=== PATIENT | female | born 1965 | race Caucasian/White ===

== ENCOUNTER → 2017-10-22 09:36 | Outpatient (CLI) | payer BC, SELFPAY ==
--- NOTE | 2017-10-22 09:40 | MM_ITS ---
MM Dig screening mamm BI w/CAD CAD Screening COMPARISON: Digital mammograms with CAD 10/18/2016 and 09/19/2015 INDICATION: There is a history of breast cancer in the patient maternal aunt and paternal aunt. TECHNIQUE: Standard CC and MLO images were obtained. R2 CAD reviewed. FINDINGS: The breasts are composed primarily of fat with minimal scattered fiber glandular densities throughout. There is no suspicious lesion and no suspicious microcalcifications. IMPRESSION: Fatty type breast parenchyma no suspicious lesion seen BI-RADS Category: 2 Benign Finding(s) RECOMMENDED FOLLOW-UP: 1YR - 1 YEAR FOLLOW-UP (A letter has been sent to the patient regarding results of the study.)
== END ==
PROVIDERS: Family Provider Nurse Practitioner Family; PCP Internal Medicine Adolescent Medicine; Visit Provider Nurse Practitioner Obstetrics & Gynecology
DX: Z12.31 Encounter for screening mammogram for malignant neoplasm of breast (principal)
CPT/HCPCS: 77067

== ENCOUNTER → 2018-10-13 09:34 | Outpatient (CLI) | payer BC, SELFPAY ==
--- NOTE | 2018-10-13 09:38 | MM_ITS ---
MM Dig screening mamm BI w/CAD CAD Screening COMPARISON: Digital mammograms with CAD 10/22/2017 and 10/18/2016 INDICATION: There is a history of breast cancer patient maternal aunt and paternal aunt TECHNIQUE: Standard CC and MLO images were obtained. R2 CAD reviewed. FINDINGS: The breasts are composed primarily of fat with minimal scattered fibro glandular densities in each breast. There is no suspicious lesion in either breast and no suspicious microcalcifications. There is a mole marker right breast. There is a stable tiny benign-appearing nodular density axillary tail left breast. IMPRESSION: Fibrofatty parenchyma no suspicious lesion seen BI-RADS Category: 2 Benign Finding(s) RECOMMENDED FOLLOW-UP: 1YR - 1 YEAR FOLLOW-UP (A letter has been sent to the patient regarding results of the study.)
== END ==
PROVIDERS: PCP Internal Medicine Adolescent Medicine; Visit Provider Nurse Practitioner Obstetrics & Gynecology
DX: Z12.31 Encounter for screening mammogram for malignant neoplasm of breast (principal)
CPT/HCPCS: 77067

== ENCOUNTER → 2018-10-15 08:05 | Outpatient (CLI) | payer BC, SELFPAY ==
[2018-10-15 14:02] LABS: Albumin Level 3.7 gm/dL (3.4-5.0); Aspartate Amino Transferase 15 U/L (15-37); Blood Urea Nitrogen 13 mg/dL (7-18); Calcium 9.1 mg/dL (8.5-10.1); Glucose 117 mg/dL (74-106)
[2018-10-15 14:13] LABS: Basophils % 0.6 % (0.1-2.0); Eosinophils # 0.3 K/mm3 (0.0-0.4); Eosinophils % 4.3 % (0.1-12.0); Hemoglobin 12.2 g/dL (12.2-16.2); Lymphocytes # 1.7 K/mm3 (0.7-4.5); Lymphocytes % 24.3 % (10-50); Mean Corpuscular HGB Conc 32.1 g/dL (31.8-35.4); Mean Corpuscular Hemoglobin 26.6 pg (27.0-31.2); Mean Corpuscular Volume 82.8 fl (81-99); Mean Platelet Volume 8.4 fl (7.4-10.4); Monocytes # 0.3 K/mm3 (0.1-1.0); Monocytes % 4.2 % (1.7-9.3); Neutrophils # 4.6 K/mm3 (1.8-7.8); Neutrophils % 66.5 % (37.0-80.0); Platelet Count 253 K/mm3 (142-424); Red Blood Count 4.59 M/mm3 (4.20-5.40); Red Cell Distribution Width 12.7 % (11.5-17.5); White Blood Count 6.9 K/mm3 (4.8-10.8)
[2018-10-15 14:31] LABS: Alanine Aminotransferase 34 U/L (12-78); Albumin/Globulin Ratio 1.4 (1.1-1.8); Alkaline Phosphatase 93 U/L (46-116); Anion Gap 18.2 mEq/L (5-15); Bilirubin,Total 0.4 mg/dL (0.2-1.0); Carbon Dioxide 23 mmol/L (21.0-32.0); Chloride 108 mmol/L (98-107); Chol/HDL Ratio 3.4 (1-3.5); Cholesterol 159 mg/dL (140-200); Creatinine,Serum 0.71 mg/dL (0.55-1.02); Estimated Glomerular Filt Rate 86 ml/min (>60); GFR (African American) 104 ML/MIN (>60); Globulin 2.6 gm/dl (1.3-3.2); HDL Cholesterol 47 mg/dL (29-89); LDL Cholesterol 99 mg/dL (0-130); Potassium 4.2 mmoL/L (3.5-5.1); Sodium 145 mmol/L (136-145); Total Protein,Serum 6.3 gm/dL (6.4-8.2); Triglycerides 66 mg/dL (30-200); VLDL Cholesterol 13 mg/dL (0-40)
== END ==
PROVIDERS: PCP Internal Medicine Adolescent Medicine; Visit Provider Nurse Practitioner Obstetrics & Gynecology
DX: Z01.419 Encounter for gynecological examination (general) (routine) without abnormal findings (principal)
CPT/HCPCS: 36415; 80053; 80061; 85025

== ENCOUNTER → 2019-08-03 14:10 | Outpatient (CLI) | payer BC, SELFPAY ==
--- NOTE | 2019-08-03 | XR_ITS ---
PROCEDURE: XR CHEST 2V CLINICAL HISTORY: PRE-OP. Previous smoker COMPARISON: [facility] ARTERIAL/[id number] from 11/30/2015 FINDINGS: The cardiomediastinal silhouette and pulmonary vascularity are within normal limits. The lungs are clear without infiltrates, suspicious nodules, or pleural effusions. Calcified granuloma is noted in the anterior clear space. No acute bony anomalies. IMPRESSION: No acute findings. Dictated by: Cal Sage MD 08/03/2019 17:37 Electronically signed by Cal Sage MD in [place] 08/03/2019 17:37
== END ==
PROVIDERS: PCP Internal Medicine Adolescent Medicine; Visit Provider Internal Medicine Adolescent Medicine
DX: Z01.818 Encounter for other preprocedural examination (principal)
CPT/HCPCS: 71046

== ENCOUNTER 2019-10-21 10:00 | Outpatient (RCR) | payer BC, SELFPAY | END 2019-11-18 10:58 | disposition home or self-care (01) | LOC: PT.CARL 10:00 | PROVIDERS: Visit Provider Orthopaedic Surgery | DX: M25.551 Pain in right hip (principal); Z96.641 Presence of right artificial hip joint | CPT/HCPCS: 97110; 97140; 97163 ==

== ENCOUNTER → 2019-11-02 13:19 | Outpatient (CLI) | payer BC, SELFPAY ==
--- NOTE | 2019-11-02 13:19 | MM_ITS ---
PROCEDURE: MM DIG SCREENING MAMM BI W/CAD DIGITAL BREAST TOMOSYNTHESIS INCLUDED Patient Age:54Y CLINICAL INDICATION: Routine screening xm-year-old no hormones but no new complaints. Family history: Maternal and paternal aunts with breast cancer COMPARISON: [facility] DIG MAMM-SCREEN LUCY from 09/14/2014 [facility] DIG MAMM-SCREEN LUCY from 09/19/2015 [facility] DIG MAMM-SCREEN LUCY W/CAD from 10/18/2016 [facility] MM Dig screening mamm BI w/CAD from 10/22/2017 DIG MAMM-SCREEN LUCY from 10/13/2018 TECHNIQUE: Standard CC and MLO images were obtained. R2 CAD reviewed. Bilateral digital breast tomosynthesis included. FINDINGS: Minimal residual fibroglandular minutes with relatively low-density breast. Moderate generalized fatty replacement or the no dominant mass or suspicious calcifications in either breast. No architectural distortion. Right breast no new areas of concern Small focal density central breast on CC view has been present since study and dissipates on other views/and tomosynthesis Left breast: No areas of concern but Bilateral follow-up 1 year. 1 year recommended. IMPRESSION: Stable bilateral mammogram. Follow-up stable bilateral mammogram BI-RAD Category: 1 Negative FOLLOW-UP: (A letter has been sent to the patient regarding results of the study.) Dictated by: Nickolas De León MD 11/02/2019 15:00 Electronically signed by Nickolas De León MD in [place] 11/02/2019 15:00
== END ==
PROVIDERS: PCP Internal Medicine Adolescent Medicine; Visit Provider Nurse Practitioner Obstetrics & Gynecology
DX: Z12.31 Encounter for screening mammogram for malignant neoplasm of breast (principal)
CPT/HCPCS: 77063; 77067

== ENCOUNTER → 2020-08-10 06:24 | Outpatient (CLI) | payer BC, SELFPAY ==
[2020-08-10 14:38] LABS: Alanine Aminotransferase 27 U/L (12-78); Albumin Level 4.1 g/dl (3.5-5.0); Albumin/Globulin Ratio 1.9 (1.1-1.8); Alkaline Phosphatase 89 U/L (38-126); Anion Gap 10.3 mEq/L (5-15); Aspartate Amino Transferase 22 U/L (14-36); Bilirubin,Total 0.5 mg/dl (0.2-1.3); Blood Urea Nitrogen 13 mg/dl (7-17); Calcium 9.3 mg/dl (8.4-10.2); Carbon Dioxide 26 mmol/L (22.0-30.0); Chloride 108 mmol/L (98-107); Chol/HDL Ratio 3.8 (1-3.5); Cholesterol 165 mg/dl (140-200); Estimated Glomerular Filt Rate 87 ml/min (>60); GFR (African American) 105 ML/MIN (>60); Globulin 2.2 g/dL (1.3-3.2); Glucose 138 mg/dl (74-100); HDL Cholesterol 43 mg/dl (40-60); Potassium 4.3 mmoL/L (3.5-5.1); Sodium 140 mmol/L (136-145); Total Protein,Serum 6.3 g/dl (6.3-8.2); Triglycerides 91 mg/dl (30-150); VLDL Cholesterol 18 mg/dL (0-40)
[2020-08-10 14:43] LABS: Basophils # 0.1 K/mm3 (0-0.2); Basophils % 0.7 % (0.1-2.0); Eosinophils # 0.3 K/mm3 (0.0-0.4); Eosinophils % 3.6 % (0.1-12.0); Hematocrit 38.8 % (37.0-47.0); Hemoglobin 12.6 g/dL (12.2-16.2); Lymphocytes # 1.8 K/mm3 (0.7-4.5); Mean Corpuscular HGB Conc 32.6 g/dL (31.8-35.4); Mean Corpuscular Hemoglobin 27.2 pg (27.0-31.2); Mean Corpuscular Volume 83.6 fl (81-99); Mean Platelet Volume 8.9 fl (7.4-10.4); Monocytes # 0.4 K/mm3 (0.1-1.0); Monocytes % 3.9 % (1.7-9.3); Neutrophils # 6.5 K/mm3 (1.8-7.8); Neutrophils % 71.9 % (37.0-80.0); Platelet Count 284 K/mm3 (142-424); Red Blood Count 4.64 M/mm3 (4.20-5.40); Red Cell Distribution Width 13.7 % (11.5-17.5)
[2020-08-10 14:49] LABS: Direct LDL Cholesterol 99.54 mg/dL (100-129)
[2020-08-10 14:56] LABS: 25-OH Vitamin D, Total 32.6 ng/mL (30-100)
[2020-08-10 15:09] LABS: Thyroid Stimulating Hormone 2.85 uIU/mL (0.465-4.68)
[2020-08-10 15:28] LABS: Vitamin B12 494 pg/mL (239-931)
== END ==
PROVIDERS: Visit Provider Nurse Practitioner Family
DX: R53.83 Other fatigue (principal); E66.9 Obesity, unspecified; Z68.38 Body mass index [BMI] 38.0-38.9, adult
CPT/HCPCS: 36415; 80053; 80061; 82306; 82607; 84443; 85025

== ENCOUNTER → 2020-10-11 07:42 | Outpatient (CLI) | payer BC, SELFPAY ==
--- NOTE | 2020-10-11 07:43 | MM_ITS ---
PROCEDURE: MM DIG SCREENING MAMM BI W/CAD Digital Breast Tomosynthesis Included CLINICAL INDICATION: screening xmg COMPARISON: MG [facility] MM Dig screening mamm BI w/CAD from 10/22/2017 MG DIG MAMM-SCREEN LUCY from 10/13/2018 MG MM DIG SCREENING MAMM BI W/CAD from 11/02/2019 TECHNIQUE: Standard CC and MLO images and 3D Tomosynthesis was obtained. R2 CAD reviewed. FINDINGS: Fatty replaced fibroglandular tissue. No malignant appearing mass or malignant-appearing microcalcification. No skin thickening or architectural distortion. IMPRESSION: BI-RAD Category: 1 Negative FOLLOW-UP: 1 YR 1 Year Follow-up (A letter has been sent to the patient regarding results of the study.) Dictated by: Cal Sage MD 10/11/2020 08:44 Cal Sage MD in [place] 10/11/2020 08:44
== END ==
PROVIDERS: PCP Internal Medicine Adolescent Medicine; Visit Provider Nurse Practitioner Obstetrics & Gynecology
DX: Z12.31 Encounter for screening mammogram for malignant neoplasm of breast (principal)
CPT/HCPCS: 77063; 77067

== ENCOUNTER → 2021-10-19 09:58 | Outpatient (CLI) | payer BC, SELFPAY ==
--- NOTE | 2021-10-19 09:58 | MM_ITS ---
PROCEDURE INFORMATION: Exam: MG Bilateral Screening 3D Mammography Exam date and time: 10/19/2021 9:55 AM Age: 56 years old Clinical indication: Screening examination TECHNIQUE: Imaging protocol: Bilateral Screening tomosynthesis and 2D mammography including computer-aided detection (CAD) when performed. COMPARISON: 1. MG MM DIG SCREENING MAMM BI W/CAD 10/11/2020 8:00 AM 2. MG MM DIG SCREENING MAMM BI W/CAD 11/02/2019 1:21 PM FINDINGS: MAMMOGRAPHY: Breast composition: The breasts are almost entirely fatty. Mass: None. Architectural distortion: None. Calcifications: No suspicious calcifications. Asymmetric density: None. Skin thickening: None. Axillary adenopathy: None. IMPRESSION: No mammographic evidence of malignancy. Annual screening is recommended unless otherwise clinically indicated. ASSESSMENT: BI-RADS Category 1: Negative
== END ==
PROVIDERS: PCP Internal Medicine Adolescent Medicine; Visit Provider Nurse Practitioner Obstetrics & Gynecology
DX: Z12.31 Encounter for screening mammogram for malignant neoplasm of breast (principal)
CPT/HCPCS: 77063; 77067

== ENCOUNTER → 2021-12-19 07:12 | Outpatient (CLI) | payer BC, SELFPAY ==
[2021-12-19 16:21] LABS: Basophils # 0.1 K/mm3 (0-0.2); Basophils % 0.8 % (0.1-2.0); Eosinophils # 0.4 K/mm3 (0.0-0.4); Eosinophils % 4.5 % (0.1-12.0); Hematocrit 37.7 % (37.0-47.0); Hemoglobin 11.8 g/dL (12.2-16.2); Lymphocytes # 1.5 K/mm3 (0.7-4.5); Mean Corpuscular HGB Conc 31.4 g/dL (31.8-35.4); Mean Corpuscular Hemoglobin 25.8 pg (27.0-31.2); Mean Corpuscular Volume 82.3 fl (81-99); Mean Platelet Volume 9.3 fl (7.4-10.4); Monocytes # 0.4 K/mm3 (0.1-1.0); Monocytes % 4.7 % (1.7-9.3); Neutrophils # 5.7 K/mm3 (1.8-7.8); Platelet Count 357 K/mm3 (142-424); Red Blood Count 4.58 M/mm3 (4.20-5.40); Red Cell Distribution Width 15.6 % (11.5-17.5)
[2021-12-19 16:34] LABS: Chloride 103 mmol/L (98-107)
[2021-12-19 16:35] LABS: Potassium 4.4 mmoL/L (3.5-5.1); Sodium 140 mmol/L (136-145)
[2021-12-19 16:37] LABS: Alanine Aminotransferase 22 U/L (12-78); Alkaline Phosphatase 133 U/L (38-126); Aspartate Amino Transferase 23 U/L (14-36); Blood Urea Nitrogen 8 mg/dl (7-17); Estimated Glomerular Filt Rate 86 ml/min (>60); GFR (African American) 104 ML/MIN (>60)
[2021-12-19 16:38] LABS: Albumin Level 3.8 g/dl (3.5-5.0); Albumin/Globulin Ratio 1.5 (1.1-1.8); Anion Gap 15.4 mEq/L (5-15); Calcium 8.9 mg/dl (8.4-10.2); Carbon Dioxide 26 mmol/L (22.0-30.0); Chol/HDL Ratio 3.9 (1-3.5); Cholesterol 151 mg/dl (140-200); Globulin 2.5 g/dL (1.3-3.2); Glucose 187 mg/dl (74-100); HDL Cholesterol 39 mg/dl (40-60); Total Protein,Serum 6.3 g/dl (6.3-8.2); Triglycerides 96 mg/dl (30-150); VLDL Cholesterol 19 mg/dL (0-40)
[2021-12-19 16:49] LABS: Bilirubin,Total < 0.1 mg/dl (0.2-1.3); Direct LDL Cholesterol 91.48 mg/dL (100-129)
== END ==
PROVIDERS: PCP Internal Medicine Adolescent Medicine; Visit Provider Nurse Practitioner Obstetrics & Gynecology
DX: Z01.419 Encounter for gynecological examination (general) (routine) without abnormal findings (principal)
CPT/HCPCS: 36415; 80053; 80061; 85025

== ENCOUNTER → 2021-12-21 15:44 | Outpatient (CLI) | payer BC, SELFPAY ==
[2021-12-21 16:49] LABS: Hemoglobin A1C 6.5 % (4.0-6.0)
== END ==
PROVIDERS: PCP Internal Medicine Adolescent Medicine; Visit Provider Obstetrics & Gynecology
DX: R73.09 Other abnormal glucose (principal)
CPT/HCPCS: 36415; 83036

== ENCOUNTER → 2022-10-22 10:56 | Outpatient (CLI) | payer BC, SELFPAY ==
--- NOTE | 2022-10-22 10:58 | MM_ITS ---
PROCEDURE INFORMATION: Exam: MG Bilateral Screening 3D Mammography Exam date and time: 10/22/2022 10:50 AM Age: 57 years old Clinical indication: Screening examination TECHNIQUE: Imaging protocol: Bilateral Screening tomosynthesis and 2D mammography including computer-aided detection (CAD) when performed. COMPARISON: 1. MG MM DIG SCREENING MAMM BI W/CAD 10/19/2021 9:55 AM 2. MG MM DIG SCREENING MAMM BI W/CAD 10/11/2020 8:00 AM FINDINGS: MAMMOGRAPHY: Breast composition: The breasts are almost entirely fatty. Mass: None. Architectural distortion: None. Calcifications: No suspicious calcifications. Asymmetric density: None. Skin thickening: None. Axillary adenopathy: None. IMPRESSION: No mammographic evidence of malignancy. Annual screening is recommended unless otherwise clinically indicated. ASSESSMENT: BI-RADS Category 1: Negative
== END ==
PROVIDERS: PCP Internal Medicine Adolescent Medicine; Visit Provider Nurse Practitioner Obstetrics & Gynecology
DX: Z12.31 Encounter for screening mammogram for malignant neoplasm of breast (principal)
CPT/HCPCS: 77063; 77067

== ENCOUNTER 2022-12-03 16:29 | Emergency (ER) | payer BC, SELFPAY ==
--- NOTE | 2022-12-03 17:01 | EXP.UTC ---
Discharge Plan Disposition Patient Disposition: Home, Self-Care Condition: Good Prescriptions Prescriptions: New ciprofloxacin HCl [Cipro] 500 mg tablet 500 mg PO BID 5 Days Qty: 10 0RF No Action omeprazole 40 mg capsule,delayed release(DR/EC) 40 mg PO Ozempic 0.25 mg or 0.5 mg (2 mg/3 mL) pen injector 0.5 mg SQ WEEKLY Referrals Follow up/Referrals: Jared Coronel MD [Primary Care Provider] - See instructions Activity Restrictions/Add. Instructions Additional Instructions/Restrictions: Drink plenty of fluids. Take tylenol or ibuprofen for pain or fever. Take the medications as directed. Follow up with your regular doctor. GO TO THE ER FOR ANY WORSENING SYMPTOMS We will culture the urine. That will tell what bacteria is causing your infection and which antibiotics will treat it best. Sometimes the first antibiotic we prescribe turns out to not work against different bacteria. So, make sure you follow up within 3 days if you are not getting better. Clinical Impressions Clinical Impression: UTI (urinary tract infection), Low back pain Stand Alone Forms Stand Alone Forms: Work/School Release Instructions Patient Instructions: Low Back Pain, Urine Culture, DI for Low Back Pain, DI for Urinary Tract Infection (UTI) Discharge ED Provider: Bronson Josehp [facility] General Stated complaint: back pain Time Seen by Provider: 12/03/22 17:01 History of Present Illness Provider Complaint: She states that for the past 2 days she has had low back pain, dysuria, and urinary frequency. Related Data Home Medications Medication Instructions Recorded Confirmed omeprazole 40 mg capsule,delayed 40 mg PO 10/19/21 10/22/22 release semaglutide 0.25 mg or 0.5 mg (2 0.5 mg SQ WEEKLY 10/22/22 10/22/22 mg/3 mL) subcutaneous pen injector (Ozempic) Previous Rx's Medication Instructions Recorded ciprofloxacin HCl 500 mg tablet 500 mg PO BID 5 days #10 tabs 12/03/22 (Cipro) Allergies Allergy/AdvReac Type Severity Reaction Status Date / Time Sulfa (Sulfonamide Allergy Intermediate SWELLING, Verified 12/03/22 17:09 Antibiotics) SHORT OF BREATH [facility] Disclaimer: The information contained in this section may have been updated after the patient was seen, as this information can be updated by other users. Medical History (Updated 12/03/22 @ 17:32 by Bronson Joseph APRN) Diabetes mellitus GERD (gastroesophageal reflux disease) Surgical History (Updated 10/22/22 @ 10:09 by FARHANA Loving) History of total hip replacement Family History Family/Other Cancer Breast-aunts Other Diabetes Social History Smoking Status: Former smoker alcohol intake: never substance use type: denies use current occupational status: employed Travel in the last 8 weeks: None caffeine: No ROS Obtained: Yes All systems reviewed & no additional complaints except as documented Constitutional Constitutional: Reports system reviewed and no additional complaints, except as documented, Denies chills and Denies fever(s) Eyes Eyes: Denies eye discharge ENT Ears, Nose, Mouth, and Throat: Denies dysphagia, Denies sore throat and Denies throat swelling Cardiovascular Cardiovascular: Denies chest pain and Denies dyspnea Respiratory Respiratory: Denies chest congestion, Denies cough and Denies dyspnea Gastrointestinal Gastrointestingal: Denies abdominal pain, constipation, diarrhea, dysphagia, nausea or vomiting Genitourinary Female Genitourinary: Reports as per HPI, Reports dysuria, Reports urinary frequency, Denies urinary incontinence, Reports urinary hesitancy and Reports urinary urgency Musculoskeletal Musculoskeletal: Denies arthralgias and Reports back pain Integumentary/Breasts Skin/Breast: Denies rash Neurologic Neurologic: Denies paresthesias
[2022-12-03 17:10] VITALS: BP 137/76; PULSE 84; RESP 16; TEMP 36.7; O2SAT 98; BMI 34.4
[2022-12-03 17:46] VITALS: BP 134/76; PULSE 84; RESP 16; TEMP 36.7
== END 2022-12-03 17:48 | disposition home or self-care (01) ==
PROVIDERS: Emergency Provider Nurse Practitioner Family; PCP Internal Medicine Adolescent Medicine
DX: N39.0 Urinary tract infection, site not specified (principal); M54.59 Other low back pain; E11.9 Type 2 diabetes mellitus without complications; K21.9 Gastro-esophageal reflux disease without esophagitis; Z79.85 Long-term (current) use of injectable non-insulin antidiabetic drugs; Z87.891 Personal history of nicotine dependence
CPT/HCPCS: 96372; 99204; 99212; G0463

== ENCOUNTER 2023-02-04 09:30 | Emergency (ER) | payer BC, SELFPAY ==
--- NOTE | 2023-02-04 09:34 | CT_ITS ---
FINAL REPORT TECHNIQUE: Thin section axial images were obtained through the neck and head after contrast administration per CT angiogram protocol. Multiplanar reconstruction images were obtained from the axial data. Exam was performed using dose reduction technique. CLINICAL HISTORY: L weakness/paraesthesia. stroke protocol COMPARISON: None FINDINGS: CTA NECK: Aortic arch: There is a normal three-vessel configuration to the aortic arch. There is no significant stenosis of the great vessels at their origins. Right carotid artery: The right common carotid artery is patent without stenosis. The cervical portions of the right internal carotid artery are patent without stenosis. Left carotid artery: The left common carotid artery is patent without stenosis. The cervical portions of the left internal carotid artery are patent without stenosis. Vertebral arteries: The vertebral arteries are patent without stenosis. Other soft tissues: No acute findings. CTA HEAD: The intracerebral portions of the carotid arteries are patent. The anterior and middle cerebral arteries are patent. The basilar artery is patent. The left vertebral artery is dominant. The posterior cerebral arteries arise from the basilar artery. [place] is intact. There is no significant stenosis, aneurysm, or AVM. Again seen is a right parietal mass. IMPRESSION: No carotid stenosis. Patent intracerebral vasculature without significant stenosis or occlusion. Right parietal intracranial mass. Reviewed, Interpreted and Dictated by Chikis Melendez MD Transcribed by Mini Renae Authenticated and [facility]
--- NOTE | 2023-02-04 09:34 | CT_ITS ---
FINAL REPORT TECHNIQUE: Thin section axial images were obtained from skull base to vertex without contrast. Coronal reconstruction images were obtained from the axial data. Exam was performed using dose reduction technique. CLINICAL HISTORY: L weakness, Stroke protocol COMPARISON: None FINDINGS: There is a hyperdense mass measuring 2 cm in the right parietal lobe. There is surrounding hypodensity most consistent with cerebral edema. No evidence of midline shift. However, there is mild mass effect upon the right lateral ventricle. No other intracranial abnormality. The posterior fossa is without acute abnormality. The basilar cisterns are preserved. The soft tissues are without acute abnormality. No acute osseous abnormality is identified. IMPRESSION: Hyperdense right parietal mass with surrounding cerebral edema. Favor hypoplastic. Hemorrhagic lesion not excluded. Reviewed, Interpreted and Dictated by Chikis Melendez MD Transcribed by Mini Renae Authenticated and [facility]
--- NOTE | 2023-02-04 09:34 | CT_ITS ---
FINAL REPORT CLINICAL HISTORY: L weakness/paraesthesia COMPARISON: None FINDINGS: Please see full report with CTA head/brain earlier same day IMPRESSION: No carotid stenosis. Reviewed, Interpreted and Dictated by Chikis Melendez MD Transcribed by Mini Renae Authenticated and [facility]
--- NOTE | 2023-02-04 09:35 | ECG_ITS ---
APPROVED REPORT Exam: Resting ECG HR:77 bpm ECG Measurements Heart Rate 77 AXES IL 155 P 59 QRSd 85 QRS 55 QT 365 T 63 QTc 397 Conclusion SINUS RHYTHM WITH SINUS ARRHYTHMIA LOW QRS VOLTAGE IN PRECORDIAL LEADS [QRS DEFLECTION < 1.0 mV IN CHEST LEADS] BORDERLINE ECG UNCONFIRMED REPORT Electronically signed by : Jared Coronel MD 02/04/2023 17:48:40
--- NOTE | 2023-02-04 09:36 | XR_ITS ---
FINAL REPORT TECHNIQUE: Single view chest CLINICAL HISTORY: sob COMPARISON: 08/03/2019 FINDINGS: A single view of the chest was obtained. The heart and mediastinum are within normal limits. The lungs are clear. There is no pneumothorax. Osseous structures are unremarkable. IMPRESSION: No acute cardiopulmonary process. Reviewed, Interpreted and Dictated by Chikis Melendez MD Transcribed by Maryan Foster Authenticated and [facility]
--- NOTE | 2023-02-04 09:36 | HMH.EDGENADL ---
Discharge Plan Disposition Patient Disposition: Xfer Short-Term Hosp Chief Complaint: Weakness Prescriptions Prescriptions: No Action omeprazole 40 mg capsule,delayed release(DR/EC) 40 mg PO Ozempic 0.25 mg or 0.5 mg (2 mg/3 mL) pen injector 0.5 mg SQ WEEKLY ciprofloxacin HCl [Cipro] 500 mg tablet 500 mg PO BID 5 Days Qty: 10 0RF Clinical Impressions Clinical Impression: Intracranial mass Stand Alone Forms Stand Alone Forms: Transfer Record - ED Discharge ED Provider: Shaun Troncoso General Adult HPI General Chief complaint: Weakness Stated complaint: weakness Time Seen by Provider: 02/04/23 09:30 History of Present Illness HPI narrative: Patient is a 57-year-old female with no past medical history who presents emergency department for evaluation of weakness. History is obtained by patient at bedside. Patient awoke on Saturday morning with left-sided weakness. Since then she states she has been veering towards the left and has had paresthesias of her hands and feet. This was preceded by upper respiratory symptoms and cough. No other acute complaints at this time. Patient is not on blood thinners. No trauma. Related Data Home Medications Medication Instructions Recorded Confirmed omeprazole 40 mg capsule,delayed 40 mg PO 10/19/21 10/22/22 release semaglutide 0.25 mg or 0.5 mg (2 0.5 mg SQ WEEKLY 10/22/22 10/22/22 mg/3 mL) subcutaneous pen injector (Ozempic) Previous Rx's Medication Instructions Recorded ciprofloxacin HCl 500 mg tablet 500 mg PO BID 5 days #10 tabs 12/03/22 (Cipro) Allergies Allergy/AdvReac Type Severity Reaction Status Date / Time Sulfa (Sulfonamide Allergy Intermediate SWELLING, Verified 12/03/22 17:09 Antibiotics) SHORT OF BREATH [facility] Disclaimer: The information contained in this section may have been updated after the patient was seen, as this information can be updated by other users. Medical History (Updated 02/04/23 @ 11:16 by Shaun Trocnoso MD) Diabetes mellitus GERD (gastroesophageal reflux disease) Surgical History (Updated 10/22/22 @ 10:09 by FARHANA Loving) History of total hip replacement Family History Family/Other Cancer Breast-aunts Other Diabetes Social History Smoking Status: Never smoker alcohol intake: never substance use type: denies use current occupational status: employed Travel in the last 8 weeks: None caffeine: No ROS Obtained: Yes Systems reviewed as appropriate & no additional complaints except as documented Physical Exam General General appearance: alert and in no apparent distress Head Head exam: atraumatic and normocephalic Eye Eye exam: Present PERRL and EOMI ENT ENT exam: Present normal oropharynx, mucous membranes moist and TM's normal bilaterally Neck Neck exam: Present normal inspection Chest Chest inspection: Present normal inspection and symmetric chest wall rise Respiratory Respiratory exam: Present normal lung sounds bilaterally; Absent respiratory distress Cardiovascular Cardiovascular exam: Present regular rate and normal rhythm Abdominal Exam Abdominal exam: Present soft; Absent tenderness Extremities Exam Extremities exam: Present normal inspection Neurological Exam Neurological exam: Present alert, CN II-XII intact and motor sensory deficit (Decreased sensation left arm and leg. 5 out of 5 strength bilateral upper and lower extremities) Psychiatric Psychiatric exam: Present normal affect Skin Skin exam: Present warm and dry Medical Decision Making Christiano Inquiry Pt receiving controlled substance: No Vital Signs: 02/04/23 09:59 Temperature 97.9 F Temperature Source Oral Pulse Rate [Left Radial] 87 Respiratory Rate 20 Blood Pressure [Right Arm] 143/84 H Blood Pressure Mean [Right Arm] 103 02 Sat by Puls
[2023-02-04 09:46] LABS: Basophils # 0.1 K/mm3 (0-0.2); Basophils % 0.6 % (0.1-2.0); Eosinophils # 0.2 K/mm3 (0.0-0.4); Eosinophils % 1.9 % (0.1-12.0); Hematocrit 38.1 % (37.0-47.0); Hemoglobin 13.3 g/dL (12.2-16.2); Lymphocytes # 1.8 K/mm3 (0.7-4.5); Lymphocytes % 17.9 % (10-50); Mean Corpuscular HGB Conc 34.9 g/dL (31.8-35.4); Mean Corpuscular Hemoglobin 26.5 pg (27.0-31.2); Mean Corpuscular Volume 75.9 fl (81-99); Mean Platelet Volume 8.2 fl (7.4-10.4); Monocytes # 0.4 K/mm3 (0.1-1.0); Monocytes % 4.3 % (1.7-9.3); Neutrophils # 7.5 K/mm3 (1.8-7.8); Neutrophils % 75.3 % (37.0-80.0); Platelet Count 301 K/mm3 (142-424); Red Blood Count 5.02 M/mm3 (4.20-5.40); Red Cell Distribution Width 14.7 % (11.5-17.5)
[2023-02-04 09:58] LABS: Activated Partial Thrombo Time 27.9 seconds (22.8-30.6); INR 0.99 (0.9-1.1); Prothrombin Time 10.7 seconds (10.1-12.5)
[2023-02-04 09:59] VITALS: BP 143/84; PULSE 87; RESP 20; TEMP 36.6; O2SAT 97; BMI 32.9
[2023-02-04 10:05] LABS: Alanine Aminotransferase 16 U/L (12-78); Albumin Level 4.4 g/dl (3.5-5.0); Albumin/Globulin Ratio 1.4 (1.1-1.8); Alkaline Phosphatase 106 U/L (38-126); Anion Gap 12.9 mEq/L (5-15); Aspartate Amino Transferase 19 U/L (14-36); Bilirubin,Total 0.5 mg/dl (0.2-1.3); Blood Urea Nitrogen 12 mg/dl (7-17); Calcium 10.1 mg/dl (8.4-10.2); Carbon Dioxide 28 mmol/L (22.0-30.0); Chloride 104 mmol/L (98-107); Chol/HDL Ratio 3.8 (1-3.5); Cholesterol 174 mg/dl (140-200); Estimated Glomerular Filt Rate 74 ml/min (>60); GFR (African American) 89 ML/MIN (>60); Globulin 3.2 g/dL (1.3-3.2); Glucose 104 mg/dl (74-100); HDL Cholesterol 46 mg/dl (40-60); Potassium 3.9 mmoL/L (3.5-5.1); Sodium 141 mmol/L (136-145); Total Protein,Serum 7.6 g/dl (6.3-8.2); Triglycerides 68 mg/dl (30-150); VLDL Cholesterol 14 mg/dL (0-40)
[2023-02-04 10:16] LABS: Direct LDL Cholesterol 97.05 mg/dL (100-129)
--- NOTE | 2023-02-04 10:29 | PC.NURSE ---
RADIOLOGY NOTIFIED OF CT SCAN, VERBAL MD ORDER TO COMPLETE WITHOUT LAB RESULTS
--- NOTE | 2023-02-04 10:30 | PC.NURSE ---
notified CT staff wanted him present in scan. At this time [facility] is contacted and [facility] called for weather
--- NOTE | 2023-02-04 10:45 | HMH.ITSTN ---
I called and had Dr Troncoso come and look at CT head without images due to concerns of possible abnormal finding, I wanted a verbal before proceeding with iv contrast. Dr. Troncoso gave me verbal to continue with iv contrast.
--- NOTE | 2023-02-04 10:45 | PC.NURSE ---
[facility] NOTIFIED AT THIS TIME FOR TRANSFER [place] [facility]
--- NOTE | 2023-02-04 10:49 | PC.NURSE ---
called for stroke team, Dr Troncoso speaking with Dr Holland
--- NOTE | 2023-02-04 10:51 | PC.NURSE ---
DR MAHARAJ SPEAKING WITH DR OLIVERA
--- NOTE | 2023-02-04 10:52 | PC.NURSE ---
[facility] called for transport
--- NOTE | 2023-02-04 11:07 | PC.NURSE ---
awaiting to hear what team is accepting pt at [facility]
--- NOTE | 2023-02-04 11:11 | PC.NURSE ---
dr champagne speaking with [facility]
--- NOTE | 2023-02-04 11:24 | PC.NURSE ---
[facility] here for transport to [facility]
[2023-02-04 11:27] VITALS: BP 153/79; PULSE 93; RESP 20; TEMP 36.7; O2SAT 100
== END 2023-02-04 11:30 | disposition short-term general hospital (02) ==
PROVIDERS: Emergency Provider Emergency Medicine; PCP Internal Medicine Adolescent Medicine
DX: R90.0 Intracranial space-occupying lesion found on diagnostic imaging of central nervous system (principal); R20.2 Paresthesia of skin; M62.81 Muscle weakness (generalized); I49.9 Cardiac arrhythmia, unspecified; E11.9 Type 2 diabetes mellitus without complications; K21.9 Gastro-esophageal reflux disease without esophagitis; Z79.85 Long-term (current) use of injectable non-insulin antidiabetic drugs
CPT/HCPCS: 70450; 70496; 70498; 71045; 80053; 80061; 85025; 85610; 85730; 93005; 99291; Q9967

== ENCOUNTER 2024-01-08 13:00 | Outpatient (RCR) | payer BC, SELFPAY | END 2024-01-21 17:00 | disposition home or self-care (01) | LOC: PT 13:00 | PROVIDERS: Visit Provider Orthopaedic Surgery | DX: C79.51 Secondary malignant neoplasm of bone (principal); C64.9 Malignant neoplasm of unspecified kidney, except renal pelvis | CPT/HCPCS: 97110; 97163; 97164; 97530 ==

== ENCOUNTER 2024-03-04 11:00 | Outpatient (RCR) | payer BC, SELFPAY | END 2024-03-04 23:59 | disposition home or self-care (01) | LOC: PT 11:00 | PROVIDERS: Visit Provider Nurse Practitioner Family | DX: M23.204 Derangement of unspecified medial meniscus due to old tear or injury, left knee (principal) | CPT/HCPCS: 97110; 97112; 97163; 97164; 97530 ==

== ENCOUNTER 2024-08-10 11:52 | Outpatient (CLI) | payer BC, SELFPAY ==
--- NOTE | 2024-08-10 11:58 | XR_ITS ---
FINAL REPORT CLINICAL HISTORY: soa COMPARISON: 08/03/2019 FINDINGS: CHEST 2 VIEWS PA AND LATERAL The heart is normal in size. The mediastinum is unremarkable. There is a new large right pleural effusion. The left lung is clear. There is no pneumothorax. IMPRESSION: Large right pleural effusion. Reviewed, Interpreted and Dictated by Santiago Morales MD Transcribed by Ana Topete Authenticated and [facility]
== END 2024-08-10 23:59 | disposition home or self-care (01) ==
LOC: RAD 11:53
PROVIDERS: PCP Internal Medicine Adolescent Medicine; Visit Provider Physician Assistant
DX: J90 Pleural effusion, not elsewhere classified (principal)
CPT/HCPCS: 71046

== ENCOUNTER 2024-10-13 14:10 | Emergency (ER) | payer BC, SELFPAY ==
--- OUTSIDE RECORDS SUMMARY | 2024-08-19 10:00 | XMS_ITS | Encounter Summary ---
Author Organization Healthcare Address [address] [place] [address] Care Team Providers Care Securities Consultant Name Role Phone Jared Coronel MD Primary Care Provider [phone] Joseph Odonnell MD Unavailable [phone] Carrol Armenta MD Unavailable Sky Moreau MD Unavailable [phone] Lauren Paiz MORTGAGE CONSULTANT Unavailable [phone] Reason for Referral * Consultation (Routine) - Authorized Specialty Diagnoses / Procedures Referred By Tammy little Referred To Contact Medical Oncology Diagnoses Renal cell carcinoma, unspecified laterality Carrol Armenta MD [address] [address] Phone: tel: fax: Referral ID Status Reason Start Date Expiration Date Visits Requested Visits Authorized [id number] Authorized Specialty Services Required 08/19/2024 02/18/2026 1 1 Scheduling Instructions [place] Referral- 2nd opinion * Imaging (Routine) - Closed Specialty Diagnoses / Procedures Referred By Tammy little Referred To Contact Radiology Diagnoses Renal cell carcinoma, unspecified laterality Procedures CT Abdomen Pelvis w IV Contrast Carrol Armenta MD [address] [facility] [address] [place] [address] Phone: tel: fax: Referral ID Status Reason Start Date Expiration Date Visits Re quested Visits Authorized [id number] Closed 08/19/2024 02/18/2026 1 1 * Imaging (Routine) - Closed Specialty Diagnoses / Procedures Referred By Contac t Referred To Contact Radiology Diagnoses Renal cell carcinoma, unspecified laterality Procedures CT Chest w IV Contrast Carrol Armenta MD [address] [address] Phone: tel: fax: Referral ID Status Reason Start Date Expiration Date Visits Re quested Visits Authorized [id number] Closed 08/19/2024 02/18/2026 1 1 * Imaging (Routine) - Closed Specialty Diagnoses / Procedures Referred By Contac t Referred To Contact Radiology Diagnoses Renal cell carcinoma, unspecified laterality Procedures MR Head w and wo IV Contrast Carrol Armenta MD [address] [address] Phone: tel: fax: Referral ID Status Reason Start Date Expiration Date Visits Re quested Visits Authorized [id number] Closed 08/19/2024 02/18/2026 1 1 Reason for Visit * Reason Comments Follow-up Kidney Cancer Encounter Details Date Type Department Care Team (Late st Contact Info) Description 08/19/2024 10:00 AM EDT Office Visit [facility] Multidisciplinary Oncology [facility] [address] [place] [address] Carrol Armenta MD [address] [address] Renal cell carcinoma, unspecified laterality (Primary Dx) Social History Tobacco Use Types Packs/Day Years Used Date Smoking Tobacco: Former Cigarettes 1 35 0 04/01/1979 - 2014 Passive Smoke Exposure: Never Smokeless Tobacco: Never Alcohol Use Standard Drinks/Week Comments Never 0 (1 standard drink = 0.6 oz pur e alcohol) Humiliation, Afraid, Rape, and Kick questionnair e Answer Date Recorded Within the last year, have y ou been afraid of your partner or ex-partner? No 11/22/2023 Within the last year, have y ou been humiliated or emotionally abused in other ways by your partner or ex-partner? No Within the last year, have y ou been kicked, hit, slapped, or otherwise physically hurt by your partner or ex-partner? No 11/22/2023 Within the last year, have y ou been raped or forced to have any kind of sexual activity by your partner or ex-partner? No 11/22/2023 PHQ-2 Answer Date Recorded Patient Health Questionnaire-2 Score 0 08/19/2024 Hunger Vital Sign Answer Date Recorded Within the past 12 months, y ou worried that your food would run out before you got the money to buy more. Never true 11/22/19 24 Within the past 12 months, t he food you bought just didn't last and you didn't have money to get more. Never true 11/22/2023 PRAPARE - Transportation Answer Date Re corded In the past 12 months, has l ack of transportation kept you from medical appointments or from getting medications? No 10/31 In the past 12 months, has l ack of transportation kept you from meetings, work, or from getting things needed for daily living? No 11/22/2023 Housing Stability Vital Sign Answer Emil e Recorded In the last 12 months, was t here a time when you were not able to pay the mortgage or rent on time? No 11/22/2023 In the last 12 months, how many places have you lived? 1 11/22/2023 In the last 12 months, was t here a time when you did not have a steady place to sleep or slept in a assisted (including now)? No 11/22/2023 CAGE ASSESSMENT Answer Date Recorded Cage unable to access Not on file 11/21/2023 Cage max number of drinks Not on file 2023 Cage Beverages a week Not on file 11/21/2023 Have you ever felt you should CUT down on your d rinking? 0 11/21/2023 Have you been ANNOYED by people criticizing your drinking? 0 11/21/2023 Have you felt GUILTY about your drinking? 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 0 11/21/2023 CAGE Questionnaire Score 0 024 Utilities Answer Date Recorded In the past 12 months has th e electric, gas, oil, or water company threatened to shut off services in your home? No 11/22/2023 PHQ-2A Answer Date Recorded Depression Risk 0 01/20/2024 Comments No Sex and Gender Information Value Date Recorded Sex Assigned at Female 02/06/2023 2:02 PM EST Legal Sex Female 8:17 PM EDT Gender Identity Female 02/06/2023 2:02 PM EST Sexual Orientation Straight 11/21/2023 5: 34 PM EDT Travel History Travel Start Travel End [place] 09/20/2024 09/25/2024 documented as of this encounter Last Filed Vital Signs Vital Sign Reading Time Taken Comments Blood Pressure 135/74 08/19/2024 9:56 AM EDT Pulse 106 08/19/2024 9:56 AM EDT Temperature 36.5 C (97.7 F) 08/19/2024 9:56 AM EDT Respiratory Rate 16 08/19/2024 9:56 AM EDT Oxygen Saturation 95% 08/19/2024 9:56 AM EDT Inhaled Oxygen Concentration - - Weight 76.3 kg (168 lb 3.4 oz) 08/19/2024 9:56 A M EDT Height 161 cm (5' 3.4 ) 08/19/2024 9:56 AM EDT Body Mass Index 29.42 08/19/2024 9:56 AM EDT documented in this encounter Functional Status * Over the past 2 weeks, how often have you been bothered by any of the following problems? Question Answer Date of Assessment Author Little interest or pleasure in doing things Not at all 08/19/2024 9:57 AM EDNathalie Eli Feeling down, depressed, or hopeless Not at all 08/19/2024 9:57 AM Nathalie Bazan Patient Health Questionnaire -2 Score 0 08/19/2024 9:57 AM Nathalie Bazan * Question Answer Date of Assessment Author Thoughts that you would be b barry off or hurting yourself in some way Not at all 08/19/2024 9:57 AM Nathalie Bazan documented as of this encounter Miscellaneous Notes * Progress Notes - Carrol Armenta MD - 08/19/2024 10:00 AM EDT Medical Oncology Clinic Note Patient Name: Jo Ann Winston Date of : 1965 59 y.o. Referring Physician:No referring provider defined for this encounter. Encounter Date: 08/19/2024 Interval History: The patient presents today for follow up to discuss her recent scans and cytopath. She said she feels better after thoracentesis in ER. Otherwise, she does not have any acute changes in her symptoms except gradually worsening of SOB. She would like to continue with dex for her energy and appetite. Oncology History: Oncology History Overview Note -presented to the [facility] on 02/04/2023 with left leg paresthesias and mild groin pain. She also experienced imbalance, causing her to fall into things on the left side. -MRI brain on 02/05 revealed Right corticospinal tract has immediate proximity along the enhancing lesion situated in the deep white matter of the frontoparietal junction along its anterior tumor margin. CT chest/abd/pelvis showed an indeterminate 4 mm right upper lobe nodule and left renal mass 3.3x 4.3 is most concerning for malignancy. An indeterminate 2.3 cm soft tissue density in the region of the right adrenal gland representing an adrenal nodule versus an adjacent lymph node. -02/06/2023 >> underwent Right-sided parietal needle biopsy of intracranial supratentorial mass - Path showed metastatic carcinoma morphologically and immunohistochemically consistent with renal cell carcinoma with clear cell features. - repeat MRI brain 02/06 after surgery revealed Subtotal resection of the enhancing lesion in the deep white matter of the right parietal lobe. Re- demonstration of enhancing lesion in the left parietal lobe and equivocal punctate enhancement in the left occipital lobe. -She was started on dexamethasone taper to 2mg BID and 2 weeks of prophylaxis keppra. - initiated first-line therapy with nivolumab and ipilimumab from 03/08/2023 to 05/10/2023. Renal cell carcinoma 03/01/2023 Initial Diagnosis Renal cell carcinoma (CMS/HCC) 03/08/2023 - 05/10/2023 Chemotherapy nivolumab (Opdivo) 240 mg in sodium chloride 0.9 % 100 mL chemo IVPB, 3 mg/kg = 240 mg, Intravenous, Once, 4 of 4 cycles Administration: 240 mg (03/08/2023), 240 mg (03/29/2023), 240 mg (04/19/2023), 240 mg (05/10/2023) ipilimumab (Yervoy) 80 mg in sodium chloride 0.9 % 50 mL chemo IVPB, 1 mg/kg = 80 mg, Intravenous, Once, 4 of 4 cycles Administration: 80 mg (03/08/2023), 80 mg (03/29/2023), 80 mg (04/19/2023), 80 mg (05/10/2023) 06/12/2023 - 06/12/2023 Chemotherapy nivolumab (Opdivo) 480 mg in sodium chloride 0.9 % 100 mL chemo IVPB, 480 mg, Intravenous, Once, 0 of 24 cycles Renal cell carcinoma of left kidney 06/13/2023 Initial Diagnosis Renal cell carcinoma of left kidney (CMS/HCC) 06/13/2023 - 11/29/2023 Radiation Therapy The patient saw Sky Moreau MD for radiation treatment. This is the current list of radiation treatment: 3D ACCT EXEC: Right Bone of pelvis (Resolved) Treatment Period Energy Fraction Dose Fractions Total Dose Course C1 07/02/2023-07/09/2023 (days elapsed: 7) Plans Planned A1A2 ABD 07/02/2023-07/09/2023 400 cGy 2,000 cGy B3B4 PELVIS 07/02/2023-07/09/2023 400 cGy 2,000 cGy Reference Points Delivered Abdomen 07/02/2023-07/09/2023 -- -- 2,000 cGy Pelvis 07/02/2023-07/09/2023 -- -- 2,000 cGy 07/16/2023 - 11/29/2023 Radiation Therapy The patient saw Sky Moreau MD for radiation treatment. This is the current list of radiation treatment: 3D ACCT EXEC: Not Applicable Thoracic spine, Left Rib (Resolved) Treatment Period Energy Fraction Dose Fractions Total Dose Course C2 07/15/2023-07/22/2023 (days elapsed: 7) Plans Planned C5C6 RIB 07/15/2023-07/22/2023 400 cGy 5 / 5 2,000 cGy Reference Points Delivered Rib 07/15/2023-07/22/2023 -- -- 2,000 cGy Metastatic renal cell carcinoma to bone 11/21/2023 Initial Diagnosis Metastatic renal cell carcinoma to bone (CMS/HCC) 01/23/2024 Cancer Staged Staging form: Kidney, AJCC 8th Edition, Clinical stage from 01/23/2024: Stage IV (rcT1b, cNX, pM1) - Signed by Sky Moreau MD on 01/23/2024 Renal cell carcinoma, unspecified laterality 01/10/2024 Initial Diagnosis Renal cell carcinoma, unspecified laterality (CMS/HCC) 01/10/2024 - 05/16/2024 Radiation Therapy The patient saw Sky Moreau MD for radiation treatment. This is the current list of radiation treatment: 3D ACCT EXEC: Left Leg (Resolved) Treatment Period Fraction Dose Fractions Total Dose Course C3 01/20/2024-01/24/2024 (days elapsed: 4) Plans Planned Lt femur [id number] 01/20/2024-01/24/2024 500 cGy 5 / 5 2,500 cGy Reference Points Delivered Lt Femur 01/20/2024-01/24/2024 -- -- 2,500 cGy Course Unused 01/27/2024-01/27/2024 (days elapsed: 0) Plans Planned Left femurDNU 01/27/2024-01/27/2024 400 cGy 0 / 5 2,000 cGy Reference Points Delivered Lt Femur 01/27/2024-01/27/2024 -- -- 0 cGy Past Medical, Surgical, Family and Social History: Reviewed, and unchanged from most recent clinic visit or updated as indicated. Allergies and Adverse Drug Reactions: Sulfa drugs, Vancomycin, and Nivolumab Medications: Reviewed Review of Systems: 14 pt review of systems performed and negative except as noted in HPI. Physical Exam: limited by tele visit Vital signs: BP -103/73, RR 16, Sats 96%, HR- 98. Weight Temp: [36.5 ??C (97.7 ??F)] 36.5 ??C (97.7 ??F) Heart Rate: [106] 106 Resp: [16] 16 BP: (135)/(74) 135/74 SpO2: [95 %] 95 %155lbs, 70.7kg ECO General: -Sitting/resting comfortably in wheelchair, NAD HEENT: NCAT, PERRLA/EOMI, anicteric; no oral lesions Neck: Supple, no lymphadenopathy or JVD Heart: RRR, no MGR Lungs: CTAB; no rales, rhonchi or wheezes Abdomen: Soft, NTND, + BS, having gas pains in clinic- left lower quadrant Extremities: left leg more swollen than right, pitting edema up to knee, distal pulses intact Musculoskeletal: tenderness on left lower extremity, no deformity, family has to hold arm to help her to bathroom Skin: No visible rashes or lesions Neuro: Grossly nonfocal; no localizing deficits of strength, sensation, or mentation Psychiatric: Normal mood and thought content LABS: No visits with results within 3 Day(s) from this visit. Latest known visit with results is: Admission on 08/12/2024, Discharged on 08/12/2024 Component Date Value EKG DIAGNOSIS CLASS 08/12/2024 Abnormal Ventricular Rate 08/12/2024 89 Atrial Rate 08/12/2024 89 MT Interval 08/12/2024 116 QRSD Interval 08/12/2024 76 QT Interval 08/12/2024 382 QTC Interval 08/12/2024 464 P Badger 08/12/2024 21 R Badger 08/12/2024 40 T Wave Badger 08/12/2024 73 Diagnosis 08/12/2024 Normal sinus rhythm Diagnosis 08/12/[address] and T wave abnormality Diagnosis 08/12/2024 Abnormal ECG Diagnosis 08/12/2024 Confirmed by Sincere Rico ([id number]) on 08/12/2024 10:56:44 AM Glucose, Plasma 08/12/2024 94 BUN, Plasma 08/12/2024 8 Creatinine, Plasma 08/12/2024 0.58 (L) BUN/Creatinine Ratio 08/12/2024 14 Sodium, Plasma 08/12/2024 137 Potassium, Plasma 08/12/2024 3.6 Chloride, Plasma 08/12/2024 103 CO2, Plasma 08/12/2024 23 Anion Gap 08/12/2024 11 Total Calcium, Plasma 08/12/2024 8.7 (L) eGFRcr 08/12/2024 103.7 WBC Count 08/12/2024 8.69 RBC Count 08/12/2024 4.13 HGB 08/12/2024 11.8 HCT 08/12/2024 36.5 Platelet Count 08/12/2024 256 MCV 08/12/2024 88 MCH 08/12/2024 28.6 MCHC 08/12/2024 32.3 RDW 08/12/2024 17.9 (H) MPV 08/12/2024 9.5 nRBC 08/12/2024 0.0 Differential Type 08/12/2024 Automated Neutrophils % 08/12/2024 75 Lymphocytes % 08/12/2024 18 Monocytes % 08/12/2024 5 Eosinophils % 08/12/2024 1 Basophils % 08/12/2024 0 Immature Granulocytes % 08/12/2024 1 Neutrophils Absolute 08/12/2024 6.56 (H) Lymphocytes Absolute 08/12/2024 1.55 Monocytes Absolute 08/12/2024 0.42 Eosinophils Absolute 08/12/2024 0.08 Basophils Absolute 08/12/2024 0.03 Immature Granulocytes Ab* 08/12/2024 0.05 Prothrombin Time 08/12/2024 17.2 (H) INR 08/12/2024 1.4 (H) Conjugated Bilirubin, Pl* 08/12/2024 <0.2 Alkaline Phosphatase, Pl* 08/12/2024 83 Total Bilirubin, Plasma 08/12/2024 0.5 Albumin, Plasma 08/12/2024 3.3 (L) Total Protein 08/12/2024 5.8 (L) ALT, Plasma 08/12/2024 24 AST, Plasma 08/12/2024 22 Anti Xa Level Unfraction* 08/12/2024 >1.10 (HH) Color, Body fluid 08/12/2024 Yellow Appearance, Body fluid 08/12/2024 Cloudy (A) Volume, Body fluid 08/12/2024 60.0 Fluid Container 08/12/2024 Specimen received in miscellaneous container Red Blood Cell Count, Art* 08/12/2024 56 Total Nucleated Cell Cou* 08/12/2024 240 Neutrophils %, Body fluid 08/12/2024 13 Lymphocytes %, Body fluid 08/12/2024 38 Monocytes/Macrophages %,* 08/12/2024 41 Eosinophils %, Body fluid 08/12/2024 0 Lining/Mesothelial Cells* 08/12/2024 7 Neutrophils Absolute (PM* 08/12/2024 31 Lymphocytes Absolute, Art* 08/12/2024 91 Monocytes/Macrophages Ab* 08/12/2024 98 Eosinophils Absolute, Art* 08/12/2024 0 Basophils Absolute, Body* 08/12/2024 2 Lining/Mesothelial Cells* 08/12/2024 17 Basophils %, Body fluid 08/12/2024 1 Culture 08/12/2024 No growth at day 4 Gram Stain Result 08/12/2024 Few Polymorphonuclear leukocytes Gram Stain Result 08/12/2024 No organisms seen Total Protein, Fluid 08/12/2024 4 LDH, Fluid 08/12/2024 152 Albumin, Pleural Fluid 08/12/2024 2.7 Case Report 08/12/2024 Value:Cytology Case: [id number] Authorizing Provider: Harlan Vu MD Collected: 08/12/2024 1528 Ordering Location: [facility] Emergency Department Received: 08/13/2024 0847 Pathologist: Laurita Jenkins MD Specimen: Pleural Fluid, Right, RIGHT PLEURAL FLUID Final Diagnosis 08/12/2024 Value:A. RIGHT PLEURAL FLUID - NO EVIDENCE OF MALIGNANCY Clinical History 08/12/2024 Value:Pleural effusion Previous Cancer Primary * 08/12/2024 Renal Carcinoma Gross Description 08/12/2024 Value:A. RIGHT PLEURAL FLUID 100 ml's tinted fluid processed as thin prep and cell block Cold Time: 18h 31m CHOLESTEROL, FLUID 08/12/2024 95 CHOLESTEROL FLUID SOURCE 08/12/2024 Pleural fluid Specimen Type 08/12/2024 Body Fluid Specimen Source, Body Fl* 08/12/2024 Pleural, Right Clinical Diagnosis, Body* 08/12/2024 Concern for malignant effusion. Clear cell renal cell carcinoma. Interpretation, Body Flu* 08/12/2024 Value:Predominantly chronic inflammatory cells with reactive mesothelial cells and very rare atypical cells. Correlate with pending cytology. A resident was involved in the service. I attest I examined the relevant preparations for the specimens and confirmed the diagnosis or interpretation. Pathologist Signature, B* 08/12/2024 LAB CP ASR DISCLAIMER 08/12/2024 Yes RADIOLOGY: COMPARISON: Chest CT with contrast on June 26, 2024 FINDINGS: Pulmonary Arteries/Vessels: No filling defect. Right Heart Strain: Absent. Mediastinum and Pleura: Interval increase in size of a large right-sided pleural effusion. No pericardial effusion. No enlarged mediastinal or hilar lymph nodes. Trace left-sided pleural effusion. Lungs: Interval complete compressed atelectasis of the right lower lobe. Interval near complete atelectasis of the right middle lobe. Partial residual atelectasis of the right upper lobe. Linear atelectasis in the inferior lingula. Multiple pulmonary nodules in the left lower lobe are noted (series8, image 105, 90, and 82). New nodules in the left upper lobe also noted (series 8, image 33 and 41). Increase in size of nodule in the inferior lingula (series 8, image 87). Upper Abdomen: Interval increase in size of left adrenal gland nodule measuring 20 mm, previously 17 mm (series 7, image 139. Partially imaged left renal lesion is noted measuring up to at least 25 mm (series 7, image 159. There is increase in size of a retrocaval lymph node measuring 17 mm, previously 15 mm (series 7, image 149). Musculoskeletal: Stable appearance of a lytic metastasis in the left scapula and lower thoracic spine. No axillary adenopathy. IMPRESSION: No pulmonary embolism. Interval increase in size of a now large right pleural effusion, possibly metastatic. Associated complete atelectasis of the right lower and middle lobes with partial atelectasis, worse compared to prior New trace left pleural effusion. Evidence of disease progression with interval increase in size and number of pulmonary nodules as well as increase in size of a left adrenal gland nodule and retrocaval lymph node. Partially imaged heterogeneous left renal mass. Grossly unchanged lytic lesions of the left scapula and lower thoracic spine. ASSESSMENT AND PLAN: Mrs. Winston is a 58 y.o. female who initially presented with left leg paraesthesias and imbalance. She was found to have brain mass and left renal mass s/p intracranial supratentorial resection on 02/06/23. 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 An indeterminate 2.3 cm soft tissue density in the region of the right adrenal gland representing an adrenal nodule versus an adjacent lymph node. - Discussed that this is incurable disease but is treatable. - Discussed IO+IO vs. IO + TKIs and also discussed the overall pros and cons and side effects with each option. - Pharmacist also did the counseling - Given her tumor burden is low, I would in favor of IO+IO over IO+ TKIs - She would like to proceed with what is presented to her - underwent gamma knife on 03/08/23 to a right temporoparietal metastatic deposit -on Keppra for seizure prevention - initiated first-line therapy with Nivo/Ipi from 03/08/23 to 05/10/23 -06/07/2023 - Unfortunately, her CT scan shows disease progression with new lytic bone lesion at L1 and right pubic symphysis. Right adrenal gland has increased in size as well. She is asymptomatic anddoes not have any bone pain. - underwent SBRT to right adrenal gland T11 through L1, right iliac bone from 07/02/23-07/09/23 and left 12th rib from 07/15/23-07/22/23 -started on cabozantinib 40 mg daily as a second-line agent on 07/22/23 - 07/29/23: Bone scan showed multiple sites of metastatic osseous lesion in axial and proximal appendicular skeleton. For example bones, right occipital and left parietal bones, left scapula, right anterior 5th rib, right lateral 11th rib, left posterior 12th rib, T11, L1, right ischium and left lesser trochanter - She was supposed to take Cabo during radiation, however she had side effects so she stopped cabozantinib. - Restarted back on Cabo after her radiation was done - She reported side effects from cabozantinib such as fatigue, nausea, vomiting, loss of appetite, loss of taste, not be able to eat or drink a right-sided abdominal pain on 08/06 visit - Noticed to have ALT 294, AST 149 and total bilirubin 1.2 and potassium 3.3 on 08/06 most likely related to Cabo - advised her to stop taking cabozantinib for 1 week - Then gave her Medrol pack for right side abdominal pain - LFTs improved on 08/14/2023 so Cabo 20 mg daily was restarted on 08/14/2023 - LFTs on 10/15/23 slightly elevated but not significantly; continue Cabo 20 mg daily - She stopped Ozempic on 08/22/2023 - Will get 1 liter NS on 10/15/23 in infusion - she will want 1 liter NS every other week - Xgeva given 09/09/2023 - CT scans on 11/11/23 showing No evidence of disease progression. Unchanged left upper lobe pulmonary nodule and osseous metastatic lesions on chest, Interval decrease in size of left renal mass and right adrenal gland nodule in the abd/pelvis, and redemonstration of osseous metastatic lesions. Left proximal left femur lesion with loss of anterior cortex and posterior cortical thinning concerning for impending fracture. Will refer to ortho-onc for impending fracture - NM Bone scan 11/11/23 showing multiple bone metastases. Improving, less metabolically-active bonemetastases. -underwent radical intralesional resection left proximal femur renal cell metastasis and Prophylactic stabilization left hip with cemented plate on 11/21/23. PLAN for 08/21/2024: - reviewed her recent scans with her and unfortunately, she has worsening of her right pleural effusion, new and worsening of her pul nodules. Enlargement of left adrenal and retrocaval node - pleural fluid cytology was negative. However, given progression in her lung and most likely her effusion is malignant - advised her to stop taking cabo - will switch her to Tivo and she would like to start at the lower dose - discussed the prognosis with her. Also refer her to other cancer center to look for clinical trial - will obtain MRI brain and CT abdomen and pelvis and bone scan given progression on CT PE - RTC in one month # Left side weakness -? 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 Odonnell #Epigastric discomfort- improving -continue with Pepcid 20 mg daily - doing better #Left proximal left femur lesion with loss of anterior cortex and posterior cortical thinning concerning for impending fracture. - Underwent radical intralesional resection left proximal femur renal cell metastasis and Prophylactic stabilization left hip with cemented plate on 11/21/23. - Palliative radiation on left femur per Dr. Rey -->>completed 01/24/2024 - Xgeva is switched to monthly given fracture & given today - She has f/u with Dr. Plaza and femur xrays #Left hand and leg numbness - Left hand/palm and lateral left foot numbness, she was seen by Dr. 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 Specifically the diagnosis, the natural history of the disease, therapeutic options with an associated care plan, interpretation of recent laboratory and radiology tests were also reviewed and questions answered to their satisfaction. * Progress Notes - Reginaldo Nur, PharmD - 08/19/2024 10:00 AM EDT Pharmacy Hematology/Oncology Treatment Note Jo Ann Winston is a 59 y.o. female with mccRCC. Cancer Staging Metastatic renal cell carcinoma to bone Staging form: Kidney, AJCC 8th Edition - Clinical stage from 01/23/2024: Stage IV (rcT1b, rcNX, rpM1) - Signed by Sky Moreau MD on 01/23/2024 Study Patient: No Treatment Plan reviewed for Tivozanib. [x] Follow-Up Clinical Review for Continuous Oral Therapy Patient History: 07/19/23: Mrs. Winston was found to have new metastatic lytic lesions and worsening [employer] metastasis so switched to cabozantinib; she is also undergoing GKRT to [employer] disease. Will start at a reduced dose and increase if tolerated. 08/07/23: Mrs. Winston was hypotensive and nauseous in clinic today. LFTs are elevated today, with ALT >5x ULN. She received 2L of fluids and will hold treatment for one week. Will recheck labs next week and resume cabozantinib at reduced dose of 20 mg next week if transaminitis improves to grade1 or less. 08/14/23: LFTs are normalized so will restart cabo at 20 mg. 12/04/23: Given recent impending pathologic fracture of left femur, Xgeva frequency was increased to 120mg subcutaneous every 28 days, starting this visit. 01/01/24: Patient resumed cabozantinib 20 mg daily on 12/23/23 after clearance from ortho. Was also counseled today on trying a daily calcium + vitamin D3 gummy supplement while receiving denosumab. 01/31/24: Patient has done well with palliative RT for her femur. CT scans on 01/30/24 demonstrated stable disease. She continues cabozantinib 20 mg daily. She will proceed to infusion today for her planned IV fluids and Xgeva. 03/06/24: Continues to tolerate treatment well. Patient reports mild epigastric pain, initiated famotidine. Will continue to follow. Patient otherwise ok to continue with treatment today, and will proceed to receive planned Xgeva. 04/03/24: Ms. Winston presents today and reports significant diarrhea, nausea, pain and swelling of her leg, and fatigue. She was sent for venous duplex today, which shows evidence of DVT and occlusions. She was started on apixaban starter pack today and was referred to vascular surgery to assess for need for additional management. She was also sent imodium and encouraged to schedule the medication; she was encouraged to contact clinic if diarrhea is not controlled and Lomotil is needed. Ondansetron and dexamethasone were prescribed, as well, for nausea. We will decrease cabozantinib to 20 mg PO every other day. Will continue to follow for vascular surgery assessment to ensure cabozantinib is held 2 weeks prior to any procedure. 1/24/25: Ms. Winston reports that her swelling has improved since starting apixaban. 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 Today, we are increasing back to Cabo 20 mg daily, and patient will repeat imaging prior to next visit. 06/12/24: Ms. Winston is tolerating therapy well. She had scans on 04/29 that showed potential progression of pulmonary nodules and adrenal metastasis. Per Dr. Garciaint will repeat scans KARMA and continue on cabo at this time, if progression of these nodules is noted will consider belzutifan. 08/19/24: Unfortunately Ms. Winston has disease progression so will start tivozanib and refer to [place]. Dosing Wt: 82.1 kg Dosing Ht: 157.5 cm DosingBSA: 1.9 m2 Recent Labs: Lab Results Component Value Date WBC 8.69 08/12/2024 NEUTROABS 6.56 (H) 08/12/2024 HGB 11.8 08/12/2024 PLT 256 08/12/2024 Lab Results Component Value Date GLUCOSE 94 08/12/2024 NA 137 08/12/2024 CL 103 08/12/2024 K 3.6 08/12/2024 MG 1.8 (L) 04/03/2024 BUN 8 08/12/2024 CREATININE 0.58 (L) 08/12/2024 Lab Results Component Value Date AST 22 08/12/2024 ALT 24 08/12/2024 ALKPHOS 83 08/12/2024 BILITOT 0.5 08/12/2024 Visit Vitals BP 135/74 Pulse 106 Temp 36.5 ??C (97.7 ??F) Resp 16 Other Relevant Monitoring: Treatment/Therapy Plan: Tivozanib 0.89 mg PO D1-21 Every 28 days [x] Dose reduced 1 dose level for predicted tolerability BMA: Denosumab 120 mg subcutaneous every 28 days (next due 06/26/24) Current Treatment Plan History: Tivozanib Cycle 1: TBD Prior Treatment History: Ipi/Nivo Cycle 1: 03/08/23 Cycle 2: 03/29/23 Cycle 3: 04/19/23 Cycle 4: 05/10/23 Cabozantinib - Initiated at 40 mg daily in May 2023 - Reduced to 20 mg daily in July 2023 due to general intolerability/transaminitis - Reduced to 20 mg every other day in April 2024 for diarrhea, fatigue, nausea - Increased back to 20 mg daily 04/24/24 Plan: Rx prescribed to: [facility] Refills will be due: October 2024 Patient will return to clinic in 4-5 weeks. Will follow-up at that time. Pharmacist Attestation: Gene Nur, PharmD, [facility] Clinical Oncology Pharmacist documented in this encounter Plan of Treatment Upcoming Encounters Date Type Department Care Team (Late st Contact Info) Description 10/14/2024 11:30 AM EDT Appointment [facility] [address] [place] [address] 10/14/2024 12:40 PM EDT Appointment [facility] [address] [place] [address] 10/14/2024 1:45 PM EDT Appointment [facility] [address] [place] [address] 10/16/2024 1:30 PM EDT Clinical Support [facility] [address] [place] [address] 10/16/2024 2:00 PM EDT Office Visit [facility] [address] [place] [address] Carrol Armenta MD [address] [facility] [address] [place] [address] 11/13/2024 1:00 PM EDT Office Visit [facility] [address] [facility] [place] [address] Aurora Hubbard, ERIC [address] [place] [id number] 11/26/2024 9:15 AM EDT Appointment [facility] [address] [place] [address] 11/26/2024 10:45 AM EDT Office Visit [place] [facility] [address] [place] [address] Joseph Odonnell MD [address] [place] [address] Scheduled Orders Name Type Priority Associated Diagnoses Orde r Schedule CBC and Differential Lab Routine Renal cell carcinoma, unspecified laterality Expected: 08/19/2024, Expires: 02/18/2026 Comprehensive Metabolic Panel, Plasma Lab Routine Renal cell carcinoma, unspecified laterality Expected: 08/19/2024, Expires: 02/18/2026 Scheduled Referrals Name Type Priority Associated Diagnoses Orde r Schedule Ambulatory referral to Hematology Oncology/Medical Oncology Outpatient Referral Routine Renal cell carcinoma, unspecified laterality Expected: 08/26/2024, Expires: 02/19/2026 documented as of this encounter Results * CT Abdomen Pelvis w IV Contrast (09/15/2024 12:09 PM EDT) Anatomical Region Laterality Modality Abdomen, Pelvis Computed Tomogra phy Impressions 09/15/2024 12:43 PM EDT Chest: Evidence of disease progression with enlarging and more numerous nodules. Increased sclerosis of nodules within T8 and T9. Abdomen/Pelvis: Enlarging adrenal nodules and increased nodular enhancement of the cystic mass in the left kidney CRITICAL RESULT: No. COMMUNICATION: Per this written report. Drafted by Jorden Hamilton MD on 09/15/2024 12:34 PM Final report signed by Jorden aHmilton MD on 09/15/2024 12:43 PM Narrative 09/15/2024 12:43 PM EDT CLINICAL INDICATION: Kidney cancer, active surveillance TECHNIQUE: Multiple axial CT images were obtained from thoracic inlet through pubic symphysis following administration of IV contrast, Omnipaque 300, 100 mL. Reformatted images in the coronal and sagittal planes were generated from the axial data set to facilitate diagnostic accuracy. Total DLP (Dose-Length Product): 1087.15 mGy.cm (accession [id number]), 1087.15 mGy.cm (accession [id number]) Please note: The reported value represents the total of one or more individual components during the CT acquisition on this date and at this time, and as such, the same value may appear in more than one CT report depending on the interpreting/reporting physicians. COMPARISON: CT June 26 FINDINGS: Chest: Lymph Nodes and Mediastinum: No lymphadenopathy by CT size criteria. No mediastinal mass lesions. No suspicious thyroid findings. Cardiovascular: The heart is normal in caliber. Thoracic great vessels are patent. Lungs and Pleura: There are numerous bilateral pulmonary nodules. Left lower lobe pulmonary nodule measures 7 mm. A lingular nodule or cluster of nodules measures up to 16 mm in conglomerate, previously 8 mm. There is an increase in the size in the number of the pulmonary nodules. The right pleural effusion is moderate in size and not substantially changed. The left pleural effusion has resolved. Musculoskeletal and Body Wall: There are lytic and sclerotic osseous lesions. Sclerotic nodules within T8 and T9 are more prominent than on the prior examination. The lytic nodules are unchanged in T10 and T12. Abdomen/Pelvis: Solid Abdominal Organs: No focal liver lesion. Stones or sludge in the gallbladder. No bile duct dilation. The pancreas and spleen are normal. There is a left adrenal nodule measuring 2.1 cm. There is a right adrenal nodule measuring 19 mm. There is a part cystic mass in the right kidney with solid enhancing nodular components. It measures up to 3 cm. There is a more heterogeneous ill-defined area of hypoenhancement in the left renal cortex measuring 3 cm. There is a unchanged exophytic nodule off the lower pole the left kidney measuring 13 mm. GI Tract/Mesentery/Peritoneum: Stomach and duodenum are normal. No bowel obstruction. Normal appendix. No peritoneal nodularity. No free air Pelvic Viscera: The bladder uterus and ovaries are within normal limits Lymph Nodes/Vasculature: No adenopathy is evident. No large vessel occlusion. Free Fluid: No free fluid Musculoskeletal and Body Wall: Right hip arthroplasty, left proximal femoral fixation. Procedure Note Jorden Hamilton MD - 09/15/2024 CLINICAL INDICATION: Kidney cancer, active surveillance TECHNIQUE: Multiple axial CT images were obtained from thoracic inlet through pubicsymphysis following administration of IV contrast, Omnipaque 300, 100 mL.Reformatted images in the coronal and sagittal planes were generated fromthe axial data set to facilitate diagnostic accuracy. Total DLP (Dose-Length Product): 1087.15 mGy.cm (accession [id number]),1087.15 mGy.cm (accession [id number]) Please note: The reported valuerepresents the total of one or more individual components during the CTacquisition on this date and at this time, and as such, the same value mayappear in more than one CT report depending on the interpreting/reportingphysicians. COMPARISON: CT June 26 FINDINGS: Chest: Lymph Nodes and Mediastinum: No lymphadenopathy by CT size criteria. Nomediastinal mass lesions. No suspicious thyroid findings. Cardiovascular: The heart is normal in caliber. Thoracic great vessels arepatent. Lungs and Pleura: There are numerous bilateral pulmonary nodules. Leftlower lobe pulmonary nodule measures 7 mm. A lingular nodule or cluster ofnodules measures up to 16 mm in conglomerate, previously 8 mm. There is anincrease in the size in the number of the pulmonary nodules. The right pleural effusion is moderate in size and not substantiallychanged. The left pleural effusion has resolved. Musculoskeletal and Body Wall: There are lytic and sclerotic osseouslesions. Sclerotic nodules within T8 and T9 are more prominent than on theprior examination. The lytic nodules are unchanged in T10 and T12. Abdomen/Pelvis: Solid Abdominal Organs: No focal liver lesion. Stones or sludge in thegallbladder. No bile duct dilation. The pancreas and spleen are normal.There is a left adrenal nodule measuring 2.1 cm. There is a right adrenalnodule measuring 19 mm. There is a part cystic mass in the right kidney with solid enhancingnodular components. It measures up to 3 cm. There is a more heterogeneousill-defined area of hypoenhancement in the left renal cortex measuring 3cm. There is a unchanged exophytic nodule off the lower pole the leftkidney measuring 13 mm. GI Tract/Mesentery/Peritoneum: Stomach and duodenum are normal. No bowelobstruction. Normal appendix. No peritoneal nodularity. No free air Pelvic Viscera: The bladder uterus and ovaries are within normal limits Lymph Nodes/Vasculature: No adenopathy is evident. No large vesselocclusion. Free Fluid: No free fluid Musculoskeletal and Body Wall: Right hip arthroplasty, left proximalfemoral fixation. IMPRESSION: Chest: Evidence of disease progression with enlarging and more numerousnodules. Increased sclerosis of nodules within T8 and T9. Abdomen/Pelvis: Enlarging adrenal nodules and increased nodularenhancement of the cystic mass in the left kidney CRITICAL RESULT: No. COMMUNICATION: Per this written report. Drafted by Jorden Hamilton MD on 09/15/2024 12:34 PM Final report signed by Jorden Hamilton MD on 09/15/2024 12:43 PM Carrol Armenta MD IMG CT PROCEDURES Final Result * CT Chest w IV Contrast (09/15/2024 12:09 PM EDT) Anatomical Region Laterality Modality Chest Computed Tomogra phy Impressions 09/15/2024 12:43 PM EDT Chest: Evidence of disease progression with enlarging and more numerous nodules. Increased sclerosis of nodules within T8 and T9. Abdomen/Pelvis: Enlarging adrenal nodules and increased nodular enhancement of the cystic mass in the left kidney CRITICAL RESULT: No. COMMUNICATION: Per this written report. Drafted by Jorden Hamilton MD on 09/15/2024 12:34 PM Final report signed by Jorden Hamilton MD on 09/15/2024 12:43 PM Narrative 09/15/2024 12:43 PM EDT CLINICAL INDICATION: Kidney cancer, active surveillance TECHNIQUE: Multiple axial CT images were obtained from thoracic inlet through pubic symphysis following administration of IV contrast, Omnipaque 300, 100 mL. Reformatted images in the coronal and sagittal planes were generated from the axial data set to facilitate diagnostic accuracy. Total DLP (Dose-Length Product): 1087.15 mGy.cm (accession [id number]), 1087.15 mGy.cm (accession [id number]) Please note: The reported value represents the total of one or more individual components during the CT acquisition on this date and at this time, and as such, the same value may appear in more than one CT report depending on the interpreting/reporting physicians. COMPARISON: CT June 26 FINDINGS: Chest: Lymph Nodes and Mediastinum: No lymphadenopathy by CT size criteria. No mediastinal mass lesions. No suspicious thyroid findings. Cardiovascular: The heart is normal in caliber. Thoracic great vessels are patent. Lungs and Pleura: There are numerous bilateral pulmonary nodules. Left lower lobe pulmonary nodule measures 7 mm. A lingular nodule or cluster of nodules measures up to 16 mm in conglomerate, previously 8 mm. There is an increase in the size in the number of the pulmonary nodules. The right pleural effusion is moderate in size and not substantially changed. The left pleural effusion has resolved. Musculoskeletal and Body Wall: There are lytic and sclerotic osseous lesions. Sclerotic nodules within T8 and T9 are more prominent than on the prior examination. The lytic nodules are unchanged in T10 and T12. Abdomen/Pelvis: Solid Abdominal Organs: No focal liver lesion. Stones or sludge in the gallbladder. No bile duct dilation. The pancreas and spleen are normal. There is a left adrenal nodule measuring 2.1 cm. There is a right adrenal nodule measuring 19 mm. There is a part cystic mass in the right kidney with solid enhancing nodular components. It measures up to 3 cm. There is a more heterogeneous ill-defined area of hypoenhancement in the left renal cortex measuring 3 cm. There is a unchanged exophytic nodule off the lower pole the left kidney measuring 13 mm. GI Tract/Mesentery/Peritoneum: Stomach and duodenum are normal. No bowel obstruction. Normal appendix. No peritoneal nodularity. No free air Pelvic Viscera: The bladder uterus and ovaries are within normal limits Lymph Nodes/Vasculature: No adenopathy is evident. No large vessel occlusion. Free Fluid: No free fluid Musculoskeletal and Body Wall: Right hip arthroplasty, left proximal femoral fixation. Procedure Note Jorden Hamilton MD - 09/15/2024 CLINICAL INDICATION: Kidney cancer, active surveillance TECHNIQUE: Multiple axial CT images were obtained from thoracic inlet through pubicsymphysis following administration of IV contrast, Omnipaque 300, 100 mL.Reformatted images in the coronal and sagittal planes were generated fromthe axial data set to facilitate diagnostic accuracy. Total DLP (Dose-Length Product): 1087.15 mGy.cm (accession [id number]),1087.15 mGy.cm (accession [id number]) Please note: The reported valuerepresents the total of one or more individual components during the CTacquisition on this date and at this time, and as such, the same value mayappear in more than one CT report depending on the interpreting/reportingphysicians. COMPARISON: CT June 26 FINDINGS: Chest: Lymph Nodes and Mediastinum: No lymphadenopathy by CT size criteria. Nomediastinal mass lesions. No suspicious thyroid findings. Cardiovascular: The heart is normal in caliber. Thoracic great vessels arepatent. Lungs and Pleura: There are numerous bilateral pulmonary nodules. Leftlower lobe pulmonary nodule measures 7 mm. A lingular nodule or cluster ofnodules measures up to 16 mm in conglomerate, previously 8 mm. There is anincrease in the size in the number of the pulmonary nodules. The right pleural effusion is moderate in size and not substantiallychanged. The left pleural effusion has resolved. Musculoskeletal and Body Wall: There are lytic and sclerotic osseouslesions. Sclerotic nodules within T8 and T9 are more prominent than on theprior examination. The lytic nodules are unchanged in T10 and T12. Abdomen/Pelvis: Solid Abdominal Organs: No focal liver lesion. Stones or sludge in thegallbladder. No bile duct dilation. The pancreas and spleen are normal.There is a left adrenal nodule measuring 2.1 cm. There is a right adrenalnodule measuring 19 mm. There is a part cystic mass in the right kidney with solid enhancingnodular components. It measures up to 3 cm. There is a more heterogeneousill-defined area of hypoenhancement in the left renal cortex measuring 3cm. There is a unchanged exophytic nodule off the lower pole the leftkidney measuring 13 mm. GI Tract/Mesentery/Peritoneum: Stomach and duodenum are normal. No bowelobstruction. Normal appendix. No peritoneal nodularity. No free air Pelvic Viscera: The bladder uterus and ovaries are within normal limits Lymph Nodes/Vasculature: No adenopathy is evident. No large vesselocclusion. Free Fluid: No free fluid Musculoskeletal and Body Wall: Right hip arthroplasty, left proximalfemoral fixation. IMPRESSION: Chest: Evidence of disease progression with enlarging and more numerousnodules. Increased sclerosis of nodules within T8 and T9. Abdomen/Pelvis: Enlarging adrenal nodules and increased nodularenhancement of the cystic mass in the left kidney CRITICAL RESULT: No. COMMUNICATION: Per this written report. Drafted by Jorden Hamilton MD on 09/15/2024 12:34 PM Final report signed by Jorden Hamilton MD on 09/15/2024 12:43 PM Carrol Armenta MD IMG CT PROCEDURES Final Result * MR Head w and wo IV Contrast (09/15/2024 10:56 AM EDT) Anatomical Region Laterality Modality Head Magnetic Resonan ce Impressions 09/16/2024 4:49 PM EDT Stable appearances involving the 2 enhancing right parietal metastatic lesions and surrounding FLAIR signal abnormality compared to the study 07/16/2024. No new lesions identified. The results were faxed/finalized only (4:48 PM ET). If you would like to discuss this case directly please call to review. Harmony Blackwood M.D. This report has been electronically signed and verified by the Radiologist whose name is printed above. This report contains privileged and confidential information and is intended solely for the use of the individual or entity to which it is addressed. If you are not the intended recipient of this report, you are hereby notified that any copying, distribution, dissemination or action taken in relation to the contents of this report is strictly prohibited and may be unlawful. If you have received this report in error, please notify the sender immediately at [phone] and permanently delete the original report and destroy any copies or printouts. Narrative 09/16/2024 4:49 PM EDT [facility] - Phone Outpatient NAME: Abby Winston DATE OF EXAM: 09/15/2024 Patient No: [id number] Physician: Kathi^Carrol^Garrett Date of : 1965 Past Medical/Surgical History (entered by technologist): Symptoms/Reason For Exam (entered by technologist): Kidney cancer, active surveillance Tech Notes (entered by technologist): 7.8 mL Intravenous gadobutrol (Gadavist) injection Dx: Renal cell carcinoma, unspecified laterality 08/19 Initially presented with left leg paraesthesias and imbalance. She was found to have brain mass and left renal mass s/p intracranial supratentorial resection on 02/06/23. 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 S/p right posterior periventricle resection of mass. Post-op MRI brain showed residual tumor .. O Additional History (per [facility]): Contrast Agent and Dose: 7.8 mL Gadavist IV Comparison: MRI brain 07/16/2024 Technique: Multiplanar, Multisequence MRI through the brain was performed without and with intravenous contrast. MRI BRAIN WITHOUT AND WITH GADOLINIUM FINDINGS: Diagnostic quality: Adequate Patient is s/p right parietal rai hole craniotomy. There is a peripherally enhancing lesion within the right parietal white matter stable to prior measuring 2.7 x 2.3 cm (series 17 image 60). Surrounding FLAIR signal abnormality unchanged in volume to prior. Susceptibility artifacts involving the central portion of the lesion and periphery of the lesion also unchanged. Persistent diffusion restriction involving the lesion unchanged. Punctate focus of enhancement involving the more caudal right parietal lobe is stable to prior (series 17 image 83). Minimal FLAIR signal abnormality in this location stable. No new masslike or enhancing lesions appreciated. Scattered FLAIR signal abnormalities within the periventricular white matter are stable to prior suggesting background mild chronic microangiopathic ischemic changes. No acute intracranial hemorrhage or collection. Sinuses: Fluid levels appreciated within the maxillary and sphenoid sinuses. Diffuse hyperenhancement of the para sinus mucosa. Appearances suggest sinusitis. Scattered bilateral mastoid effusions. Vasculature: Major intracranial vascular flow voids preserved on T2 weighted sequences. Osseous structures and soft tissues: No focal abnormality involving the right parietal craniotomy site. Procedure Note Harmony Blackwood MD - 09/16/2024 [facility] - Phone Outpatient NAME: Abby Winston DATE OF EXAM: 09/15/2024 Patient No: [id number] Physician: Kathi^Carrol^War Date of : 1965 Past Medical/Surgical History (entered by technologist): Symptoms/Reason For Exam (entered by technologist): Kidney cancer, activesurveillance Tech Notes (entered by technologist): 7.8 mL Intravenous gadobutrol(Gadavist) injection Dx: Renal cell carcinoma, unspecified laterality 08/19 Initially presented with left leg paraesthesias and imbalance. Shewas found to have brain mass and left renal mass s/p intracranialsupratentorial resection on 02/06/23. De Avelina Metastatic Clear Cell RenalCell Carcinoma with brain met - IMDC risk intermediate (de avelina and highabsolute neutrophils count). S/p right posterior periventricle resectionof mass. Post-op MRI brain showed residual tumor .. O Additional History (per [facility] Radiologist): Contrast Agent and Dose: 7.8 mL Gadavist IV Comparison: MRI brain 07/16/2024 Technique: Multiplanar, Multisequence MRI through the brain was performedwithout and with intravenous contrast. MRI BRAIN WITHOUT AND WITH GADOLINIUM FINDINGS: Diagnostic quality: Adequate Patient is s/p right parietal rai hole craniotomy. There is aperipherally enhancing lesion within the right parietal white matterstable to prior measuring 2.7 x 2.3 cm (series 17 image 60). SurroundingFLAIR signal abnormality unchanged in volume to prior. Susceptibilityartifacts involving the central portion of the lesion and periphery of thelesion also unchanged. Persistent diffusion restriction involving thelesion unchanged. Punctate focus of enhancement involving the more caudal right parietallobe is stable to prior (series 17 image 83). Minimal FLAIR signalabnormality in this location stable. No new masslike or enhancing lesions appreciated. Scattered FLAIR signal abnormalities within the periventricular whitematter are stable to prior suggesting background mild chronicmicroangiopathic ischemic changes. No acute intracranial hemorrhage or collection. Sinuses: Fluid levels appreciated within the maxillary and sphenoidsinuses. Diffuse hyperenhancement of the para sinus mucosa. Appearancessuggest sinusitis. Scattered bilateral mastoid effusions. Vasculature: Major intracranial vascular flow voids preserved on [id number] sequences. Osseous structures and soft tissues: No focal abnormality involving theright parietal craniotomy site. IMPRESSION: Stable appearances involving the 2 enhancing right parietal metastaticlesions and surrounding FLAIR signal abnormality compared to the study07/16/2024. No new lesions identified. The results were faxed/finalized only (4:48 PM ET). If you would like todiscuss this case directly please call to review. Harmony Blackwood M.D. This report has been electronically signed and verified by the Radiologistwhose name is printed above. This report contains privileged and confidential information and isintended solely for the use of the individual or entity to which it isaddressed. If you are not the intended recipient of this report, you arehereby notified that any copying, distribution, dissemination or actiontaken in relation to the contents of this report is strictly prohibitedand may be unlawful. If you have received this report in error, pleasenotify the sender immediately at [phone] and permanently delete theoriginal report and destroy any copies or printouts. Carrol Armenta MD IMG MRI PROCEDURES Final Result documented in this encounter Visit Diagnoses Diagnosis Renal cell carcinoma, unspecified laterality- Primary Renal cell carcinoma, unspecified laterality Renal cell carcinoma, unspecified laterality documented in this encounter Additional Health Concerns Assessment Noted Time A fall risk assessment has been complete d for the patient 08/19/2024 9:57 AM EDT A Body Mass Index follow-up plan has been documented for the patient 07/16/2024 3:34 PM EDT documented as of this encounter Care Teams Securities Consultant Relationship Specialty Start Date End Date Jared Coronel MD [address] [facility] [address] [place] [address] PCP - General 08/12/20 Joseph Odonnell [facility] [address] [facility] [address] [place] [address] Surgeon Neurosurgery 02/28/23 Carrol Armenta MD [address] [facility] [address] [place] [address] Consulting Physician Medical Oncology 06/12/23 Sky Moreau MD [address] [facility] [address] [place] [address] Consulting Physician Radiation Oncology 06/12/23 Lauren Paiz APRN [address] [facility] [address] [place] [address] Nurse Practitioner Internal Medicine 07/19/23 documented as of this encounter
--- OUTSIDE RECORDS SUMMARY | 2024-08-31 10:04 | XMS_ITS | Encounter Summary ---
Author Organization Healthcare Address [address] [place] [address] Care Team Providers Care Travelers' Aid Worker Name Role Phone Jared Coronel MD Primary Care Provider [phone] Joseph Odonnell MD Unavailable [phone] Carrol Rivera MD Unavailable Sky Moreau MD Unavailable [phone] Lauren Paiz SUB MASTER Unavailable [phone] Reason for Referral * Imaging (Routine) - Closed Specialty Diagnoses / Procedures Referred By Tammy little Referred To Contact Radiology Diagnoses Shortness of breath Procedures US Guided Thoracentesis Consult to Interventional Radiology Carrol Rivera MD [address] [address] Phone: tel: fax: Referral ID Status Reason Start Date Expiration Date Visits Re quested Visits Authorized [id number] Closed 08/11/2024 02/10/2026 1 1 Reason for Visit * Imaging (Routine) - Closed Specialty Diagnoses / Procedures Referred By Tammy little Referred To Contact Radiology Diagnoses Shortness of breath Procedures US Guided Thoracentesis Consult to Interventional Radiology Carrol Rivera MD [address] [address] Phone: tel: fax: Referral ID Status Reason Start Date Expiration Date Visits Re quested Visits Authorized [id number] Closed 08/11/2024 02/10/2026 1 1 Encounter Details Date Type Department Care Team (Latest Contact Info) Description 08/31/2024 10:04 AM EDT - 08/31/2024 1:03 PM EDT Hospital Encounter [facility] Inter[facility] Radiology [address] [place] [address] Pasha Rosas Recurrent right pleural effusion (Primary Dx); Shortness of breath Discharge Disposition: Home or Self Care Social History Tobacco Use Types Packs/Day Years [...] place to sleep or slept in a residential (including now)? No 11/22/2023 CAGE ASSESSMENT Answer [...] drink first t nichole in the morning (EYE-FINANCIAL QUANTITATIVE ANALYST) to steady your nerves or to get [...] EDT Travel History Travel Start Travel End [place] 09/20/2024 09/25/2024 documented as of this encounter Last Filed Vital Signs Vital Sign Reading Time Taken Comments Blood Pressure 120/72 08/31/2024 12:15 PM EDT Pulse 95 08/31/2024 1:00 PM EDT Temperature 36.4 C (97.6 F) 08/31/2024 10:25 AM EDT Respiratory Rate 23 08/31/2024 1:00 PM EDT Oxygen Saturation 92% 08/31/2024 1:00 PM EDT Inhaled Oxygen Concentration - - Weight 80.9 kg (178 lb 5.6 oz) 08/31/2024 10:25 AM EDT Height 157.5 cm (5' 2 ) 08/31/2024 10:25 AM EDT Body Mass Index 32.62 08/31/2024 10:25 AM EDT documented in this encounter Medications at Time of Discharge acetaminophen (Tylenol) 500 MG tablet Take 1 tablet (500 mg) by mouth every 6 (six) hours. 100 tablet 11/23/2023 dexamethasone (Decadron) 1 MG tablet Take 1 tablet by mouth in the morning and 1 tablet before bedtime. 60 tablet 1 07/03/2024 famotidine (Pepcid) 20 MG tablet Take 1 tablet (20 mg) by mouth 1 (one) time each day. 30 tablet 3 03/06/2024 levothyroxine (Synthroid, Levoxyl) 100 MCG tablet Take 1 tablet (100 mcg) by mouth daily before breakfast. 30 tablet 11 06/09/2024 6 loperamide (Imodium A-D) 2 MG tablet Take 1 tablet (2 mg) by mouth 4 (four) times a day if needed for diarrhea. 30 tablet 1 04/03/2024 ondansetron ODT (Zofran-ODT) 4 MG disintegrating tablet Take 1 tablet (4 mg) by mouth every 8 (eight) hours if needed for nausea or vomiting. 20 tablet 04/03/2024 senna-docusate sodium (Senokot-S) 8.6-50 MG tablet Take 1 tablet by mouth 1 (one) time each day. 20 tablet 11/23/2023 apixaban (Eliquis) 5 MG tablet Take 1 tablet by mouth in the morning and 1 tablet before bedtime. 60 tablet 5 07/03/2024 5 Tivozanib HCl 0.89 MG capsule Take 1 capsule by mouth daily, days 1-21 every 28 days. 21 capsule 2 08/19/2024 5 documented as of this encounter Miscellaneous Notes * Pasha Rosas - 08/31/2024 1:27 PM EDT Images from the original note were not included. [id number] Discharge Instructions for Thoracentesis Thoracentesis is a procedure that removes extra fluid from the pleural space. This space is betweenthe outside surface of the lungs (pleura) and the chest wall. The extra fluid is called pleural effusion. Thoracentesis may be done to take a sample of the fluid. It can then be tested to help find the cause. Or the procedure may be done to drain the extra fluid if you are having trouble breathing. Home care ?? You may have some pain after the procedure. Your provider may prescribe pain medicine, if needed. Take these exactly as directed. ?? If you stopped taking other medicines before the procedure, ask your provider when you can startthem again. ?? Take it easy for 48 hours after the procedure. Don't do anything active until your provider saysit?s OK. ?? Don't do strenuous activities, such as lifting, until your provider says it?s OK. ?? You will have a small bandage over the puncture site. You may remove the bandage in 24 hours, orwhen your provider says it's OK. ?? Check the puncture site for the signs of infection listed below. Follow-up Make a follow-up appointment with your provider as directed. During your follow- up visit, your provider will check your healing. Be sure to let your provider know how you are feeling. When to call your healthcare provider Call your provider right away if you have any of these: ?? Fever of 100.4??F (38??C) or higher, or as directed ?? Pain that doesn't get better after taking pain medicine ?? Signs of infection at the puncture site. These include increased pain, redness, warmth, swelling, or fluid leaking that is green or yellow or smells bad. ?? Fluid draining from the puncture site ?? Bleeding from the puncture site When to call 911 Call 911 or get care at the nearest emergency department if any of these occur: ?? Chest pain that is unusual or suddenly gets worse ?? Shortness of breath ?? Coughing up blood Last Reviewed Date: 2021 00:00:00 ?? 0700-1517 [employer]. All rights reserved. This information is not intended as a substitute for professional medical care. Always follow your healthcare professional's instructions. * Post-Procedure Note - Natty Choe APRN - 08/31/2024 11:30 AM EDT Vascular and Interventional Radiology Brief Postprocedure Note Performed by: Natty Choe APRN Bridal Sales Consultant: DEEPALI Pre-operative Diagnosis: right pleural effusion Post-operative Diagnosis: same Type of Anesthesia: Local Description of Findings: right pleural effusion Technical/Surgical Procedures Used: image guided right thoracentesis Specimen Obtained: Yes, cellcount, cytology Complications: None Estimated Blood Loss: none Procedure Events Event Event Time See detailed result report with images in PACS. The patient tolerated the procedure well without incident or complication and is in stable condition. * H&P - Natty Choe APRN - 08/31/2024 11:30 AM EDT 08/31/24 Patient: Jo Ann Winston Date of : 1965/59 y.o. Chief Complaint: presents for right thoracentesis. History of Present Illness: Abby Winston is a 59 y.o. 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 Review of Systems: 14 point ROS negative except as noted in HPI The following portions of the chart were reviewed this encounter and updated as appropriate: Past Medical History Pertinent Negatives[1] Surgical History[2] Social History[3] Family History: Personally reviewed and noncontributory. Allergies[4] Current Medications[5] Objective: All laboratory, images, tracings, and vital sign data are personally reviewed unless otherwise noted. Vital Signs: BP: ()/() Arterial Line BP: ()/() There is no height or weight on file to calculate BMI. LABS (PAST 18Labs in last 18 hours) CBC WBC ?? Hb ?? Plt ?? Hct ?? INR ?? PTT ?? Anti-Xa ?? BMP Na ?? Cl ?? BUN ?? Glu ?? K ?? Co2 ?? Cr ?? Ca ?? Mg ?? Phos ?? LFT AST ?? AlkPhos ?? T Prot ?? ALK ?? Bili ?? Alb ?? D.Bili ?? HOURS) Physical Exam: GENERAL: No acute distress EYES: PERRL; anicteric sclerae HENT: Atraumatic, moist mucous membranes RESP: Airway patent, Symmetric expansion; non labored. CARD: RRR Extremities: No edema, no cyanosis or clubbing; pulses palpable +2 GI: No organomegaly or masses; abdomen is soft, nontender and nondistended SKIN: Normal temperature, turgor and texture NEURO: Awake and following commands, moves all extremities, no focal deficits Radiographics/Diagnostics: Imaging personally reviewed and reviewed with attending. === 08/12/24 === CT ANGIO PULMONARY EMBOLISM - Narrative - CLINICAL INDICATION: Shortness of breath. TECHNIQUE: Imaging of the chest was performed from thoracic inlet through upper abdomen, using spiral technique, with administration of IV contrast per the pulmonary angiogram protocol. 80 mL of Omnipaque-350 were administered intravenously. Coronal MIP images were reconstructed from this dataset. Total DLP (Dose-Length Product): 455 mGy*cm. Please note: The reported value represents the total of one or more individual components during the CT acquisition on this date and at this time, and as such, the same value may appear in more than one CT report depending on the interpreting/reporting ph ysicians. COMPARISON: Chest CT with contrast on June [...] and lower thoracic spine. No axillary adenopathy. - Impression - No pulmonary embolism. Interval increase in size [...] the left scapula and lower thoracic spine. CRITICAL RESULT: No. COMMUNICATION: These findings were discussed via secure chat with CARROL RIVERA MD on 08/12/2024 at 10:24 AM by Era Ceja MD with acknowledgment of the results and arrangements are being made for transportation to the emergency department. Drafted by Hi Ceja MD on 08/12/2024 10:01 AM Final report signed by Hi Ceja MD on 08/12/2024 10:32 AM === 08/12/24 === XR CHEST 1 VIEW - Narrative - CLINICAL INDICATION: Post thoracentesis TECHNIQUE: XR CHEST 1 VIEW COMPARISON: Same-day CTA chest at 0953 hours FINDINGS: Mediastinal and cardiac contours are normal and stable, given differences in technique. Interval decrease in right pleural effusion, now small effusion. Right lung base atelectasis. No new consolidation. No visualized pneumothorax. No acute osseous abnormality. - Impression - Significant improvement in right-sided pleural effusion with a residual small right pleural effusion. No visualized pneumothorax status post thoracentesis. CRITICAL RESULT: No. COMMUNICATION: Per this written report. Preliminary report signed by Hernesto Faith MD on 08/12/2024 4:07 PM By electronically signing this report, I, the attending physician, attest that I have personally reviewed the images/data for the above examination(s) and agree with the final edited report. Drafted by Hernesto Faith MD on 08/12/2024 4:04 PM Final report signed by aCri Wheeler MD on 08/12/2024 4:23 PM Echo, Adult Transthoracic Complete Result Date: 08/11/2024 Left Ventricle: The left ventricle is normal size. There is normal left ventricular myocardial thickness and mass. The left ventricular systolic function is normal. The LVEF as measured by biplane volume is 50%. The left ventricular filling pressure is normal. The septal motion is most consistent wi th a conduction abnormality. Pericardium: No pericardial effusion. All cardiac valves were reasonably well interrogated with 2D imaging and/or Doppler assessment and no significant valve regurgitation or stenosis is seen. Compared to the most recently available prior study, and allowing for differences in image quality and technique, there is no significant interval change noted. Echo, Adult Transthoracic Complete Result Date: 04/14/2024 The left ventricle is normal size. There is normal left ventricular myocardial thickness and mass. The left ventricular systolic function is normal. The LVEF as measured by Heart Model 3D volume is 53%. The global longitudinal strain is normal (<-18%). The diastolic function is normal. No regional wall motion abnormalities are seen. The right ventricle is normal in size. The right ventricular systolic function is normal. No pericardial effusion. All cardiac valves were reasonably well interrogated with 2D imaging and/or Doppler assessment and no significant valve regurgitation or stenosis is seen. There is no recent study available for direct cefi-su-sfuh comparison. 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 - Followed by oncology - initiated first-line therapy with Nivo/Ipi from 03/08/23 to 05/10/23 - underwent SBRT to right adrenal gland T11 through L1, right iliac bone from 07/02/23-07/09/23 and left 12th rib from 07/15/23-07/22/23 -started on cabozantinib 40 mg daily as a second-line agent on 07/22/23 -underwent radical intralesional resection left proximal femur renal cell metastasis and Prophylactic stabilization left hip with cemented plate on 11/21/23. - INR 1.4, Plt 256 - 08/12 ED performed a right thoracentesis, removing 1.8 liters - Personally reviewed CT chest 08/12 with large right pleural effusion - VSS, Afebrile PLAN: - Will perform right thoracentesis - Will consent prior to procedure - NPO, denies anticoagulation Thank you for allowing us to participate in the care of this patient. Natty Choe, ERIC Interventional Radiology [phone] [1] Past Medical History: Diagnosis Date Blood clot associated with vein wall inflammation left leg Cancer (CMS/HCC) 02-04-2023 kidney Diabetes mellitus (CMS/HCC) prediabetic per pt Disease of thyroid gland Hypothyroidism Right leg pain [2] Past Surgical History: Procedure Laterality Date JOINT REPLACEMENT Right hip [3] Social History Tobacco Use Smoking status: Former Current packs/day: 0.00 Average packs/day: 1 pack/day for 35.0 years (35.0 ttl pk-yrs) Types: Cigarettes Start date: 04/01/1979 Quit date: 2014 Years since quittin.4 Passive exposure: Never Smokeless tobacco: Never Substance Use Topics Alcohol use: Never Drug use: Not Currently [4] Allergies Allergen Reactions Sulfa Drugs Shortness of breath and Swelling Vancomycin Itching Forehead turned red. Patient not complaining of being itchy, or shortness of air. Nivolumab Other - please document in the comment field Low back pain, muscle spasms in back [5] Current Outpatient Medications: acetaminophen (Tylenol) 500 MG tablet, Take 1 tablet (500 mg) by mouth every 6 (six) hours., Disp: 100 tablet, Rfl: 0 apixaban (Eliquis) 5 MG tablet, Take 1 tablet by mouth in the morning and 1 tablet before bedtime.,Disp: 60 tablet, Rfl: 5 dexamethasone (Decadron) 1 MG tablet, Take 1 tablet by mouth in the morning and 1 tablet before bedtime. (Patient taking differently: Take 1 tablet by mouth daily.), Disp: 60 tablet, Rfl: 1 famotidine (Pepcid) 20 MG tablet, Take 1 tablet (20 mg) by mouth 1 (one) time each day. (Patient taking differently: Take 1 tablet by mouth 2 times a day.), Disp: 30 tablet, Rfl: 3 levothyroxine (Synthroid, Levoxyl) 100 MCG tablet, Take 1 tablet (100 mcg) by mouth daily before breakfast., Disp: 30 tablet, Rfl: 11 loperamide (Imodium A-D) 2 MG tablet, Take 1 tablet (2 mg) by mouth 4 (four) times a day if needed for diarrhea., Disp: 30 tablet, Rfl: 1 ondansetron ODT (Zofran-ODT) 4 MG disintegrating tablet, Take 1 tablet (4 mg) by mouth every 8 (eight) hours if needed for nausea or vomiting., Disp: 20 tablet, Rfl: 0 senna-docusate sodium (Senokot-S) 8.6-50 MG tablet, Take 1 tablet by mouth 1 (one) time each day., Disp: 20 tablet, Rfl: 0 Tivozanib HCl 0.89 MG capsule, Take 1 capsule by mouth daily, days 1-21 every 28 days., Disp: 21 capsule, Rfl: 2 documented in this encounter Plan of Treatment Upcoming Encounters Date Type Department Care Team (Late st Contact Info) Description 10/14/2024 11:30 AM EDT Appointment [facility] Nuclear Medicine [address] [place] [phone] 10/14/2024 12:40 PM EDT Appointment [facility] [address] [place] [address] 10/14/2024 1:[address] [facility] Nuclear Medicine [address] [place] [address] 10/16/2024 1:30 PM EDT Clinical Support [facility] [address] [place] [phone] 10/16/2024 2:00 PM EDT Office Visit [facility] [address] [place] [phone] Carrol Rivera MD [address] [facility] Stacy [address] [address] 11/13/2024 1:00 PM EDT Office Visit [facility] [address] [place] [phone] Aurora Hubbard, SUB MASTER [address] [place] [phone] 11/26/2024 9:15 AM EDT Appointment [facility] [address] [place] [phone] 11/26/2024 10:45 AM EDT Office Visit [place] [facility] [address] [place] [address] Joseph Odonnell MD [address] [place] [address] documented as of this encounter Procedures Procedure Name Priority Date/Time Associated Diagnosis Comments XR CHEST 1 VIEW Routine 08/31/2024 1:18 PM EDT LACTATE DEHYDROGENASE, PLASMA Routine 08/31/2024 12:16 PM EDT COMPREHENSIVE METABOLIC PANEL, PLASMA Routine 08/31/2024 12:16 PM EDT US GUIDED THORACENTESIS Routine 09/01/19 11:53 AM EDT Shortness of breath BODY FLUID CELL COUNT W/ MANUAL DIFFERENTIAL Routine 08/31/2024 11:34 AM EDT TOTAL PROTEIN, PLEURAL FLUID Routine 08/31/2024 11:34 AM EDT LACTATE DEHYDROGENASE, PLEURAL FLUID Routine 08/31/2024 11:34 AM EDT BODY FLUID, CYTOSPIN, PATHOLOGIST INTERPRETATION Routine 08/31/2024 11:34 AM EDT BODY FLUID CULTURE AND GRAM STAIN Routine 08/31/2024 11:34 AM EDT NON-GYNECOLOGIC CYTOLOGY Routine 08/31/2024 11:34 AM EDT documented in this encounter Results * XR Chest 1 View (08/31/2024 1:18 PM EDT) Anatomical Region Laterality Modality Chest Digital Radiogra phy Impressions 08/31/2024 1:23 PM EDT Slightly decreased moderate right sided pleural effusion. No pneumothorax. CRITICAL RESULT: No. COMMUNICATION: Per this written report. Drafted by Theresa Guzman MD on 08/31/2024 1:22 PM Final report signed by Theresa Guzman MD on 08/31/2024 1:23 PM Narrative 08/31/2024 1:23 PM EDT CLINICAL INDICATION: s/p thora TECHNIQUE: XR CHEST 1 VIEW COMPARISON: August 12, 2024 FINDINGS: Moderate right-sided pleural effusion with fissural extension, slightly decreased. Right infrahilar atelectasis, without change. No new lung opacities. No pneumothorax is noted. Procedure Note Theresa Guzman MD - 08/31/2024 CLINICAL INDICATION: s/p thora TECHNIQUE: XR CHEST 1 VIEW COMPARISON: August 12, 2024 FINDINGS: Moderate right-sided pleural effusion with fissural extension, slightlydecreased. Right infrahilar atelectasis, without change. No new lungopacities. No pneumothorax is noted. IMPRESSION: Slightly decreased moderate right sided pleural effusion. Nopneumothorax. CRITICAL RESULT: No. COMMUNICATION: Per this written report. Drafted by Theresa Guzman MD on 08/31/2024 1:22 PM Final report signed by Theresa Guzman MD on 08/31/2024 1:23 PM us Natty Choe SUB MASTER IMG XR PROCEDURES Final Resu lt * (ABNORMAL) Comprehensive metabolic panel (08/31/2024 12:16 PM EDT) Glucose, Plasma 79 74 - 99 mg/dL 08/31/2024 1:18 PM EDT [facility] BUN, Plasma 10 8 - 23 mg/dL 08/31/2024 1:18 PM EDT [facility] Creatinine, Plasma 0.53(L) 0.60 - 1.10 mg/dL 08/31/2024 1:18 PM EDT [facility] BUN/Creatinine Ratio 19 08/31/2024 1:18 PM EDT [facility] Sodium, Plasma 140 136 - 145 mmol/L 08/31/2024 1:18 PM EDT [facility] Potassium, Plasma 3.3(L) 3.6 - 4.9 mmol/L 08/31/2024 1:18 PM EDT [facility] Chloride, Plasma 105 97 - 107 mmol/L 08/31/2024 1:18 PM EDT [facility] CO2, Plasma 22 22 - 29 mmol/L 08/31/2024 1:18 PM EDT [facility] Anion Gap 13 6 - 16 mmol/L 08/31/2024 1:18 PM EDT [facility] Total Calcium, Plasma 8.9 8.9 - 10.2 mg/dL 08/31/2024 1:18 PM EDT [facility] Total Protein 5.7(L) 6.3 - 7.9 g/dL 08/31/2024 1:18 PM EDT [facility] Albumin, Plasma 3.1(L) 3.5 - 5.2 g/dL 08/31/2024 1:18 PM EDT [facility] AST, Plasma 23 10 - 35 U/L 08/31/2024 1:18 PM EDT [facility] ALT, Plasma 29 10 - 35 U/L 08/31/2024 1:18 PM EDT [facility] Alkaline Phosphatase, Plasma 89 46 - 142 U/L 08/31/2024 1:18 PM EDT [facility] Total Bilirubin, Plasma 0.3 0.2 - 1.1 mg/dL 08/31/2024 1:18 PM EDT [facility] eGFRcr 106.0 mL/min/1.7 3m*2 08/31/2024 1:18 PM EDT [facility] Comment:Reported eGFRcr in m L/min/1.73m2 is based the CKD-EPI 2020 equation that does not use a race coefficient. Blood Venous blood specimen / Unknown Venipuncture / Unknown 08/31/2024 12:16 PM EDT 08/31/2024 12:40 PM EDT us Natty N Chescot SUB MASTER LAB BLOOD ORDERABLES Final R esult Performing Organization Address [facility] Co de Phone Number [facility] [address] [place] [address] * (ABNORMAL) Lactate dehydrogenase (08/31/2024 12:16 PM EDT) LDH, Plasma 591(H) 116 - 250 U/L 08/31/2024 1:18 PM EDT [facility] Blood Venous blood specimen / Unknown Venipuncture / Unknown 08/31/2024 12:16 PM EDT 08/31/2024 12:40 PM EDT us Natty N Дмитрий SUB MASTER LAB BLOOD ORDERABLES Final R esult Performing Organization Address [facility] de Phone Number [facility] [address] [place] [address] * US Guided Thoracentesis (08/31/2024 11:53 AM EDT) Anatomical Region Laterality Modality Chest Ultrasound Impressions 09/01/2024 2:54 PM EDT Technically successful ultrasound guided thoracentesis. A total of 1650 ml of clear yellow fluid was removed. Stopped fluid removal due to coughing. Moderate effusion remains. Discussed with patient to consider scheduling a thoracentesis next week if remains SOB. A sample of the fluid was sent for laboratory analysis. CRITICAL RESULT: No. COMMUNICATION: Per this written report. Preliminary report signed by ANDERSON Banda on 08/31/2024 2:14 PM By electronically signing this report, I, the attending physician, attest that I was not present for the procedure(s) but agree with the final edited report. Drafted by ANDERSON Banda on 08/31/2024 2:12 PM Final report signed by Stacy Callahan MD on 09/01/2024 2:54 PM Narrative 09/01/2024 2:54 PM EDT CLINICAL INDICATION: 59 y.o. female with past medical history of De Smita Metastatic Clear Cell Renal Cell Carcinoma with brain mets who presents for right thoracentesis. TECHNIQUE: Hyperbaric Nurse: Natty Choe APRN Secondary Blunger: None. Nurse: Shaye Technologist: Akhil Kemp Dose: NA Medications: Continuous physiologic monitoring provided by a qualified healthcare professional. Administered: 1% Lidocaine SQ. Antibiotics: NA Time out: 1129 Procedure: After discussion of risks and benefits, informed written consent was obtained. Appropriate time out was done to confirm patient identity and planned procedure. The patient was placed sitting up and initial limited right chest ultrasound scan performed. Strict hand hygiene protocol was observed with the operators doing a surgical hand scrub. All personnel in the room were attired in surgical hat and mask. The operators were in surgical hat, mask, sterile gloves and gowns. The site was prepped with 2% chlorhexidine for cutaneous antisepsis, followed by sterile barrier draping. Limited chest ultrasound was performed, which showed an anechoic fluid collection in the right posterior pleural space. 1% lidocaine used for local analgesia. Under ultrasound guidance, a 6 Fr safety-centesis catheter was advanced into the pleural fluid. Ultrasound images were sent to permanent storage in PACS. A total of 1650 ml of clear yellow fluid was removed. The needle was removed and occlusive dressing applied. The patient tolerated the procedure well. The patient left the IR suite in stable condition. COMPARISON: None. FINDINGS: Large pleural effusion COMPLICATION: No. Procedure Note Stacy Callahan MD - 09/01/2024 CLINICAL INDICATION: 59 y.o. female with past medical history of [place] Metastatic Clear CellRenal Cell Carcinoma with brain mets who presents for right thoracentesis. TECHNIQUE: Hyperbaric Nurse: Natty Choe APRN Secondary Blunger: None. Nurse: Shaye Technologist: Akhil Kemp Dose: NA Medications: Continuous physiologic monitoring provided by a qualifiedhealthcare professional. Administered: 1% Lidocaine SQ. Antibiotics: NA Time out: 9 Procedure: After discussion of risks and benefits, informed written consent wasobtained. Appropriate time out was done to confirm patient identity andplanned procedure. The patient was placed sitting up and initial limitedright chest ultrasound scan performed. Strict hand hygiene protocol was observed with the operators doing asurgical hand scrub. All personnel in the room were attired in surgicalhat and mask. The operators were in surgical hat, mask, sterile glovesand gowns. The site was prepped with 2% chlorhexidine for cutaneousantisepsis, followed by sterile barrier draping. Limited chest ultrasound was performed, which showed an anechoic fluidcollection in the right posterior pleural space. 1% lidocaine used forlocal analgesia. Under ultrasound guidance, a 6 Fr safety-centesiscatheter was advanced into the pleural fluid. Ultrasound images were sentto permanent storage in PACS. A total of 1650 ml of clear yellow fluid wasremoved. The needle was removed and occlusive dressing applied. The patient tolerated the procedure well. The patient left the IR suitein stable condition. COMPARISON: None. FINDINGS: Large pleural effusion COMPLICATION: No. IMPRESSION: Technically successful ultrasound guided thoracentesis. A total of 1650 ml of clear yellow fluid was removed. Stopped fluidremoval due to coughing. Moderate effusion remains. Discussed with patientto consider scheduling a thoracentesis next week if remains SOB. A sample of the fluid was sent for laboratory analysis. CRITICAL RESULT: No. COMMUNICATION: Per this written report. Preliminary report signed by ANDERSON Banda on 08/31/2024 2:14 PM By electronically signing this report, I, the attending physician, attestthat I was not present for the procedure(s) but agree with the finaledited report. Drafted by ANDERSON Banda on 08/31/2024 2:12 PM Final report signed by Stacy Callahan MD on 09/01/2024 2:54 PM us Carrol Rivera MD [facility] US PROCEDURES Final Result * Body fluid, cytospin, pathologist interpretation (08/31/2024 11:34 AM EDT) Specimen Type Body Fluid LAB HEMATOLOGY METHOD 09/01/2024 4:22 PM EDT [facility] Specimen Source, Body Fluid Pleural, Right LAB HEMATOLOGY METHOD 09/01/2024 4:22 PM EDT [facility] Clinical Diagnosis, Body Fluid Concern for malignant effusion. Clear cell renal cell carcinoma. LAB HEMATOLOGY METHOD 09/01/2024 4:22 PM EDT [facility] Interpretation , Body Fluid No evidence of malignancy; chronic inflammatory cells. A resident was involved in the service. I attest I examined the relevant preparations for the specimens and confirmed the diagnosis or interpretation. 09/01/2024 4:22 PM EDT [facility] Pathologist Signature, Body Fluid 09/01/2024 4:22 PM EDT [facility] Comment:Reviewed by: Polly Mccrary MD LAB CP ASR DISCLAIMER Yes 09/01/2024 4:22 PM EDT [facility] Body Fluid Structure of right pleural cavity / Unknown Non-blood Collection / Unknown 08/31/2024 11:34 AM EDT 08/31/2024 12:50 PM EDT Narrative [facility] - 09/01/2024 4:22 PM EDT Correlation with concurrent cytology ([id number]) is suggested. us Natty Choe APRN LAB BODY FLUIDS AND STOOLS O RDERABLES Final Result [facility] [address] [place] [address] * Cytology - Pleural Right (08/31/2024 11:34 AM EDT) Case Report Cytology Case: [id number] Authorizing Provider: Natty Choe APRN Collected: 08/31/2024 1134 Ordering Location: [facility] Interventional Received: 08/31/2024 1452 Radiology Pathologist: Maggie Ramirez MD Specimen: Pleural Fluid, Right, RIGHT PLEURAL FLUID 09/01/2024 5:27 PM EDT [facility] Final Diagnosis A. RIGHT PLEURAL FLUID: - RARE ATYPICAL CELLS, FAVOR REACTIVE MESOTHELIAL CELLS. 09/01/2024 5:27 PM EDT [facility] at 1727 EDT Clinical History Pleural effusion 09/01/2024 5:27 PM EDT [facility] Previous Cancer Primary Site Other/Unknown Primary Site 09/01/2024 5:27 PM EDT [facility] Gross Description A. RIGHT PLEURAL FLUID 90 mls yellow fluid for cell block and thin prep processing Cold Time: 4h 55m 09/01/2024 5:27 PM EDT [facility] Fluid Structure of right pleural cavity / Unknown 08/31/2024 11:34 AM EDT 08/31/2024 2:52 PM EDT us Natty N Cheeks SUB MASTER LAB CYTOLOGY ORDERABLES Elvira l Result [facility] [address] [place] [address] * Lactate Dehydrogenase, Pleural Fluid - Right (08/31/2024 11:34 AM EDT) LDH, Fluid 124 U/L 08/31/2024 2:51 PM EDT [facility] Pleural Fluid Structure of right pleural cavity / Unknown Non-blood Collection / Unknown 08/31/2024 11:34 AM EDT 08/31/2024 12:50 PM EDT Narrative [facility] - 08/31/2024 2:51 PM EDT No established reference interval. Results should be interpreted in comparison to the concentration in blood and in conjunction with the clinical context. Pleural fluid LDH and total protein measurements are used for differentiation of exudates and transudates. Light's criteria can be used to identify most pleural exudative effusions if one or more of the following criteria are present: (1) pleural fxijb-my-mpiro protein ratio of >0.5, (2) pleural yaakh-ez-cmunz LDH ratio of >0.6, or (3) a pleural fluid LDH activity that is >2/3 the upper limit of a normal serum LDH activity. Light's criteria may misclassify ~25% of transudates as exudates in heart failure. These can be identified by calculating a gvpld-io-spfzclv albumin gradient (>1.2 g/dL) and/or a jrsnv-si-fhton protein gradient (>3.1 g/dL). us Natty N Cheeks SUB MASTER LAB BODY FLUIDS AND STOOLS O RDERABLES Final Result Performing Organization Address [facility] Co de Phone Number [facility] [address] [place] [address] * Total Protein, Pleural Fluid - Pleural Right (08/31/2024 11:34 AM EDT) Total Protein, Fluid 3.5 g/dL 08/31/2024 2:51 PM EDT [facility] Pleural Fluid Structure of right pleural cavity / Unknown Non-blood Collection / Unknown 08/31/2024 11:34 AM EDT 08/31/2024 12:50 PM EDT Narrative [facility] - 08/31/2024 2:51 PM EDT This test was developed and its performance characteristics determined by [facility]. The U.S. Food and Drug Administration has not approved or cleared this test. However, FDA clearance or approval is not currently required for clinical use. The results are not intended to be used as the sole means for clinical diagnosis or patient management decisions. us Natty N Cheeks SUB MASTER LAB BODY FLUIDS AND STOOLS O RDERABLES Final Result Performing Organization Address [facility] de Phone Number [facility] [address] [place] [address] * Body Fluid Culture and Gram Stain - Pleural Right (08/31/2024 11:34 AM EDT) Culture No growth at day 4 2024 10:01 AM EDT [facility] Gram Stain Result Few Polymorphonuclear leukocytes 09/03/2024 10:01 AM EDT [facility] Gram Stain Result No organisms seen 09/03/2024 10:01 AM EDT [facility] Pleural Fluid Specimen from pleura obtained by thoracentesis / Unknown Non-blood Collection / Unknown 08/31/2024 11:34 AM EDT 08/31/2024 12:57 PM EDT us Natty N Cheeks SUB MASTER LAB MICROBIOLOGY - GENERAL O RDERABLES Final Result Performing Organization Address [facility] Co de Phone Number [facility] [address] [place] [address] * Body Fluid Cell Count w/ Diff - Pleural Right (08/31/2024 11:34 AM EDT) Color, Body fluid Yellow LAB HEMATOLOGY METHOD 08/31/2024 4:13 PM EDT [facility] Appearance, Body fluid Clear LAB HEMATOLOGY METHOD 08/31/2024 4:13 PM EDT [facility] Volume, Body fluid 100.0 cc LAB HEMATOLOGY METHOD 08/31/2024 4:13 PM EDT [facility] Fluid Container Specimen received in miscellaneous container LAB HEMATOLOGY METHOD 08/31/2024 4:13 PM EDT [facility] Red Blood Cell Count, Body fluid 683 uL LAB HEMATOLOGY METHOD 08/31/2024 4:13 PM EDT [facility] Comment:Test performed by belinda crawley method. Total Nucleated Cell Count, Body fluid 161 uL LAB HEMATOLOGY METHOD 08/31/2024 4:13 PM EDT [facility] Neutrophils %, Body fluid 9 % LAB HEMATOLOGY METHOD 08/31/2024 4:13 PM EDT [facility] Lymphocytes %, Body fluid 22 % LAB HEMATOLOGY METHOD 08/31/2024 4:13 PM EDT [facility] Monocytes/Macr ophages %, Body fluid 65 % LAB HEMATOLOGY METHOD 08/31/2024 4:13 PM EDT [facility] Eosinophils %, Body fluid 0 % LAB HEMATOLOGY METHOD 08/31/2024 4:13 PM EDT [facility] Lining/Mesothe lial Cells %, Body fluid 4 % LAB HEMATOLOGY METHOD 08/31/2024 4:13 PM EDT [facility] Neutrophils Absolute (PMN), Body fluid 14 uL LAB HEMATOLOGY METHOD 08/31/2024 4:13 PM EDT [facility] Lymphocytes Absolute, Body fluid 35 uL LAB HEMATOLOGY METHOD 08/31/2024 4:13 PM EDT [facility] Monocytes/Macr ophages Absolute, Body fluid 105 uL LAB HEMATOLOGY METHOD 08/31/2024 4:13 PM EDT [facility] Eosinophils Absolute, Body fluid 0 uL LAB HEMATOLOGY METHOD 08/31/2024 4:13 PM EDT [facility] Basophils Absolute, Body fluid 0 uL LAB HEMATOLOGY METHOD 08/31/2024 4:13 PM EDT [facility] Lining/Mesothe lial Cells Absolute, Body fluid 6 uL LAB HEMATOLOGY METHOD 08/31/2024 4:13 PM EDT [facility] Basophils %, Body fluid 0 % LAB HEMATOLOGY METHOD 08/31/2024 4:13 PM EDT [facility] Body Fluid Structure of right pleural cavity / Unknown Non-blood Collection / Unknown 08/31/2024 11:34 AM EDT 08/31/2024 12:50 PM EDT us Natty N Cheeks SUB MASTER LAB BODY FLUIDS AND STOOLS ORDERABLES NO SPECIMEN TYPE/SOURCE Final Result [facility] [address] [place] [address] documented in this encounter Visit Diagnoses Diagnosis Recurrent right pleural effusion- Primary Shortness of breath documented in this encounter Administered Medications Inactive Administered Medications - up to 3 most recent administrations Medication Order MAR Action Action Date Dose Rate Site lidocaine 0.9% in sodium bicarbonate (buffered lidocaine) solution solution As needed, Starting on 08/31/24 at 1131, Until Sat08/31/24 at 1131, Routine, Intraprocedure Given 08/31/2024 11:31 AM EDT 10 mL documented in this encounter Additional Health Concerns Assessment Noted Time A fall risk assessment has been complete d for the patient 08/19/2024 9:57 AM EDT A Body Mass Index follow-up plan has been documented for the patient 08/31/2024 1:28 PM EDT documented as of this encounter Care Teams Travelers' Aid Worker Relationship Specialty Start Date End Date Jared Coronel MD [address] [place] [address] PCP - General 08/12/20 Joseph Odonnell MD [address] [place] [address] Surgeon Neurosurgery 02/28/23 Carrol Rivera MD [address] [facility] [address] [place] [address] Consulting Physician Medical Oncology 06/12/23 Sky Moreau MD [address] [facility] [address] [place] [phone] Consulting Physician Radiation Oncology 06/12/23 Lauren Paiz APRN [address] [facility] [address] [place] [address] Nurse Practitioner Internal Medicine 07/19/23 documented as of this encounter
--- OUTSIDE RECORDS SUMMARY | 2024-08-31 13:04 | XMS_ITS | Encounter Summary ---
Author Organization Healthcare Address [address] [place] [address] Care Team Providers Care Sales Development Specialist Name Role Phone Jared Coronel MD Primary Care Provider [phone] Joseph Odonnell MD Unavailable [phone] Carrol Armenta MD Unavailable Sky Moreau MD Unavailable [phone] Lauren Paiz CHIROPRACTOR ASSISTANT Unavailable [phone] Encounter Details Date Type Department Care Team (Latest Contact Info) Description 08/31/2024 1:04 PM EDT - 08/31/2024 11:59 PM EDT Hospital Encounter [facility] Radiology [address] [place] [address] Discharge Disposition: Home or Self Care Social [...] place to sleep or slept in a snf (including now)? No 11/22/2023 CAGE ASSESSMENT Answer [...] drink first t nichole in the morning (EYE-FREIGHT ELEVATOR ERECTOR) to steady your nerves or to get rid of a hangover? 0 11/21/2023 CAGE Questionnaire Score 0 024 Utilities Answer Date Recorded In the past 12 months has th e [employer], gas, oil, or water company threatened to [...] EDT Travel History Travel Start Travel End [place] 09/20/2024 09/25/2024 documented as of this encounter Medications at Time of Discharge [...] daily before breakfast. 30 tablet 11 06/09/2024 loperamide (Imodium A-D) 2 MG tablet Take [...] 08/19/2024 5 documented as of this encounter Plan of Treatment Upcoming Encounters Date Type Department Care Team (Late st Contact Info) Description 10/14/2024 11:30 AM EDT Appointment [facility] Nuclear Medicine [address] [place] [phone] 10/14/2024 12:40 PM EDT Appointment [facility]iology [address] [place] [address] 10/14/2024 1:45 PM EDT Appointment [facility] Medicine [address] [place] [phone] 10/16/2024 1:30 PM EDT Clinical Support [facility] [address] [place] [address] 10/16/2024 2:00 PM EDT Office Visit [facility] [address] [place] [phone] Carrol Armenta MD [address] [facility] [address] [place] [phone] 11/13/2024 1:00 PM EDT Office Visit [facility] [address] [facility] [place] [phone] Aurora Hubbard, CHIROPRACTOR ASSISTANT [address] [place] [address] 11/26/2024 9:15 AM EDT Appointment [facility] [address] [place] [address] 11/26/2024 10:45 AM EDT [facility] Visit [facility] [address] [place] [address] Joseph Odonnell MD [address] [facility] [address] [place] [phone] documented as of this encounter Procedures Procedure Name Priority Date/Time Associated Diagnosis Comments XR CHEST 1 VIEW Routine 08/31/2024 1:18 PM EDT documented in this encounter Results * [...] MD on 08/31/2024 1:23 PM us Natty N Cheeks CHIROPRACTOR ASSISTANT IMG XR PROCEDURES Final Resu lt documented in this encounter Visit Diagnoses Not on filedocumented in this encounter Additional Health Concerns Assessment Noted Time A fall risk assessment has been complete d for the patient 08/19/2024 9:57 AM EDT A Body Mass Index follow-up plan has been documented for the patient 08/31/2024 1:28 PM EDT documented as of this encounter Care Teams Sales Development Specialist Relationship Specialty Start Date End Date Jared Coronel MD [address] [place] [address] PCP - General 08/12/20 Joseph Odonnell MD [address] [place] [address] Surgeon Neurosurgery 02/28/23 Carrol Armenta MD [address] [facility] [address] [place] [address] Consulting Physician Medical Oncology 06/12/23 Sky Moreau MD [address] [place] [address] Consulting Physician Radiation Oncology 06/12/23 Lauren Paiz, ERIC [address] [facility] [address] [place] [address] Nurse Practitioner Internal Medicine 07/19/23 documented as of this encounter
--- OUTSIDE RECORDS SUMMARY | 2024-09-11 08:48 | XMS_ITS | Encounter Summary ---
Author Organization Healthcare Address [address] [place] [address] Care Team Providers Care Creative Designer Name Role Phone Jared Coronel MD Primary Care Provider + [phone] Joseph Odonnell MD Unavailable [phone] Carrol Rivera MD Unavailable Sky Moreau MD Unavailable [phone] Lauren Paiz COMMISSIONING SPECIALIST Unavailable [phone] Reason for Referral * Imaging (Routine) - Closed Specialty Diagnoses / Procedures Referred By Contac t Referred To Contact Radiology Diagnoses Other ascites Procedures US Guided Thoracentesis Natty Choe COMMISSIONING SPECIALIST [address] [place] [address] Phone: tel: fax: Referral ID Status Reason Start Date Expiration Date Visits Re quested Visits Authorized [id number] Closed 09/04/2024 03/06/2026 1 1 Reason for Visit * Imaging (Routine) - Closed Specialty Diagnoses / Procedures Referred By Contac t Referred To Contact Radiology Diagnoses Other ascites Procedures US Guided Thoracentesis Natty Choe APRN [address] [place] [address] Phone: tel: fax: Referral ID Status Reason Start Date Expiration Date Visits Re quested Visits Authorized [id number] Closed 09/04/2024 03/06/2026 1 1 Encounter Details Date Type Department Care Team (Late st Contact Info) Description 09/11/2024 8:48 AM EDT - 09/11/2024 10:49 AM EDT Hospital Encounter [facility] Interventional Radiology [address] [place] [address] Jorden Martell, RN INFECTION PREVENTION & CONTROL Other ascites Discharge Disposition: Home or Self Care Social [...] drink first t nichole in the morning (EYE-CARE TRANSITIONS NURSE) to steady your nerves or to get [...] Sign Reading Time Taken Comments Blood Pressure 123/76 09/11/2024 10:10 AM EDT Pulse 113 09/11/2024 10:10 AM EDT Temperature - - Respiratory Rate 32 09/11/2024 10:10 AM EDT Oxygen Saturation 90% 09/11/2024 10:10 AM EDT Inhaled Oxygen Concentration - - Weight 77.8 kg (171 lb 8.3 oz) 09/11/2024 9:00 A M EDT Height 157.5 cm (5' 2 ) 09/11/2024 9:00 AM EDT Body Mass Index 31.37 09/11/2024 9:00 AM EDT documented in this encounter Discharge Instructions * Discharge Instructions* Jorden Martell, RN - 09/11/2024 11:08 AM EDT *Interventional Radiology* (IR) Questions/Concerns & Appointments: If there are questions or concerns after discharge please call: [facility] at [phone] Saturday - Saturday 8:00 AM to 4:30 PM After hours, weekends, and holidays please call [phone] and ask for the Interventional Radiology provider/Resident on-call Intervention Radiology Appointments: If you need to reschedule a procedure, please call our Schedulers at [phone], option [phone]. If you need to schedule or reschedule a clinic appointment, please call [phone]. [facility] Vascular and Interventional Radiology Clinic [address] [place] [address] documented in this encounter Medications at Time of Discharge acetaminophen (Tylenol) 500 MG tablet Take 1 tablet (500 mg) by mouth every 6 (six) hours. 100 tablet 11/23/2023 apixaban (Eliquis) 5 MG tabletIndications:Re nal cell carcinoma, unspecified laterality Take 1 tablet by mouth 2 times a day. 60 tablet 5 09/01/2024 dexamethasone (Decadron) 1 MG tablet Take 1 [...] (one) time each day. 20 tablet 11/23/2023 Tivozanib HCl 0.89 MG capsule Take 1 capsule by mouth daily, days 1-21 every 28 days. 21 capsule 2 08/19/2024 documented as of this encounter Miscellaneous Notes * Jorden Raphael RN - 09/11/2024 11:08 AM EDT Images from the original note were not included. [id number] Discharge Instructions for Thoracentesis Thoracentesis is a [...] you are having trouble breathing. Home care ? You may have some pain after the procedure. Your doctor may prescribe pain medicine, if needed. Take these exactly as directed. ? If you stopped taking other medicines before the procedure, ask your doctor when you can start them again. ? Take it easy for 48 hours after the procedure. Don't do anything active until your doctor says it?s okay. ? Don't do strenuous activities, such as lifting, until your doctor says it?s okay. ? Don't travel in an airplane until your doctor says it's okay to do so. ? You will have a small bandage over the puncture site. You may remove the bandage in 24 hours, or when your doctor says it's okay. ? Check the puncture site for the signs of infection listed below. Follow-up Make a follow-up appointment with your doctor as directed. During your follow-up visit, your doctorwill check your healing. Be sure to let your doctor know how you are feeling. When to contact your doctor Contact your doctor right away if you have: ? A fever of 100.4??F (38??C) or higher, or as directed. ? Pain that doesn't get better after taking pain medicine. ? Signs of infection at the puncture site. These include increased pain, redness, warmth, swelling,or fluid leaking that is green or yellow or smells bad. ? Fluid draining from the puncture site. ? Bleeding from the puncture site. When to call 911 Call 911 or get care at the nearest emergency department if you have: ? Chest pain that is unusual or suddenly gets worse. ? Shortness of breath. ? Coughing up blood. Last Reviewed Date: 2024 00:00:00 ?? [id number] [employer]. All rights reserved. This information is not intended as a substitute for professional medical care. Always follow your healthcare professional's instructions. * Post-Procedure Note - Monica Smith APRN - 09/11/2024 10:00 AM EDT Vascular and Interventional Radiology Brief Postprocedure Note Performed by: Monica Smith APRN Pre-operative Diagnosis: Pleural effusion Post-operative Diagnosis: same Type of Anesthesia: Local Description of Findings: Right pleural effusion. Technical/Surgical Procedures Used: US guided thoracentesis. Specimen Obtained: No Complications: None Estimated Blood Loss: none Procedure Events Event Event Time See detailed result report with images in PACS. The patient tolerated the procedure well without incident or complication and is in stable condition. * Interval H&P Note - Monica Smith APRN - 09/11/2024 10:00 AM EDT Reviewed H/P, no significant interval change. Here for right thoracentesis. Source Note - Natty Choe Alejandra, ERIC - 08/31/2024 11:30 AM EDT 08/31/24 Patient: [...] 08/12/2024 4:04 PM Final report signed by Cari Wheeler MD on 08/12/2024 4:23 PM Echo, [...] is no recent study available for direct [id number] comparison. Assessment & Plan: Large right pleural [...] the care of this patient. Natty Choe, COMMISSIONING SPECIALIST Interventional Radiology [phone] [1] Past Medical History: Diagnosis Date Blood [...] EDT Appointment [facility] Nuclear Medicine [address] [place] [id number] 10/14/2024 12:40 PM EDT Appointment [facility] Radiology [address] [place] [address] 10/14/2024 1:45 PM EDT Appointment [facility] Nuclear Medicine [address] [place] [address] 10/16/2024 1:30 PM EDT Clinical Support [facility] Multidisciplinary Oncology Clinic [address] [place] [address] 10/16/2024 2:00 PM EDT Office Visit [facility] Multidisciplinary Oncology Clinic [address] [place] [address] Carrol Rivera MD [address] [facility] [address] [place] [address] 11/13/2024 1:00 PM EDT Office Visit [facility] Head, Neck & Respiratory [address] [facility], 2nd [place] [address] Aurora Hubbard, COMMISSIONING SPECIALIST [address] [place] [address] 11/26/2024 9:15 AM EDT Appointment [facility] Radiology [address] [place] [address] 11/26/2024 10:45 AM EDT [facility] Visit [facility] [address] [place] [address] Joseph Odonnell MD [address] [facility] [address] [place] [address] documented as of this encounter Procedures Procedure Name Priority Date/Time Associated Diagnosis Comments XR CHEST 1 VIEW STAT 09/11/2024 11:01 AM EDT US GUIDED THORACENTESIS Routine 09/11/2024 10:13 AM EDT Other ascites documented in this encounter Results * XR Chest 1 View (09/11/2024 11:01 AM EDT) Anatomical Region Laterality Modality Chest Digital Radiogra phy Impressions 09/11/2024 11:03 AM EDT No pneumothorax. CRITICAL RESULT: No. COMMUNICATION: Per this written report. Drafted by Pasha Louise MD on 09/11/2024 11:02 AM Final report signed by Pasha Louise MD on 09/11/2024 11:03 AM Narrative 09/11/2024 11:03 AM EDT CLINICAL INDICATION: s/p thora TECHNIQUE: XR CHEST 1 VIEW COMPARISON: August 31, 2024 FINDINGS: Interval decrease in the right pleural effusion, with improved aeration of the right lung base. Small left effusion is stable. No pneumothorax is identified. Procedure Note Pasha Louise MD - 09/11/2024 CLINICAL INDICATION: s/p thora TECHNIQUE: XR CHEST 1 VIEW COMPARISON: August 31, 2024 FINDINGS: Interval decrease in the right pleural effusion, with improved aeration ofthe right lung base. Small left effusion is stable. No pneumothorax isidentified. IMPRESSION: No pneumothorax. CRITICAL RESULT: No. COMMUNICATION: Per this written report. Drafted by Pasha Louise MD on 09/11/2024 11:02 AM Final report signed by Pasha Louise MD on 09/11/2024 11:03 AM us Monica Smith COMMISSIONING SPECIALIST IMG XR PROCEDURES Final Resu lt * US Guided Thoracentesis (09/11/2024 10:13 AM EDT) Anatomical Region Laterality Modality Chest Ultrasound Impressions 09/11/2024 3:20 PM EDT Technically successful ultrasound guided thoracentesis. A total of 1.6 L of clear yellow fluid was removed. A sample of the fluid was sent for laboratory analysis. CRITICAL RESULT: No. COMMUNICATION: Per this written report. Preliminary report signed by ANDERSON Hernandez on 09/11/2024 11:05 AM By electronically signing this report, I, the attending physician, attest that I was not present for the procedure(s) but agree with the final edited report. Drafted by ANDERSON Hernandez on 09/11/2024 11:04 AM Final report signed by Annette Daley MD on 09/11/2024 3:20 PM Narrative 09/11/2024 3:20 PM EDT CLINICAL INDICATION: Abby Winston is a 59 y.o. 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 TECHNIQUE: Molder Sweep: Monica Smith APRN Secondary Hogshead Stock Clerk: None. Nurse: RENARD Frias Technologist: Melanie Kemp Dose: NA Medications: Continuous physiologic monitoring provided by a qualified healthcare professional. Administered: 1% Lidocaine SQ. Antibiotics: NA Time out: 954 Procedure: After discussion of risks and benefits, [...] an anechoic fluid collection in the right pleural space. 1% lidocaine used for local analgesia. Under ultrasound guidance, a 6 Fr safety-centesis catheter was advanced into the pleural fluid. Ultrasound images were sent to permanent storage in PACS. A total of 1.6 L of clear yellow fluid was removed. The needle was removed and occlusive dressing applied. The patient tolerated the procedure well. The patient left the IR suite in stable condition. COMPARISON: None. FINDINGS: Large right pleural fluid. COMPLICATION: No. Procedure Note Annette Daley MD - 09/11/2024 CLINICAL INDICATION: Abby Winston is a 59 y.o. female with past medical history of De NovoMetastatic Clear Cell Renal Cell Carcinoma with brain met who presentsfor right thoracentesis. TECHNIQUE: Molder Sweep: Monica Smith APRN Secondary Hogshead Stock Clerk: None. Nurse: RENARD Frias Technologist: Melanie Kemp Dose: NA Medications: Continuous physiologic monitoring provided by a qualifiedhealthcare professional. Administered: 1% Lidocaine SQ. Antibiotics: NA Time out: 954 Procedure: After discussion of risks and benefits, [...] showed an anechoic fluidcollection in the right pleural space. 1% lidocaine used for localanalgesia. Under ultrasound guidance, a 6 Fr safety-centesis catheter wasadvanced into the pleural fluid. Ultrasound images were sent to permanentstorage in PACS. A total of 1.6 L of clear yellow fluid was removed. Theneedle was removed and occlusive dressing applied. The patient tolerated the procedure well. The patient left the IR suitein stable condition. COMPARISON: None. FINDINGS: Large right pleural fluid. COMPLICATION: No. IMPRESSION: Technically successful ultrasound guided thoracentesis. A total of 1.6 L of clear yellow fluid was removed. A sample of the fluid was sent for laboratory analysis. CRITICAL RESULT: No. COMMUNICATION: Per this written report. Preliminary report signed by ANDERSON Hernandez on 09/11/2024 11:05 AM By electronically signing this report, I, the attending physician, attestthat I was not present for the procedure(s) but agree with the finaledited report. Drafted by ANDERSON Hernandez on 09/11/2024 11:04 AM Final report signed by Annette Daley MD on 09/11/2024 3:20 PM Natty Roberts Elizabethscot COMMISSIONING SPECIALIST IMG US PROCEDURES Final Resu lt documented in this encounter Visit Diagnoses Diagnosis Other ascites documented in this encounter Administered Medications Inactive Administered Medications - up to 3 most recent administrations Medication Order MAR Action Action Date Dose Rate Site lidocaine 1% in sodium bicarbonate (buffered lidocaine)10 mL 10 mL, Infiltration, Once, 1 dose, On Sat09/11/24 at 0945, Routine, Holding - Preprocedure Given by Other 09/11/2024 9:56 AM EDT 10 mL Back documented in this encounter Additional Health Concerns Assessment Noted Time A fall risk assessment has been complete d for the patient 08/19/2024 9:57 AM EDT A Body Mass Index follow-up plan has been documented for the patient 09/11/2024 11:08 AM EDT documented as of this encounter Care Teams Creative Designer Relationship Specialty Start Date End Date Jared Coronel MD [address] [place] [address] PCP - General 08/12/20 Joseph Odonnell MD [address] [place] [address] Surgeon Neurosurgery 02/28/23 Carrol Rivera MD [address] [facility] [address] [place] [address] Consulting Physician Medical Oncology 06/12/23 Sky Moreau MD [address] [facility] [address] [place] [address] Consulting Physician Radiation Oncology 06/12/23 Lauren Paiz APRN [address] [facility] [address] [place] [address] Nurse Practitioner Internal Medicine 07/19/23 documented as of this encounter
--- OUTSIDE RECORDS SUMMARY | 2024-09-11 10:50 | XMS_ITS | Encounter Summary ---
Author Organization Healthcare Address [address] [place] [address] Care Team Providers Care Manager Research Development Name Role Phone Jared Coronel MD Primary Care Provider + [phone] Joseph Odonnell MD Unavailable [phone] Carrol Armenta MD Unavailable Sky Moreau MD Unavailable [phone] Lauren Paiz PHLEBOTOMIST Unavailable [phone] Encounter Details Date Type Department Care Team (Latest Contact Info) Description 09/11/2024 10:50 AM EDT - 09/11/2024 11:59 PM EDT Hospital Encounter [facility] Radiology [address] [place] [address] Discharge Disposition: Home or Self Care Social [...] place to sleep or slept in a mcc (including now)? No 11/22/2023 CAGE ASSESSMENT Answer [...] drink first t nichole in the morning (EYE-RUG RECEIVING CLERK) to steady your nerves or to get rid of a hangover? 0 11/21/2023 CAGE Questionnaire Score 0 024 Utilities Answer Date Recorded In the past 12 months has th e frooly, gas, oil, or water company threatened to [...] EDT Appointment [facility] Nuclear Medicine [address] [place] [address] 10/14/2024 12:40 PM EDT Appointment [facility] G Radiology [address] [place] [address] 10/14/2024 1:45 PM EDT Appointment [facility] Nuclear Medicine [address] [place] [address] 10/16/2024 1:30 PM EDT Clinical Support [facility] Multidisciplinary Oncology Clinic [address] [place] [address] 10/16/2024 2:00 PM EDT Office Visit [facility] Multidisciplinary Oncology Clinic [address] [place] [address] Carrol Armenta MD 800 [facility] [address] [place] [address] 11/13/2024 1:00 PM EDT Office Visit Pav [facility] Head, Neck & Respiratory [address] [facility]nd [place] [address] Aurora Hubbard, PHLEBOTOMIST [address] [place] [address] 11/26/2024 9:15 AM EDT Appointment [facility] Radiology [address] [place] [address] 11/26/2024 10:45 AM EDT Office Visit [place] [facility] [address] [place] [address] Joseph Odonnell MD [address] [facility] [address] [place] [address] documented as of this encounter Procedures Procedure Name Priority Date/Time Associated Diagnosis Comments XR CHEST 1 VIEW STAT 09/11/2024 11:01 AM EDT documented in this encounter Results [...] on 09/11/2024 11:03 AM us Monica Smith PHLEBOTOMIST IMG XR PROCEDURES Final Resu lt documented in this encounter Visit Diagnoses Not on filedocumented in this encounter Additional Health Concerns Assessment Noted Time A fall risk assessment has been complete d for the patient 08/19/2024 9:57 AM EDT A Body Mass Index follow-up plan has been documented for the patient 09/11/2024 11:08 AM EDT documented as of this encounter Care Teams Manager Research Development Relationship Specialty Start Date End Date Jared Coronel MD [address] [place], [place] [address] PCP - General 08/12/20 Joseph Odonnell MD [address] [facility] [address] [place] [address] Surgeon Neurosurgery 02/28/23 Carrol Armenta MD [address] [facility] [address] [place] [address] Consulting Physician Medical Oncology 06/12/23 Sky Moreau MD [address] [place] [address] Consulting Physician Radiation Oncology 06/12/23 Lauren Paiz APRN [address] [facility] [address] [place] [address] Nurse Practitioner Internal Medicine 07/19/23 documented as of this encounter
--- OUTSIDE RECORDS SUMMARY | 2024-09-15 10:08 | XMS_ITS | Encounter Summary ---
Author Organization Healthcare Address [address] [place] [address] Care Team Providers Care Body Service Team Member Name Role Phone Jared Coronel MD Primary Care Provider + [phone] Joseph Odonnell MD Unavailable [phone] Carrol Armenta MD Unavailable Sky Moreau MD Unavailable [phone] Lauren Paiz H[employer] Unavailable [phone] Reason for Referral * Imaging (Routine) - Closed Specialty Diagnoses / Procedures Referred By Tammy little Referred To Contact Radiology Diagnoses Renal cell carcinoma, unspecified laterality Procedures MR Head w and wo IV Contrast Carrol Armenta MD [address] [address] Phone: tel: fax: Referral ID Status Reason Start Date Expiration Date Visits Re quested Visits Authorized [id number] Closed 08/19/2024 02/18/2026 1 1 Reason for Visit * Imaging (Routine) - Closed Specialty Diagnoses / Procedures Referred By Tammy little Referred To Contact Radiology Diagnoses Renal cell carcinoma, unspecified laterality Procedures MR Head w and wo IV Contrast Carrol Armenta MD [address] [address] Phone: tel: fax: Referral ID Status Reason Start Date Expiration Date Visits Re quested Visits Authorized [id number] Closed 08/19/2024 02/18/2026 1 1 Encounter Details Date Type Department Care Team (Latest Contact Info) Description 09/15/2024 10:08 AM EDT - 09/15/2024 10:57 AM EDT Hospital Encounter [facility] [address] [place] [address] Renal cell carcinoma, unspecified laterality Discharge Disposition: Home or Self Care Social [...] Date Recorded Patient Health Questionnaire-2 Score 0 09/16/2024 Hunger Vital Sign Answer Date Recorded Within [...] place to sleep or slept in a jail (including now)? No 11/22/2023 PHQ-9 Answer Date Recorded Patient Health Questionnaire-9 Score 0 09/16/2024 CAGE ASSESSMENT Answer Date Recorded Cage unable [...] drink first t nichole in the morning (EYE-SHAMPOO PERSON) to steady your nerves or to get [...] EDT Travel History Travel Start Travel End [place] 09/20/2024 09/25/2024 documented as of this encounter Functional Status * Over the past 2 weeks, how often have you been bothered by any of the following problems? Question Answer Date of Assessment Author Little interest or pleasure in doing things Not at all 09/16/2024 9:51 AM EDT Shikha Robles A Feeling down, depressed, or hopeless Not at all 09/16/2024 9:51 AM Shikha Riggins Patient Health Questionnaire -2 Score 0 09/16/2024 9:51 AM Shikha Riggins * Question Answer Date of Assessment Author Trouble falling or staying asleep, or sleeping too much Not at all 09/16/2024 9:51 AM Shikha Chris Feeling tired or having alex le energy Not at all 09/16/2024 9:51 AM Shikha Riggins A Poor appetite or overeating Not at all 09/16/2024 9: 51 AM Shikha Riggins A Feeling bad about yourself - or that you are a failure or have let yourself or your family down Not at all 09/16/2024 9:51 AM Shikha Yin Trouble concentrating on thi ngs, such as reading the newspaper or watching television Not at all 09/16/2024 9:51 AM Shikha Riggins Moving or speaking so slowly that other people could have noticed? Or the opposite - being so fidgety or restless that you have been moving around a lot more than usual. Not at all 09/16/2024 9:51 AM Shikha Riggins Thoughts that you would be better off or hurting yourself in some way Not at all 09/16/2024 9:51 AM Shikha Riggins Patient Health Questionnaire -9 Score 0 09/16/2024 9:51 AM Shikha Riggins * Calculated C-SSRS Risk Score (Lifetime/Recent) Answer Date of Assessment Author No Risk Indicated 09/18/2024 7:20 AM Esteban Katz * If you checked off any problems on this questionnaire so far, Question Answer Date of Assessment Author How difficult have these problems made it for you to do your work, take care of things at home, or get along with other people? Not difficult at all 09/16/2024 9:51 AM Shikha Riggins * Question Answer Date of Assessment Author 1. Wish to be (Past 1 Month) No 025 7:20 AM Esteban Moore 2. Non-Specific Active Suici yemi Thoughts (Past 1 Month) No 09/18/2024 7:20 AM EDT Shaneka Daniels 6. Suicidal Behavior (Lifetime) No 5 7:20 AM EDT Esteban Daniels documented as of this encounter Medications at [...] Upcoming Encounters Date Type Department Care Team (Lucia st Contact Info) Description 10/14/2024 11:30 AM EDT Appointment [facility] Nuclear Medicine [address] [place] [address] 10/14/2024 12:40 PM EDT Appointment [facility] [address] [place] [phone] 10/14/2024 1:45 PM EDT Appointment [facility] Nuclear Medicine [address] [place] [phone] 10/16/2024 1:30 PM EDT Clinical Support [facility] [address] [place] [address] 10/16/2024 2:00 PM EDT Office Visit [facility] [address] [place] [phone] Carrol Armenta MD 800 [facility] [address] [place] [address] 11/13/2024 1:00 PM EDT Office Visit [facility] Head, Neck & Respiratory 800 [facility], [address]nd [place] [address] Aurora Hubbard, [employer]IVING [address] [place] [address] 11/26/2024 9:15 AM EDT Appointment [facility] [address] [place] [phone] 11/26/2024 10:45 AM EDT Office Visit [facility] [address] [place] [address] Joseph Odonnell MD [address] [facility] [address] [place] [address] documented as of this encounter Procedures Procedure Name Priority Date/Time Associated Diagnosis Comments MR HEAD W AND WO IV CONTRAST Routine 09/15/2024 10:56 AM EDT Renal cell carcinoma, unspecified laterality documented in this encounter Results * MR Head w and wo IV [...] error, please notify the sender immediately at [phone] and permanently delete the original report and destroy any copies or printouts. Narrative 09/16/2024 4:49 PM EDT [facility] - Phone Outpatient NAME: Abby Winston DATE OF EXAM: 09/15/2024 Patient No: [id number] Physician: Samuel^Garrett Date of : 1965 Past Medical/Surgical History [...] Winston DATE OF EXAM: 09/15/2024 Patient No: [id number] Physician: Kathi^Carrol^Garrett Date of : 1965 Past [...] Major intracranial vascular flow voids preserved on [id number] sequences. Osseous structures and soft tissues: No [...] in error, pleasenotify the sender immediately at [phone] and permanently delete theoriginal report and destroy any copies or printouts. Carrol Armenta MD IMG MRI PROCEDURES Final Result documented in this encounter Visit Diagnoses Diagnosis Renal cell carcinoma, unspecified laterality documented in this encounter Administered Medications Inactive Administered Medications - up to 3 most recent administrations Medication Order MAR Action Action Date Dose Rate Site gadobutrol (Gadavist) injection 7.8 mL 7.8 mL (rounded from 7.78 mL = 0.1 mL/kg 77.8 kg), Intravenous, Once in imaging, 1 dose, Starting on Sat09/15/24 at 1028, Until Sat09/15/24 at 1050, Routine, Imaging Protocol Orders Given 09/15/2024 10:50 AM EDT 7.8 mL documented in this encounter Additional Health Concerns Assessment Noted Time A fall risk assessment has been complete d for the patient 08/19/2024 9:57 AM EDT A Body Mass Index follow-up plan has been documented for the patient 09/11/2024 11:08 AM EDT documented as of this encounter Care Teams Body Service Team Member Relationship Specialty Start Date End Date Jared Coronel MD [address] [place] [address] PCP - General 08/12/20 Joseph Odonnell MD [address] [place] [address] Surgeon Neurosurgery 02/28/23 Carrlo Armenta MD [address] [facility] [address] [place] [address] Consulting Physician Medical Oncology 06/12/23 Sky Moreau MD [address] [facility] [address] [place] [address] Consulting Physician Radiation Oncology 06/12/23 Lauren Paiz, [employer] [address] [facility] [address] [place] [address] Nurse Practitioner Internal Medicine 07/19/23 documented as of this encounter
--- OUTSIDE RECORDS SUMMARY | 2024-09-15 10:58 | XMS_ITS | Encounter Summary ---
Author Organization Healthcare Address [address] [place] [address] Care Team Providers Care Turning Lathe Tender Name Role Phone Jared Coronel MD Primary Care Provider + [phone] Joseph Odonnell MD Unavailable [phone] Carrol Armenta MD Unavailable Sky Moreau MD Unavailable [phone] Lauren Paiz MOTOR TESTER Unavailable [phone] Reason for Referral * Imaging (Routine) - Closed Specialty Diagnoses / Procedures Referred By Tammy little Referred To Contact Radiology Diagnoses Renal cell carcinoma, unspecified laterality Procedures CT Abdomen Pelvis w IV Contrast Carrol Armenta MD [address] [address] Phone: tel: fax: Referral ID Status Reason Start Date Expiration Date Visits Re quested Visits Authorized [id number] Closed 08/19/2024 02/18/2026 1 1 * Imaging (Routine) - Closed Specialty Diagnoses / Procedures Referred By Tammy little Referred To Contact Radiology Diagnoses Renal cell carcinoma, unspecified laterality Procedures CT Chest w IV Contrast Carrol Armenta MD [address] [facility] [address] [place] [address] Phone: tel: fax: Referral ID Status Reason Start Date Expiration Date Visits Re quested Visits Authorized [id number] Closed 08/19/2024 02/18/2026 1 1 Reason for Visit * Imaging (Routine) - Closed Specialty Diagnoses / Procedures Referred By Contac t Referred To Contact Radiology Diagnoses Renal cell carcinoma, unspecified laterality Procedures CT Abdomen Pelvis w IV Contrast Carrol Armenta MD 800 [facility] [address] [place] [address] Phone: tel: fax: Referral ID Status Reason Start Date Expiration Date Visits Re quested Visits Authorized [id number] Closed 08/19/2024 02/18/2026 1 1 Encounter Details Date Type Department Care Team (Latest Contact Info) Description 09/15/2024 10:58 AM EDT - 09/15/2024 11:59 PM EDT Hospital Encounter [facility] [address] [place] [address] Renal cell carcinoma, unspecified laterality [...] place to sleep or slept in a retirement (including now)? 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-CAFETERIA SUPERVISOR) to steady your nerves or to get [...] EDT Travel History Travel Start Travel End [place] 09/20/2024 09/25/2024 documented as of this encounter Functional Status * Over the past 2 weeks, how often have you been bothered by any of the following problems? Question Answer Date of Assessment Author Little interest or pleasure in doing things Not at all 09/16/2024 9:51 AM Shikha Riggins Feeling down, depressed, or hopeless Not at all 09/16/2024 9:51 AM Shikha iRggins Patient Health Questionnaire -2 Score 0 09/16/2024 9:51 AM Shikha Riggins * Question Answer Date of Assessment Author Trouble falling or staying asleep, or sleeping too much Not at all 09/16/2024 9:51 AM Shikha Chris A Feeling tired or having alex le energy [...] Author No Risk Indicated 09/18/2024 7:20 AM EDT Esteban Rock * If you checked off any problems on this questionnaire so far, Question Answer Date of Assessment Author How difficult have these problems made it for you to do your work, take care of things at home, or get along with other people? Not difficult at all 09/16/2024 9:51 AM EDT Shikha Robles * Question Answer Date of Assessment Author 1. Wish to be (Past 1 Month) No 025 7:20 AM EDT Esteban Daniels 2. Non-Specific Active Suici yemi Thoughts (Past 1 Month) No 09/18/2024 7:20 AM EDT Shaneka Daniels 6. Suicidal Behavior (Lifetime) No 7:20 AM EDT Esteban Daniels documented as [...] as of this encounter Miscellaneous Notes * Marivel FabioZOHAIB PosadasNi ferguson Nichole - 09/15/2024 12:10 PM EDT Images from the original note were not included. 1639 Caring for Yourself after Contrast Imaging If you had ORAL contrast: ? You can go back to your normal diet and activities as tolerated. ? Drink plenty of fluids, unless told otherwise. If you had IV contrast: ? You can go back to your normal diet and activities as tolerated. ? Drink plenty of fluids, unless told otherwise. ? Leave a bandage on the site for 30 minutes (where the IV was inserted or blood was drawn). If you had Intravesical (bladder) contrast: ? Return to normal diet and activity. What you need to know about delayed reaction to IV contrast What is IV Contrast? ? Contrast is a dye that is put into your body through an IV. ? It is used for imaging scans such as CT scans and MRIs. ? The contrast makes blood vessels, organs and other parts of your body show up better on the scan. What do I need to do after IV contrast? ? Drink lots of fluids. This will help flush the contrast out of your system. ? Drink 2-3 extra glasses or bottles of water within 4 hours of your scan. What is a contrast reaction? ? A contrast reaction is a bad side effect from the contrast dye. ? It is rare but it does happen. ? They can be mild - such as sneezing, itching, or hives. ? They can be severe - such as trouble breathing, throat swelling, and irregular heart beat. When do these reactions happen? ? They often happen right after the contrast is injected. ? Some happen hours after going home. Go to the nearest Emergency Department right away if you have any of these symptoms after you leavethe clinic or hospital. ? Sneezing ? Itching in your mouth, throat, eyes, ears, or skin ? Rash or hives ? Throwing up or stomach sickness ? High heart rate or ?racing? of your heart ? Feeling dizzy or woozy ? Feeling short of breath or like you can?t take a deep breath ? Feeling very anxious for no other reason It is very important that these reactions be treated. Tell the doctor or nurse that you are having a reaction to IV contrast dye. Do not ignore any sign of a reaction! All reactions must be assessed by a doctor. Call 911 if you are alone and your reaction is more than mild sneezing or itching. If you have a mild reaction, call to speak with a Radiologist, explain that you havehad a contrast reaction, as this needs to be added to your medical record. documented in this encounter Plan of Treatment Upcoming Encounters Date Type Department Care Team (Late st Contact Info) Description 10/14/2024 11:30 AM EDT Appointment [facility] Nuclear Medicine [address] [place] [address] 10/14/2024 12:40 PM EDT Appointment [facility] [address] [place] [address] 10/14/2024 1:45 PM EDT Appointment [facility] [address] [place] [address] 10/16/2024 1:30 PM EDT Clinical Support [facility] Multidisciplinary Oncology Clinic [address] [place] [address] 10/16/2024 2:00 PM EDT Office Visit [facility] [address] [place] [address] Carrol Armenta MD 800 [facility] [address] [place] [address] 11/13/2024 1:00 PM EDT Office Visit [facility] Head, Neck & Respiratory 800 [facility], 2nd [place] [address] Aurora Hubbard, MOTOR TESTER [address] [place] [address] 11/26/2024 9:15 AM EDT Appointment [facility] [address] [place] [address] 11/26/2024 10:45 AM EDT Office Visit [place] [facility] [address] [place] [address] Joseph Odonnell MD [address] [place] [address] documented as of this encounter Procedures Procedure Name Priority Date/Time Associated Diagnosis Comments CT ABDOMEN PELVIS W IV CONTRAST Routine 09/15/2024 12:09 PM EDT Renal cell carcinoma, unspecified laterality CT CHEST W IV CONTRAST Routine 09/15/2024 12:09 PM EDT Renal cell carcinoma, unspecified laterality documented in this encounter Results * CT Abdomen Pelvis [...] COMMUNICATION: Per this written report. Drafted by oJrden Hamilton MD on 09/15/2024 12:34 PM Final [...] Total DLP (Dose-Length Product): 1087.15 mGy.cm (accession [id number]), 1087.15 mGy.cm (accession [id number]) Please note: The reported value represents the [...] Total DLP (Dose-Length Product): 1087.15 mGy.cm (accession [id number]),1087.15 mGy.cm (accession [id number]) Please note: The reported valuerepresents the total [...] Total DLP (Dose-Length Product): 1087.15 mGy.cm (accession [id number]), 1087.15 mGy.cm (accession [id number]) Please note: The reported value represents the [...] Total DLP (Dose-Length Product): 1087.15 mGy.cm (accession [id number]),1087.15 mGy.cm (accession [id number]) Please note: The reported valuerepresents the total [...] Armenta MD IMG CT PROCEDURES Final Result documented in this encounter Visit Diagnoses Diagnosis Renal cell carcinoma, unspecified laterality documented in this encounter Administered Medications Inactive Administered Medications - up to 3 most recent administrations Medication Order MAR Action Action Date Dose Rate Site iohexol (OMNIPaque) 300 MG/ML injection 100 mL 100 mL, Intravenous, Once in imaging, 1 dose, Starting on Sat09/15/24 at 1100, Until 09/15/24 at 1158, Routine, Imaging Protocol Orders Given 09/15/2024 11:58 AM EDT 100 mL iohexol (OMNIPaque) 9 MG/ML oral contrast 500 mL 500 mL, Oral, Once in imaging, 1 dose, Starting on e 09/15/24 at 1100, Until 09/15/24 at 1106, Routine, Imaging Protocol Orders Given 09/15/2024 11:06 AM EDT 500 mL documented in this encounter Additional Health Concerns Assessment Noted Time A fall risk assessment has been complete d for the patient 08/19/2024 9:57 AM EDT A Body Mass Index follow-up plan has been documented for the patient 09/11/2024 11:08 AM EDT documented as of this encounter Care Teams Turning Lathe Tender Relationship Specialty Start Date End Date Jared Coronel MD [address] [place], [place] [id number] PCP - General 08/12/20 Joseph Odonnell MD [address] [place] [address] Surgeon Neurosurgery 02/28/23 Carrol Armenta MD [address] [place] [phone] Consulting Physician Medical Oncology 06/12/23 Sky Moreau MD [address] [place] [address] Consulting Physician Radiation Oncology 06/12/23 Lauren Paiz, ERIC [address] [place] [phone] Nurse Practitioner Internal Medicine 07/19/23 documented as of this encounter
--- OUTSIDE RECORDS SUMMARY | 2024-09-16 09:30 | XMS_ITS | Encounter Summary ---
Author Organization Healthcare Address [address] [place] [address] Care Team Providers Care Water Taxi Captain Name Role Phone Jared Coronel MD Primary Care Provider [phone] Joseph Odonnell MD Unavailable [phone] Carrol Armenta MD Unavailable Sky Moreau MD Unavailable [phone] Lauren Paiz SPECIAL POLICE OFFICER Unavailable [phone] Reason for Referral * Consultation (Routine) - Authorized Specialty Diagnoses / Procedures Referred By Contac t Referred To Contact Medical Oncology Diagnoses Renal cell carcinoma, unspecified laterality Carrol Armenta MD [address] [address] Phone: tel: fax: Referral ID Status Reason Start Date Expiration Date Visits Requested Visits Authorized [id number] Authorized Specialty Services Required 09/16/2024 03/18/2026 1 1 Scheduling Instructions Renal Cell Carcinoma, Refer to Dr. Copeland at [facility] for CAR-T * Imaging (Urgent) - Closed Specialty Diagnoses / Procedures Referred By Contac t Referred To Contact Cardiology Diagnoses Renal cell carcinoma, unspecified laterality Limb swelling Procedures VAS US Venous Duplex Lower Extremity Unilateral Left Carrol Armenta MD [address] [facility] [address] [place] [address] Phone: tel: fax: Referral ID Status Reason Start Date Expiration Date V isits Requested Visits Authorized [id number] Closed Perform Procedure 09/16/2024 03/18/2026 1 1 * Imaging (Urgent) - Closed Specialty Diagnoses / Procedures Referred By Contac t Referred To Contact Cardiology Diagnoses Renal cell carcinoma, unspecified laterality Limb swelling Procedures VAS US Venous Duplex Upper Extremity Unilateral Left Carrol Armenta MD 800 [facility] [address] [place] [address] Phone: tel: fax: Referral ID Status Reason Start Date Expiration Date V isits Requested Visits Authorized [id number] Closed Perform Procedure 09/16/2024 03/18/2026 1 1 Reason for Visit * Reason Comments Follow-up Renal cell carcinoma , unspecified laterality Encounter Details Date Type Department Care Team (Late st Contact Info) Description 09/16/2024 9:30 AM EDT Office Visit [facility] Multid[facility] Oncology Clinic [address] [place] [address] Carrol Armenta MD 800 [facility] [address] [address] Renal cell carcinoma, unspecified laterality (Primary Dx); Limb swelling Social History Tobacco Use Types Packs/Day Years Used Date Smoking Tobacco: Former Cigarettes 1 35 0 04/01/1979 - 2014 Passive Smoke Exposure: Never Smokeless Tobacco: Never Tobacco Cessation:Counseling Given: Not Answered Alcohol Use Standard Drinks/Week Comments Never 0 [...] in a [facility] (including now)? 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-FITNESS SUPERVISOR) to steady your nerves or to [...] EDT Travel History Travel Start Travel End [place] 09/20/2024 09/25/2024 documented as of this encounter Last Filed Vital Signs Vital Sign Reading Time Taken Comments Blood Pressure 120/87 09/16/2024 9:40 AM EDT Pulse 110 09/16/2024 9:40 AM EDT Temperature 36.4 C (97.6 F) 09/16/2024 9:40 AM EDT Respiratory Rate - - Oxygen Saturation 98% 09/16/2024 9:40 AM EDT Inhaled Oxygen Concentration - - Weight 75.4 kg (166 lb 3.6 oz) 09/16/2024 9:40 A M EDT Height 161 cm (5' 3.4 ) 09/16/2024 9:40 AM EDT Body Mass Index 29.08 09/16/2024 9:40 AM EDT documented in this encounter Functional Status * Over the past 2 weeks, how often have you been bothered by any of the following problems? Question Answer Date of Assessment Author Little interest or pleasure in doing things Not at all 09/16/2024 9:51 AM EDT Shikha Robles Feeling down, depressed, or hopeless Not at all 09/16/2024 9:51 AM EDT Shikha Robles Patient Health Questionnaire -2 Score 0 09/16/2024 9:51 AM EDT Shikha Robles * Question Answer Date of Assessment Author Trouble falling or staying asleep, or sleeping too much Not at all 09/16/2024 9:51 AM EDT Daughert y, Shikha A Feeling tired or having alex le energy Not at all 09/16/2024 9:51 AM Shikha Riggins A Poor appetite or overeating Not at all 09/16/2024 9: 51 AM Shikha Riggins A Feeling bad about yourself - or that you are a failure or have let yourself or your family down Not at all 09/16/2024 9:51 AM Shikha Yin A Trouble concentrating on thi ngs, such as reading the newspaper or watching television Not at all 09/16/2024 9:51 AM Shikha Riggins A Moving or speaking so slowly that other people could have noticed? Or the opposite - being so fidgety or restless that you have been moving around a lot more than usual. Not at all 09/16/2024 9:51 AM Shikha Riggins Thoughts that you would be better off or hurting yourself in some way Not at all 09/16/2024 9:51 AM Shikha Riggins A Patient Health Questionnaire -9 Score 0 09/16/2024 [...] (Past 1 Month) No 09/18/2024 7:20 AM Shaneka Moore 6. Suicidal Behavior (Lifetime) No 7:20 AM Esteban Moore documented as of this encounter Miscellaneous Notes * Progress Notes - Carrol Armenta MD - 09/16/2024 9:30 AM EDT Medical Oncology Clinic Note Patient Name: Jo Ann Winston Date of : 1965 59 y.o. Referring Physician:No referring provider defined for this encounter. Encounter Date: 09/16/2024 Interval History: The patient presents today for follow up for tox check and discuss her new baseline scans. She reports that she tolerated well with tivo 0.89 mg dose without any significant side effects. She reportsof having some left side lower extremity swelling the whole leg and having some pain mainly in her left upper thigh and hip. She would like to rule out for blood clots. She has thoracentesis done every other week. Breathing is stable. Oncology History: Oncology History Overview Note -presented to the [facility] on 02/04/2023 with left leg paresthesias and [...] the current list of radiation treatment: 3D NURSE SANE: Right Bone of pelvis (Resolved) Treatment Period Energy Fraction Dose Fractions Total Dose Course C1 07/02/2023-07/09/2023 (days elapsed: 7) Plans Planned A1A2 ABD 07/02/2023-07/09/2023 400 cGy 5 / 5 2,000 cGy B3B4 PELVIS 07/02/2023-07/09/2023 400 cGy 5 / 5 2,000 cGy Reference Points Delivered Abdomen 07/02/2023-07/09/2023 -- -- 2,000 cGy Pelvis 07/02/2023-07/09/2023 -- -- 2,000 cGy 07/16/2023 - 11/29/2023 Radiation Therapy The patient saw Sky Moreau MD for radiation treatment. This is the current list of radiation treatment: 3D NURSE SANE: Not Applicable Thoracic spine, Left Rib (Resolved) [...] the current list of radiation treatment: 3D NURSE SANE: Left Leg (Resolved) Treatment Period Fraction Dose [...] 16, Sats 96%, HR- 98. Weight Temp: [36.4 ??C (97.6 ??F)] 36.4 ??C (97.6 ??F) Heart Rate: [110] 110 BP: (120)/(87) 120/87 SpO2: [98 %] 98 %155lbs, 70.7kg ECO General: -Sitting/resting comfortably in [...] visit. Latest known visit with results is: Hospital Outpatient Visit on 08/31/2024 Component Date Value Color, Body fluid 08/31/2024 Yellow Appearance, Body fluid 08/31/2024 Clear Volume, Body fluid 08/31/2024 100.0 Fluid Container 08/31/2024 Specimen received in miscellaneous container Red Blood Cell Count, Art* 08/31/2024 683 Total Nucleated Cell Cou* 08/31/2024 161 Neutrophils %, Body fluid 08/31/2024 9 Lymphocytes %, Body fluid 08/31/2024 22 Monocytes/Macrophages %,* 08/31/2024 65 Eosinophils %, Body fluid 08/31/2024 0 Lining/Mesothelial Cells* 08/31/2024 4 Neutrophils Absolute (PM* 08/31/2024 14 Lymphocytes Absolute, Art* 08/31/2024 35 Monocytes/Macrophages Ab* 08/31/2024 105 Eosinophils Absolute, Art* 08/31/2024 0 Basophils Absolute, Body* 08/31/2024 0 Lining/Mesothelial Cells* 08/31/2024 6 Basophils %, Body fluid 08/31/2024 0 Culture 08/31/2024 No growth at day 4 Gram Stain Result 08/31/2024 Few Polymorphonuclear leukocytes Gram Stain Result 08/31/2024 No organisms seen Total Protein, Fluid 08/31/2024 3.5 LDH, Fluid 08/31/2024 124 Case Report 08/31/2024 Value:Cytology Case: [id number] Authorizing Provider: Natty Choe APRN Collected: 08/31/2024 1134 Ordering Location: [facility] Interventional Received: 08/31/2024 1452 Radiology Pathologist: Maggie Ramirez MD Specimen: Pleural Fluid, Right, RIGHT PLEURAL FLUID Final Diagnosis 08/31/2024 Value:A. RIGHT PLEURAL FLUID: - RARE ATYPICAL CELLS, FAVOR REACTIVE MESOTHELIAL CELLS. Clinical History 08/31/2024 Value:Pleural effusion Previous Cancer Primary * 08/31/2024 Other/Unknown Primary Site Gross Description 08/31/2024 Value:A. RIGHT PLEURAL FLUID 90 mls yellow fluid for cell block and thin prep processing Cold Time: 4h 55m LDH, Plasma 08/31/2024 591 (H) Glucose, Plasma 08/31/2024 79 BUN, Plasma 08/31/2024 10 Creatinine, Plasma 08/31/2024 0.53 (L) BUN/Creatinine Ratio 08/31/2024 19 Sodium, Plasma 08/31/2024 140 Potassium, Plasma 08/31/2024 3.3 (L) Chloride, Plasma 08/31/2024 105 CO2, Plasma 08/31/2024 22 Anion Gap 08/31/2024 13 Total Calcium, Plasma 08/31/2024 8.9 Total Protein 08/31/2024 5.7 (L) Albumin, Plasma 08/31/2024 3.1 (L) AST, Plasma 08/31/2024 23 ALT, Plasma 08/31/2024 29 Alkaline Phosphatase, Pl* 08/31/2024 89 Total Bilirubin, Plasma 08/31/2024 0.3 eGFRcr 08/31/2024 106.0 Specimen Type 08/31/2024 Body Fluid Specimen Source, Body Fl* 08/31/2024 Pleural, Right Clinical Diagnosis, Body* 08/31/2024 Concern for malignant effusion. Clear cell renal cell carcinoma. Interpretation, Body Flu* 08/31/2024 No evidence of malignancy; chronic inflammatory cells. A resident was involved in the service. I attest I examined the relevant preparations for the specimens and confirmed the diagnosis or interpretation. Pathologist Signature, B* 08/31/2024 LAB CP ASR DISCLAIMER 08/31/2024 Yes RADIOLOGY: COMPARISON: CT June 26 FINDINGS: Chest: Lymph [...] Right hip arthroplasty, left proximal femoral fixation. IMPRESSION: Chest: Evidence of disease progression with enlarging and more numerous nodules. Increased sclerosis of nodules within T8 and T9. Abdomen/Pelvis: Enlarging adrenal nodules and increased nodular enhancement of the cystic mass in the left kidney ASSESSMENT AND PLAN: Mrs. Winston is a [...] with cemented plate on 11/21/23. PLAN for 09/16/2024: - she started taking Tivozanib one month ago and she tolerated well with 0.89 mg - discussed to increase the Tivo to 1.34 mg and she is willing to try it - reviewed her new baseline scans with her and her daughter which showed more disease in her bilateral pul nodules and adrenal nodules. - MRI head stable apperance - continue Tivo and will repeat staging scans in 2-3 months - in the mean time, will refer her to [facility] for any potential clinical trials including CAR-T cells. - she expressed understanding and expressed wishes to go to [place] for trials # Left extremity swelling - USG ruled out DVT # Left side weakness -? Unclear from previous brain met or radiation necrosis - follow with Dr. Odonnell #Epigastric discomfort- improving -continue with Pepcid 20 mg daily - doing better #Left proximal left femur lesion with loss of anterior cortex and posterior cortical thinning concerning for impending fracture in October 2023 - Underwent radical intralesional resection left proximal femur renal cell metastasis and Prophylactic stabilization left hip with cemented plate on 11/21/23. - s/p radiation completed 01/24/2024 - Xgeva is switched to monthly given fracture - She has f/u with Dr. 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 Will start at a reduced dose [...] held 2 weeks prior to any procedure. 04/24/24: Ms. Winston reports that her swelling has [...] pulmonary nodules and adrenal metastasis. Per Dr. Armenta will repeat scans KARMA and continue on cabo at this time, if progression of these nodules is noted will consider belzutifan. 08/19/24: Unfortunately Ms. Winston has disease progression so will start tivozanib and refer to [facility]. 09/16/24: Repeat imaging demonstrates continued POD and is tolerating therapy well. Will increase tivo to 1.34 mg. Dosing Wt: 82.1 kg Dosing Ht: 157.5 cm DosingBSA: 1.9 m2 Recent Labs: Lab Results Component Value Date WBC 8.24 09/16/2024 NEUTROABS 5.35 09/16/2024 HGB 13.0 09/16/2024 PLT 356 09/16/2024 Lab Results Component Value Date GLUCOSE 112 (H) 09/16/2024 NA 142 09/16/2024 CL 106 09/16/2024 K 4.9 09/16/2024 MG 1.8 (L) 04/03/2024 BUN 8 09/16/2024 CREATININE 0.69 09/16/2024 Lab Results Component Value Date AST 19 09/16/2024 ALT 21 09/16/2024 ALKPHOS 94 09/16/2024 BILITOT 0.5 09/16/2024 Visit Vitals BP 120/87 Pulse 110 Temp 36.4 ??C (97.6 ??F) (Oral) Other Relevant Monitoring: Treatment/Therapy Plan: Tivozanib 1.34 mg PO D1-21 Every 28 days [x] No dose reductions made BMA: Denosumab 120 mg subcutaneous every 28 days (next due 06/26/24) Current Treatment Plan History: Tivozanib Cycle 1: ~09/02/24 Cycle 2: TBD Prior Treatment History: Ipi/Nivo Cycle 1: [...] mg daily 04/24/24 Plan: Rx prescribed to: [facility] Refills will be due: October 2024 Patient will return to clinic in 4-5 weeks. Will follow-up at that time. Pharmacist Attestation: Gene Nur, BonitaD, OP Clinical Oncology Pharmacist documented in this encounter Plan of Treatment Upcoming Encounters Date Type Department Care Team (Late st Contact Info) Description 10/14/2024 11:30 AM EDT Appointment [facility] Nuclear Medicine [address] [place] [phone] 10/14/2024 12:40 PM EDT Appointment [facility] [address] [place] [address] 10/14/2024 1:45 PM EDT Appointment [facility] Nuclear Medicine [address] [place] [phone] 10/16/2024 1:30 PM EDT Clinical Support [facility]cology [facility] [address] [place] [address] 10/16/2024 2:00 PM EDT Office Visit [facility] [address] [place] [address] Carrol Armenta MD 800 [facility] [address] [place] [phone] 11/13/2024 1:00 PM EDT Office Visit [facility] [address] [facility]nd [place] [phone] Aurora Hubbard, SPECIAL POLICE OFFICER [address] [place] [address] 11/26/2024 9:15 AM EDT Appointment [facility] [address] [place] [address] 11/26/2024 10:45 AM EDT [facility] Visit [facility] [address] [place] [phone] Joseph Odonnell MD [address] [facility] [address] [place] [address] Scheduled Referrals Name Type Priority Associated Diagnoses Orde r Schedule Ambulatory referral to Hematology Oncology/Medical Oncology Outpatient Referral Routine Renal cell carcinoma, unspecified laterality Expected: 09/23/2024, Expires: 03/18/2026 documented as of this encounter Results * VAS US Venous Duplex Lower Extremity Unilateral Left (09/16/2024 12:05 PM EDT) Anatomical Region Laterality Modality Lower Extremities Ultrasound Impressions 09/16/2024 4:59 PM EDT Left: Normal study; no evidence of acute DVT is identified. COMMUNICATION: Per this written report. Preliminary report signed by Dariela Guadalupe RVT on 09/16/2024 12:19 PM By electronically signing this report, I, the attending physician, attest that I have personally reviewed the images/data for the above examination(s) and agree with the final edited report. Drafted by Dariela Guadalupe RVT on 09/16/2024 12:19 PM Final report signed by Eric Scott on 09/16/2024 4:59 PM Narrative 09/16/2024 4:59 PM EDT CLINICAL INDICATION: Acute limb swelling TECHNIQUE: Non-invasive, real time duplex exam of the lower extremity venous circulation with Doppler ultrasonic waveform and spectral analysis was performed. COMPARISON: None. FINDINGS: Right: Venous duplex demonstrates a compressible and augmentable common femoral vein, imaged for comparison purposes. Left: Venous duplex demonstrates compressible common femoral, femoral, popliteal, posterior tibial and peroneal veins. The venous spectral analysis demonstrates a spontaneous, phasic, augmentable and nonpulsatile flow signal. Procedure Note Eric Scott MD - 09/16/2024 CLINICAL INDICATION: Acute limb swelling TECHNIQUE: Non-invasive, real time duplex exam of the lower extremity venouscirculation with Doppler ultrasonic waveform and spectral analysis wasperformed. COMPARISON: None. FINDINGS: Right: Venous duplex demonstrates a compressible and augmentable commonfemoral vein, imaged for comparison purposes. Left: Venous duplex demonstrates compressible common femoral, femoral,popliteal, posterior tibial and peroneal veins. The venous spectralanalysis demonstrates a spontaneous, phasic, augmentable and nonpulsatileflow signal. IMPRESSION: Left: Normal study; no evidence of acute DVT is identified. COMMUNICATION: Per this written report. Preliminary report signed by Dariela Guadalupe RVT on 09/16/2024 12:19PM By electronically signing this report, I, the attending physician, attestthat I have personally reviewed the images/data for the aboveexamination(s) and agree with the final edited report. Drafted by Dariela Guadalupe RVT on 09/16/2024 12:19 PM Final report signed by Eric Scott on 09/16/2024 4:59 PM us Carrol Armenta MD CV VASCULAR PROCEDURES Final Res ult * VAS US Venous Duplex Upper Extremity Unilateral Left (09/16/2024 11:57 AM EDT) Anatomical Region Laterality Modality Upper Extremities, Vascular Left Ultr asound Impressions 09/16/2024 4:59 PM EDT Left: Normal study; no evidence of acute DVT is identified. COMMUNICATION: Per this written report. Preliminary report signed by Dariela Guadalupe RVT on 09/16/2024 12:21 PM By electronically signing this report, I, the attending physician, attest that I have personally reviewed the images/data for the above examination(s) and I agree with the final edited report. Drafted by Dariela Guadalupe RVT on 09/16/2024 12:20 PM Final report signed by Eric Scott on 09/16/2024 4:59 PM Narrative 09/16/2024 4:59 PM EDT CLINICAL INDICATION: Acute limb swelling TECHNIQUE: Non-invasive, real time duplex exam of the upper extremity venous circulation with Doppler ultrasonic waveform and spectral analysis was performed. COMPARISON: None. FINDINGS: Right: Venous duplex demonstrates a compressible and augmentable subclavian vein, imaged for comparison purposes. Left: Venous duplex demonstrates compressible IJV, subclavian, axillary, brachial, basilic and cephalic veins. The venous spectral analysis demonstrates a spontaneous, phasic and augmentable flow signal. Procedure Note Eric Scott MD - 09/16/2024 CLINICAL INDICATION: Acute limb swelling TECHNIQUE: Non-invasive, real time duplex exam of the upper extremity venouscirculation with Doppler ultrasonic waveform and spectral analysis wasperformed. COMPARISON: None. FINDINGS: Right: Venous duplex demonstrates a compressible and augmentablesubclavian vein, imaged for comparison purposes. Left: Venous duplex demonstrates compressible IJV, subclavian, axillary,brachial, basilic and cephalic veins. The venous spectral analysisdemonstrates a spontaneous, phasic and augmentable flow signal. IMPRESSION: Left: Normal study; no evidence of acute DVT is identified. COMMUNICATION: Per this written report. Preliminary report signed by Dariela Guadalupe RVT on 09/16/2024 12:21PM By electronically signing this report, I, the attending physician, attmichaelat I have personally reviewed the images/data for the aboveexamination(s) and I agree with the final edited report. Drafted by Dariela Guadalupe RVT on 09/16/2024 12:20 PM Final report signed by Eric Scott on 09/16/2024 4:59 PM Carrol Armenta MD CV VASCULAR PROCEDURES Final Res ult * (ABNORMAL) CBC and Differential (09/16/2024 9:45 AM EDT) WBC Count 8.24 3.70 - 10.30 10*3/uL LAB HEMATOLOGY METHOD 09/16/2024 10:01 AM EDT [facility] RBC Count 4.76 3.90 - 5.20 10*6/uL LAB HEMATOLOGY METHOD 09/16/2024 10:01 AM EDT [facility] HGB 13.0 11.2 - 15.7 g/dL LAB HEMATOLOGY METHOD 09/16/2024 10:01 AM EDT [facility] HCT 41.8 34.0 - 45.0 % LAB HEMATOLOGY METHOD 09/16/2024 10:01 AM EDT [facility] Platelet Count 356 155 - 369 10*3/uL LAB HEMATOLOGY METHOD 09/16/2024 10:01 AM EDT [facility] MCV 88 79 - 98 fL LAB HEMATOLOGY METHOD 09/16/2024 10:01 AM EDT [facility] MCH 27.3 26.0 - 32.0 pg LAB HEMATOLOGY METHOD 09/16/2024 10:01 AM EDT [facility] MCHC 31.1 30.7 - 35.5 g/dL LAB HEMATOLOGY METHOD 09/16/2024 10:01 AM EDT [facility] RDW 17.3(H) 11.5 - 14.5 % LAB HEMATOLOGY METHOD 09/16/2024 10:01 AM EDT [facility] MPV 10.3 8.8 - 12.5 fL LAB HEMATOLOGY METHOD 09/16/2024 10:01 AM EDT [facility] nRBC 0.0 <=0.0 per 100 WBCs LAB HEMATOLOGY METHOD 09/16/2024 10:01 AM EDT [facility] Differential Type Automated LAB HEMATOLOGY METHOD 09/16/2024 10:01 AM EDT [facility] Neutrophils % 65 % LAB HEMATOLOGY METHOD 09/16/2024 10:01 AM EDT [facility] Lymphocytes % 26 % LAB HEMATOLOGY METHOD 09/16/2024 10:01 AM EDT [facility] Monocytes % 6 % LAB HEMATOLOGY METHOD 09/16/2024 10:01 AM EDT [facility] Eosinophils % 1 % LAB HEMATOLOGY METHOD 09/16/2024 10:01 AM EDT [facility] Basophils % 1 % LAB HEMATOLOGY METHOD 09/16/2024 10:01 AM EDT [facility] Immature Granulocytes % 1 % LAB HEMATOLOGY METHOD 09/16/2024 10:01 AM EDT [facility] Neutrophils Absolute 5.35 1.60 - 6.10 10*3/uL LAB HEMATOLOGY METHOD 09/16/2024 10:01 AM EDT [facility] Lymphocytes Absolute 2.13 1.20 - 3.90 10*3/uL LAB HEMATOLOGY METHOD 09/16/2024 10:01 AM EDT [facility] Monocytes Absolute 0.52 0.30 - 0.90 10*3/uL LAB HEMATOLOGY METHOD 09/16/2024 10:01 AM EDT [facility] Eosinophils Absolute 0.08 0.00 - 0.50 10*3/uL LAB HEMATOLOGY METHOD 09/16/2024 10:01 AM EDT [facility] Basophils Absolute 0.06 0.00 - 0.10 10*3/uL LAB HEMATOLOGY METHOD 09/16/2024 10:01 AM EDT [facility] Immature Granulocytes Absolute 0.10(H) 0.00 - 0.06 10*3/uL LAB HEMATOLOGY METHOD 09/16/2024 10:01 AM EDT [facility] Blood Venous blood specimen / Unknown Venipuncture / Unknown 09/16/2024 9:45 AM EDT 09/16/2024 9:52 AM EDT [facility] - 09/16/2024 10:01 AM EDT Therapeutic decision making should be based on absolute values, rather than percentages. us Carrol Armenta MD LAB BLOOD ORDERABLES Final Resul t [facility] [address] [place] [address] * (ABNORMAL) Comprehensive Metabolic Panel, Plasma (09/16/2024 9:45 AM EDT) Glucose, Plasma 112(H) 74 - 99 mg/dL 09/16/2024 10:21 AM EDT [facility] BUN, Plasma 8 8 - 23 mg/dL 09/16/2024 10:21 AM EDT [facility] Creatinine, Plasma 0.69 0.60 - 1.10 mg/dL 09/16/2024 10:21 AM EDT [facility] BUN/Creatinine Ratio 12 09/16/2024 10:21 AM EDT [facility] Sodium, Plasma 142 136 - 145 mmol/L 09/16/2024 10:21 AM EDT [facility] Potassium, Plasma 4.9 3.6 - 4.9 mmol/L 09/16/2024 10:21 AM EDT [facility] Chloride, Plasma 106 97 - 107 mmol/L 09/16/2024 10:21 AM EDT [facility] CO2, Plasma 26 22 - 29 mmol/L 09/16/2024 10:21 AM EDT [facility] Anion Gap 10 6 - 16 mmol/L 09/16/2024 10:21 AM EDT [facility] Total Calcium, Plasma 9.4 8.9 - 10.2 mg/dL 09/16/2024 10:21 AM EDT [facility] Total Protein 6.5 6.3 - 7.9 g/dL 09/16/2024 10:21 AM EDT [facility] Albumin, Plasma 3.1(L) 3.5 - 5.2 g/dL 09/16/2024 10:21 AM EDT [facility] AST, Plasma 19 10 - 35 U/L 09/16/2024 10:21 AM EDT [facility] ALT, Plasma 21 10 - 35 U/L 09/16/2024 10:21 AM EDT [facility] Alkaline Phosphatase, Plasma 94 46 - 142 U/L 09/16/2024 10:21 AM EDT [facility] Total Bilirubin, Plasma 0.5 0.2 - 1.1 mg/dL 09/16/2024 10:21 AM EDT [facility] eGFRcr 99.5 mL/min/1.7 3m*2 09/16/2024 10:21 AM EDT [facility] Comment:Reported eGFRcr in m L/min/1.73m2 is based the CKD-EPI 2020 equation that does not use a race coefficient. Blood Venous blood specimen / Unknown Venipuncture / Unknown 09/16/2024 9:45 AM EDT 09/16/2024 9:52 AM EDT us Carrol Armenta MD LAB BLOOD ORDERABLES Final Resul t [facility] [address] [place] [address] documented in this encounter Visit Diagnoses Diagnosis Renal cell carcinoma, unspecified laterality- Primary Limb swelling Swelling of limb Renal cell carcinoma, unspecified laterality Limb swelling Swelling of limb Renal cell carcinoma, unspecified laterality Limb swelling Swelling of limb documented in this encounter Additional Health Concerns Assessment Noted Time PHQ-9 Depression Total Score: 0 09/17/19 25 9:51 AM EDT A fall risk assessment has been complete d for the patient 09/16/2024 9:51 AM EDT A Body Mass Index follow-up plan has been documented for the patient 09/11/2024 11:08 AM EDT documented as of this encounter Care Teams Water Taxi Captain Relationship Specialty Start Date End Date Jared Coronel MD [address] [place] [address] PCP - General 08/12/20 Joseph Odonnell MD [address] [place] [address] Surgeon Neurosurgery 02/28/23 Carrol Armenta MD [address] [facility] [address] [place] [address] Consulting Physician Medical Oncology 06/12/23 Sky Moreau MD [address] [facility] [address] [place] [phone] Consulting Physician Radiation Oncology 06/12/23 Laurne Paiz, ERIC [address] [facility] [address] [place] [address] Nurse Practitioner Internal Medicine 07/19/23 documented as of this encounter
--- OUTSIDE RECORDS SUMMARY | 2024-09-16 11:27 | XMS_ITS | Encounter Summary ---
Author Organization Healthcare Address [address] [place] [address] Care Team Providers Care Spray Worker Name Role Phone Jared Coronel MD Primary Care Provider + [phone] Joseph Odonnell MD Unavailable [phone] Carrol Armenta MD Unavailable Sky Moreau MD Unavailable [phone] Lauren Paiz MANAGER CONTRACTING Unavailable [phone] Reason for Referral * Imaging (Urgent) - Closed Specialty Diagnoses / Procedures Referred By Tammy little Referred To Contact Cardiology Diagnoses Renal cell carcinoma, unspecified laterality Limb swelling Procedures VAS US Venous Duplex Upper Extremity Unilateral Left Carrol Armenta MD [address] [address] Phone: tel: fax: Referral ID Status Reason Start Date Expiration Date V isits Requested Visits Authorized [id number] Closed Perform Procedure 09/16/2024 03/18/2026 1 1 Reason for Visit * Imaging (Urgent) - Closed Specialty Diagnoses / Procedures Referred By Tammy little Referred To Contact Cardiology Diagnoses Renal cell carcinoma, unspecified laterality Limb swelling Procedures VAS US Venous Duplex Upper Extremity Unilateral Left Carrol Armenta MD [address] [address] Phone: tel: fax: Referral ID Status Reason Start Date Expiration Date V isits Requested Visits Authorized [id number] Closed Perform Procedure 09/16/2024 03/18/2026 1 1 Encounter Details Date Type Department Care Team (Latest Contact Info) Description 09/16/2024 11:27 AM EDT - 09/16/2024 11:59 PM EDT Hospital Encounter [facility] [address] [address] Renal cell carcinoma, unspecified laterality; Limb swelling Discharge Disposition: Home or Self Care Social [...] place to sleep or slept in a prison (including now)? 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-ACCOUNT MANAGER B2B) to steady your nerves or to get [...] EDT Travel History Travel Start Travel End [place] 09/20/2024 09/25/2024 documented as of this encounter Functional Status * Over the past 2 weeks, how often have you been bothered by any of the following problems? Question Answer Date of Assessment Author Little interest or pleasure in doing things Not at all 09/16/2024 9:51 AM EDShikha Newell Feeling down, depressed, or hopeless Not at [...] for nausea or vomiting. 20 tablet 04/03/2024 oxyCODONE (Roxicodone) 5 MG immediate release tablet Take 1 tablet by mouth every 8 hours as needed for moderate pain. 90 tablet 09/16/2024 senna-docusate sodium (Senokot-S) 8.6-50 MG tablet Take 1 tablet by mouth 1 (one) time each day. 20 tablet 11/23/2023 Tivozanib HCl 1.34 MG capsule Take 1.34 mg by mouth daily. Take for 3 weeks on, then 1 week off. 21 capsule 2 09/16/2024 documented as of this encounter Plan of Treatment Upcoming Encounters Date Type Department Care Team (Late st Contact Info) Description 10/14/2024 11:30 AM EDT Appointment [facility] Nuclear Medicine [address] [place] [phone] 10/14/2024 12:40 PM EDT Appointment [facility] Radiology [address] [place] [address] 10/14/2024 1:45 PM EDT Appointment [facility] [address] [place] [phone] 10/16/2024 1:30 PM EDT Clinical Support [facility] [address] [place] [address] 10/16/2024 2:00 PM EDT Office Visit [facility] [address] [place] [phone] Carrol Armenta MD [address] [facility] [address] [place] [phone] 11/13/2024 1:00 PM EDT Office Visit [facility] Res[facility] [address] [facility], [address]nd [place] [phone] Aurora Hubbard, MANAGER CONTRACTING [address] [place] [phone] 11/26/2024 9:15 AM EDT Appointment [facility] [address] [place] [address] 11/26/2024 10:45 AM EDT [facility] Visit [facility] [address] [place] [phone] Joseph Odonnell MD [address] [facility] [address] [place] [phone] documented as of this encounter Procedures Procedure Name Priority Date/Time Associated Diagnosis Comments VAS US VENOUS DUPLEX UPPER EXTREMITY UNILATERAL STAT 09/16/2024 11:57 AM EDT Renal cell carcinoma, unspecified laterality Limb swelling documented in this encounter Results * VAS US Venous Duplex Upper Extremity [...] MD CV VASCULAR PROCEDURES Final Res ult documented in this encounter Visit Diagnoses Diagnosis Renal cell carcinoma, unspecified laterality Limb swelling [...] documented as of this encounter Care Teams Spray Worker Relationship Specialty Start Date End Date Jared Coronel MD [address] [place] [address] PCP - General 08/12/20 Joseph Odonnell MD [address] [place] [phone] Surgeon Neurosurgery 02/28/23 Carrol Armenta MD [address] [facility] [address] [place] [address] Consulting Physician Medical Oncology 06/12/23 Sky Moreau MD [address] [place] [address] Consulting Physician Radiation Oncology 06/12/23 Lauren Paiz APRN [address] [facility] [address] [place] [address] Nurse Practitioner Internal Medicine 07/19/23 documented as of this encounter
--- OUTSIDE RECORDS SUMMARY | 2024-09-16 11:27 | XMS_ITS | Encounter Summary ---
Author Organization Healthcare Address [address] [place] [address] Care Team Providers Care Brusher Warp Name Role Phone Jared Coronel MD Primary Care Provider + [phone] Joseph Odonnell MD Unavailable [phone] Carrol Armenta MD Unavailable Sky Moreau MD Unavailable [phone] Lauren Paiz MODEL BUILDER DISPLAY Unavailable [phone] Reason for Referral * Imaging (Urgent) - Closed Specialty Diagnoses / Procedures Referred By Tammy little Referred To Contact Cardiology Diagnoses Renal cell carcinoma, unspecified laterality Limb swelling Procedures VAS US Venous Duplex Lower Extremity Unilateral Left Carrol Armenta MD [address] [address] Phone: tel: fax: Referral ID Status Reason Start Date Expiration Date V isits Requested Visits Authorized [id number] Closed Perform Procedure 09/16/2024 03/18/2026 1 1 Reason for Visit * Imaging (Urgent) - Closed Specialty Diagnoses / Procedures Referred By Tammy little Referred To Contact Cardiology Diagnoses Renal cell carcinoma, unspecified laterality Limb swelling Procedures VAS US Venous Duplex Lower Extremity Unilateral Left Carrol Armenta MD [address] [address] Phone: tel: fax: Referral ID Status Reason Start Date Expiration Date V isits Requested Visits Authorized [id number] Closed Perform Procedure 09/16/2024 03/18/2026 1 1 Encounter Details Date Type Department Care Team (Latest Contact Info) Description 09/16/2024 11:27 AM EDT - 09/16/2024 11:59 PM EDT Hospital Encounter [facility] [address] [address] Renal cell carcinoma, unspecified laterality; Limb swelling [...] place to sleep or slept in a senior care (including now)? 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-DOLLYMAN) to steady your nerves or to get [...] EDT Travel History Travel Start Travel End [place] 09/20/2024 09/25/2024 documented as of this encounter [...] EDT Appointment [facility] Nuclear Medicine [address] [place] [phone] 10/14/2024 12:40 PM EDT Appointment [facility] Radiology [address] [place] [address] 10/14/2024 1:45 PM EDT Appointment [facility] Nuclear Medicine [address] [place] [phone] 10/16/2024 1:30 PM EDT Clinical Support [facility] [address] [place] [address] 10/16/2024 2:00 PM EDT Office Visit [facility] [address] [place] [phone] Carrol Armenta MD [address] [facility] [address] [place] [phone] 11/13/2024 1:00 PM EDT Office Visit [facility] [address] [facility], [address] [place] [phone] Aurora Hubbard, MODEL BUILDER DISPLAY [address] [place] [phone] 11/26/2024 9:15 AM EDT Appointment [facility] [address] [place] [address] 11/26/2024 10:45 AM EDT Office Visit [facility] [address] [place] [address] Joseph Odonnell MD [address] [facility] [address] [place] [phone] documented as of this encounter Procedures Procedure Name Priority Date/Time Associated Diagnosis Comments VAS US VENOUS DUPLEX LOWER EXTREMITY UNILATERAL STAT 09/16/2024 12:05 PM EDT Renal cell carcinoma, unspecified laterality Limb [...] this written report. Preliminary report signed by Dareila Guadalupe RVT on 09/16/2024 12:19PM By electronically [...] documented as of this encounter Care Teams Brusher Warp Relationship Specialty Start Date End Date Jared Coronel MD [address] [place] [address] PCP - General 08/12/20 Joseph Odonnell MD [address] [place] [address] Surgeon Neurosurgery 02/28/23 Carrol Armenta MD [address] [facility] [address] [place] [address] Consulting Physician Medical Oncology 06/12/23 Sky Moreau MD [address] [place] [address] Consulting Physician Radiation Oncology 06/12/23 Lauren Paiz APRN [address] [facility] [address] [place] [address] Nurse Practitioner Internal Medicine 07/19/23 documented as of this encounter
--- OUTSIDE RECORDS SUMMARY | 2024-09-18 07:05 | XMS_ITS | Encounter Summary ---
Author Organization Healthcare Address [address] [place] [address] Care Team Providers Care Director Retirement Name Role Phone Jared Coronel MD Primary Care Provider + [phone] Joseph Odonnell MD Unavailable [phone] Carrol Rivera MD Unavailable Sky Moreau MD Unavailable [phone] Lauren Paiz MANAGED CARE DIRECTOR Unavailable [phone] Reason for Referral * Imaging (Routine) - Closed Specialty Diagnoses / Procedures Referred By Contac t Referred To Contact Radiology Diagnoses Pleural effusion Procedures US Guided Thoracentesis Natty Choe APRN [address] [place] [address] Phone: tel: fax: Referral ID Status Reason Start Date Expiration Date Visits Re quested Visits Authorized [id number] Closed 09/11/2024 03/13/2026 1 1 Reason for Visit * Imaging (Routine) - Closed Specialty Diagnoses / Procedures Referred By Contac t Referred To Contact Radiology Diagnoses Pleural effusion Procedures US Guided Thoracentesis Natty Choe APRN [address] [place] [address] Phone: tel: fax: Referral ID Status Reason Start Date Expiration Date Visits Re quested Visits Authorized [id number] Closed 09/11/2024 03/13/2026 1 1 Encounter Details Date Type Department Care Team (Latest Contact Info) Description 09/18/2024 7:05 AM EDT - 09/18/2024 10:31 AM EDT Hospital Encounter [facility] Interventional Radiology [address] [place] [address] Esteban Daniels Pleural effusion Discharge Disposition: Home or Self Care Social [...] place to sleep or slept in a long-term (including now)? 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-SENIOR COST ESTIMATOR) to steady your nerves or to get [...] EDT Travel History Travel Start Travel End [place] 09/20/2024 09/25/2024 documented as of this encounter Last Filed Vital Signs Vital Sign Reading Time Taken Comments Blood Pressure 125/86 09/18/2024 10:30 AM EDT Pulse 81 09/18/2024 10:30 AM EDT Temperature 36.6 C (97.9 F) 09/18/2024 10:30 AM EDT Respiratory Rate 22 09/18/2024 10:3 0 AM EDT Oxygen Saturation 92% 09/18/2024 10: 30 AM EDT Inhaled Oxygen Concentration - - Weight 75.6 kg (166 lb 10.7 oz) 09/18/2024 7:20 AM EDT Height 157.5 cm (5' 2 ) 09/18/2024 7:20 AM EDT Body Mass Index 30.48 09/18/2024 7:20 AM EDT documented in this encounter Functional Status * Calculated C-SSRS Risk Score (Lifetime/Recent) Answer Date of Assessment Author No Risk Indicated 09/18/2024 7:20 AM EDT Esteban Rock * Question Answer Date of Assessment Author 1. Wish to be (Past 1 Month) No 025 7:20 AM EDT Esteban Daniels 2. Non-Specific Active Suici yemi Thoughts (Past 1 Month) No 09/18/2024 7:20 AM EDT Shaneka Daniels 6. Suicidal Behavior (Lifetime) No 7:20 AM EDT Esteban Daniels documented as of this encounter Discharge Instructions * Discharge Instructions* Esteban Daniels - 09/18/2024 9:27 AM EDT *Interventional Radiology* (IR) Questions/Concerns & Appointments: If there are questions or concerns after discharge please call: [facility] at [phone] Saturday - Saturday 8:00 AM to 4:30 PM After hours, weekends, and holidays please call [phone] and ask for the Interventional Radiology provider/Resident on-call Intervention Radiology Appointments: If you need to reschedule a procedure, please call our Schedulers at [phone], option [phone]. If you need to schedule or reschedule a clinic appointment, please call [phone]. [facility] [address] [place] [address] documented in this encounter Medications at Time [...] 2 09/16/2024 documented as of this encounter Miscellaneous Notes * Esteban Hoang - 09/18/2024 9:28 AM EDT Images from the original note were not included. [id number] Discharge Instructions for Thoracentesis Thoracentesis is a [...] blood. Last Reviewed Date: 2024 00:00:00 ?? [id number] The [employer]. All rights reserved. This information is not intended as a substitute for professional medical care. Always follow your healthcare professional's instructions. * Post-Procedure Note - Natty Choe APRN - 09/18/2024 8:45 AM EDT Vascular and Interventional Radiology Brief Postprocedure Note Performed by: Natty Choe APRN Mid Level Developer: DEEPALI Pre-operative Diagnosis: right pleural effusion Post-operative Diagnosis: same Type of Anesthesia: Local Description of Findings: right pleural effusion Technical/Surgical Procedures Used: image guided right thoracentesis Specimen Obtained: No Complications: None Estimated Blood Loss: none Procedure Events Event Event Time See detailed result report with images in PACS. The patient tolerated the procedure well without incident or complication and is in stable condition. * Interval H&P Note - Natty Choe APRN - 09/18/2024 8:45 AM EDT H&P reviewed, no new changes Source Note - Natty Choe APRN - 08/31/2024 [...] is no recent study available for direct [id number] comparison. Assessment & Plan: Large right pleural [...] the care of this patient. Natty Choe, MANAGED CARE DIRECTOR Interventional Radiology [phone] [1] Past Medical History: Diagnosis Date Blood [...] EDT Appointment [facility] Nuclear Medicine [address] [place] [address] 10/14/2024 12:40 PM EDT Appointment [facility] [address] [place] [address] 10/14/2024 1:45 PM EDT Appointment [facility] Nuclear Medicine [address] [place] [address] 10/16/2024 1:30 PM EDT Clinical Support [facility] Multidisciplinary Oncology Clinic [address] [place] [address] 10/16/2024 2:00 PM EDT Office Visit [facility] Multidisciplinary Oncology Clinic [address] [place] [address] Carrol Rivera MD [address] [facility] [address] [address] 11/13/2024 1:00 PM EDT Office Visit [facility] Res[facility] [address] [place] [address] Aurora Hubbard, MANAGED CARE DIRECTOR [address] [place] [address] 11/26/2024 9:15 AM EDT Appointment [facility] [address] [place] [address] 11/26/2024 10:45 AM EDT Office Visit [place] [facility] [address], [address] [place] [address] Joseph Odonnell MD [address] [place] [address] documented as of this encounter Procedures Procedure Name Priority Date/Time Associated Diagnosis Comments XR CHEST 1 VIEW Routine 09/18/2024 10:40 AM EDT US GUIDED THORACENTESIS Routine 09/18/2024 9:24 AM EDT Pleural effusion documented in this encounter Results * XR Chest 1 View (09/18/2024 10:40 AM EDT) Anatomical Region Laterality Modality Chest Digital Radiogra phy Impressions 09/18/2024 10:59 AM EDT No pneumothorax. CRITICAL RESULT: No. COMMUNICATION: Per this written report. Drafted by Pasha Louise MD on 09/18/2024 10:59 AM Final report signed by Pasha Louise MD on 09/18/2024 10:59 AM Narrative 09/18/2024 10:59 AM EDT CLINICAL INDICATION: s/p thora TECHNIQUE: XR CHEST 1 VIEW COMPARISON: September 11, 2024 FINDINGS: Decreased right pleural effusion. The smaller left effusion also appears slightly decreased. No pneumothorax is identified. No edema or consolidation. Procedure Note Pasha Louise MD - 09/18/2024 CLINICAL INDICATION: s/p thora TECHNIQUE: XR CHEST 1 VIEW COMPARISON: September 11, 2024 FINDINGS: Decreased right pleural effusion. The smaller left effusion also appearsslightly decreased. No pneumothorax is identified. No edema orconsolidation. IMPRESSION: No pneumothorax. CRITICAL RESULT: No. COMMUNICATION: Per this written report. Drafted by Pasha Louise MD on 09/18/2024 10:59 AM Final report signed by Pasha Louise MD on 09/18/2024 10:59 AM us Natty Choe APRN IMG XR PROCEDURES Final Resu lt * US Guided Thoracentesis (09/18/2024 9:24 AM EDT) Anatomical Region Laterality Modality Chest Ultrasound Impressions 09/18/2024 4:46 PM EDT Technically successful ultrasound guided thoracentesis. A total of 1 liter of clear yellow fluid was removed. A sample of the fluid was sent for laboratory analysis. CRITICAL RESULT: No. COMMUNICATION: Per this written report. Preliminary report signed by ANDERSON Banda on 09/18/2024 12:27 PM By electronically signing this report, I, the attending physician, attest that I was not present for the procedure(s) but agree with the final edited report. Drafted by ANDERSON Banda on 09/18/2024 12:26 PM Final report signed by Harlan Keith MD on 09/18/2024 4:46 PM Narrative 09/18/2024 4:46 PM EDT CLINICAL INDICATION: Abby Winston is a 59 y.o. 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 TECHNIQUE: Home Service Director: Natty Choe APRN Secondary Assembler Flexible Leads: None. Nurse: Tutu Technologist: Melanie Kemp Dose: NA Medications: Continuous physiologic monitoring provided by a qualified healthcare professional. Administered: 1% Lidocaine SQ. Antibiotics: NA Time out: 0907 Procedure: After discussion of risks and benefits, [...] permanent storage in PACS. A total of 1 liter of clear yellow fluid was removed. The needle was removed and occlusive dressing applied. The patient tolerated the procedure well. The patient left the IR suite in stable condition. COMPARISON: None. FINDINGS: Moderate right pleural fluid. COMPLICATION: No. Procedure Note Harlan Keith MD - 09/18/2024 CLINICAL INDICATION: Abby Winston is a 59 y.o. female with past medical history of De NovoMetastatic Clear Cell Renal Cell Carcinoma with brain met who presentsfor right thoracentesis. TECHNIQUE: Home Service Director: Natty Choe APRN Secondary Assembler Flexible Leads: None. Nurse: Tutu Technologist: Melanie Kemp Dose: NA Medications: Continuous physiologic monitoring provided by a qualifiedhealthcare professional. Administered: 1% Lidocaine SQ. Antibiotics: NA Time out: 906 Procedure: After discussion of risks and benefits, [...] permanent storage in PACS. A total of 1 liter of clear yellow fluid wasremoved. The needle was removed and occlusive dressing applied. The patient tolerated the procedure well. The patient left the IR suitein stable condition. COMPARISON: None. FINDINGS: Moderate right pleural fluid. COMPLICATION: No. IMPRESSION: Technically successful ultrasound guided thoracentesis. A total of 1 liter of clear yellow fluid was removed. A sample of the fluid was sent for laboratory analysis. CRITICAL RESULT: No. COMMUNICATION: Per this written report. Preliminary report signed by ANDERSON Banda on 09/18/2024 12:27 PM By electronically signing this report, I, the attending physician, attronthat I was not present for the procedure(s) but agree with the finaledited report. Drafted by ANDERSON Banda on 09/18/2024 12:26 PM Final report signed by Harlan Keith MD on 09/18/2024 4:46 PM us Natty Choe MANAGED CARE DIRECTOR IMG US PROCEDURES Final Resu lt documented in this encounter Visit Diagnoses Diagnosis Pleural effusion Unspecified pleural effusion documented in this encounter Administered Medications Inactive Administered Medications - up to 3 most recent administrations Medication Order MAR Action Action Date Dose Rate Site lidocaine 1% in sodium bicarbonate (buffered lidocaine)10 mL 10 mL, Infiltration, Once, 1 dose, On Sat09/18/24 at 0800, Routine, Holding - Preprocedure Given 09/18/2024 9:09 AM EDT 10 mL documented in this encounter Additional Health Concerns Assessment Noted Time PHQ-9 Depression Total Score: 0 09/17/19 9:51 AM EDT A fall risk assessment has been complete d for the patient 09/16/2024 9:51 AM EDT A Body Mass Index follow-up plan has been documented for the patient 09/18/2024 9:28 AM EDT documented as of this encounter Care Teams Director Retirement Relationship Specialty Start Date End Date Jared Coronel MD [address] [place] [address] PCP - General 08/12/20 Joseph Odonnell MD [address] [place] [address] Surgeon Neurosurgery 02/28/23 Carrol Rivera MD [address] [facility] [address] [place] [address] Consulting Physician Medical Oncology 06/12/23 Sky Moreau MD [address] [facility] [address] [place] [address] Consulting Physician Radiation Oncology 06/12/23 Lauren Paiz, ERIC [address] [address] Nurse Practitioner Internal Medicine 07/19/23 documented as of this encounter
--- OUTSIDE RECORDS SUMMARY | 2024-09-18 10:32 | XMS_ITS | Encounter Summary ---
Author Organization Healthcare Address [address] 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 0 11/21/2023 CAGE Questionnaire Score 0 024 Utilities Answer Date Recorded In the past 12 months has th e electric, gas, oil, or water [employer] threatened to shut off services in your [...] as of this encounter Functional Status * Calculated C-SSRS [...] EDT Appointment [facility] Nuclear Medicine [address] [place] [address] 10/14/2024 12:40 PM EDT Appointment [facility] Radiology [address] [place] [address] 10/14/2024 1:45 PM EDT Appointment [facility] Nuclear Medicine [address] [place] [address] 10/16/2024 1:30 PM EDT Clinical Support [facility] Multidisciplinary Oncology Clinic [address] [place] [address] 10/16/2024 2:00 PM EDT Office Visit [facility] Multidisciplinary Oncology Clinic [address] [place] [address] Carrol Armenta MD 800 [facility] Stacy Cuello [facility] [address] [place] [address] 11/13/2024 1:00 PM EDT Office Visit [facility] Head[facility] Neck [facility] Respiratory [address] [facility] [place] [address] Aurora Hubbard, ANIMAL PATHOLOGIST [address] [place] [address] 11/26/2024 9:15 AM EDT Appointment [facility] [address] [place] [address] 11/26/2024 10:45 AM EDT Office Visit [place] [facility] [address] [place] [address] Joseph Odonnell MD [address] [place] [address] documented as of this encounter Procedures Procedure Name Priority Date/Time Associated Diagnosis Comments XR CHEST 1 VIEW Routine 09/18/2024 10:40 AM EDT documented in this encounter Results [...] Pasha Louise MD on 09/18/2024 10:59 AM Natty Choe ANIMAL PATHOLOGIST IMG XR PROCEDURES Final Resu lt documented [...] documented as of this encounter Care Teams Studio Potter Relationship Specialty Start Date End Date Jared Coronel MD [address] [place] [address] PCP - General 08/12/20 Joseph Odonnell MD [address] [place] [address] Surgeon Neurosurgery 02/28/23 Carrol Armenta MD [address] [facility] [address] [place] [address] Consulting Physician Medical Oncology 06/12/23 Sky Moreau MD [address] [facility] [address] [place] [address] Consulting Physician Radiation Oncology 06/12/23 Lauren Paiz APRN [address] [facility] [address] [place] [address] Nurse Practitioner Internal Medicine 07/19/23 documented as of this encounter
--- OUTSIDE RECORDS SUMMARY | 2024-10-05 08:41 | XMS_ITS | Encounter Summary ---
Author Organization Healthcare Address [address] [place] [address] Care Team Providers Care Non Destructive Testing Engineer Name Role Phone Jared Coronel MD Primary Care Provider + [phone] Joseph Odonnell MD Unavailable [phone] Carrol Armenta MD Unavailable Sky Moreau MD Unavailable [phone] Lauren Paiz METHODS AND PROCEDURES ANALYST Unavailable [phone] Reason for Referral * Imaging (Routine) - Closed Specialty Diagnoses / Procedures Referred By Contac t Referred To Contact Radiology Diagnoses Other ascites Procedures US Guided Thoracentesis Natty Choe METHODS AND PROCEDURES ANALYST [address] [place] [address] Phone: tel: fax: Referral ID Status Reason Start Date Expiration Date Visits Re quested Visits Authorized [id number] Closed 09/04/2024 03/06/2026 1 1 Reason for Visit * Imaging (Routine) - Closed Specialty Diagnoses / Procedures Referred By Contac t Referred To Contact Radiology Diagnoses Other ascites Procedures US Guided Thoracentesis Natty Choe APRN [address] [place] [address] Phone: tel: fax: Referral ID Status Reason Start Date Expiration Date Visits Re quested Visits Authorized [id number] Closed 09/04/2024 03/06/2026 1 1 Encounter Details Date Type Department Care Team (Latest Contact Info) Description 10/05/2024 8:41 AM EDT - 10/05/2024 11:21 AM EDT Hospital Encounter [facility] Interventional Radiology [address] [place] [address] Stacy Matute, RN MICU 9-T1 AND T2 Other ascites Discharge Disposition: Home or Self [...] place to sleep or slept in a alf (including now)? 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-TRAFFIC ADMINISTRATOR) to steady your nerves or to get [...] EDT Travel History Travel Start Travel End [place] 09/20/2024 09/25/2024 documented as of this encounter Last Filed Vital Signs Vital Sign [place] Time Taken Comments Blood Pressure 135/89 10/05/2024 11:15 AM EDT Pulse 93 10/05/2024 11:15 AM EDT Temperature - - Respiratory Rate 18 10/05/2024 11:15 AM EDT Oxygen Saturation 93% 10/05/2024 11:15 AM EDT Inhaled Oxygen Concentration - - Weight 75.5 kg (166 lb 7.2 oz) 10/05/2024 9:05 A M EDT Height 157.5 cm (5' 2 ) 10/05/2024 9:05 AM EDT Body Mass Index 30.44 10/05/2024 9:05 AM EDT documented in this encounter Medications [...] as of this encounter Miscellaneous Notes * Falguni Chase RN - 10/05/2024 12:41 PM EDT Images from the original note were not included. [id number] Discharge Instructions for Thoracentesis Thoracentesis is a [...] doctor when you can start them again. ?? Take it easy for 48 hours after the procedure. Don't do anything active until your doctor says it?s okay. ?? Don't do strenuous activities, such as lifting, until your doctor says it?s okay. ?? Don't travel in an airplane until your doctor says it's okay to do so. ?? You will have a small bandage over the puncture site. You may remove the bandage in 24 hours, orwhen your doctor says it's okay. ?? Check the puncture site for the signs of infection listed below. Follow-up Make a follow-up appointment with your doctor as directed. During your follow-up visit, your doctorwill check your healing. Be sure to let your doctor know how you are feeling. When to contact your doctor Contact your doctor right away if you have: ?? A fever of 100.4??F (38??C) or higher, or as directed. ?? Pain that doesn't get better after taking pain medicine. ?? Signs of infection at the puncture site. These include increased pain, redness, warmth, swelling, or fluid leaking that is green or yellow or smells bad. ?? Fluid draining from the puncture site. ?? Bleeding from the puncture site. When to call 911 Call 911 or get care at the nearest emergency department if you have: ?? Chest pain that is unusual or suddenly gets worse. ?? Shortness of breath. ?? Coughing up blood. Last Reviewed Date: 2024 00:00:00 ?? [id number] [employer]. All rights reserved. This information is not intended as a substitute for professional medical care. Always follow your healthcare professional's instructions. * Post-Procedure Note - Anaya Nagel APRN, DNP - 10/05/2024 10:00 AM EDT Vascular and Interventional Radiology Brief Postprocedure Note Provider: Anaya Nagel APRN Pre-operative Diagnosis: Right pleural effusion Post-operative Diagnosis: Same Type of Anesthesia: Local Description of Findings: See PACS Technical/Surgical Procedures Used: US guided right thoracentesis Specimen Obtained: Yes, right pleural fluid Complications: None Estimated Blood Loss: none Procedure Events Event Event Time See detailed result report with images in PACS. The patient tolerated the procedure well without incident or complication and is in stable condition. * H&P - Anaya Nagel APRN, DNP - 10/05/2024 10:00 AM EDT 10/05/24 Patient: Jo Ann Winston Date of : 1965/59 y.o. Chief Complaint: Presents for right thoracentesis History of Present Illness: Abby Winston is a 59 y.o. 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 History and admission information obtained from chart review of primary and consulting teams notation, as well as speaking directly to consulting team. The following portions of the chart were reviewed this encounter and updated as appropriate: Review of Systems: 14 point ROS negative except for above. Past Medical History Pertinent Negatives[1] Surgical History[2] Social History[3] Family History: Personally reviewed and noncontributory. Allergies[4] Objective: All laboratory, images, tracings, and vital sign data are personally reviewed unless otherwise noted. VITALS: Heart Rate: [88] 88 Resp: [12] 12 BP: (141)/(94) 141/94 There is no height or weight on file to calculate BMI. I & O SUMMARY No intake/output data recorded. No intake/output data recorded. MEDICATIONS: Current Medications[5] LABS (PAST 18Labs in last 18 hours) CBC WBC ?? Hb ?? Plt ?? Hct ?? INR ?? PTT ?? Anti-Xa ?? BMP Na ?? Cl ?? BUN ?? Glu ?? K ?? Co2 ?? Cr ?? Ca ?? Mg ?? Phos ?? Lactate ?? LFT AST ?? AlkPhos ?? T Prot ?? ALK ?? Bili ?? Alb ?? D.Bili ?? HOURS) EXAM: GENERAL: No acute distress EYES: No scleral icterus or conjunctivitis HENT: Atraumatic, normocephalic NECK: Supple RESP/CHEST: Symmetric expansion, non labored CARD: Regular rate and rhythm Extremities: No edema, cyanosis or clubbing; pedal pulses palpable +2 GI: No organomegaly or masses; soft, non-tender, non-distended SKIN: No rash, sores, lesions or subcutaneous nodules NEURO: Alert Radiographics/Diagnostics: Imaging personally reviewed and reviewed with attending. === 09/15/24 === CT ABDOMEN PELVIS W IV CONTRAST - Narrative - CLINICAL INDICATION: Kidney cancer, active surveillance TECHNIQUE: Multiple axial CT images were obtained from thoracic inlet through pubic symphysis following administration of IV contrast, Omnipaque 300, 100 mL. Reformatted images in the coronal and sagittal planes were generated from the axial data set to facilitate diagnostic accuracy. Total DLP (Dose-Length Product): 1087.15 mGy.cm (accession [id number]), 1087.15 mGy.cm (accession [id number]) Please note: The reported value represents the total of one or more individual components during the CT acquisition on this date and at this time, and as such, the same value may appear in morethan one CT report depending on the interpreting/reporting [...] Right hip arthroplasty, left proximal femoral fixation. - Impression - Chest: Evidence of disease progression with enlarging and more numerous nodules. Increased sclerosis of nodules within T8 and T9. Abdomen/Pelvis: Enlarging adrenal nodules and increased nodular enhancement of the cystic mass in the left kidney CRITICAL RESULT: No. COMMUNICATION: Per this written report. Drafted by Jorden Hamilton MD on 09/15/2024 12:34 PM Final report signed by Jorden Hamilton MD on 09/15/2024 12:43 PM === 09/18/24 === XR CHEST 1 VIEW - Narrative - CLINICAL INDICATION: s/p thora TECHNIQUE: XR CHEST 1 VIEW COMPARISON: September 11, 2024 FINDINGS: Decreased right pleural effusion. The smaller left effusion also appears slightly decreased. No pneumothorax is identified. No edema or consolidation. - Impression - No pneumothorax. CRITICAL RESULT: No. COMMUNICATION: Per this written report. Drafted by Pasha Louise MD on 09/18/2024 10:59 AM Final report signed by Pasha Louise MD on 09/18/2024 10:59 AM Echo, Adult Transthoracic Complete Result Date: 08/11/2024 [...] is no recent study available for direct [id number] comparison. 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 - VSS, Afebrile PLAN: - Will perform US guided right thoracentesis today Thank you for allowing us to participate in the care of this patient. Anaya Nagel, METHODS AND PROCEDURES ANALYST, DNP Interventional Radiology [phone] [1] Past Medical History: Diagnosis Date Blood clot associated with vein wall inflammation left leg Cancer (CMS/HCC) 02-04-2023 kidney Diabetes mellitus (CMS/HCC) prediabetic per pt Disease of thyroid gland GERD (gastroesophageal reflux disease) Hypothyroidism Neuromuscular disorder (CMS/HCC) Right leg pain [2] Past Surgical History: Procedure Laterality Date JOINT REPLACEMENT Right hip OTHER SURGICAL HISTORY Left Removed tumor left femur [3] Social History Tobacco Use Smoking status: Former Current packs/day: 0.00 Average packs/day: 1 pack/day for 35.0 years (35.0 ttl pk-yrs) Types: Cigarettes Start date: 04/01/1979 Quit date: 2014 Years since quittin.5 Passive exposure: Never Smokeless tobacco: Never Substance Use Topics Alcohol use: Never Drug use: Not Currently [4] Allergies Allergen Reactions Sulfa Drugs Shortness of breath and Swelling Vancomycin Itching Forehead turned red. Patient not complaining of being itchy, or shortness of air. Nivolumab Other - please document in the comment field Low back pain, muscle spasms in back [5] Current Outpatient Medications: apixaban (Eliquis) 5 MG tablet, Take 1 tablet by mouth 2 times a day., Disp: 60 tablet, Rfl: 5 dexamethasone (Decadron) 1 MG tablet, Take 1 tablet by mouth in the morning and 1 tablet before bedtime., Disp: 60 tablet, Rfl: 1 levothyroxine (Synthroid, Levoxyl) 100 MCG tablet, Take 1 tablet (100 mcg) by mouth daily before breakfast., Disp: 30 tablet, Rfl: 11 Tivozanib HCl 1.34 MG capsule, Take 1.34 mg by mouth daily. Take for 3 weeks on, then 1 week off., Disp: 21 capsule, Rfl: 2 acetaminophen (Tylenol) 500 MG tablet, Take 1 tablet (500 mg) by mouth every 6 (six) hours., Disp: 100 tablet, Rfl: 0 famotidine (Pepcid) 20 MG tablet, Take 1 tablet (20 mg) by mouth 1 (one) time each day., Disp: 30 tablet, Rfl: 3 loperamide (Imodium A-D) 2 MG tablet, Take 1 tablet (2 mg) by mouth 4 (four) times a day if needed for diarrhea., Disp: 30 tablet, Rfl: 1 ondansetron ODT (Zofran-ODT) 4 MG disintegrating tablet, Take 1 tablet (4 mg) by mouth every 8 (eight) hours if needed for nausea or vomiting., Disp: 20 tablet, Rfl: 0 oxyCODONE (Roxicodone) 5 MG immediate release tablet, Take 1 tablet by mouth every 8 hours as needed for moderate pain., Disp: 90 tablet, Rfl: 0 senna-docusate sodium (Senokot-S) 8.6-50 MG tablet, Take 1 tablet by mouth 1 (one) time each day., Disp: 20 tablet, Rfl: 0 Current Facility-Administered Medications: lidocaine 1% in sodium bicarbonate (buffered lidocaine)10 mL, 10 mL, Infiltration, Once, Anaya Nagel APRN, DNP Insert peripheral IV, , , Once AND Saline lock IV, , , Once AND sodium chloride 0.9 % flush10 mL, 10 mL, Intravenous, q12h AND sodium chloride 0.9 % flush 10 mL, 10 mL, Intravenous, PRN,Anaya Nagel APRN, DNP documented in this encounter Plan of Treatment Upcoming Encounters Date Type Department Care Team (Late st Contact Info) Description 10/14/2024 11:30 AM EDT Appointment [facility] Nuclear Medicine [address] [place] [address] 10/14/2024 12:40 PM EDT Appointment [facility] Radiology [address] [place] [address] 10/14/2024 1:45 PM EDT Appointment [facility] Nuclear Medicine [address] [place] [address] 10/16/2024 1:30 PM EDT Clinical Support [facility] Multidisciplinary Oncology Clinic [address] [place] [address] 10/16/2024 2:00 PM EDT Office Visit [facility] Multidisciplinary Oncology Clinic [address] [place] [address] Carrol Armenta MD [address] [facility] Stacy Cuello [facility] [address] [place] [address] 11/13/2024 1:00 PM EDT Office Visit [facility] Head[facility] Neck & Respiratory [address] [facility] [place] [address] Aurora Hubbard, METHODS AND PROCEDURES ANALYST [address] [place] [address] 11/26/2024 9:15 AM EDT Appointment [facility] Radiology [address] [place] [address] 11/26/2024 10:45 AM EDT Office Visit [place] [facility] [address] [place] [address] Joseph Odonnell MD [address] [place] [address] documented as of this encounter Procedures Procedure Name Priority Date/Time Associated Diagnosis Comments XR CHEST 1 VIEW STAT 10/05/2024 11:38 AM EDT US GUIDED THORACENTESIS Routine 10/06/19 10:00 AM EDT Other ascites TOTAL PROTEIN, PLEURAL FLUID Routine 10/05/2024 9:50 AM EDT BODY FLUID CELL COUNT W/ MANUAL DIFFERENTIAL Routine 10/05/2024 9:49 AM EDT BODY FLUID, CYTOSPIN, PATHOLOGIST INTERPRETATION Routine 10/05/2024 9:49 AM EDT documented in this encounter Results * XR Chest 1 View (10/05/2024 11:38 AM EDT) Anatomical Region Laterality Modality Chest Digital Radiogra phy Impressions 10/05/2024 11:53 AM EDT No discrete pneumothorax. CRITICAL RESULT: No. COMMUNICATION: Per this written report Drafted by Jared Amezcua MD on 10/05/2024 11:52 AM Final report signed by Jared Amezcua MD on 10/05/2024 11:53 AM Narrative 10/05/2024 11:53 AM EDT CLINICAL INDICATION: Right thoracentesis TECHNIQUE: XR CHEST 1 VIEW COMPARISON: September 18, 2024 FINDINGS: Small right pleural effusion. No pneumothorax. A subtle opacities are likely atelectasis. Procedure Note Jared Amezcua MD - 10/05/2024 CLINICAL INDICATION: Right thoracentesis TECHNIQUE: XR CHEST 1 VIEW COMPARISON: September 18, 2024 FINDINGS: Small right pleural effusion. No pneumothorax. A subtle opacities arelikely atelectasis. IMPRESSION: No discrete pneumothorax. CRITICAL RESULT: No. COMMUNICATION: Per this written report Drafted by Jared Amezcua MD on 10/05/2024 11:52 AM Final report signed by Jared Amezcua MD on 10/05/2024 11:53 AM us Anaya Nagel APRN, DNP IMG XR PROCEDURES Final Result * US Guided Thoracentesis (10/05/2024 10:00 AM EDT) Anatomical Region Laterality Modality Chest Ultrasound Impressions 10/05/2024 6:56 PM EDT Technically successful ultrasound guided thoracentesis. A total of 1.350 liters of clear dark yellow fluid was removed. A sample of the fluid was sent for laboratory analysis. CRITICAL RESULT: No. COMMUNICATION: Per this written report. Preliminary report signed by Anaya Nagel APRN on 10/05/2024 11:28 AM By electronically signing this report, I, the attending physician, attest that I was not present for the procedure(s) but agree with the final edited report. Drafted by Anaya Nagel APRN on 10/05/2024 11:27 AM Final report signed by Harlan Keith MD on 10/05/2024 6:56 PM Narrative 10/05/2024 6:56 PM EDT CLINICAL INDICATION: Abby Winston is a 59 y.o. 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 TECHNIQUE: Manager Radio: Anaya Nagel APRN Secondary Firepot Operator And Tender: None. Nurse: Tutu Technologist: Akhil Kemp Dose: NA Medications: Continuous physiologic monitoring provided by a qualified healthcare professional. Administered: 1% Lidocaine with sodium bicarbonate SQ. Antibiotics: NA Time out: 0946 Procedure: After discussion of risks and benefits, [...] collection in the right pleural space. 1% buffered lidocaine used for local analgesia. Under real-time ultrasound guidance, a 6 Fr safety-centesis catheter was advanced into the pleural fluid. Ultrasound images were sent to permanent storage in PACS. A total of 1.350 liters of clear dark yellow fluid was removed. The needle was removed and occlusive dressing applied. The patient tolerated the procedure well. The patient left the IR suite in stable condition. COMPARISON: None. FINDINGS: Moderate right pleural fluid. COMPLICATION: No. Procedure Note Harlan Keith MD - 10/05/2024 CLINICAL INDICATION: Abby Winston is a 59 y.o. female with a past medical history of withpast medical history of De Smita Metastatic Clear Cell Renal Cell Carcinomawith brain mets and right pleural effusion who presents for rightthoracentesis. TECHNIQUE: Manager Radio: Anaya Nagel APRN Secondary Firepot Operator And Tender: None. Nurse: Tutu Technologist: Akhil Kemp Dose: NA Medications: Continuous physiologic monitoring provided by a qualifiedhealthcare professional. Administered: 1% Lidocaine with sodiumbicarbonate SQ. Antibiotics: NA Time out: 945 Procedure: After discussion of risks and benefits, [...] fluidcollection in the right pleural space. 1% buffered lidocaine used forlocal analgesia. Under real-time ultrasound guidance, a 6 Frsafety-centesis catheter was advanced into the pleural fluid. Ultrasoundimages were sent to permanent storage in PACS. A total of 1.350 liters ofclear dark yellow fluid was removed. The needle was removed and occlusivedressing applied. The patient tolerated the procedure well. The patient left the IR suitein stable condition. COMPARISON: None. FINDINGS: Moderate right pleural fluid. COMPLICATION: No. IMPRESSION: Technically successful ultrasound guided thoracentesis. A total of 1.350 liters of clear dark yellow fluid was removed. A sample of the fluid was sent for laboratory analysis. CRITICAL RESULT: No. COMMUNICATION: Per this written report. Preliminary report signed by Anaya Nagel APRN on 10/05/2024 11:28 AM By electronically signing this report, I, the attending physician, attestthat I was not present for the procedure(s) but agree with the finaledited report. Drafted by Anaya Nagel APRN on 10/05/2024 11:27 AM Final report signed by Harlan Keith MD on 10/05/2024 6:56 PM us Natty Choe APRN IMG US PROCEDURES Final Resu lt * Total Protein, Pleural Fluid - Pleural Right (10/05/2024 9:50 AM EDT) Total Protein, Fluid 4.4 g/dL 10/05/2024 11:[address] [facility] Pleural Fluid Structure of right pleural cavity / Unknown Non-blood Collection / Unknown 10/05/2024 9:50 AM EDT 10/05/2024 11:[address] [facility] - 10/05/2024 11:32 AM EDT This test was developed and its performance characteristics determined by [facility]. The U.S. Food and Drug Administration has not approved or cleared this test. However, FDA clearance or approval is not currently required for clinical use. The results are not intended to be used as the sole means for clinical diagnosis or patient management decisions. us Anaya Nagel APRN, DNP LAB BODY FLUIDS AND STOO LS ORDERABLES Final Result [facility] [address] [place] [address] * Body fluid, cytospin, pathologist interpretation (10/05/2024 9:49 AM EDT) Specimen Type Body Fluid LAB HEMATOLOGY METHOD 10/06/2024 1:[address] [facility] Specimen Source, Body Fluid Pleural, Right LAB HEMATOLOGY METHOD 10/06/2024 1:[address] [facility] Clinical Diagnosis, Body Fluid Pleural effusion; history of clear cell renal cell carcinoma LAB HEMATOLOGY METHOD 10/06/2024 1:[address] [facility] Interpretation , Body Fluid Light blood with predominantly chronic inflammation and rare atypical cells. See comment. A resident was involved in the service. I attest I examined the relevant preparations for the specimens and confirmed the diagnosis or interpretation. 10/06/2024 1:[address] [facility] Pathologist Signature, Body Fluid 10/06/2024 1:[address] [facility] Comment:Reviewed by: Cruzito Ray MD LAB CP ASR DISCLAIMER Yes 10/06/2024 1:[address] [facility] Body Fluid Structure of right pleural cavity / Unknown Non-blood Collection / Unknown 10/05/2024 9:49 AM EDT 10/05/2024 11:[address] [facility] - 10/06/2024 1:27 PM EDT Whether these atypical cells represent reactive mesothelial cells or rare tumor cells cannot be discerned from this preparation. Anaya Nagel APRN, SONNY LAB BODY FLUIDS AND STOO LS ORDERABLES Final Result [facility] [address] [place] [address] * Body Fluid Cell Count w/ Diff - Pleural Right (10/05/2024 9:49 AM EDT) Color, Body fluid Yellow LAB HEMATOLOGY METHOD 10/05/2024 2:[address] [facility] Appearance, Body fluid Clear LAB HEMATOLOGY METHOD 10/05/2024 2:[address] [facility] Volume, Body fluid 9.0 cc LAB HEMATOLOGY METHOD 10/05/2024 2:[address] [facility] Fluid Container Tube 2 LAB HEMATOLOGY METHOD 10/05/2024 2:[address] [facility] Red Blood Cell Count, Body fluid 3,000 uL LAB HEMATOLOGY METHOD 10/05/2024 2:[address] [facility] Total Nucleated Cell Count, Body fluid 124 uL LAB HEMATOLOGY METHOD 10/05/2024 2:[address] [facility] Neutrophils %, Body fluid 16 % LAB HEMATOLOGY METHOD 10/05/2024 2:[address] [facility] Lymphocytes %, Body fluid 42 % LAB HEMATOLOGY METHOD 10/05/2024 2:[address] [facility] Monocytes/Macro phages %, Body fluid 42 % LAB HEMATOLOGY METHOD 10/05/2024 2:[address] [facility] Eosinophils %, Body fluid 0 % LAB HEMATOLOGY METHOD 10/05/2024 2:[address] [facility] Lining/Mesothel ial Cells %, Body fluid 0 % LAB HEMATOLOGY METHOD 10/05/2024 2:[address] [facility] Neutrophils Absolute (PMN), Body fluid 20 uL LAB HEMATOLOGY METHOD 10/05/2024 2:[address] [facility] Lymphocytes Absolute, Body fluid 52 uL LAB HEMATOLOGY METHOD 10/05/2024 2:[address] [facility] Monocytes/Macro phages Absolute, Body fluid 52 uL LAB HEMATOLOGY METHOD 10/05/2024 2:[address] [facility] Eosinophils Absolute, Body fluid 0 uL LAB HEMATOLOGY METHOD 10/05/2024 2:01 PM EDT [facility] Basophils Absolute, Body fluid 0 uL LAB HEMATOLOGY METHOD 10/05/2024 2:[address] [facility] Lining/Mesothel ial Cells Absolute, Body fluid 0 uL LAB HEMATOLOGY METHOD 10/05/2024 2:[address] [facility] Comment, Body fluid None LAB HEMATOLOGY METHOD 10/05/2024 2:[address] [facility] Basophils %, Body fluid 0 % LAB HEMATOLOGY METHOD 10/05/2024 2:[address] [facility] Body Fluid Structure of right pleural cavity / Unknown Non-blood Collection / Unknown 10/05/2024 9:49 AM EDT 10/05/2024 11:02 AM EDT Anaya Nagel APRN, DNP LAB BODY FLUIDS AND STOOLS ORDERABLES NO SPECIMEN TYPE/SOURCE Final Result [facility] [address] [place] [address] documented in this encounter Visit Diagnoses Diagnosis Other ascites documented in this encounter Administered Medications Inactive Administered Medications - up to 3 most recent administrations Medication Order MAR Action Action Date Dose Rate Site lidocaine 1% in sodium bicarbonate (buffered lidocaine)10 mL 10 mL, Infiltration, Once, 1 dose, On Sat10/05/24 at 0945, Routine, Holding - Preprocedure Given 10/05/2024 9:48 AM EDT 10 mL documented in this encounter Additional Health Concerns Assessment Noted Time PHQ-9 Depression Total Score: 0 09/17/19 9:51 AM EDT A fall risk assessment has been complete d for the patient 09/16/2024 9:51 AM EDT A Body Mass Index follow-up plan has been documented for the patient 10/05/2024 12:41 PM EDT documented as of this encounter Care Teams Non Destructive Testing Engineer Relationship Specialty Start Date End Date Jared Coronel MD [address] [place] [address] PCP - General 08/12/20 Joseph Odonnell MD [address] [place] [address] Surgeon Neurosurgery 02/28/23 Carrol Armenta MD [address] [place] [address] Consulting Physician Medical Oncology 06/12/23 Sky Moreau MD [address] [facility] [address] [place] [address] Consulting Physician Radiation Oncology 06/12/23 Lauren Paiz APRN 800 [facility] St[address] Cu[address] [address] Nurse Practitioner Internal Medicine 07/19/23 documented as of this encounter
--- OUTSIDE RECORDS SUMMARY | 2024-10-05 11:22 | XMS_ITS | Encounter Summary ---
Author Organization Healthcare Address [address] [place] [address] Care Team Providers Care Clinical Rehabilitation Liaison Name Role Phone Jared Coronel MD Primary Care Provider + [phone] Joseph Odonnell MD Unavailable [phone] Carrol Armenta MD Unavailable Sky Moreau MD Unavailable [phone] Lauren Paiz SPONGE DIVER Unavailable [phone] Encounter Details Date Type Department Care Team (Latest Contact Info) Description 10/05/2024 11:22 AM EDT - 10/05/2024 11:59 PM EDT Hospital Encounter [facility] H Radiology [address] [place] [address] Discharge Disposition: Home or Self Care Social [...] place to sleep or slept in a chcf (including now)? 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-TRANSFER CLERK) to steady your nerves or to get rid of a hangover? 0 11/21/2023 CAGE Questionnaire Score 0 024 Utilities Answer Date Recorded In the past 12 months has th e electric, gas, Hy[employer], or water [employer] threatened to shut off services in your home? No 11/22/2023 PHQ-2A Answer Date Recorded Depression Risk 0 01/20/2024 Comments No Sex and Gender Information Value Date Recorded Sex Assigned at Female 02/06/2023 2:02 PM EST Legal Sex Female 8:17 PM EDT Gender Identity Female 02/06/2023 2:02 PM EST Sexual Orientation Straight 11/21/2023 5: 34 PM EDT Travel History Travel Start Travel End [place] 09/20/2024 09/25/2024 documented as of this encounter [...] EDT Appointment [facility] Nuclear Medicine [address] [place] [address] 10/14/2024 12:40 PM EDT Appointment [facility] G Radiology [address] [place] [address] 10/14/2024 1:45 PM EDT Appointment [facility] Nuclear Medicine [address] [place] [address] 10/16/2024 1:30 PM EDT Clinical Support [facility] [address] [place] [address] 10/16/2024 2:00 PM EDT Office Visit [facility] [address] [place] [address] Carrol Armenta MD 800 [facility] [address] [place] [address] 11/13/2024 1:00 PM EDT Office Visit [facility] Head, Neck & Respiratory 800 [facility], 2nd [place] [address] Aurora Hubbard, SPONGE DIVER [address] [place] [address] 11/26/2024 9:15 AM EDT Appointment [facility] Radiology [address] [place] [address] 11/26/2024 10:45 AM EDT Office Visit [facility] [address], [address]st [place] [address] Joseph Odonnell MD [address] [facility] [address] [place] [address] documented as of this encounter Procedures Procedure Name Priority Date/Time Associated Diagnosis Comments XR CHEST 1 VIEW STAT 10/05/2024 11:38 AM EDT documented in this encounter Results [...] Jared Amezcua MD on 10/05/2024 11:53 AM Anaya Nagel APRN, DNP IMG XR PROCEDURES Final Result documented in this encounter Visit Diagnoses Not [...] documented as of this encounter Care Teams Clinical Rehabilitation Liaison Relationship Specialty Start Date End Date Jared Coronel MD [address] [place] [address] PCP - General 08/12/20 Joseph Odonnell MD [address] [facility] [address] [place] [address] Surgeon Neurosurgery 02/28/23 Carrol Armenta MD [address] [facility] [address] [place] [address] Consulting Physician Medical Oncology 06/12/23 Sky Moreau MD [address] [place] [address] Consulting Physician Radiation Oncology 06/12/23 Lauren Paiz APRN [address] [facility] [address] [place] [address] Nurse Practitioner Internal Medicine 07/19/23 documented as of this encounter
[2024-10-13] VITALS (8 sets, daily range): BP systolic 103–135; BP diastolic 63–94; PULSE 107–118; RESP 17–18; TEMP 36.6–36.7; O2SAT 92–97; BMI 30.5
--- OUTSIDE RECORDS SUMMARY | 2024-10-13 14:25 | XMS_ITS | Encounter Summary ---
Author Organization Healthcare Address [address] [place] [address] Care Team Providers Care Bead Preparer Name Role Phone Jared Coronel MD Primary Care Provider + [phone] Joseph Odonnell MD Unavailable [phone] Carrol Armenta MD Unavailable Sky Moreau MD Unavailable [phone] Lauren Paiz POTATO SORTER Unavailable [phone] Encounter Details Date Type Department Care Team (Latest Contact Info) Description 01/10/2024 Orders Only [facility] [address] [place] [address] Sky Moreau MD 800 [facility] [address] [place] [address] Renal cell carcinoma, unspecified laterality (CMS/HCC) (Primary Dx) Social History Tobacco Use Types Packs/Day Years Used Date Smoking Tobacco: Former Cigarettes 1 35 1 980 - 2014 Smokeless Tobacco: Never Alcohol Use Standard Drinks/Week [...] Date Recorded Patient Health Questionnaire-2 Score 0 11/13/2023 Hunger Vital Sign Answer Date Recorded Within [...] place to sleep or slept in a group home (including now)? No 11/22/2023 CAGE ASSESSMENT Answer [...] drink first t nichole in the morning (EYE-PROCESS SUPERVISOR) to steady your nerves or to get rid of a hangover? 0 11/21/2023 CAGE Questionnaire Score 0 08/22/2 024 Utilities Answer Date Recorded In the past 12 months has e electric, gas, oil, or water company threatened to shut off services in your home? No 11/22/2023 Comments No Sex and Gender Information Value Date Recorded Sex Assigned at Female 02/06/2023 2:02 PM EST Legal Sex Female 8:17 PM EDT Gender Identity Female 02/06/2023 2:02 PM EST Sexual Orientation Straight 11/21/2023 5: 34 PM EDT Travel History Travel Start Travel End [place] 09/20/2024 09/25/2024 documented as of this encounter Plan of Treatment Upcoming Encounters Date Type Department Care Team (Late st Contact Info) Description 10/14/2024 11:30 AM EDT Appointment [facility] H Nuclear Medicine [address] [place] [address] 10/14/2024 12:40 PM EDT Appointment [facility] G Radiology [address] [place] [address] 10/14/2024 1:45 PM EDT Appointment [facility] Nuclear Medicine [address] [place] [address] 10/16/2024 1:30 PM EDT Clinical Support [facility] [address] [place] [address] 10/16/2024 2:00 PM EDT Office Visit [facility] [address] [place] [address] Carrol Armenta MD 800 [facility] [address] [facility] [address] [place] [address] 11/13/2024 1:00 PM EDT Office Visit Pav [facility] Head, Neck & Respiratory 800 [facility], 2nd [place] [address] Aurora Hubbard, ERIC [address] [place] [address] 11/26/2024 9:15 AM EDT Appointment [facility] Radiology [address] [place] [address] 11/26/2024 10:45 AM EDT Office Visit [place] [facility] [address], [address] [place] [address] Joseph Odonnell MD [address] [place] [address] documented as of this encounter Visit Diagnoses Diagnosis Renal cell carcinoma, unspecified laterality- Primary documented in this encounter Additional Health Concerns Assessment Noted Time A fall risk assessment has been complete d for the patient 01/07/2024 2:46 PM EDT A Body Mass Index follow-up plan has been documented for the patient 12/09/2023 12:57 PM EDT documented as of this encounter Care Teams Bead Preparer Relationship Specialty Start Date End Date Jared Coronel MD [address] [place], [place] [phone] PCP - General 08/12/20 Joseph Odonnell MD [address] [place] [address] Surgeon Neurosurgery 02/28/23 Carrol Armenta MD [address] [facility] [address] [place] [address] Consulting Physician Medical Oncology 06/12/23 Sky Moreau MD [address] [place] [address] Consulting Physician Radiation Oncology 06/12/23 Lauren Paiz APRN [address] [place] [address] Nurse Practitioner Internal Medicine 07/19/23 documented as of this encounter
--- OUTSIDE RECORDS SUMMARY | 2024-10-13 14:25 | XMS_ITS | Encounter Summary ---
Author Organization Healthcare Address [address] [place] [address] Care Team Providers Care Ammonia Box Tender Name Role Phone Jared Coronel MD Primary Care Provider + [phone] Joseph Odonnell MD Unavailable [phone] Carrol Armenta MD Unavailable Sky Moreau MD Unavailable [phone] Lauren Paiz WELDING TEACHER Unavailable [phone] Reason for Referral * Consultation (Routine) - Authorized Specialty Diagnoses / Procedures Referred By Tammy little Referred To Contact Cardiology Diagnoses Shortness of breath Harmony Thomas PA [address] [place] [address] Phone: tel: fax: Winston Horton MD [address] [place] [address] Phone: tel: fax: Referral ID Status Reason Start Date Expiration Date Visits Requested Visits Authorized [id number] Authorized Specialty Services Required 08/10/2024 02/09/2026 1 1 * Imaging (Routine) - Closed Specialty Diagnoses / Procedures Referred By Contchristel t Referred To Contact Cardiology Diagnoses Shortness of breath Procedures Echo, Adult Transthoracic Complete Harmony Thomas PA [address] [place] [address] Phone: tel: fax: Referral ID Status Reason Start Date Expiration Date V isits Requested Visits Authorized [id number] Closed Perform Procedure 08/10/2024 02/09/2026 1 1 Encounter Details Date Type Department Care Team (Late st Contact Info) Description 08/10/2024 Community Orders Community Practice [address] [place] [address] Harmony Thomas PA [address] [place] [address] Shortness of breath (Primary Dx) Social History Tobacco Use Types [...] Date Recorded Patient Health Questionnaire-2 Score 0 08/11/2024 Hunger Vital Sign Answer Date Recorded Within [...] drink first t nichole in the morning (EYE-BOILERMAKING SUPERVISOR) to steady your nerves or to [...] EDT Travel History Travel Start Travel End [place] 09/20/2024 09/25/2024 documented as of this encounter Functional Status * Over the past 2 weeks, how often have you been bothered by any of the following problems? Question Answer Date of Assessment Author Little interest or pleasure in doing things Not at all 08/11/2024 9:23 AM EDT Sheree Geiger Feeling down, depressed, or hopeless Not at all 08/11/2024 9:23 AM EDT Sheree Geiger Patient Health Questionnaire -2 Score 0 08/11/2024 9:23 AM EDT Sheree Geiger * Calculated C-SSRS Risk Score (Lifetime/Recent) Answer Date of Assessment Author No Risk Indicated 08/12/2024 11:26 AM EDT Mirella Laurent RN * Question Answer Date of Assessment Author 1. Wish to be (Past 1 Month) No 025 11:26 AM EDT Mirella Laurent, RENARD 2. Non-Specific Active Suici yemi Thoughts (Past 1 Month) No 08/12/2024 11:26 AM EDT Vesna Laurent, RENARD 6. Suicidal Behavior (Lifetime) No 11:26 AM EDT Mirella Laurent RN documented as of this encounter Plan of Treatment Upcoming Encounters Date Type Department Care Team (Late st Contact Info) Description 10/14/2024 11:30 AM EDT Appointment [facility] Nuclear Medicine [address] [place] [address] 10/14/2024 12:40 PM EDT Appointment [facility] G Radiology [address] [place] [address] 10/14/2024 1:45 PM EDT Appointment [facility] H Nuclear Medicine [address] [place] [address] 10/16/2024 1:30 PM EDT Clinical Support [facility] [address] [place] [address] 10/16/2024 2:00 PM EDT Office Visit [facility] [address] [place] [address] Carrol Armenta MD 800 [facility] [address] [address] 11/13/2024 1:00 PM EDT Office Visit Pav CC Head, Neck & Respiratory 800 [facility], 2nd [place] [address] Aurora Hubbard B, WELDING TEACHER [address] [place] [address] 11/26/2024 9:15 AM EDT Appointment [facility] G Radiology [address] [place] [address] 11/26/2024 10:45 AM EDT Office Visit [place] [facility] [address], [address] [place] [address] Joseph Odonnell MD [address] [place] [address] Scheduled Referrals Name Type Priority Associated Diagnoses Order Schedule Ambulatory referral to Cardiology Outpatient Referral Routine Shortness of breath Ordered: 08/10/2024 documented as of this encounter Results * ECHO, ADULT TRANSTHORACIC COMPLETE W/ STRAIN (08/11/2024 2:20 PM EDT) BSA 1.80 m2 LUIS E ISCV Height 157.5 LUIS E ISCV Weight 78.9 LUIS E ISCV MV E Vmax 56.1 cm/s LUIS E ISCV MV A Vmax 72.8 cm/s LUIS E ISCV MV E/A 0.8 cm/s LUIS E ISCV TR Vmax 221.0 cm/s LUIS E ISCV RV s' Sohan 11.2 cm/s LUIS E ISCV TAPSE 18 mm LUIS E ISCV TR Max PG 20 mmHG LUIS E ISCV PA acc time 90 msec LUIS E ISCV mean PAP 39 mmHg LUIS E ISCV PA DC(ACCEL) 40.8 mmHg LUIS E ISCV Ao Root Diam 29 mm LUIS E ISCV LV Lat e' Velocity 10.0 cm/s LUIS E ISCV LV Sept e' Sohan 5.9 cm/s LUIS E ISCV Lat E/e' 5.6 LUIS E ISCV Sep E/e' 9.5 LUIS E ISCV Avg E/e' 7.6 LUIS E ISCV RVSP 23 mmHg LUIS E ISCV RAP systole 3 mmHg LUIS E ISCV LV EDV(MOD-4ch) 54 mL LUIS E ISCV LV ESV(MOD4ch) 26 mL LUIS E ISCV EF(MOD-sp4) 52 % LUIS E ISCV LV EDV(MOD-2ch) 48 mL LUIS E ISCV EDV(MOD-bp) 51 mL LUIS E ISCV LV ESV(MOD2ch) 25 mL LUIS E ISCV EF(MOD-sp2) 48 % LUIS E ISCV ESV(MOD-bp) 26 mL LUIS E ISCV EF(MOD-bp) 50 % LUIS E ISCV LVLs ap2 6.3 mm LUIS E ISCV LVIDd 34 mm LUIS E ISCV IVSd 9 mm LUIS E ISCV LVPWd 10 mm LUIS E ISCV LV MASS(C)D 91 g LUIS E ISCV [facility] CV ECHO LV MASS INDEX 51 g/m2 LUIS E ISCV LV RWT 0.56 mm LUIS E ISCV LVIDs 22 mm LUIS E ISCV LA dimension 20 mm LUIS E ISCV PA acc slope 830.0 cm/s2 LUIS E ISCV LAV(MOD-4ch) 11 mL LUIS E ISCV RA MOD 4Ch 9 mL LUIS E ISCV MIN 5 mL/m2 LUIS E ISCV RV base 27 mm LUIS E ISCV RV Length 58 mm LUIS E ISCV Ao V2 VTI 18.5 cm LUISE ISCV Ao mean PG 3 mmHg LUIS E ISCV Ao V2 Vmax 121.0 cm/s LUIS E ISCV Ao max PG 6 mmHg LUIS E ISCV Ao V2 mean 86.3 cm/s LUIS E ISCV LV V1 VTI 12.8 cm LUIS E ISCV LV V1 Vmax 95.4 cm/s LUIS E ISCV AV VTI Index 0.69 LUIS E ISCV LV mean PG 1.6 mmHG LUIS E ISCV LV V1 mean 57.9 cm/sec LUIS E ISCV LV max PG 3.6 mmHg LUIS E ISCV LVOT diam 18 mm LUIS E ISCV LVOT AREA 2.5 cm2 LUIS E ISCV SV(LVOT) 33 mL LUIS E ISCV CHERRIE(I,D) 1.8 cm2 LUIS E ISCV CHERRIE(VTI)/BSA_ph l 1.0 cm2/m2 LUIS E ISCV IVC Max Size 12 mm LUIS E ISCV Anatomical Region Laterality Modality Echocardiography Narrative 08/11/2024 2:53 PM EDT Left Ventricle: The left ventricle is normal size. There is normal left ventricular myocardial thickness and mass. The left ventricular systolic function is normal. The LVEF as measured by biplane volume is 50%. The left ventricular filling pressure is normal. The septal motion is most consistent with a conduction abnormality. Pericardium: No pericardial effusion. All cardiac valves were reasonably well interrogated with 2D imaging and/or Doppler assessment and no significant valve regurgitation or stenosis is seen. Compared to the most recently available prior study, and allowing for differences in image quality and technique, there is no significant interval change noted. Left Ventricle The left ventricle is normal size. There is normal left ventricular myocardial thickness and mass. The left ventricular systolic function is normal. The LVEF as measured by biplane volume is 50%. The left ventricular filling pressure is normal. The septal motion is most consistent with a conduction abnormality. Right Ventricle The right ventricle is normal in size. The right ventricular systolic function is normal. Right ventricular systolic pressure is normal (<35mmHg). Left Atrium The left atrial size is normal. The interatrial septum is intact with no evidence for an atrial septal defect. Right Atrium The right atrial volume index is small (<18mL/m2). IVC/SVC Based on the IVC size and respiratory variation, the estimated right atrial pressure is 3mmHg. Mitral Valve The mitral valve leaflets are normal in appearance with no evidence of mitral valve prolapse. There is trace mitral regurgitation. There is no mitral stenosis. Tricuspid Valve The tricuspid valve is normal in appearance. There is mild tricuspid regurgitation. There is no tricuspid stenosis. Aortic Valve The aortic valve appears to be trileaflet. There is mild aortic valve regurgitation. There is no hemodynamically significant valvular aortic stenosis. Pulmonic Valve The pulmonic valve is normal in appearance. There is trace pulmonic regurgitation. There is no pulmonic stenosis. Pericardium Evidence of epicardial fat. No pericardial effusion. Great Vessels The aortic root is normal in size. The sinus of Valsalva (aortic root) diameter is 29 mm by leading edge to leading edge method. The main pulmonary artery is normal in size. Study Details A complete transthoracic echocardiogram using two-dimensional (2D), m-mode, color and spectral flow Doppler and strain imaging was performed. During the study the apical, parasternal, subcostal and suprasternal view was captured. Overall the study quality was good. Heart rate was normal. Height: 157.5 cm. Weight: 78.9 kg. BSA: 1.80 m2. The heart rhythm during this exam was most suggestive of a sinus rhythm. Heart Rate Range: 90-100 Study Recommendation All cardiac valves were reasonably well interrogated with 2D imaging and/or Doppler assessment and no significant valve regurgitation or stenosis is seen. Compared to the most recently available prior study, and allowing for differences in image quality and technique, there is no significant interval change noted. us Harmony CHAU CV ECHO PROCEDURES Final Resul t documented in this encounter Visit Diagnoses Diagnosis Shortness of breath- Primary Shortness of breath documented in this encounter Additional Health Concerns Assessment Noted Time A fall risk assessment has been complete d for the patient 07/16/2024 11:06 AM EDT A Body Mass Index follow-up plan has been documented for the patient 07/16/2024 3:34 PM EDT documented as of this encounter Care Teams Ammonia Box Tender Relationship Specialty Start Date End Date Jared Coronel MD [address] [place] [address] PCP - General 08/12/20 Joseph Odonnell MD [address] [place] [address] Surgeon Neurosurgery 02/28/23 Carrol Armenta MD [address] [facility] [address] [place] [address] Consulting Physician Medical Oncology 06/12/23 Sky Moreau MD [address] [facility] [address] [place] [address] Consulting Physician Radiation Oncology 06/12/23 Lauren Paiz APRN [address] [facility] [address] [place] [address] Nurse Practitioner Internal Medicine 07/19/23 documented as of this encounter
--- OUTSIDE RECORDS SUMMARY | 2024-10-13 14:26 | XMS_ITS | Encounter Summary ---
Author Organization Healthcare Address [address] [place] [address] Care Team Providers Care Support Staff Name Role Phone Jared Coronel MD Primary Care Provider + [phone] Joseph Odonnell MD Unavailable [phone] Carrol Armenta MD Unavailable Sky Moreau MD Unavailable [phone] Lauren Paiz APRN Unavailable [phone] Encounter Details Date Type Department Care Team (Late st Contact Info) Description 09/16/2024 Telephone [facility] [address] [place] [address] Ani Wells, PharmD [facility] [place], [place] [id number] Social History Tobacco Use Types Packs/Day Years [...] drink first t nichole in the morning (EYE-OUTREACH CLINICIAN) to steady your nerves or to get rid of a hangover? 0 11/21/2023 CAGE Questionnaire Score 0 024 Utilities Answer Date Recorded In the past 12 months has e electric, gas, oil, or water [employer] threatened to shut off services in your home? No 11/22/2023 PHQ-2A Answer Date Recorded Depression Risk 0 01/20/2024 Comments No Sex and Gender Information Value Date Recorded Sex Assigned at Female 02/06/2023 2:02 PM EST Legal Sex Female 8:17 PM EDT Gender Identity Female 02/06/2023 2:02 PM EST Sexual Orientation Straight 11/21/2023 5: 34 PM EDT Travel History Travel Start Travel End [place] 09/20/2024 09/25/2024 documented as of this encounter Functional Status * Over the past 2 weeks, how often have you been bothered by any of the following problems? Question Answer Date of Assessment Author Little interest or pleasure in doing things Not at all 09/16/2024 9:51 AM Shikha Riggins A Feeling down, depressed, or hopeless Not at all 09/16/2024 9:51 AM Shikha Riggins Patient Health Questionnaire -2 Score 0 09/16/2024 9:51 AM Shikha Riggins A * Question Answer Date of Assessment Author [...] way Not at all 09/16/2024 9:51 AM CHEKOT Shikha Robles Patient Health Questionnaire -9 Score 0 09/16/2024 9:51 AM CHEKOT Shikha Robles * If you checked off any problems on this questionnaire so far, Question Answer Date of Assessment Author How difficult have these problems made it for you to do your work, take care of things at home, or get along with other people? Not difficult at all 09/16/2024 9:51 AM EDT Shikha Robles documented as of this encounter Miscellaneous Notes * Telephone Encounter - Ani Wells, PharmD - 09/16/2024 12:06 PM EDT Specialty Medication First Follow-Up: The patient was contacted approximately 1 month after initiation of therapy. Patient initiated the following medication/strength (Fotivda 0.89mg daily x 3 weeks, then off 1 week) on the following date (08/29/24). Are there any identified problems with medication administration or dosing? No The patient is adherent to therapy. Patient reports any side effects? Yes mild fatigue New Labs since initiation? Yes Therapy is appropriate for continuation. This assessment was based on communication with patient. The patient's medication list has been reviewed with the patient, is accurate and is reflected in the patient's chart. Summary: Jo Ann started C1 Fotivda 0.89mg on 08/29/24. She is almost finished with the 3rd week of doses, then will be off 1 week. Will start back on 09/26/24 with higher strength 0.13mg daily. Patientaware. Reports mild fatigue at this time [facility] Plan of Care - [facility] Review Reviewed patient's current medication list for drug interaction with specialty medication: No interaction identified Adherence Summary: No issues identified Adverse events/side effect summary: Experienced adverse events/side effects, Clinical Intervention Not Needed - Adverse event description: mild fatigue Storage, disposal, and administration summary: No issues identified Condition Summary: Stable Plan of care goal: Improving or maintaining quality of life, Slow or prevent progression of disease, and Minimize/manage side effects or toxicities Therapeutic Goal Summary: Patient is achieving progress toward goal Patients therapy is appropriate to: Continue Did the patient have any additional questions or needs to be coordinated with additional members ofthe care team (Physical therapy, Social Work, etc)? no Summary: Pharmacist reviewed the plan of care in regards to specialty medication Fotivda for diagnosis renalcancer. Assessment: Jo Ann is finishing C1 Fotivda 0.89mg daily dose. After 1 week off, she will start back 09/26 with next step strength of 1.34mg daily Plan/Patient specific needs: NA Patient/caregiver participated in the development and expressed understanding of the plan of care. Patient/caregiver had no additional questions or concerns for the care team. Patient/caregiver voiced understanding of the goals with the regimen and agreed to attend follow up appointments to assess progress toward their goal. The plan of care will be reviewed at least annually, or more often if there is a need. Ani Wells, PharmD documented in this encounter Plan of Treatment Upcoming Encounters Date Type Department Care Team (Late st Contact Info) Description 10/14/2024 11:30 AM EDT Appointment [facility] Nuclear Medicine [address] [place] [address] 10/14/2024 12:40 PM EDT Appointment [facility] Radiology [address] [place] [address] 10/14/2024 1:45 PM EDT Appointment [facility] Nuclear Medicine [address] [place] [address] 10/16/2024 1:30 PM EDT Clinical Support [facility] [address] [place] [address] 10/16/2024 2:00 PM EDT Office Visit [facility] [address] [place] [address] Carrol Armenta MD 800 [facility] [address] [place] [address] 11/13/2024 1:00 PM EDT Office Visit [facility] Head, Neck & Respiratory 800 [facility], 2nd [place] [address] Aurora Hubbard, ART COORDINATOR [address] [place] [address] 11/26/2024 9:15 AM EDT Appointment [facility] Radiology [address] [place] [address] 11/26/2024 10:45 AM EDT Office Visit [place] [facility] [address], [address] [place] [address] Joseph Odonnell MD [address] [place] [address] documented as of this encounter Visit Diagnoses Not on filedocumented [...] documented as of this encounter Care Teams Support Staff Relationship Specialty Start Date End Date Jared Coronel MD [address] [place] [address] PCP - General 08/12/20 Joseph Odonnell MD [address] [place] [address] Surgeon Neurosurgery 02/28/23 Carrol Armenta MD [address] [place] [address] Consulting Physician Medical Oncology 06/12/23 Sky Moreau MD [address] [facility] [address] [place] [address] Consulting Physician Radiation Oncology 06/12/23 Lauren Paiz APRN 800 [facility] [address] [address] Nurse Practitioner Internal Medicine 07/19/23 documented as of this encounter
--- OUTSIDE RECORDS SUMMARY | 2024-10-13 14:26 | XMS_ITS | Encounter Summary ---
Author Organization Healthcare Address [address] [place] [address] Care Team Providers Care Dermatology Teacher Name Role Phone Jared Coronel MD Primary Care Provider + [phone] Joseph Odonnell MD Unavailable [phone] Carrol Armenta MD Unavailable Sky Moreau MD Unavailable [phone] Lauren Paiz APRN Unavailable [phone] Encounter Details Date Type Department Care Team (Latest Contact Info) Description 08/19/2024 Travel Social History Tobacco Use Types Packs/Day Years [...] in a retirement (including now)? No 11/22/2023 CAGE ASSESSMENT Answer [...] drink first t nichole in the morning (EYE-VEGETABLE TESTER) to steady your nerves or to get [...] things Not at all 08/19/2024 9:57 AM EDT Nathalie Keenan Feeling down, depressed, or hopeless Not at all 08/19/2024 9:57 AM EDT Nathalie Keenan Patient Health Questionnaire -2 Score 0 08/19/2024 9:57 AM EDT Nathalie Keenan * Question Answer Date of Assessment Author Thoughts that you would be b barry off or hurting yourself in some way Not at all 08/19/2024 9:57 AM EDT Nathalie Keenan documented as of this encounter Plan of Treatment Upcoming Encounters Date Type Department Care Team (Late st Contact Info) Description 10/14/2024 11:30 AM EDT Appointment [facility] Nuclear Medicine [address] [place] [address] 10/14/2024 12:40 PM EDT Appointment [facility] Radiology [address] [place] [address] 10/14/2024 1:45 PM EDT Appointment [facility] Nuclear Medicine [address] [place] [address] 10/16/2024 1:30 PM EDT Clinical Support [facility] [address] [place] [address] 10/16/2024 2:00 PM EDT Office Visit [facility] [address] [place] [address] Carrol Armenta MD [address] [facility] [address] [address] 11/13/2024 1:00 PM EDT Office Visit [facility] Head[facility] Neck [facility] Respiratory [address] [facility], 2nd [place] [address] Aurora Hubbard, METAL HANGING SUPERVISOR [address] [place] [address] 11/26/2024 9:15 AM EDT Appointment [facility] [address] [place] [address] 11/26/2024 10:45 AM EDT Office Visit [place] [facility] [address], [address] [place] [address] Joseph Odonnell MD [address] [facility] [address] [place] [address] documented as of this encounter Visit Diagnoses Not on filedocumented in this encounter Additional Health Concerns Assessment Noted Time A fall risk assessment has been complete d for the patient 08/19/2024 9:57 AM EDT A Body Mass Index follow-up plan has been documented for the patient 07/16/2024 3:34 PM EDT documented as of this encounter Care Teams Dermatology Teacher Relationship Specialty Start Date End Date Jared Coronel MD [address] [place] [address] PCP - General 08/12/20 Joseph Odonnell MD [address] [place] [address] Surgeon Neurosurgery 02/28/23 Carrol Armenta MD [address] [facility] [address] [place] [address] Consulting Physician Medical Oncology 06/12/23 Sky Moreau MD [address] [facility] [address] [place] [address] Consulting Physician Radiation Oncology 06/12/23 Lauren Paiz, ERIC [address] [facility] [address] [address] Nurse Practitioner Internal Medicine 07/19/23 documented as of this encounter
--- OUTSIDE RECORDS SUMMARY | 2024-10-13 14:26 | XMS_ITS | Encounter Summary ---
Author Organization Healthcare Address [address] [place] [address] Care Team Providers Care Mortgage Clerk Name Role Phone Jared Coronel MD Primary Care Provider + [phone] Joseph Odonnell MD Unavailable [phone] Carrol Armenta MD Unavailable Sky Moreau MD Unavailable [phone] Lauren Paiz OUTSIDE SALES CONSULTANT Unavailable [phone] Encounter Details Date Type Department Care Team (Late st Contact Info) Description 02/05/2023 Lab Requisition [facility] Lab [address] [place] [address] Ronaldo Chance MD [address] [facility] [address] [place] [address] Encounter for general adult medical examination without abnormal findings Social History Tobacco Use Types Packs/Day Years Used Date Smoking Tobacco: Never Assessed Comments No Sex and Gender Information Value Date Recorded Sex Assigned at Female 02/06/2023 2:02 PM EST Legal Sex Female 8:17 PM EDT Gender Identity Female 02/06/2023 2:02 PM EST Sexual Orientation Straight 11/21/2023 5: 34 PM EDT Travel History Travel Start Travel End [place] 09/20/2024 09/25/2024 documented as of this encounter Functional Status * Calculated C-SSRS Risk Score (Lifetime/Recent) Answer Date of Assessment Author No Risk Indicated 02/05/2023 8:00 AM Onelia Cueva, RENARD * Question Answer Date of Assessment Author 1. Wish to be (Past 1 Month) No 023 8:00 AM Onelia Cueva, RENARD 2. Non-Specific Active Suici yemi Thoughts (Past 1 Month) No 02/05/2023 8:00 AM Rubi Cueva RN 6. Suicidal Behavior (Lifetime) No 8:00 AM Onelia Cueva, RN documented as of this encounter Plan of Treatment Upcoming Encounters Date Type Department Care Team (Late st Contact Info) Description 10/14/2024 11:30 AM EDT Appointment [facility] Nuclear Medicine [address] [place] [address] 10/14/2024 12:40 PM EDT Appointment [facility] Radiology [address] [place] [address] 10/14/2024 1:45 PM EDT Appointment [facility] Nuclear Medicine [address] [place] [address] 10/16/2024 1:30 PM EDT Clinical Support [facility] [address] [place] [address] 10/16/2024 2:00 PM EDT Office Visit [facility] [address] [place] [address] Carrol Armenta MD 800 [facility] [address] [facility] [address] [place] [address] 11/13/2024 1:00 PM EDT Office Visit Pav [facility] Head, Neck & Respiratory 800 [facility], 2nd [place] [address] Aurora Hubbard, ERIC [address] [place] [address] 11/26/2024 9:15 AM EDT Appointment [facility] Radiology [address] [place] [address] 11/26/2024 10:45 AM EDT Office Visit [place] [facility] [address] [place] [address] Joseph Odonnell MD [address] [place] [address] documented as of this encounter Procedures Procedure Name Priority Date/Time Associated Diagnosis Comments SUSIE AURIS SURVEILLANCE BY PCR Routine 02/05/2023 9:45 PM EST Encounter for general adult medical examination without abnormal findings documented in this encounter Results * Susie auris Surveillance by PCR (02/05/2023 9:45 PM EST) Susie auris PCR Result Not Detected Not Detected 02/06/2023 8:47 AM EST [facility] Swab (Axilla and Groin) 02/05/2023 9:45 PM EST 02/05/2023 10:05 PM EST Narrative [facility] - 02/06/2023 8:47 AM EST This PCR assay was developed and its performance characteristics determined by [facility] as appropriate for clinical purposes. This assay has not been cleared or approved by the FDA, but is performed in a CLIA regulated laboratory that is qualified to perform high-complexity testing. Ronaldo Chance MD LAB MICROBIOLOGY - GEN ERAL ORDERABLES Final Result Performing Organization Address City/State/[facility] Co de Phone Number [facility] [address] [place] [address] documented in this encounter Visit Diagnoses Diagnosis Encounter for general adult medical examination without abnormal findings documented in this encounter Additional Health Concerns Assessment Noted Time A Body Mass Index follow-up plan has been documented for the patient 02/07/2023 10:11 AM EST documented as of this encounter Care Teams Mortgage Clerk Relationship Specialty Start Date End Date Jared Coronel MD [address] [place] [address] PCP - General 08/12/20 Joseph Odonnell MD [address] [facility] [address] [place] [address] Surgeon Neurosurgery 02/28/23 Carrol Armenta MD [address] [facility] [address] [place] [address] Consulting Physician Medical Oncology 06/12/23 Sky Moreau MD [address] [place] [address] Consulting Physician Radiation Oncology 06/12/23 Lauren Paiz, ERIC [address] [facility] [address] [place] [address] Nurse Practitioner Internal Medicine 07/19/23 documented as of this encounter
--- OUTSIDE RECORDS SUMMARY | 2024-10-13 14:26 | XMS_ITS | Encounter Summary ---
Author Organization Healthcare Address [address] [place] [address] Care Team Providers Care Law Firm Administrator Name Role Phone Jared Coronel MD Primary Care Provider + [phone] Joseph Odonnell MD Unavailable [phone] Carrol Armenta MD Unavailable Sky Moreau MD Unavailable [phone] Lauren Paiz WEDGER [employer] GL[employer]ER Unavailable [phone] Encounter Details Date Type Department Care Team (Late st Contact Info) Description 09/01/2024 Refill [facility] [address] [place] [address] Carrol Armenta MD [address] [address] Renal cell carcinoma, unspecified laterality [...] place to sleep or slept in a fpc (including now)? No 11/22/2023 CAGE ASSESSMENT Answer [...] drink first t nichole in the morning (EYE-ARCHITECTURAL PROJECT MANAGER) to steady your nerves or to get [...] EDT Travel History Travel Start Travel End [place] 09/20/2024 09/25/2024 documented as of this encounter Miscellaneous Notes * Telephone Encounter - Caterina Villatoro - 09/01/2024 1:28 PM EDT Patient Phone Message Reason for Call: Patient needs to know if she should still be taking Eliquis? Best contact number and optimal time of day to reach caller: [phone] Note: Please do not reply to this message. Follow-up communication and further actions as a result of this message need to be communicated with the patient directly, if the patient is not active onMyChart. If the patient is active on MyChart, they will receive notification of the communication/outcome via [employer]. documented in this encounter Plan of Treatment Upcoming Encounters Date Type Department Care Team (Late st Contact Info) Description 10/14/2024 11:30 AM EDT Appointment [facility] Nuclear Medicine [address] [place] [address] 10/14/2024 12:40 PM EDT Appointment [facility] Rad[facility] [address] [place] [address] 10/14/2024 1:45 PM EDT Appointment [facility] [address] [place] [address] 10/16/2024 1:30 PM EDT Clinical Support [facility] [address] [place] [address] 10/16/2024 2:00 PM EDT Office Visit [facility] [address] [place] [address] Carrol Armenta MD 800 [facility] [address] [place] [address] 11/13/2024 1:00 PM EDT Office Visit Pav CC Head, Neck & Respiratory 800 [facility], [address]nd [place] [address] Aurora Hubbard, WEDGER AND GLUER [address] [place] [address] 11/26/2024 9:15 AM EDT Appointment [facility] Radiology [address] [place] [address] 11/26/2024 10:45 AM EDT Office Visit [place] [facility] [address], [address] [place] [address] Joseph Odonnell MD [address] [facility] [address] [place] [address] documented as of this encounter [...] documented as of this encounter Care Teams Law Firm Administrator Relationship Specialty Start Date End Date Jared Coronel MD [address] [place] [address] PCP - General 08/12/20 Joseph Odonnell MD [address] [facility] [address] [place] [address] Surgeon Neurosurgery 02/28/23 Carrol Armenta MD [address] [facility] [address] [place] [address] Consulting Physician Medical Oncology 06/12/23 Sky Moreau MD [address] [facility] [address] [place] [address] Consulting Physician Radiation Oncology 06/12/23 Lauren Paiz APRN [address] [facility] [address] [place] [address] Nurse Practitioner Internal Medicine 07/19/23 documented as of this encounter
--- OUTSIDE RECORDS SUMMARY | 2024-10-13 14:26 | XMS_ITS | Encounter Summary ---
Author Organization Healthcare Address [address] [place] [address] Care Team Providers Care Dealer Sales Rep Name Role Phone Jared Coronel MD Primary Care Provider + [phone] Joseph Odonnell MD Unavailable [phone] Carrol Armenta MD Unavailable Sky Moreau MD Unavailable [phone] Lauren Paiz SALES ROUTE DRIVER Unavailable [phone] Encounter Details Date Type Department Care Team (Late st Contact Info) Description 08/27/2024 Telephone [facility] [address] [place] [address] Carrol Armenta MD [address] [address] Social History Tobacco Use Types Packs/Day Years [...] place to sleep or slept in a [place] [facility] [place] (including now)? No 11/22/2023 CAGE ASSESSMENT Answer [...] drink first t nichole in the morning (EYE-CUSTOMER SECURITY CLERK) to steady your nerves or to [...] EDT Travel History Travel Start Travel End [place] 09/20/2024 09/25/2024 documented as of this encounter Plan of Treatment Upcoming Encounters Date Type Department Care Team ([facility] Contact Info) Description 10/14/2024 11:30 AM EDT Appointment [facility] Nuclear Medicine [address] [place] [address] 10/14/2024 12:40 PM EDT Appointment [facility] Radiology [address] [place] [address] 10/14/2024 1:45 PM EDT Appointment [facility] Nuclear Medicine [address] [place] [address] 10/16/2024 1:30 PM EDT Clinical Support [facility] [address] [place] [address] 10/16/2024 2:00 PM EDT Office Visit [facility] [address] [place] [address] Carrol Armenta MD 800 [facility] [address] [address] 11/13/2024 1:00 PM EDT Office Visit Pav [facility] Head, Neck & Respiratory 800 [facility], [address]nd [place] [address] Aurora Hubbard, SALES ROUTE DRIVER [address] [place] [address] 11/26/2024 9:15 AM EDT Appointment [facility] Radiology [address] [place] [address] 11/26/2024 10:45 AM EDT Office Visit [place] [facility] [address] [place] [address] Joseph Odonnell MD [address] [place] [address] documented as of this encounter Visit Diagnoses Not on filedocumented in this encounter Additional Health Concerns Assessment Noted Time A fall risk assessment has been complete d for the patient 08/19/2024 9:57 AM EDT A Body Mass Index follow-up plan has been documented for the patient 07/16/2024 3:34 PM EDT documented as of this encounter Care Teams Dealer Sales Rep Relationship Specialty Start Date End Date Jared Coronel MD [address] [place] [address] PCP - General 08/12/20 Joseph Odonnell MD [address] [place] [address] Surgeon Neurosurgery 02/28/23 Carrol Armenta MD [address] [facility] [address] [place] [address] Consulting Physician Medical Oncology 06/12/23 Sky Moreau MD [address] [place] [address] Consulting Physician Radiation Oncology 06/12/23 Lauren Paiz APRN [address] [facility] [address] [place] [address] Nurse Practitioner Internal Medicine 07/19/23 documented as of this encounter
--- OUTSIDE RECORDS SUMMARY | 2024-10-13 14:26 | XMS_ITS | Encounter Summary ---
Author Organization Healthcare Address [address] [place] [address] Care Team Providers Care Tinsmith Helper Name Role Phone Jared Coronel MD Primary Care Provider + [phone] Joseph Odonnell MD Unavailable [phone] Carrol Armenta MD Unavailable Sky Moreau MD Unavailable [phone] Lauren Paiz APRN Unavailable [phone] Encounter Details Date Type Department Care Team (Latest Contact Info) Description 08/27/2024 Travel Social History Tobacco Use Types Packs/Day [...] drink first t nichole in the morning (EYE-DUPLEX TRIMMER) to steady your nerves or to get [...] EDT Travel History Travel Start Travel End [place] 09/20/2024 09/25/2024 documented as of this encounter Plan of Treatment Upcoming Encounters Date Type Department Care Team (Late st Contact Info) Description 10/14/2024 11:30 AM EDT Appointment [facility] Nuclear Medicine [address] [place] [address] 10/14/2024 12:40 PM EDT Appointment [facility] G Radiology [address] [place] [address] 10/14/2024 1:45 PM EDT Appointment [facility] Nuclear Medicine [address] [place] [address] 10/16/2024 1:30 PM EDT Clinical Support [facility] [address] [place] [address] 10/16/2024 2:00 PM EDT Office Visit [facility] [address] [place] [address] Carrol Armenta MD 800 [facility] Stacy Josephrickson [facility] [address] [place] [phone] 11/13/2024 1:00 PM EDT Office Visit [facility] Head, Neck & Respiratory 800 [facility], 2nd [place] [address] Aurora Hubbard, COPPER TAPPER [address] [place] [address] 11/26/2024 9:15 AM EDT Appointment [facility] Radiology [address] [place] [address] 11/26/2024 10:45 AM EDT Office Visit [place] [facility] [address], [address] [place] [phone] Joseph Odonnell MD [address] [facility] [address] [place] [address] documented as of this encounter Visit Diagnoses Not on filedocumented in this encounter Additional Health Concerns Assessment Noted Time A fall risk assessment has been complete d for the patient 08/19/2024 9:57 AM EDT A Body Mass Index follow-up plan has been documented for the patient 07/16/2024 3:34 PM EDT documented as of this encounter Care Teams Tinsmith Helper Relationship Specialty Start Date End Date Jared Coronel MD [address] [place], [place] [address] PCP - General 08/12/20 Joseph Odonnell MD [address] [place] [address] Surgeon Neurosurgery 02/28/23 Carrol Armenta MD [address] [facility] [address] [place] [address] Consulting Physician Medical Oncology 06/12/23 Sky Moreau MD [address] [facility] [address] [place] [address] Consulting Physician Radiation Oncology 06/12/23 Lauren Paiz APRN [address] [place] [address] Nurse Practitioner Internal Medicine 07/19/23 documented as of this encounter
--- OUTSIDE RECORDS SUMMARY | 2024-10-13 14:26 | XMS_ITS | Encounter Summary ---
Author Organization Healthcare Address [address] [place] [address] Care Team Providers Care Dimension Mill Worker Name Role Phone Jared Coronel MD Primary Care Provider + [phone] Joseph Odonnell MD Unavailable [phone] Carrol Armenta MD Unavailable Sky Moreau MD Unavailable [phone] Lauren Paiz SKIMMER REVERBERATORY Unavailable [phone] Encounter Details Date Type Department Care Team (Late st Contact Info) Description 08/27/2024 Telephone [facility] [address] [place] [address] Carrol Armenta MD [address] [address] Social History Tobacco Use Types [...] place to sleep or slept in a fci (including now)? 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-LINING MECHANIC) to steady your nerves or to get [...] EDT Travel History Travel Start Travel End [place] 09/20/2024 09/25/2024 documented as of this encounter [...] usual. Not at all 09/16/2024 9:51 AM EDT Shikha Robles Thoughts that you would be better off or hurting yourself in some way Not at all 09/16/2024 9:51 AM EDT Shikha Robles Patient Health Questionnaire -9 Score 0 09/16/2024 9:51 AM EDT Shikha Robles * Calculated C-SSRS Risk Score (Lifetime/Recent) Answer [...] 6. Suicidal Behavior (Lifetime) No 7:20 AM CHEKOT Esteban Daniels documented as of this encounter Miscellaneous Notes * Telephone Encounter - Lauren Reynoso - 08/27/2024 8:27 AM EDT Patient Phone Message Reason for Call: Patient calling to see if she can get her scans currently scheduled on Saturday moved to tomorrow. Best contact number and optimal time of day to reach caller: [phone] Note: Please do not reply to this message. Follow-up communication and further actions as a result of this message need to be communicated with the patient directly, if the patient is not active on MyChart. If the patient is active on MyChart, they will receive notification of the communication/outcome via Poxelhart. documented in this encounter Plan of Treatment Upcoming Encounters Date Type Department Care Team (Late st Contact Info) Description 10/14/2024 11:30 AM EDT Appointment [facility] Nuclear Medicine [address] [place] [address] 10/14/2024 12:40 PM EDT Appointment [facility] G Radiology [address] [place] [address] 10/14/2024 1:45 PM EDT Appointment [facility] Nuclear Medicine [address] [place] [address] 10/16/2024 1:30 PM EDT Clinical Support [facility] [address] [place] [address] 10/16/2024 2:00 PM EDT Office Visit [facility] [address] [place] [address] Carrol Armenta MD 800 [facility] [address] [place] [address] 11/13/2024 1:00 PM EDT Office Visit [facility] Head, Neck & Respiratory 800 [facility] [place] [facility], 2nd [place] [address] Aurora Hubbard, SKIMMER REVERBERATORY [address] [place] [address] 11/26/2024 9:15 AM EDT Appointment [facility] Radiology [address] [place] [address] 11/26/2024 10:45 AM EDT Office Visit [place] [facility] [address], 1st [place] [address] Joseph Odonnell MD [address] [facility] [address] [place] [address] documented as of this encounter Visit Diagnoses Not on filedocumented in this encounter Additional Health Concerns Assessment Noted Time A fall risk assessment has been complete d for the patient 08/19/2024 9:57 AM EDT A Body Mass Index follow-up plan has been documented for the patient 07/16/2024 3:34 PM EDT documented as of this encounter Care Teams Dimension Mill Worker Relationship Specialty Start Date End Date Jared Coronel MD [address] [place] [address] PCP - General 08/12/20 Joseph Odonnell MD [address] [facility] [address] [place] [address] Surgeon Neurosurgery 02/28/23 Carrol Armenta MD [address] [facility] [address] [place] [address] Consulting Physician Medical Oncology 06/12/23 Sky Moreau MD [address] [facility] [address] [place] [address] Consulting Physician Radiation Oncology 06/12/23 Lauren Paiz, SKIMMER REVERBERATORY [address] [facility] [address] [place] [address] Nurse Practitioner Internal Medicine 07/19/23 documented as of this encounter
--- OUTSIDE RECORDS SUMMARY | 2024-10-13 14:26 | XMS_ITS | Encounter Summary ---
Author Organization Healthcare Address [address] [place] [address] Care Team Providers Care Supply Coordinator Name Role Phone Jared Coronel MD Primary Care Provider + [phone] Joseph Odonnell MD Unavailable [phone] Carrol Armenta MD Unavailable Sky Moreau MD Unavailable [phone] Lauren Paiz COMMODITY MERCHANT Unavailable [phone] Reason for Visit * Reason Onset Date Comments New Start 08/19/2024 Encounter Details Date Type Department Care Team (Late st Contact Info) Description 08/19/2024 Telephone [facility] [address] [place] [address] Rob Wilkins, [facility] [address] [place] [address] New Start Social History Tobacco Use Types Packs/Day Years [...] in a jail (including now)? No 11/22/2023 CAGE ASSESSMENT Answer [...] drink first t nichole in the morning (EYE-MEDICAL APPLIANCE MAKER) to steady your nerves or to get [...] Nathalie Keenan documented as of this encounter Miscellaneous Notes * Telephone Encounter - Juan J Rae, [facility] - 08/27/2024 10:45 AM EDT [facility] Specialty Medication Initial Care Plan Jo Ann Winston is a 59 y.o. female assessed via phone for initiation of drug therapy Tivozanib 0.89mg once daily for diagnosis [facility]. Stage IV (rcT1b, rcNX, rpM1). Plan for administration of therapy in patient's home Therapeutic Category: Oncology Chart Review Allergies: Sulfa drugs, Vancomycin, and Nivolumab Current Outpatient Medications Medication Instructions acetaminophen (TYLENOL) 500 mg, Oral, Every 6 hours scheduled apixaban (ELIQUIS) 5 mg, Oral, 2 times daily dexamethasone (DECADRON) 1 mg, Oral, 2 times daily famotidine (PEPCID) 20 mg, Oral, Daily levothyroxine (SYNTHROID, LEVOXYL) 100 mcg, Oral, Daily before breakfast loperamide (IMODIUM A-D) 2 mg, Oral, 4 times daily PRN ondansetron ODT (ZOFRAN-ODT) 4 mg, Oral, Every 8 hours PRN senna-docusate sodium (Senokot-S) 8.6-50 MG tablet 1 tablet, Oral, Daily Tivozanib HCl 0.89 MG capsule Take 1 capsule by mouth daily, days 1-21 every 28 days. Problem List[1] Immunization History Administered Date(s) Administered Tdap 05/31/2020 Selected lab results: Lab Results Component Value Date WBC 8.69 08/12/2024 HGB 11.8 08/12/2024 HCT 36.5 08/12/2024 PLT 256 08/12/2024 , Lab Results Component Value Date NA 137 08/12/2024 K 3.6 08/12/2024 CL 103 08/12/2024 CREATININE 0.58 (L) 08/12/2024 BUN 8 08/12/2024 GLUCOSE 94 08/12/2024 CALCIUM 8.7 (L) 08/12/2024 CO2 23 08/12/2024 , Lab Results Component Value Date ALBUMIN 3.3 (L) 08/12/2024 ALKPHOS 83 08/12/2024 ALT 24 08/12/2024 AST 22 08/12/2024 BILITOT 0.5 08/12/2024 , No results found for: QUANTIFERON , Lab Results Component Value Date INR 1.4 (H) 08/12/2024 , and Lab Results Component Value Date CHOL 160 08/11/2024 HDL 51 08/11/2024 TRIG 87 08/11/2024 CRATIO 3 08/11/2024 LDLCALC 93 08/11/2024 WSNK32MG Unknown 08/11/2024 Patient profile review for changes in Medications, Allergies, Conditions, Vaccinations? Reviewed - no changes Medication reconciliation - review all current medications including prescriptions, PTC, herbals, and supplements with the patient? Incomplete - deferred Is this an infusion therapy? No Patient is treatment: Experienced: Previous therapies include Cabometyx Reasons for previous treatment failure progression Is patient of child bearing potential? No Disease specific labs or assessments: Other 08/12/24 WBC 8.69, PLT 256, ANC 6.56(H), Cr 0.58(L), ALT/AST/bili /0.5 Does patient have an active infection? None Drug Review Patient drug therapy to be initiated: Tivozanib Planned date of initiation: 08/28/24 Is the patient taking concomitant therapy for this disease? Yes: zofran loperamide, dexamethasone Drug assessment: Is this the appropriate drug/dose/route/frequency/duration? Yes Drug utilization review Drug-disease precautions: No clinically significant issues identified Drug-drug interactions: No clinically significant issues identified Drug-patient precautions: No clinically significant issues identified Adherence summary: What percent of doses did the patient miss in the past 4 weeks? Unable to assess Therapeutic benefit summary: Unable to assess Patient's therapy is appropriate to: Initiate Education and Counseling Patient educated & counseled on disease education including an overview of the condition, its progression and potential complications, associated comorbidities, prevention strategies, goals of therapy, and treatment and therapy management. Patient educated & counseled on medication(s) including REMS/Black box warnings, proper use, timely administration or intake, missed dose instructions, potential side effects, contraindications, safety and handling precautions, storage and disposal guidelines, and general warnings and precautions. Patient educated & counseled on adherence including the importance of adherence and adherence management strategies. Medication specific education provided: Discussion with patient included (but was not limited to): dosage, administration, duration, frequency, potential side effects, contraindications, safety and handling precautions, adherence and missed dose management, drug/drug interactions (if applicable) and storage & disposal. The patient has communicated understanding and had no further questions. Monitoring Questions Patient reported outcomes: Do you feel comfortable administering your medication and following the treatment plan as prescribed? Yes If therapy is injectable, does patient require further injection training? N/A How would you rate your pain on average? (0 = no pain, 10 = worst pain imaginable) 3 On a scale from 1 to 10, with 10 being very well and 1 being very poor, how are you feeling overall? 5 How satisfied are you with the ongoing education and counseling you receive regarding your health condition, on a scale of 1 to 5, with 5 being completely satisfied and 1 being dissatisfied? Patient management score: 5-Completely Satisfied Patient Management Assessment scores must be reviewed by a clinician with each Care Plan. Scores of2 or lower must be documented in a Clinical Intervention Care Plan. Disease symptoms assessment Has the patient been seen for planned or unplanned healthcare visit in the last 4 weeks? Planned provider visit: [facility] Has the patient missed any days from work, school, or planned activities in the past 4 weeks due totheir disease? No Care Plan Questions Goal(s) of therapy: Improving or maintaining quality of life, Control signs and symptoms of disease, Slow or prevent progression of disease, Reduce disability and/or long-term complications, Achieve snf survival of patient, and Minimize/manage side effects or toxicities Strategies to achieve goal(s) of therapy: Adhere to plan of care (drug therapy), Comply to lab tests/imaging, Comply to follow up appointments, and Share concerns about drug therapy or side effects with care team Identified barrier(s) to care/intervention problem type: No problems identified (No barriers to care or risks associated with medication storage and handling identified) Mitigation strategy for identified barriers: N/A Outcome of Clinical Intervention: Intervention not needed Current adverse events/side effects patient is experiencing: Unable to assess Counseled patient on selected side effects: Patient verbalized understanding Summary/Plan Prior authorization for Tivozanib has been approved and education provided. The Initial Shipment has been set up and anticipated therapy start date is: 08/28/24 from [facility]. Please see pharmacy encounter note for details. Pharmacist reviewed the plan of care in regards to specialty medication tivozanib for diagnosis stge IV [facility]. Assessment: QOL is 5. Discussion with patient included (but was not limited to): dosage, administration, duration, frequency, potential side effects, contraindications, safety and handling precautions, adherence and missed dose management, drug/drug interactions (if applicable) and storage & disposal. The patient has communicated understanding and had no further questions. Plan/Patient specific needs: Pharmacist will follow up when first refill is due to assess for side effects and adherence. Patient/caregiver participated in the development and expressed [...] more often if there is a need. The patient agrees with all elements of the care plan: Yes Juan J Rae RPh 08/27/2024 10:47 AM [1] Patient Active Problem List Diagnosis Brain mass Diabetes mellitus (CMS/HCC) Renal cell carcinoma Renal cell carcinoma of left kidney Right leg pain Cancer (CMS/HCC) Metastatic renal cell carcinoma to bone Disease of thyroid gland Hypothyroidism Renal cell carcinoma, unspecified laterality Shortness of breath Encounter for monitoring cardiotoxic drug therapy Hyperlipidemia documented in this encounter Plan of Treatment Upcoming Encounters Date Type Department Care Team (Late st Contact Info) Description 10/14/2024 11:30 AM EDT Appointment [facility] H Nuclear Medicine [address] [place] [address] 10/14/2024 12:40 PM EDT Appointment [facility] G Radiology [address] [place] [address] 10/14/2024 1:45 PM EDT Appointment [facility] H Nuclear Medicine [address] [place] [address] 10/16/2024 1:30 PM EDT Clinical Support [facility] Multidisciplinary Oncology Clinic [address] [place] [address] 10/16/2024 2:00 PM EDT Office Visit [facility] [address] [place] [address] Carrol Armenta MD 800 [facility] Stacy Cuello [facility] [address] [place] [address] 11/13/2024 1:00 PM EDT Office Visit Pav CC Head, Neck & Respiratory 800 [facility], [address]nd [place] [address] Aurora Hubbard, ERIC [address] [place] [address] 11/26/2024 9:15 AM EDT Appointment [facility] Radiology [address] [place] [address] 11/26/2024 10:45 AM EDT [facility] [address], [address] [place] [address] Joseph Odonnell MD [address] [place] [address] documented as of this encounter Visit Diagnoses Not on filedocumented in this encounter Additional Health Concerns Assessment Noted Time A fall risk assessment has been complete d for the patient 08/19/2024 9:57 AM EDT A Body Mass Index follow-up plan has been documented for the patient 07/16/2024 3:34 PM EDT documented as of this encounter Care Teams Supply Coordinator Relationship Specialty Start Date End Date Jared Coronel MD [address] [facility] [address] [place], [place] [id number] PCP - General 08/12/20 Joseph Odonnell MD [address] [facility] [address] [place] [address] Surgeon Neurosurgery 02/28/23 Carrol Armenta MD [address] [facility] [address] [place] [address] Consulting Physician Medical Oncology 06/12/23 Sky Moreau MD [address] [facility] [address] [place] [address] Consulting Physician Radiation Oncology 06/12/23 Lauren Paiz APRN [address] [facility] [address] [place] [address] Nurse Practitioner Internal Medicine 07/19/23 documented as of this encounter
--- OUTSIDE RECORDS SUMMARY | 2024-10-13 14:26 | XMS_ITS | Encounter Summary ---
Author Organization Healthcare Address [address] [place] [address] Care Team Providers Care Can Top Setter Name Role Phone Jared Coronel MD Primary Care Provider + [phone] Joseph Odonnell MD Unavailable [phone] Carrol Armenta MD Unavailable Sky Moreau MD Unavailable [phone] Lauren Paiz CONTACT CENTER MANAGER Unavailable [phone] Encounter Details Date Type Department Care Team (Late st Contact Info) Description 08/11/2024 Results Follow-Up [facility] Head, Neck & Respiratory [address] [facility], 2nd [place] [address] Aurora Hubbard, CONTACT CENTER MANAGER [address] [place] [address] Social History Tobacco Use Types Packs/Day Years [...] a group home (including now)? 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-PLANT PATHOLOGIST) to steady your nerves or to get [...] Esteban Daniels documented as of this encounter Plan of Treatment Upcoming Encounters Date Type Department Care Team (Late st Contact Info) Description 10/14/2024 11:30 AM EDT Appointment [facility] Nuclear Medicine [address] [place] [address] 10/14/2024 12:40 PM EDT Appointment [facility] G Radiology [address] [place] [address] 10/14/2024 1:45 PM EDT Appointment [facility] Nuclear Medicine [address] [place] [address] 10/16/2024 1:30 PM EDT Clinical Support [facility] Multidisciplinary Oncology Clinic [address] [place] [address] 10/16/2024 2:00 PM EDT Office Visit [facility] Multidisciplinary Oncology Clinic [address] [place] [address] Carrol Armenta MD [address] Cuello [address] [place] [address] 11/13/2024 1:00 PM EDT Office Visit [facility] CC Head, Neck & Respiratory [address]nd [place] [address] Aurora Hubbard, CONTACT CENTER MANAGER [address] [place] [address] 11/26/2024 9:15 AM EDT Appointment [facility] G Radiology [address] [place] [address] 11/26/2024 10:45 AM EDT Office Visit [place] [facility] [address], [address] [place] [address] Joseph Odonnell MD [address] [facility] [address] [place] [address] documented as of this encounter Visit Diagnoses Not on filedocumented in this encounter Additional Health Concerns Assessment Noted Time A fall risk assessment has been complete d for the patient 08/11/2024 9:23 AM EDT A Body Mass Index follow-up plan has been documented for the patient 07/16/2024 3:34 PM EDT documented as of this encounter Care Teams Can Top Setter Relationship Specialty Start Date End Date Jared Coronel MD [address] [facility] [address] [place] [address] PCP - General 08/12/20 Joseph Odonnell MD [address] [facility] [address] [place] [address] Surgeon Neurosurgery 02/28/23 Carrol Armenta MD [address] [place] [address] Consulting Physician Medical Oncology 06/12/23 Sky Moreau MD 800 [facility] [address] [place] [address] Consulting Physician Radiation Oncology 06/12/23 Lauren Paiz APRN [address] [facility] [address] [place] [address] Nurse Practitioner Internal Medicine 07/19/23 documented as of this encounter
--- OUTSIDE RECORDS SUMMARY | 2024-10-13 14:26 | XMS_ITS | Encounter Summary ---
Author Organization Healthcare Address [address] [place] [address] Care Team Providers Care Mix House Operator Name Role Phone Jared Coronel MD Primary Care Provider + [phone] Joseph Odonnell MD Unavailable [phone] Carrol Armenta MD Unavailable Sky Moreau MD Unavailable [phone] Lauren Paiz APRN Unavailable [phone] Encounter Details Date Type Department Care Team (Latest Contact Info) Description 08/31/2024 Travel Social History Tobacco Use Types Packs/Day [...] place to sleep or slept in a correction (including now)? No 11/22/2023 CAGE ASSESSMENT Answer [...] drink first t nichole in the morning (EYE-SHEET METAL WORKER SUPERVISOR) to steady your nerves or to [...] Travel History Travel Start Travel End [place] 09/20/2024 09/25/2024 documented as of this encounter Plan of Treatment Upcoming Encounters Date Type Department Care Team (Late st Contact Info) Description 10/14/2024 11:30 AM EDT Appointment [facility] Nuclear Medicine [address] [place] [address] 10/14/2024 12:40 PM EDT Appointment [facility] G Radiology [address] [place] [address] 10/14/2024 1:45 PM EDT Appointment [facility] Nuclear Medicine [address] [place] [address] 10/16/2024 1:30 PM EDT Clinical Support [facility] Multid[facility] Oncology [facility] [address] [place] [address] 10/16/2024 2:00 PM EDT Office Visit [facility] [address] [place] [address] Carrol Armenta MD 800 [facility] [address] [facility] [address] [place] [address] 11/13/2024 1:00 PM EDT Office Visit Pav CC Head, Neck & Respiratory 800 [facility], 2nd [place] [address] Aurora Hubbard, CUSTOMER MANAGER [address] [place] [address] 11/26/2024 9:15 AM EDT Appointment [facility] G Radiology [address] [place] [address] 11/26/2024 10:45 AM EDT Office Visit [place] [facility] [address], [address] [place] [address] Joseph Odonnell MD [address] [facility] [address] [place] [address] documented as of this encounter Visit Diagnoses Not on filedocumented in this encounter Additional Health Concerns Assessment Noted Time A fall risk assessment has been complete d for the patient 08/19/2024 9:57 AM EDT A Body Mass Index follow-up plan has been documented for the patient 08/31/2024 1:28 PM EDT documented as of this encounter Care Teams Mix House Operator Relationship Specialty Start Date End Date Jared Coronel MD [address] [place], [place] [address] PCP - General 08/12/20 Joseph Odonnell MD [address] [place] [address] Surgeon Neurosurgery 02/28/23 Carrol Armenta MD [address] [facility] [address] [place] [address] Consulting Physician Medical Oncology 06/12/23 Sky Moreau MD [address] [facility] [address] [place] [address] Consulting Physician Radiation Oncology 06/12/23 Lauren Paiz APRN [address] [place] [address] Nurse Practitioner Internal Medicine 07/19/23 documented as of this encounter
--- OUTSIDE RECORDS SUMMARY | 2024-10-13 14:26 | XMS_ITS | Encounter Summary ---
Author Organization Healthcare Address [address] [place] [address] Care Team Providers Care Cloth Folder Machine Name Role Phone Jared Coronel MD Primary Care Provider + [phone] Joseph Odonnell MD Unavailable [phone] Carrol Armenta MD Unavailable Sky Moreau MD Unavailable [phone] Lauren Paiz STUDENT WORKER Unavailable [phone] Reason for Visit * Reason Onset Date Comments HCN - Patient Message 07/13/2024 Re : appt 07/16 Encounter Details Date Type Department Care Team (Late st Contact Info) Description 07/13/2024 Telephone [facility] [address], [address] [place] [address] Joseph Odonnell MD [address] [place] [address] HCN - Patient Message (Re : appt 07/16) Social History Tobacco Use Types Packs/Day Years Used Date Smoking Tobacco: Former Cigarettes 1 35 1 - 2014 Passive Smoke Exposure: Never Smokeless [...] place to sleep or slept in a usp (including now)? No 11/22/2023 CAGE ASSESSMENT Answer [...] drink first t nichole in the morning (EYE-SYNTHETIC PLASTERER) to steady your nerves or to get [...] EDT Travel History Travel Start Travel End [place] 09/20/2024 09/25/2024 documented as of this encounter Functional Status * Over the past 2 weeks, how often have you been bothered by any of the following problems? Question Answer Date of Assessment Author Little interest or pleasure in doing things Not at all 08/11/2024 9:23 AM Sheree Sepulveda Feeling down, depressed, or hopeless Not at all 08/11/2024 9:23 AM CHEKOT Sheree eGiger Patient Health Questionnaire -2 Score 0 08/11/2024 9:23 AM CHEKOT Sheree Geiger * Calculated C-SSRS Risk Score (Lifetime/Recent) Answer Date of Assessment Author No Risk Indicated 08/12/2024 11:26 AM CHEKOT Mirella Laurent RN * Question Answer Date of Assessment Author 1. Wish to be (Past 1 Month) No 025 11:26 AM Mirella Ramirez RN 2. Non-Specific Active Suici yemi Thoughts (Past 1 Month) No 08/12/2024 11:26 AM Vesna Ramirez RN 6. Suicidal Behavior (Lifetime) No 11:26 AM Mirella Ramirez RN documented as of this encounter Miscellaneous Notes * Telephone Encounter - Dinora Doan - 07/13/2024 11:23 AM EDT Patient Phone Message Reason for Call: Would like to know if appts can be earlier in the day on 07/16 if possible Pt would like follow up closer to MRI time if possible Her transportation would like to go back to work that day If not, please do not change Does not want another date Best contact number and optimal time of day to reach caller: Pt / [phone] Note: Please do not reply to this message. Follow-up communication and further actions as a result of this message need to be communicated with the patient directly, if the patient is not active onMyChart. If the patient is active on MyChart, they will receive notification of the communication/outcome via [employer]. documented in this encounter Plan of Treatment Upcoming Encounters Date Type Department Care Team ([facility] st Contact Info) Description 10/14/2024 11:30 AM EDT Appointment [facility] H Nuclear Medicine [address] [place] [address] 10/14/2024 12:40 PM EDT Appointment [facility] G Radiology [address] [place] [address] 10/14/2024 1:45 PM EDT Appointment [facility] H Nuclear Medicine [address] [place] [address] 10/16/2024 1:30 PM EDT Clinical Support [facility] Multidisciplinary Oncology Clinic [address] [place] [address] 10/16/2024 2:00 PM EDT Office Visit [facility] [address] [place] [address] Carrol Armenta MD 800 [facility] [address] [place] [address] 11/13/2024 1:00 PM EDT Office Visit Pav CC Head, Neck & Respiratory 800 [facility], 2nd [place] [address] Aurora Hubbard, ERIC [address] [place] [address] 11/26/2024 9:15 AM EDT Appointment [facility] G Radiology [address] [place] [address] 11/26/2024 10:45 AM EDT Office Visit [place] [facility] [address], [address] [place] [address] Joseph Odonnell MD [address] [facility] [address] [place] [address] documented as of this encounter Visit Diagnoses Not on filedocumented in this encounter Additional Health Concerns Assessment Noted Time A fall risk assessment has been complete d for the patient 06/12/2024 8:36 AM EDT A Body Mass Index follow-up plan has been documented for the patient 04/30/2024 2:01 PM EST documented as of this encounter Care Teams Cloth Folder Machine Relationship Specialty Start Date End Date Jared Coronel MD [address] [facility] [address] [place] [address] PCP - General 08/12/20 Joseph Odonnell MD [address] [facility] [place] [address] Surgeon Neurosurgery 02/28/23 Carrol Armenta MD [address] [facility] [address] [place] [address] Consulting Physician Medical Oncology 06/12/23 Sky Moreau MD [address] [facility] [address] [place] [address] Consulting Physician Radiation Oncology 06/12/23 Lauren Paiz APRN [address] [facility] [address] [place] [address] Nurse Practitioner Internal Medicine 07/19/23 documented as of this encounter
--- OUTSIDE RECORDS SUMMARY | 2024-10-13 14:26 | XMS_ITS | Encounter Summary ---
Author Organization Healthcare Address [address] [place] [address] Care Team Providers Care Etched Circuit Processor Name Role Phone Jared Coronel MD Primary Care Provider + [phone] Joseph Odonnell MD Unavailable [phone] Carrol Armenta MD Unavailable Sky Moreau MD Unavailable [phone] Lauren Paiz APRN Unavailable [phone] Encounter Details Date Type Department Care Team (Latest Contact Info) Description 09/11/2024 Travel Social History Tobacco Use Types Packs/Day [...] place to sleep or slept in a longterm (including now)? No 11/22/2023 CAGE ASSESSMENT Answer [...] drink first t nichole in the morning (EYE-PICKLING DRUM OPERATOR) to steady your nerves or to get [...] Travel History Travel Start Travel End [place] 09/20/2024 09/25/2024 documented as of this encounter Plan of Treatment Upcoming Encounters Date Type Department Care Team (Late st Contact Info) Description 10/14/2024 11:30 AM EDT Appointment [facility] Nuclear Medicine [address] [place] [address] 10/14/2024 12:40 PM EDT Appointment [facility] G Radiology [address] [place] [address] 10/14/2024 1:45 PM EDT Appointment [facility] H Nuclear Medicine [address] [place] [address] 10/16/2024 1:30 PM EDT Clinical Support [facility] Oncology [facility] [address] [place] [address] 10/16/2024 2:00 PM EDT Office Visit [facility] [address] [place] [address] Carrol Armenta MD 800 [facility] [address] [facility] [facility] [address] [place] [address] 11/13/2024 1:00 PM EDT Office Visit Pav CC Head, Neck & Respiratory 800 [facility], 2nd [place] [address] Aurora Hubbard, TOLL GATE KEEPER [address] [place] [address] 11/26/2024 9:15 AM EDT Appointment [facility] G Radiology [address] [place] [address] 11/26/2024 10:45 AM EDT Office Visit [place] [facility] [address], [address] [place] [address] Joseph Odonnell MD [address] [facility] [address] [place] [address] documented as of this encounter Visit Diagnoses Not on filedocumented in this encounter Additional Health Concerns Assessment Noted Time A fall risk assessment has been complete d for the patient 08/19/2024 9:57 AM EDT A Body Mass Index follow-up plan has been documented for the patient 09/11/2024 11:08 AM EDT documented as of this encounter Care Teams Etched Circuit Processor Relationship Specialty Start Date End Date Jared Coronel MD [address] [place], [place] [address] PCP - General 08/12/20 Joseph Odonnell MD [address] [place] [address] Surgeon Neurosurgery 02/28/23 Carrol Armenta MD [address] [facility] [address] [place] [address] Consulting Physician Medical Oncology 06/12/23 Sky Moreau MD [address] [facility] [address] [place] [address] Consulting Physician Radiation Oncology 06/12/23 Lauren Paiz APRN [address] [place] [address] Nurse Practitioner Internal Medicine 07/19/23 documented as of this encounter
--- OUTSIDE RECORDS SUMMARY | 2024-10-13 14:26 | XMS_ITS | Encounter Summary ---
Author Organization Healthcare Address [address] [place] [address] Care Team Providers Care Metal Buildings Assembler Name Role Phone Jared Coronel MD Primary Care Provider + [phone] Joseph Odonnell MD Unavailable [phone] Carrol Armenta MD Unavailable Sky Moreau MD Unavailable [phone] Lauren Paiz APRN Unavailable [phone] Encounter Details Date Type Department Care Team (Latest Contact Info) Description 09/15/2024 Travel Social History Tobacco Use Types Packs/Day [...] drink first t nichole in the morning (EYE-SILK OPENER) to steady your nerves or to get [...] EDT Travel History Travel Start Travel End [place] 09/20/2024 09/25/2024 documented as of this encounter Plan of Treatment Upcoming Encounters Date Type Department Care Team (Late st Contact Info) Description 10/14/2024 11:30 AM EDT Appointment [facility] H Nuclear Medicine [address] [place] [address] 10/14/2024 12:40 PM EDT Appointment [facility] G Radiology [address] [place] [address] 10/14/2024 1:45 PM EDT Appointment [facility] Nuclear Medicine [address] [place] [address] 10/16/2024 1:30 PM EDT Clinical Support [facility] [address] [place] [address] 10/16/2024 2:00 PM EDT Office Visit [facility] [address] [place] [address] Carrol Armenta MD [address] [address] 11/13/2024 1:00 PM EDT Office Visit Pav CC Head, Neck & Respiratory 800 [facility], 2nd [place] [address] Aurora Hubbard, PHOTOGRAMMETRIC ENGINEER [address] [place] [address] 11/26/2024 9:15 AM EDT Appointment [facility] Radiology [address] [place] [address] 11/26/2024 10:45 AM EDT Office Visit [place] [facility] [address], 1st [place] [address] Joseph Odonnell MD [address] [place] [address] documented as of this encounter Visit Diagnoses Not on filedocumented in this encounter Additional Health Concerns Assessment Noted Time A fall risk assessment has been complete d for the patient 08/19/2024 9:57 AM EDT A Body Mass Index follow-up plan has been documented for the patient 09/11/2024 11:08 AM EDT documented as of this encounter Care Teams Metal Buildings Assembler Relationship Specialty Start Date End Date Jared Coronel MD [address] [place] [address] PCP - General 08/12/20 Joseph Odonnell MD [address] [place] [address] Surgeon Neurosurgery 02/28/23 Carrol Armenta MD [address] [facility] [address] [place] [address] Consulting Physician Medical Oncology 06/12/23 Sky Moreau MD [address] [facility] [facility] [address] [place] [address] Consulting Physician Radiation Oncology 06/12/23 Lauren Paiz APRN [address] [facility] [address] [place] [address] Nurse Practitioner Internal Medicine 07/19/23 documented as of this encounter
--- OUTSIDE RECORDS SUMMARY | 2024-10-13 14:27 | XMS_ITS | Encounter Summary ---
Author Organization Healthcare Address [address] [place] [address] Care Team Providers Care Slackline Operator Name Role Phone Jared Coronel MD Primary Care Provider + [phone] Joseph Odonnell MD Unavailable [phone] Carrol Armenta MD Unavailable Sky Moreau MD Unavailable [phone] Lauren Paiz APRN Unavailable [phone] Encounter Details Date Type Department Care Team (Latest Contact Info) Description 09/17/2024 Travel Social History Tobacco Use Types Packs/Day [...] place to sleep or slept in a penitentiary (including now)? 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-LIVE OUT NANNY) to steady your nerves or to get [...] EDT Appointment [facility] H Nuclear Medicine [address] [place] [address] 10/14/2024 12:40 PM EDT Appointment [facility] G Radiology [address] [place] [address] 10/14/2024 1:45 PM EDT Appointment [facility] H Nuclear Medicine [address] [place] [address] 10/16/2024 1:30 PM EDT Clinical Support [facility]cology [facility] [address] [place] [address] 10/16/2024 2:00 PM EDT Office Visit [facility]cology [facility] [address] [place] [address] Carrol Armenta MD [address] [address] 11/13/2024 1:00 PM EDT Office Visit Pav CC Head, Neck & Respiratory 800 [facility], 2nd [place] [address] Aurora Hubbard, FINANCIAL ADVISER [address] [place] [address] 11/26/2024 9:15 AM EDT Appointment [facility] Radiology [address] [place] [address] 11/26/2024 10:45 AM EDT Office Visit [place] [facility] [address], 1st [place] [address] Joseph Odonnell MD [address] [place] [address] documented as of this encounter [...] documented as of this encounter Care Teams Slackline Operator Relationship Specialty Start Date End Date Jared Coronel MD [address] [place] [address] PCP - General 08/12/20 Joseph Odonnell MD [address] [place] [address] Surgeon Neurosurgery 02/28/23 Carrol Armenta MD [address] [facility] [address] [place] [address] Consulting Physician Medical Oncology 06/12/23 Sky Moreau MD [address] [facility] [address] [place] [address] Consulting Physician Radiation Oncology 06/12/23 Lauren Paiz APRN [address] [facility] [address] [place] [address] Nurse Practitioner Internal Medicine 07/19/23 documented as of this encounter
--- OUTSIDE RECORDS SUMMARY | 2024-10-13 14:27 | XMS_ITS ---
Author Organization [facility] Address [address] [place] [address] Care Team Providers Care Turn Operator Name Role Phone Jared Coronel MD Primary Care Provider + [phone] Joseph Odonnell MD Unavailable [phone] Carrol Armenta MD Unavailable Sky Moreau MD Unavailable [phone] Lauren Paiz SPECTROGRAPH OPERATOR Unavailable [phone] Active Problems Problem Noted Date Diagnosed Date Shortness of breath 08/11/2024 Encounter for monitoring cardiotoxic drug therap y 08/11/2024 Hyperlipidemia 08/11/2024 Renal cell carcinoma, unspecified laterality 01/2024 Disease of thyroid gland 01/01/2024 Hypothyroidism 01/01/2024 Metastatic renal cell carcinoma to bone 11/21/19 Cancer Staging:Clinical stage from 01/23/2024:Stage IV(rcT1b, rcNX, rpM1) - Signed by Sky Moreau MD on 01/23/2024 Right leg pain 11/18/2023 Cancer 11/18/2023 Renal cell carcinoma of left kidney 06/13/2023 Renal cell carcinoma 03/01/2023 Diabetes mellitus 02/06/2023 Brain mass 02/04/2023 Current Treatment and Therapy Plans (Hem/Onc) Denosumab (Xgeva) for Prevention of Skeletal-related Events* Plan Start Date:09/09/2023 Plan Provider:Carrol Armenta MD Linked Problems Renal cell carcinoma of left kidney Treatment Medications No medications scheduled. IV Fluid NO Electrolytes* Plan Start Date:12/04/2023 Plan Provider:Carrol Armenta MD Linked Problems Renal cell carcinoma, unspec ified laterality Treatment Medications No medications scheduled. Past Treatment and Therapy Plans Infusion Treatment 1 Plan Name Start Date Discontinue Date Treatment Medications Discontinue Reason Plan Provider IV Fluid NO Electrolytes 07/16/2023 12/04/2023 No medications scheduled. Therapy Complete Ward Tate MD Infusion Treatment 3 Plan Name Start Date Discontinue Date Treatment Medications Discontinue Reason Plan Provider IV Fluid NO Electrolytes 09/20/2023 12/04/2023 No medications scheduled. Therapy Complete Lauren Paiz APRN Infusion Treatment 4 Plan Name Start Date Discontinue Date Treatment Medications Discontinue Reason Plan Provider (ONC) Med Onc Outpatient Electrolyte Replacement Protocol 10/15/2023 12/04/2023 No medications scheduled. Therapy Complete Carrol Armenta MD Oncology Treatment Plan Name Start Date Discontinue Date Treatment Medications Discontinue Reason Plan Provider Cycles Nivolumab Every 28 Days 4 06/17/2023 No medications scheduled. Progression Carrol Armenta MD Treatment not started Nivolumab / Ipilimumab Every 21 Days 3 06/11/2023 ipilimumab (Yervoy) 50 mL IVPBnivolumab (Opdivo) IVPB Therapy Complete Carrol Armenta MD 4 of 4 cycles started Past Radiation Episodes * 3D HELICOPTER REPAIRER: Left LegOverview* First Treatment Date Last Treatment Date Treatment Site Technique Goal Episode Provider 01/20/2024 01/27/2024 Left Leg 3D HELICOPTER REPAIRER Control * Linked Problems Kidney cancer Treatment Courses* Course Unused 01/27/2024 - 01/27/2024 Treatment Period Fraction Dose Fractions Total Dose Plans Planned Left femurDNU 01/27/2024 - 01/27/2024 400 cGy 0 / 5 2,000 cGy Reference Points Delivered Lt Femur 01/27/2024 - 01/27/2024 0 cGy * Course C3 01/20/2024 - 01/24/2024 Treatment Period Fraction Dose Fractions Total Dose Plans Planned Lt femur [id number] 01/20/2024 - 01/24/2024 500 cGy 5 / 2,500 cGy Reference Points Delivered Lt Femur 01/20/2024 - 01/24/2024 2,500 cGy * 3D HELICOPTER REPAIRER: Not Applicable Thoracic spine, Left RibOverview* First Treatment Date Last Treatment Date Treatment Site Technique Goal Episode Provider 07/15/2023 07/22/2023 Thoracic spineLeft Rib 3D HELICOPTER REPAIRER Palliative * Linked Problems Renal cell carcinoma of left kidney Treatment Courses* Course C2 07/15/2023 - 07/22/2023 Treatment Period Fraction Dose Fractions Total Dose Plans Planned C5C6 RIB 07/15/2023 - 07/22/2023 400 cGy 5 / 5 2 ,000 cGy Reference Points Delivered Rib 07/15/2023 - 07/22/2023 2,000 cGy * 3D HELICOPTER REPAIRER: Right Bone of pelvisOverview* First Treatment Date Last Treatment Date Treatment Site Technique Goal Episode Provider 07/02/2023 07/09/2023 Right Bone of pelvis 3D HELICOPTER REPAIRER Palliative * Linked Problems Renal cell carcinoma of left kidney Treatment Courses* Course C1 07/02/2023 - 07/09/2023 Treatment Period Fraction Dose Fractions Total Dose Plans Planned A1A2 ABD 07/02/2023 - 07/09/2023 400 cGy 5 / 5 2 ,000 cGy B3B4 PELVIS 07/02/2023 - 07/09/2023 400 cGy 5 / 5 2,000 cGy Reference Points Delivered Abdomen 07/02/2023 - 07/09/2023 2,000 cGy Pelvis 07/02/2023 - 07/09/2023 2,000 cGy Lifetime Dose Tracking * Chemical Lifetime Dose Automatic Entry Manual Entr y Fluoro Time 0.008 minutes 0.008 minutes 0 minutes Air Kerma 11.6 mGy 11.6 mGy 0 mGy
--- OUTSIDE RECORDS SUMMARY | 2024-10-13 14:27 | XMS_ITS | Encounter Summary ---
Author Organization Healthcare Address [address] [place] [address] Care Team Providers Care Roofer Assistant Name Role Phone Jared Coronel MD Primary Care Provider + [phone] Joseph Odonnell MD Unavailable [phone] Carrol Armenta MD Unavailable Sky Moreau MD Unavailable [phone] Lauren Paiz PROFESSOR OF PSYCHIATRY Unavailable [phone] Reason for Visit * Reason Comments Med Refill Encounter Details Date Type Department Care Team (Late st Contact Info) Description 11/12/2023 Refill [facility] [address] [place] [address] Carrol Armenta MD [address] [address] Social History Tobacco Use Types Packs/Day Years Used Date Smoking Tobacco: Former Cigarettes 1 35 1 - 2014 Smokeless Tobacco: Never Alcohol Use Standard Drinks/Week Comments Never 0 (1 standard drink = 0.6 oz pur e alcohol) PHQ-2 Answer Date Recorded Patient Health Questionnaire-2 Score 0 11/13/2023 Comments No Sex and Gender Information Value [...] pleasure in doing things Not at all 11/13/2023 10:13 AM EDT Chey Webb RN Feeling down, depressed, or hopeless Not at all 11/13/2023 10:13 AM EDT Chey Webb, RN Patient Health Questionnaire-2 Score 0 11/13/2023 10:13 AM EDT Leela Webb RN documented as of this encounter Plan of Treatment Upcoming Encounters Date Type Department Care Team (Late st Contact Info) Description 10/14/2024 11:30 AM EDT Appointment [facility] Nuclear Medicine [address] [place] [address] 10/14/2024 12:40 PM EDT Appointment [facility] G Radiology [address] [place] [address] 10/14/2024 1:45 PM EDT Appointment [facility] Nuclear Medicine [address] [place] [address] 10/16/2024 1:30 PM EDT Clinical Support [facility] [address] [place] [address] 10/16/2024 2:00 PM EDT Office Visit [facility] [address] [place] [address] Carrol Armenta MD 800 [facility] Stacy Cuello [address] [address] 11/13/2024 1:00 PM EDT Office Visit [facility] Head[facility] Neck & Respiratory 800 [facility], 2nd [place] [address] Aurora Hubbard, PROFESSOR OF PSYCHIATRY [address] [place] [address] 11/26/2024 9:15 AM EDT Appointment [facility] Radiology [address] [place] [address] 11/26/2024 10:45 AM EDT Office Visit [facility] [address], [address] [place] [address] Joseph Odonnell MD [address] [place] [address] documented as of this encounter Visit Diagnoses Not on filedocumented in this encounter Additional Health Concerns Assessment Noted Time A fall risk assessment has been complete d for the patient 10/15/2023 11:47 AM EDT A Body Mass Index follow-up plan has been documented for the patient 10/10/2023 3:05 PM EDT documented as of this encounter Care Teams Roofer Assistant Relationship Specialty Start Date End Date Jared Coronel MD 1210 [facility] [address] [place] [address] PCP - General 08/12/20 Joseph Odonnell MD [address] [facility] [address] [place] [address] Surgeon Neurosurgery 02/28/23 Carrol Armenta MD [address] [facility] [address] [place] [address] Consulting Physician Medical Oncology 06/12/23 Sky Moreau MD [address] [facility] [address] [place] [address] Consulting Physician Radiation Oncology 06/12/23 Lauren Paiz APRN [address] [facility] [address] [place] [address] Nurse Practitioner Internal Medicine 07/19/23 documented as of this encounter
--- OUTSIDE RECORDS SUMMARY | 2024-10-13 14:27 | XMS_ITS | Encounter Summary ---
Author Organization Healthcare Address [address] [place] [address] Care Team Providers Care Learning Disabled Teacher Name Role Phone Jared Coronel MD Primary Care Provider + [phone] Joseph Odonnell MD Unavailable [phone] Carrol Armenta MD Unavailable Sky Moreau MD Unavailable [phone] Lauren Paiz APRN Unavailable [phone] Encounter Details Date Type Department Care Team (Latest Contact Info) Description 09/18/2024 Travel Social History Tobacco Use Types Packs/Day [...] in a correction (including now)? 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-RAW HIDE TRIMMER) to steady your nerves or to [...] EDT Travel History Travel Start Travel End [place] 09/20/2024 09/25/2024 documented as of this encounter [...] EDT Appointment [facility] Nuclear Medicine [address] [place] [address] 10/14/2024 12:40 PM EDT Appointment [facility] Radiology [address] [place] [address] 10/14/2024 1:45 PM EDT Appointment [facility] Nuclear Medicine [address] [place] [address] 10/16/2024 1:30 PM EDT Clinical Support [facility] [address] [place] [address] 10/16/2024 2:00 PM EDT Office Visit [facility] [address] [place] [address] Carrol Armenta MD 800 [facility] [address] [place] [address] 11/13/2024 1:00 PM EDT Office Visit [facility] Head[facility] Neck & Respiratory 800 [facility], 2nd [place] [address] Aurora Hubbard, CHAIN MAKER HAND [address] [place] [address] 11/26/2024 9:15 AM EDT Appointment [facility] G Radiology [address] [place] [address] 11/26/2024 10:45 AM EDT Office Visit [place] [facility] [address] [place] [address] Joseph Odonnell MD [address] [facility] [address] [place] [address] documented as of this encounter [...] documented as of this encounter Care Teams Learning Disabled Teacher Relationship Specialty Start Date End Date Jared Coronel MD 1210 [facility] [address] [place] [address] PCP - General 08/12/20 Joseph Odonnell MD [address] [place] [address] Surgeon Neurosurgery 02/28/23 Carrol Armenta MD [address] [place] [address] Consulting Physician Medical Oncology 06/12/23 Sky Moreau MD 800 [facility] [address] [place] [address] Consulting Physician Radiation Oncology 06/12/23 Lauren Paiz APRN [address] [facility] [address] [place] [address] Nurse Practitioner Internal Medicine 07/19/23 documented as of this encounter
--- OUTSIDE RECORDS SUMMARY | 2024-10-13 14:27 | XMS_ITS | Encounter Summary ---
Author Organization Healthcare Address [address] [place] [address] Care Team Providers Care Peanut Cleaner Name Role Phone Jared Coronel MD Primary Care Provider + [phone] Joseph Odonnell MD Unavailable [phone] Carrol Armenta MD Unavailable Sky Moreau MD Unavailable [phone] Lauren Paiz APRN Unavailable [phone] Encounter Details Date Type Department Care Team (Latest Contact Info) Description 09/16/2024 Travel Social History Tobacco Use Types Packs/Day [...] health care facility (including now)? 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-MAIL DELIVERY SUPERVISOR) to steady your nerves or to [...] 0 09/16/2024 9:51 AM Shikha Riggins * If you checked off any problems on this questionnaire so far, Question Answer Date of Assessment Author How difficult have these problems made it for you to do your work, take care of things at home, or get along with other people? Not difficult at all 09/16/2024 9:51 AM EDT Shikha Robles documented as of this encounter Plan of Treatment Upcoming Encounters Date Type Department Care Team (Late st Contact Info) Description 10/14/2024 11:30 AM EDT Appointment [facility] Nuclear Medicine [address] [place] [address] 10/14/2024 12:40 PM EDT Appointment [facility] G Radiology [address] [place] [address] 10/14/2024 1:45 PM EDT Appointment [facility] Nuclear Medicine [address] [place] [address] 10/16/2024 1:30 PM EDT Clinical Support [facility] [address] [place] [address] 10/16/2024 2:00 PM EDT Office Visit [facility] [address] [place] [address] Carrol Armenta MD [address] [address] 11/13/2024 1:00 PM EDT Office Visit [facility] Head[facility] Neck & Respiratory 800 [facility], 2nd [place] [address] Aurora Hubbard, [employer] [address] [place] [address] 11/26/2024 9:15 AM EDT Appointment [facility] G Radiology [address] [place] [address] 11/26/2024 10:45 AM EDT Office Visit [place] [facility] [address], [address] [place] [address] Joseph Odonnell MD [address] [facility] [address] [place] [address] documented as of this encounter Visit Diagnoses [...] documented as of this encounter Care Teams Peanut Cleaner Relationship Specialty Start Date End Date Jared Coronel MD [address] [place] [address] PCP - General 08/12/20 Joseph Odonnell MD [address] [facility] [place] [address] Surgeon Neurosurgery 02/28/23 Carrol Armenta MD [address] [facility] [address] [place] [address] Consulting Physician Medical Oncology 06/12/23 Sky Moreau MD [address] [facility] [address] [place] [address] Consulting Physician Radiation Oncology 06/12/23 Lauren Paiz APRN [address] [facility] [address] [place] [address] Nurse Practitioner Internal Medicine 07/19/23 documented as of this encounter
--- OUTSIDE RECORDS SUMMARY | 2024-10-13 14:27 | XMS_ITS | Encounter Summary ---
Author Organization Healthcare Address [address] [place] [address] Care Team Providers Care Mill And Coal Transport Operator Name Role Phone Jared Coronel MD Primary Care Provider + [phone] Joseph Odonnell MD Unavailable [phone] Carrol Armenta MD Unavailable Sky Moreau MD Unavailable [phone] Lauren Paiz COMPOUNDER Unavailable [phone] Encounter Details Date Type Department Care Team (Late st Contact Info) Description 09/22/2024 Telephone [facility] [address] [place] [address] Carrol Armenta MD [address] [address] Social History Tobacco Use Types [...] in a usp (including now)? 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-SPECIAL SERVICE OFFICER) to steady your nerves or to get [...] EDT Travel History Travel Start Travel End [place] 09/20/2024 09/25/2024 documented as of this encounter Miscellaneous Notes * Telephone Encounter - Vidya Cooper - 09/22/2024 11:22 AM EDT Called and spoke with patient, stated she saw results on recent US showed no DVT, she is wondering if she needs to continue Eliquis. * Telephone Encounter - Lauren Reynoso - 09/22/2024 11:06 AM EDT Patient Phone Message Reason for Call: Patient calling to speak to Kathi about a medication she is taking. Best contact number and optimal time of day to reach caller: [phone] Note: Please do not reply to this message. Follow-up communication and further actions as a result of this message need to be communicated with the patient directly, if the patient is not active onMyChart. If the patient is active on MyChart, they will receive notification of the communication/outcome via MyChart. documented in this encounter Plan of Treatment Upcoming Encounters Date Type Department Care Team (Late st Contact Info) Description 10/14/2024 11:30 AM EDT Appointment [facility] [address] [place] [address] 10/14/2024 12:40 PM EDT Appointment [facility] G Radiology [address] [place] [address] 10/14/2024 1:45 PM EDT Appointment [facility] H Nuclear Medicine [address] [place] [address] 10/16/2024 1:30 PM EDT Clinical Support [facility] [address] [place] [address] 10/16/2024 2:00 PM EDT Office Visit [facility] [address] [place] [address] Carrol Armenta MD 800 [facility] [address] [place] [address] 11/13/2024 1:00 PM EDT Office Visit [facility] Head, Neck & Respiratory 800 [facility], 2nd [place] [address] Aurora Hubbard, COMPOUNDER [address] [place] [address] 11/26/2024 9:15 AM EDT Appointment [facility] G Radiology [address] [place] [address] 11/26/2024 10:45 AM EDT Office Visit [place] [facility] [address], [address] [place] [address] Joseph Odonnell MD [address] [facility] [address] [place] [address] documented as of this encounter Visit Diagnoses [...] documented as of this encounter Care Teams Mill And Coal Transport Operator Relationship Specialty Start Date End Date Jared Coronel MD [address] [place], [place] [address] PCP - General 08/12/20 Joseph Odonnell MD [address] [place] [address] Surgeon Neurosurgery 02/28/23 Carrol Armenta MD [address] [facility] [address] [place] [address] Consulting Physician Medical Oncology 06/12/23 Sky Moreau MD [address] [place] [address] Consulting Physician Radiation Oncology 06/12/23 Lauren Paiz, COMPOUNDER [address] [facility] [address] [place] [address] Nurse Practitioner Internal Medicine 07/19/23 documented as of this encounter
--- OUTSIDE RECORDS SUMMARY | 2024-10-13 14:27 | XMS_ITS | Clinical Summary ---
Author Organization Healthcare Address [address] [place] [address] Care Team Providers Care Shop Teacher Name Role Phone Jared Coronel MD Primary Care Provider + [phone] Joseph Odonnell MD Unavailable [phone] Carrol Rivera MD Unavailable Sky Moreau MD Unavailable [phone] Lauren Paiz APRN Unavailable [phone] Allergies Active Allergy Reactions Criticality Noted Date Comments Nivolumab Other - please docum ent in the comment field Low 04/19/2023 Low back pain, muscle spasms in back Sulfa Drugs Shortness of breath,Swelling High 10/08/2018 Vancomycin Itching Medium 11/21/2023 Forehead turned red. Patient not complaining of being itchy, or shortness of air. Medications acetaminophen (Tylenol) 500 MG tablet Take 1 tablet (500 mg) by mouth every 6 (six) hours. 100 tablet 11/23/19 24 Active senna-docusate sodium (Senokot-S) 8.6-50 MG tablet Take 1 tablet by mouth 1 (one) time each day. 20 tablet 11/23/19 24 Active famotidine (Pepcid) 20 MG tablet Take 1 tablet (20 mg) by mouth 1 (one) time each day. 30 tablet 3 03/06/20 24 Active ondansetron ODT (Zofran-ODT) 4 MG disintegrating tablet Take 1 tablet (4 mg) by mouth every 8 (eight) hours if needed for nausea or vomiting. 20 tablet 04/03/19 25 Active loperamide (Imodium A-D) 2 MG tablet Take 1 tablet (2 mg) by mouth 4 (four) times a day if needed for diarrhea. 30 tablet 1 04/03/19 25 Active levothyroxine (Synthroid, Levoxyl) 100 MCG tablet Take 1 tablet (100 mcg) by mouth daily before breakfast. 30 tablet 11 06/10/19 25 026 Active dexamethasone (Decadron) 1 MG tablet Take 1 tablet by mouth in the morning and 1 tablet before bedtime. 60 tablet 1 07/04/19 25 Active apixaban (Eliquis) 5 MG tabletIndications: Renal cell carcinoma, unspecified laterality Take 1 tablet by mouth 2 times a day. 60 tablet 5 09/02/19 25 Active oxyCODONE (Roxicodone) 5 MG immediate release tablet Take 1 tablet by mouth every 8 hours as needed for moderate pain. 90 tablet 09/17/19 25 025 Active Tivozanib HCl 1.34 MG capsule Take 1.34 mg by mouth daily. Take for 3 weeks on, then 1 week off. 21 capsule 2 09/17/19 25 Active Tivozanib HCl 0.89 MG capsule Take 1 capsule by mouth daily, days 1-21 every 28 days. 21 capsule 2 08/20/19 25 025 Discontinued Active Problems Problem Noted Date Diagnosed Date [...] 03/01/2023 Diabetes mellitus 02/06/2023 Brain mass 02/04/2023 Encounters Date Type Department Care Team Description 10/09/2024 Telephone [facility] [address] [place] [address] Carrol Rivera MD 10/05/2024 11:22 AM EDT - 10/05/2024 11:59 PM EDT Hospital Encounter [facility] [address] [place] [address] Discharge Disposition: Home or Self Care 10/05/2024 8:41 AM EDT - 10/05/2024 11:21 AM EDT Hospital Encounter [facility]iology [address] [place] [address] Stacy Matute, RN Other ascites Discharge Disposition: Home or Self Care 10/05/2024 Travel 09/22/2024 Telephone [facility] [address] [place] [address] Carrol Rivera MD 09/18/2024 10:32 AM EDT - 09/18/2024 11:59 PM EDT Hospital Encounter [facility] [address] [place] [address] Discharge Disposition: Home or Self Care 09/18/2024 7:05 AM EDT - 09/18/2024 10:31 AM EDT Hospital Encounter [facility] [address] [place] [address] Esteban Daniels Pleural effusion Discharge Disposition: Home or Self Care 09/18/2024 Travel 09/17/2024 Travel 09/16/2024 11:27 AM EDT - 09/16/2024 11:59 PM EDT Hospital Encounter [facility] [address] [address] Renal cell carcinoma, unspecified laterality; Limb swelling Discharge Disposition: Home or Self Care 09/16/2024 11:27 AM EDT - 09/16/2024 11:59 PM EDT Hospital Encounter [facility] [address] [address] Renal cell carcinoma, unspecified laterality; Limb swelling Discharge Disposition: Home or Self Care 09/16/2024 9:30 AM EDT Office Visit [facility] [address] [place] [address] Carrol Rivera MD Renal cell carcinoma, unspecified laterality (Primary Dx); Limb swelling 09/16/2024 Telephone [facility] [address] [place] [address] Ani Wells, PharmD 09/16/2024 Travel 09/15/2024 10:58 AM EDT - 09/15/2024 11:59 PM EDT Hospital Encounter [facility] [address] [place] [address] Renal cell carcinoma, unspecified laterality Discharge Disposition: Home or Self Care 09/15/2024 10:08 AM EDT - 09/15/2024 10:57 AM EDT Hospital Encounter [facility] [address] [place] [address] Renal cell carcinoma, unspecified laterality Discharge Disposition: Home or Self Care 09/15/2024 Travel 09/11/2024 10:50 AM EDT - 09/11/2024 11:59 PM EDT Hospital Encounter [facility] [address] [place] [address] Discharge Disposition: Home or Self Care 09/11/2024 8:48 AM EDT - 09/11/2024 10:49 AM EDT Hospital Encounter [facility] [address] [place] [address] Jorden Martell, RN Other ascites Discharge Disposition: Home or Self Care 09/11/2024 Travel 09/01/2024 Refill [facility] [address] [place] [address] Carrol Rivera MD Renal cell carcinoma, unspecified laterality (Primary Dx) 08/31/2024 1:04 PM EDT - 08/31/2024 11:59 PM EDT Hospital Encounter [facility] [address] [place] [address] Discharge Disposition: Home or Self Care 08/31/2024 10:04 AM EDT - 08/31/2024 1:03 PM EDT Hospital Encounter [facility] [address] [place] [address] Alison Pasha Recurrent right pleural effusion (Primary Dx); Shortness of breath Discharge Disposition: Home or Self Care 08/31/2024 Travel 08/27/2024 Telephone [facility] [address] [place] [address] Carrol Rivera MD 08/27/2024 Travel 08/27/2024 Telephone [facility] [address] [place] [address] Carrol Rivera MD 08/19/2024 10:00 AM EDT Office Visit [facility] [address] [place] [address] Carrol Rivera MD Renal cell carcinoma, unspecified laterality (Primary Dx) 08/19/2024 Telephone [facility] [address] [place] [address] Rob Wilkins, [facility] 08/19/2024 Travel 08/12/2024 11:11 AM EDT - 08/12/2024 4:32 PM EDT Emergency [facility] Emergency Department [address] [place] [address] Harlan Vu MD Eckerline, Charles A, MD Pleural effusion on right (Primary Dx) Discharge Disposition: Home or Self Care 08/12/2024 9:05 AM EDT - 08/12/2024 11:10 AM EDT Hospital Encounter [facility] [address] [place] [address] Shortness of breath Discharge Disposition: Home or Self Care 08/12/2024 Telephone [facility] [address] [place] [address] Carrol Rivera MD 08/12/2024 Travel 08/12/2024 Orders Only [facility] [address] [place] [address] Carrol Rivera MD Renal cell carcinoma, unspecified laterality (Primary Dx) 08/11/2024 1:47 PM EDT - 08/11/2024 11:59 PM EDT Hospital Encounter [facility] [address] [address] Shortness of breath Discharge Disposition: Home or Self Care 08/11/2024 9:45 AM EDT Clinical Support [facility] [address] [address] 08/11/2024 9:20 AM EDT Office Visit [facility] [address] [address] Aurora Hubbard, ERIC Shortness of breath (Primary Dx); Encounter for monitoring cardiotoxic drug therapy; Hyperlipidemia, unspecified hyperlipidemia type 08/11/2024 Telephone [facility] [address] [place] [address] Carrol Rivrea MD 08/11/2024 Results Follow-Up [facility] [address] [address] Aurora Hubbard APRN 08/11/2024 Orders Only [facility] [address] [place] [address] Carrol Rivera MD Shortness of breath (Primary Dx) 08/11/2024 Orders Only [facility] [address] [place] [address] Carrol Rivera MD Shortness of breath (Primary Dx) 08/11/2024 Travel 08/10/2024 Telephone [facility] [address] [address] Brad Pinto, RN 08/10/2024 Community Orders [facility] [address] [place] [address] Harmony Thomas PA Shortness of breath (Primary Dx) 07/24/2024 Telephone [facility] [address] [address] Winston Horton MD 07/16/2024 11:00 AM EDT Office Visit [facility] [address] [place] [address] Joseph Odonnell MD Renal cell carcinoma of left kidney (Primary Dx); Metastatic renal cell carcinoma to bone 07/16/2024 9:33 AM EDT - 07/16/2024 11:59 PM EDT Hospital Encounter [facility] [address] [place] [address] Brain mass; Renal cell carcinoma, unspecified laterality Discharge Disposition: Home or Self Care 07/16/2024 Orders Only [place] [facility] [address] [place] [address] Joseph Odonnell MD Brain mass (Primary Dx); Renal cell carcinoma, unspecified laterality 07/16/2024 Travel from Last 3 Months Immunizations Immunization Administration Dates Next Due Tdap 05/31/2020 Family History Medical History Relation Name Comments Breast cancer Father's Sister Breast cancer Mother's Sister 1 Alzheimer's disease Mother's Sister 2 Chante Keatno Relation Name Status Comments Father's Sister Mother's Sister 1 Mother's Sister 2 Chante Keaton Alive Social History Tobacco Use Types Packs/Day Years [...] drink first t nichole in the morning ([employer] LIGHT) to steady your nerves or to get [...] Travel Start Travel End [place] 09/20/2024 09/25/2024 Last Filed Vital Signs Vital Sign Reading Time Taken Comments Blood Pressure 129/92 10/05/2024 12:30 PM EDT Pulse 91 10/05/2024 12:30 PM EDT Temperature 36.5 C (97.7 F) 10/05/2024 12:30 PM EDT Respiratory Rate 22 10/05/2024 12:30 PM EDT Oxygen Saturation 92% 10/05/2024 12:30 PM EDT Inhaled Oxygen Concentration - - Weight 75.5 kg (166 lb 7.2 oz) 10/05/2024 9:05 AM EDT Height 157.5 cm (5' 2 ) 10/05/2024 9:05 AM EDT Body Mass Index 30.44 10/05/2024 9:05 AM EDT Plan of Treatment Upcoming Encounters Date Type Department Care Team (Late st Contact Info) Description 10/14/2024 11:30 AM EDT Appointment [facility] Nuclear Medicine [address] [place] [address] 10/14/2024 12:40 PM EDT Appointment [facility] [address] [place] [address] 10/14/2024 1:45 PM EDT Appointment [facility] [address] [place] [address] 10/16/2024 1:30 PM EDT Clinical Support [facility] [address] [place] [address] 10/16/2024 2:00 PM EDT Office Visit [facility] [address] [place] [address] Carrol Rivera MD 800 [facility] Stacy [address] [address] 11/13/2024 1:00 PM EDT Office Visit [facility] [address] [facility], 2nd [place] [address] Aurora Hubbard, MOLD CLEANING AND STORAGE SUPERVISOR [address] [place] [address] 11/26/2024 9:15 AM EDT Appointment [facility] [address] [place] [address] 11/26/2024 10:45 AM EDT Office Visit [place] [facility] [address] [place] [address] Josehp Odonnell MD [address] [place] [address] Health Maintenance Due Date Last Done Comments [facility]-HIV Screening 1965 [facility]-Hepatitis C Screening 1964 [facility]-/Child/Adol SDOH Screenings 1965 [id number] Vaccine (#1) 1969 Diabetes: Dental Exam 1974 [facility]-Pneumococcal Vaccine: 50+ Years (1 of 2 - PCV) 1983 [facility]-Zoster Vaccines (1 of 2) 1983 CT Colonography 2009 Colonoscopy 2009 FIT-DNA 2009 FIT 2009 FOBT 2009 Sigmoidoscopy 2009 [facility]-Colorectal Cancer Screening 2009 [facility]-Pap Smear 04/09/2009 04/09/2006, 10/1998, 06/10/1998, Additional history exists [facility]-Cervical Cancer Screening 04/09/2011 [facility]-HPV/Cotest 04/09/2011 04/09/2006, 1010/1998, 06/10/1998, Additional history exists [facility]-Breast Cancer Screening 2014 [facility]-Diabetes: Hemoglobin A1C 02/19/2024 08/22/2023 [facility]-RSV Vaccine: 60+ Years or (1 - Risk 60-74 years 1-dose series) 2024 [facility]- SDOH Screenings 05/24/2024 [facility]-Adult SDOH Screenings 05/24/2024 11/22/2023 [facility]-Influenza Vaccine (#1) 2024 [facility]-Lung Cancer Screening 09/15/20252024, 08/12/2024, 06/26/2024, Additional history exists [facility]-Depression Screening 09/16/2025 025, 09/16/2024, 01/20/2024 [facility]-DTaP,Tdap,and Td Vaccines (2 - Td or Tdap) 05/31/2030 05/31/2020 [facility]-Obesity Intervention Completed 025, 09/18/2024, 09/11/2024, Additional history exists HPV Vaccines Aged Out No longer eligi ble based on patient's age to complete this topic [facility]-HIB Vaccines Aged Out No longer e ligible based on patient's age to complete this topic [facility]-Hepatitis A Vaccines Aged Out No longer eligible based on patient's age to complete this topic [facility]-IPV Vaccines Aged Out No longer e ligible based on patient's age to complete this topic [facility]-Rotavirus Vaccines Aged Out No lo nger eligible based on patient's age to complete this topic Medical Devices Implanted Type Area Counseling Specialist Device Identifier Shelf Expiration Date Model / Serial / Lot Plate Dhs 4h 135deg - [id number] Implanted:Qty: 1 on 11/21/2023 by Mando Plaza MD at [facility] Plate Left: Femur Synthes [facility]-[id number] 11/20/2024 281.140 / / Screw Lag Dhs/Dcs 12.7mm Thrd/90mm - [id number] Implanted:Qty: 1 on 11/21/2023 by Mando Plaza MD at [facility] Screw Left: Femur [employer]s [facility]-[id number] 11/20/2024 280.290 / / Screw 4.5mm Cortex Selftap 36mm - [id number] Implanted:Qty: 4 on 11/21/2023 by Mando Plaza MD at [facility] Screw Left: Femur [employer]s [facility]-[id number] 11/20/2024 214.836 / / Cement With Tobramycin - [id number] Implanted:Qty: 2 on 11/21/2023 by Mando Plaza MD at [facility] Left: Femur [facility] [id number] 01/29/2025 [id number] / / [id number] Procedures Procedure Name Priority Date/Time Associated Diagnosis Comments XR CHEST 1 VIEW STAT 10/05/2024 11:38 AM EDT US GUIDED THORACENTESIS Routine 10/05/2024 10:00 AM EDT Other ascites TOTAL PROTEIN, PLEURAL FLUID Routine 10/05/2024 9:50 AM EDT BODY FLUID, CYTOSPIN, PATHOLOGIST INTERPRETATION Routine 10/05/2024 9:49 AM EDT BODY FLUID CELL COUNT W/ MANUAL DIFFERENTIAL Routine 10/05/2024 9:49 AM EDT XR CHEST 1 VIEW Routine 09/18/2024 10:40 AM EDT US GUIDED THORACENTESIS Routine 09/18/2024 9:24 AM EDT Pleural effusion VAS US VENOUS DUPLEX LOWER EXTREMITY UNILATERAL STAT 09/16/2024 12:05 PM EDT Renal cell carcinoma, unspecified laterality Limb swelling VAS US VENOUS DUPLEX UPPER EXTREMITY UNILATERAL STAT 09/16/2024 11:57 AM EDT Renal cell carcinoma, unspecified laterality Limb swelling COMPREHENSIVE METABOLIC PANEL, PLASMA Routine 09/16/2024 9:45 AM EDT Renal cell carcinoma, unspecified laterality CBC WITH AUTO DIFFERENTIAL Routine 09/16/2024 9:45 AM EDT Renal cell carcinoma, unspecified laterality CT ABDOMEN PELVIS W IV CONTRAST Routine 09/15/2024 12:09 PM EDT Renal cell carcinoma, unspecified laterality CT CHEST W IV CONTRAST Routine 12:09 PM EDT Renal cell carcinoma, unspecified laterality MR HEAD W AND WO IV CONTRAST Routine 09/15/2024 10:56 AM EDT Renal cell carcinoma, unspecified laterality XR CHEST 1 VIEW STAT 09/11/2024 11:01 AM EDT US GUIDED THORACENTESIS Routine 09/11/2024 10:13 AM EDT Other ascites XR CHEST 1 VIEW Routine 08/31/2024 1:18 PM EDT COMPREHENSIVE METABOLIC PANEL, PLASMA Routine 08/31/2024 12:16 PM EDT LACTATE DEHYDROGENASE, PLASMA Routine 08/31/2024 12:16 PM EDT US GUIDED THORACENTESIS Routine 08/31/2024 11:53 AM EDT Shortness of breath NON-GYNECOLOGIC CYTOLOGY Routine 08/31/2024 11:34 AM EDT BODY FLUID, CYTOSPIN, PATHOLOGIST INTERPRETATION Routine 08/31/2024 11:34 AM EDT LACTATE DEHYDROGENASE, PLEURAL FLUID Routine 08/31/2024 11:34 AM EDT TOTAL PROTEIN, PLEURAL FLUID Routine 08/31/2024 11:34 AM EDT BODY FLUID CELL COUNT W/ MANUAL DIFFERENTIAL Routine 08/31/2024 11:34 AM EDT BODY FLUID CULTURE AND GRAM STAIN Routine 08/31/2024 11:34 AM EDT THORACENTESIS Routine 08/12/2024 4:06 PM EDT Pleural effusion on right XR CHEST 1 VIEW STAT 08/12/2024 3:52 PM EDT NON-GYNECOLOGIC CYTOLOGY Routine 08/12/2024 3:28 PM EDT CHYLOMICRON ELECTROPHORESIS (REFLEX ONLY) Routine 08/12/2024 3:28 PM EDT BODY FLUID, CYTOSPIN, PATHOLOGIST INTERPRETATION Routine 08/12/2024 3:28 PM EDT CHOLESTEROL FLUID (SO) Routine 3:28 PM EDT TRIGLYCERIDES BF WITH RFLX TO CHYLO (SO) Routine 08/12/2024 3:28 PM EDT ALBUMIN, PLEURAL FLUID Routine 3:28 PM EDT LACTATE DEHYDROGENASE, PLEURAL FLUID Routine 08/12/2024 3:28 PM EDT TOTAL PROTEIN, PLEURAL FLUID Routine 08/12/2024 3:28 PM EDT BODY FLUID CELL COUNT W/ MANUAL DIFFERENTIAL Routine 08/12/2024 3:28 PM EDT BODY FLUID CULTURE AND GRAM STAIN Routine 08/12/2024 3:28 PM EDT ANTI XA LEVEL UNFRACTIONATED HEPARIN STAT 08/12/2024 11:49 AM EDT HEPATIC FUNCTION PANEL STAT 11:22 AM EDT PROTHROMBIN TIME(PT) / INR STAT 08/12/2024 11:22 AM EDT CBC WITH AUTO DIFFERENTIAL STAT 08/12/2024 11:06 AM EDT BASIC METABOLIC PANEL, PLASMA STAT 08/12/2024 11:06 AM EDT ECG ADULT STAT 08/12/2024 10:[address] ANGIO PULMONARY EMBOLISM STAT 08/12/2024 10:03 AM EDT Shortness of breath ECHO, ADULT TRANSTHORACIC COMPLETE W/ STRAIN Routine 08/11/2024 2:20 PM EDT Shortness of breath ECG ADULT Routine 08/11/2024 10:01 AM EDT Encounter for monitoring cardiotoxic drug therapy LIPID PROFILE, PLASMA Add-On 08/11/2024 9:56 AM EDT Hyperlipidemia, unspecified hyperlipidemia type N-TERMINAL PROBNP, PLASMA Routine 08/11/2024 9:56 AM EDT Shortness of breath MR HEAD W AND WO IV CONTRAST Routine 07/16/2024 10:29 AM EDT Brain mass Renal cell carcinoma, unspecified laterality HEMOGLOBIN A1C Routine 08/22/2023 9:46 AM EDT Diabetes mellitus, type 2 (CMS/HCC) Hyperlipemia CYTO DATA CONVERSION Routine 04/09/2006 12:00 AM EST from Last 3 Months or Most Recently Relevant to Health Maintenance Results * XR Chest 1 View (10/05/2024 11:38 AM EDT) Only the most recent of5 resultswithin the time period is included. Anatomical Region Laterality Modality Chest Digital Radiogra [...] US Guided Thoracentesis (10/05/2024 10:00 AM EDT) Only the most recent of4 resultswithin the time period is included. Anatomical Region Laterality Modality Chest Ultrasound Impressions [...] Narrative 10/05/2024 6:56 PM EDT CLINICAL INDICATION: Aries Winston is a 59 y.o. 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 TECHNIQUE: Motion Picture Printer: Anaya Nagel APRN Secondary Concrete Pouring Supervisor: None. Nurse: Tutu Technologist: Akhil Kemp Dose: NA Medications: Continuous physiologic monitoring provided by a qualified healthcare professional. Administered: 1% Lidocaine with sodium bicarbonate SQ. Antibiotics: NA Time out: 945 Procedure: [...] Harlan Keith MD - 10/05/2024 CLINICAL INDICATION: Aries Winston is a 59 y.o. female with a past medical history of withpast medical history of De Avelina Metastatic Clear Cell Renal Cell Carcinomawith brain mets and right pleural effusion who presents for rightthoracentesis. TECHNIQUE: Motion Picture Printer: Anaya Nagel APRN Secondary Concrete Pouring Supervisor: None. Nurse: Tutu Technologist: Akhil Kemp Dose: [...] - Pleural Right (10/05/2024 9:50 AM EDT) Only the most recent of3 resultswithin the time period is included. Total Protein, Fluid 4.4 g/dL 10/05/2024 11:32 AM EDT [facility] Pleural Fluid Structure of right pleural cavity / Unknown Non-blood Collection / Unknown 10/05/2024 9:50 AM EDT 10/05/2024 11:01 AM EDT Narrative [facility] - 10/05/2024 11:32 AM EDT This test was developed and its performance characteristics determined by [facility]. The U.S. Food and Drug Administration has not approved or cleared this test. However, FDA clearance or approval is not currently required for clinical use. The results are not intended to be used as the sole means for clinical diagnosis or patient management decisions. us Anaya Nagel APRN, DNP LAB BODY FLUIDS AND STOO LS ORDERABLES Final Result [facility] [address] [place] [address] * Body Fluid Cell Count w/ Diff - Pleural Right (10/05/2024 9:49 AM EDT) Only the most recent of3 resultswithin the time period is included. Color, Body fluid Yellow LAB HEMATOLOGY METHOD 10/05/2024 2:01 PM EDT [facility] Appearance, Body fluid Clear LAB HEMATOLOGY METHOD 10/05/2024 2:01 PM EDT [facility] Volume, Body fluid 9.0 cc LAB HEMATOLOGY METHOD 10/05/2024 2:01 PM EDT [facility] Fluid Container Tube 2 LAB HEMATOLOGY METHOD 10/05/2024 2:01 PM EDT [facility] Red Blood Cell Count, Body fluid 3,000 uL LAB HEMATOLOGY METHOD 10/05/2024 2:01 PM EDT [facility] Total Nucleated Cell Count, Body fluid 124 uL LAB HEMATOLOGY METHOD 10/05/2024 2:01 PM EDT [facility] Neutrophils %, Body fluid 16 % LAB HEMATOLOGY METHOD 10/05/2024 2:01 PM EDT [facility] Lymphocytes %, Body fluid 42 % LAB HEMATOLOGY METHOD 10/05/2024 2:01 PM EDT [facility] Monocytes/Macro phages %, Body fluid 42 % LAB HEMATOLOGY METHOD 10/05/2024 2:01 PM EDT [facility] Eosinophils %, Body fluid 0 % LAB HEMATOLOGY METHOD 10/05/2024 2:01 PM EDT [facility] Lining/Mesothel ial Cells %, Body fluid 0 % LAB HEMATOLOGY METHOD 10/05/2024 2:01 PM EDT [facility] Neutrophils Absolute (PMN), Body fluid 20 uL LAB HEMATOLOGY METHOD 10/05/2024 2:01 PM EDT [facility] Lymphocytes Absolute, Body fluid 52 uL LAB HEMATOLOGY METHOD 10/05/2024 2:01 PM EDT [facility] Monocytes/Macro phages Absolute, Body fluid 52 uL LAB HEMATOLOGY METHOD 10/05/2024 2:01 PM EDT [facility] Eosinophils Absolute, Body fluid 0 uL LAB HEMATOLOGY METHOD 10/05/2024 2:01 PM EDT [facility] Basophils Absolute, Body fluid 0 uL LAB HEMATOLOGY METHOD 10/05/2024 2:01 PM EDT [facility] Lining/Mesothel ial Cells Absolute, Body fluid 0 uL LAB HEMATOLOGY METHOD 10/05/2024 2:01 PM EDT [facility] Comment, Body fluid None LAB HEMATOLOGY METHOD 10/05/2024 2:01 PM EDT [facility] Basophils %, Body fluid 0 % LAB HEMATOLOGY METHOD 10/05/2024 2:01 PM EDT [facility] Body Fluid Structure of right pleural cavity / Unknown Non-blood Collection / Unknown 10/05/2024 9:49 AM EDT 10/05/2024 11:02 AM EDT Anaya Nagel MOLD CLEANING AND STORAGE SUPERVISOR, DNP LAB BODY FLUIDS AND STOOLS ORDERABLES NO SPECIMEN TYPE/SOURCE Final Result [facility] [address] [place] [address] * Body fluid, cytospin, pathologist interpretation (10/05/2024 9:49 AM EDT) Only the most recent of3 resultswithin the time period is included. Specimen Type Body Fluid LAB HEMATOLOGY METHOD 10/06/2024 1:27 PM EDT [facility] Specimen Source, Body Fluid Pleural, Right LAB HEMATOLOGY METHOD 10/06/2024 1:27 PM EDT [facility] Clinical Diagnosis, Body Fluid Pleural effusion; history of clear cell renal cell carcinoma LAB HEMATOLOGY METHOD 10/06/2024 1:27 PM EDT [facility] Interpretation , Body Fluid Light blood with predominantly chronic inflammation and rare atypical cells. See comment. A resident was involved in the service. I attest I examined the relevant preparations for the specimens and confirmed the diagnosis or interpretation. 10/06/2024 1:27 PM EDT [facility] Pathologist Signature, Body Fluid 10/06/2024 1:27 PM EDT [facility] Comment:Reviewed by: Cruzito Ray MD LAB CP ASR DISCLAIMER Yes 10/06/2024 1:27 PM EDT [facility] Body Fluid Structure of right pleural cavity / Unknown Non-blood Collection / Unknown 10/05/2024 9:49 AM EDT 10/05/2024 11:02 AM EDT Narrative [facility] - 10/06/2024 1:27 PM EDT Whether these atypical cells represent reactive mesothelial cells or rare tumor cells cannot be discerned from this preparation. us Anaya Nagel APRN, DNP LAB BODY FLUIDS AND STOO LS ORDERABLES Final Result [facility] [address] [place] [address] * VAS US Venous Duplex Lower Extremity [...] Scott on 09/16/2024 4:59 PM us Carrol Rivera MD CV VASCULAR PROCEDURES Final Res ult [...] Eric Scott on 09/16/2024 4:59 PM Carrol Rivera MD CV VASCULAR PROCEDURES Final Res ult * (ABNORMAL) CBC and Differential (09/16/2024 9:45 AM EDT) Only the most recent of2 resultswithin the time period is included. WBC Count 8.24 3.70 - 10.30 10*3/uL LAB HEMATOLOGY METHOD 09/16/2024 10:01 AM EDT [facility] RBC Count 4.76 3.90 - 5.20 10*6/uL LAB HEMATOLOGY METHOD 09/16/2024 10:01 AM EDT [facility] HGB 13.0 11.2 - 15.7 g/dL LAB HEMATOLOGY METHOD 09/16/2024 10:01 AM EDT [facility] HCT 41.8 34.0 - 45.0 % LAB HEMATOLOGY METHOD 09/16/2024 10:01 AM EDT [facility] Platelet Count 356 155 - 369 10*3/uL LAB HEMATOLOGY METHOD 09/16/2024 10:01 AM EDT [facility] MCV 88 79 - 98 fL LAB HEMATOLOGY METHOD 09/16/2024 10:01 AM EDT [facility] MCH 27.3 26.0 - 32.0 pg LAB HEMATOLOGY METHOD 09/16/2024 10:01 AM EDT [facility] MCHC 31.1 30.7 - 35.5 g/dL LAB HEMATOLOGY METHOD 09/16/2024 10:01 AM EDT [facility] RDW 17.3(H) 11.5 - 14.5 % LAB HEMATOLOGY METHOD 09/16/2024 10:01 AM EDT [facility] MPV 10.3 8.8 - 12.5 fL LAB HEMATOLOGY METHOD 09/16/2024 10:01 AM EDT [facility] nRBC 0.0 <=0.0 per 100 WBCs LAB HEMATOLOGY METHOD 09/16/2024 10:01 AM EDT [facility] Differential Type Automated LAB HEMATOLOGY METHOD 09/16/2024 10:01 AM EDT [facility] Neutrophils % 65 % LAB HEMATOLOGY METHOD 09/16/2024 10:01 AM EDT [facility] Lymphocytes % 26 % LAB HEMATOLOGY METHOD 09/16/2024 10:01 AM EDT [facility] Monocytes % 6 % LAB HEMATOLOGY METHOD 09/16/2024 10:01 AM EDT [facility] Eosinophils % 1 % LAB HEMATOLOGY METHOD 09/16/2024 10:01 AM EDT [facility] Basophils % 1 % LAB HEMATOLOGY METHOD 09/16/2024 10:01 AM EDT [facility] Immature Granulocytes % 1 % LAB HEMATOLOGY METHOD 09/16/2024 10:01 AM EDT [facility] Neutrophils Absolute 5.35 1.60 - 6.10 10*3/uL LAB HEMATOLOGY METHOD 09/16/2024 10:01 AM EDT [facility] Lymphocytes Absolute 2.13 1.20 - 3.90 10*3/uL LAB HEMATOLOGY METHOD 09/16/2024 10:01 AM EDT [facility] Monocytes Absolute 0.52 0.30 - 0.90 10*3/uL LAB HEMATOLOGY METHOD 09/16/2024 10:01 AM EDT [facility] Eosinophils Absolute 0.08 0.00 - 0.50 10*3/uL LAB HEMATOLOGY METHOD 09/16/2024 10:01 AM EDT [facility] Basophils Absolute 0.06 0.00 - 0.10 10*3/uL LAB HEMATOLOGY METHOD 09/16/2024 10:01 AM EDT [facility] Immature Granulocytes Absolute 0.10(H) 0.00 - 0.06 10*3/uL LAB HEMATOLOGY METHOD 09/16/2024 10:01 AM EDT [facility] Blood Venous blood specimen / Unknown Venipuncture / Unknown 09/16/2024 9:45 AM EDT 09/16/2024 9:52 AM EDT Narrative [facility] - 09/16/2024 10:01 AM EDT Therapeutic decision making should be based on absolute values, rather than percentages. us Carrol Rivera MD LAB BLOOD ORDERABLES Final Resul t [facility] [address] [place] [address] * (ABNORMAL) Comprehensive Metabolic Panel, Plasma (09/16/2024 9:45 AM EDT) Only the most recent of2 resultswithin the time period is included. Glucose, Plasma 112(H) 74 - 99 mg/dL 09/16/2024 10:21 AM EDT [facility] BUN, Plasma 8 8 - 23 mg/dL 09/16/2024 10:21 AM EDT [facility] Creatinine, Plasma 0.69 0.60 - 1.10 mg/dL 09/16/2024 10:21 AM EDT [facility] BUN/Creatinine Ratio 12 09/16/2024 10:21 AM EDT [facility] Sodium, Plasma 142 136 - 145 mmol/L 09/16/2024 10:21 AM EDT [facility] Potassium, Plasma 4.9 3.6 - 4.9 mmol/L 09/16/2024 10:21 AM EDT [facility] Chloride, Plasma 106 97 - 107 mmol/L 09/16/2024 10:21 AM EDT [facility] CO2, Plasma 26 22 - 29 mmol/L 09/16/2024 10:21 AM EDT [facility] Anion Gap 10 6 - 16 mmol/L 09/16/2024 10:21 AM EDT [facility] Total Calcium, Plasma 9.4 8.9 - 10.2 mg/dL 09/16/2024 10:21 AM EDT [facility] Total Protein 6.5 6.3 - 7.9 g/dL 09/16/2024 10:21 AM EDT [facility] Albumin, Plasma 3.1(L) 3.5 - 5.2 g/dL 09/16/2024 10:21 AM EDT [facility] AST, Plasma 19 10 - 35 U/L 09/16/2024 10:21 AM EDT [facility] ALT, Plasma 21 10 - 35 U/L 09/16/2024 10:21 AM EDT [facility] Alkaline Phosphatase, Plasma 94 46 - 142 U/L 09/16/2024 10:21 AM EDT [facility] Total Bilirubin, Plasma 0.5 0.2 - 1.1 mg/dL 09/16/2024 10:21 AM EDT [facility] eGFRcr 99.5 mL/min/1.7 3m*2 09/16/2024 10:21 AM EDT [facility] Comment:Reported eGFRcr in m L/min/1.73m2 is based the CKD-EPI 2020 equation that does not use a race coefficient. Blood Venous blood specimen / Unknown Venipuncture / Unknown 09/16/2024 9:45 AM EDT 09/16/2024 9:52 AM EDT us Carrol Rivera MD LAB BLOOD ORDERABLES Final Resul t [facility] [address] [place] [address] * CT Abdomen Pelvis w IV Contrast [...] Total DLP (Dose-Length Product): 1087.15 mGy.cm (accession [id number]), 1087.15 mGy.cm (accession [id number]) Please note: The reported value represents the [...] Total DLP (Dose-Length Product): 1087.15 mGy.cm (accession [id number]),1087.15 mGy.cm (accession [id number]) Please note: The reported valuerepresents the total [...] Hamilton MD on 09/15/2024 12:43 PM Carrol Rivera MD IMG CT PROCEDURES Final Result * [...] Total DLP (Dose-Length Product): 1087.15 mGy.cm (accession [id number]), 1087.15 mGy.cm (accession [id number]) Please note: The reported value represents the [...] Total DLP (Dose-Length Product): 1087.15 mGy.cm (accession [id number]),1087.15 mGy.cm (accession [id number]) Please note: The reported valuerepresents the total [...] Jorden Hamilton MD on 09/15/2024 12:43 PM us Carrol Rivera MD IMG CT PROCEDURES Final Result * MR Head w and wo IV Contrast (09/15/2024 10:56 AM EDT) Only the most recent of2 resultswithin the time period is included. Anatomical Region Laterality Modality Head Magnetic Resonan [...] error, please notify the sender immediately at [phone] and permanently delete the original report and destroy any copies or printouts. Narrative 09/16/2024 4:49 PM EDT [facility] - Phone Outpatient NAME: Aries Winston DATE OF EXAM: 09/15/2024 Patient No: [id number] Physician: Kathi^Carrol^War Date of : 1965 Past [...] 09/16/2024 [facility] - Phone Outpatient NAME: Aries Winston DATE OF EXAM: 09/15/2024 Patient No: [id number] Physician: Kathi^Carrol^Garrett Date of : 1965 Past [...] Major intracranial vascular flow voids preserved on [id number] sequences. Osseous structures and soft tissues: No [...] in error, pleasenotify the sender immediately at [phone] and permanently delete theoriginal report and destroy any copies or printouts. Carrol Rivera MD IMG MRI PROCEDURES Final Result * (ABNORMAL) Lactate dehydrogenase (08/31/2024 12:16 PM EDT) LDH, Plasma 591(H) 116 - 250 U/L 08/31/2024 1:18 PM EDT [facility] Blood Venous blood specimen / Unknown Venipuncture / Unknown 08/31/2024 12:16 PM EDT 08/31/2024 12:40 PM EDT Natty Choe APRN LAB BLOOD ORDERABLES Final R esult [facility] [address] [place] [address] * Lactate Dehydrogenase, Pleural Fluid - Right (08/31/2024 11:34 AM EDT) Only the most recent of2 resultswithin the time period is included. LDH, Fluid 124 U/L 08/31/2024 2:51 PM EDT [facility] Pleural Fluid Structure of right pleural cavity / Unknown Non-blood Collection / Unknown 08/31/2024 11:34 AM EDT 08/31/2024 12:50 PM EDT Narrative [facility] - 08/31/2024 2:51 PM EDT No [...] the following criteria are present: (1) pleural byrjc-fh-hcosa protein ratio of >0.5, (2) pleural pgmtw-cq-qwppj LDH ratio of >0.6, or (3) a pleural fluid LDH activity that is >2/3 the upper limit of a normal serum LDH activity. Light's criteria may misclassify ~25% of transudates as exudates in heart failure. These can be identified by calculating a qhaze-ga-zqnozyd albumin gradient (>1.2 g/dL) and/or a diblg-cv-ksfjg protein gradient (>3.1 g/dL). us Natty N Cheeks [employer] LAB BODY FLUIDS AND STOOLS O RDERABLES Final Result [facility] [address] [place] [address] * Body Fluid Culture and Gram Stain - Pleural Right (08/31/2024 11:34 AM EDT) Only the most recent of2 resultswithin the time period is included. Culture No growth at day 4 2024 10:01 AM EDT [facility] Gram Stain Result Few Polymorphonuclear leukocytes 09/03/2024 10:01 AM EDT [facility] Gram Stain Result No organisms seen 09/03/2024 10:01 AM EDT [facility] Pleural Fluid Specimen from pleura obtained by thoracentesis / Unknown Non-blood Collection / Unknown 08/31/2024 11:34 AM EDT 08/31/2024 12:57 PM EDT us Natty N Cheeks [employer] LAB MICROBIOLOGY - GENERAL O RDERABLES Final Result [facility] [address] [place] [address] * Cytology - Pleural Right (08/31/2024 11:34 AM EDT) Only the most recent of2 resultswithin the time period is included. Case Report Cytology Case: [id number] Authorizing Provider: Natty Choe APRN Collected: 08/31/2024 1134 Ordering Location: [facility] Interventional Received: 08/31/2024 1452 Radiology Pathologist: Maggie Ramirez MD Specimen: Pleural Fluid, Right, RIGHT PLEURAL FLUID 09/01/2024 5:27 PM EDT [facility] Final Diagnosis A. RIGHT PLEURAL FLUID: - RARE ATYPICAL CELLS, FAVOR REACTIVE MESOTHELIAL CELLS. 09/01/2024 5:27 PM EDT [facility] at 1727 EDT Clinical History Pleural effusion 09/01/2024 5:27 PM EDT [facility] Previous Cancer Primary Site Other/Unknown Primary Site 09/01/2024 5:27 PM EDT [facility] Gross Description A. RIGHT PLEURAL FLUID 90 mls yellow fluid for cell block and thin prep processing Cold Time: 4h 55m 09/01/2024 5:27 PM EDT [facility] Fluid Structure of right pleural cavity / Unknown 08/31/2024 11:34 AM EDT 08/31/2024 2:52 PM EDT us Natty Choe APRN LAB CYTOLOGY ORDERABLES Elvira l Result Performing Organization Address City/[facility]/ZIP Co de Phone Number [facility] [address] [place] [address] * THORACENTESIS (08/12/2024 4:06 PM EDT) Anatomical Region Laterality Modality Endoscopy Narrative 08/12/2024 4:06 PM EDT Darlene Higgins MD 08/12/2024 8:49 PM Thoracentesis Performed by: Raymond Mejía MD Authorized by: Newton Gastelum MD Consent: Consent obtained: Written Consent given by: Patient Risks discussed: Bleeding and pain Sedation: Sedation type: None Procedure specific details: Indicated for diagnosis and therapeutic reasons. Patient was offered delayed procedure next week given she is on DOAC and is currently stable. After discussion with myself and attending she agreed for procedure to be performed today. Large free flowing pocket identified on US, mid lateral approach taken. Minimal cut use. Safety-centesis inserted to 6cm to obtain space, catheter was inserted. 1800cc of serosanguineous fluid removed. POCUS confirmed lack of PTX post procedure. CXR pending, patient is stable for DC after Post-procedure details: Procedure completion: Tolerated us Newton Gastelum MD GI PROCEDURE ORDERABLES F inal Result * Chylomicron Electrophoresis (Reflex Only) (08/12/2024 3:28 PM EDT) Chylomicron Electrophoresis Billed 08/19/2024 6:33 PM EDT [facility] (Currently) Fluid Pleural fluid specimen / Unknown 08/12/2024 3:28 PM EDT 08/12/2024 3:49 PM EDT Narrative [facility] (Currently) - 08/19/2024 6:33 PM EDT Performed By: [facility] [address] [place] [address] Fox Farmer: Raymond Zhang MD, PhD CLIA Number: [id number] us Harlan Vu MD LAB REF LAB BLOOD AND FLUID ORD Final Result [facility] (Currently) [address] [place] [address] * Triglycerides BF with RFLX to CHYLO (SO) (08/12/2024 3:28 PM EDT) Triglyceride, Fluid 31 mg/dL 08/19/2024 6:33 PM EDT [facility] (Currently) Triglyceride Fluid Source Pleural fluid 08/19/2024 6:33 PM EDT [facility] (Currently) Chylomicron Screen, Body Fluid Absent Absent 08/19/2024 6:33 PM EDT [facility] ([place]) Fluid Pleural fluid specimen / Unknown 08/12/2024 3:28 PM EDT 08/12/2024 3:[address] [facility] ([place]) - 08/19/2024 6:33 PM EDT INTERPRETIVE INFORMATION: Triglycerides, Fluid For information on body fluid reference ranges and/or interpretive guidance visit http://Leapfunder/bodyfluids/ This test was developed and its performance characteristics determined by [facility]. It has not been cleared or approved by the [place] Food and Drug Administration. This test was performed in a CLIA certified laboratory and is intended for clinical purposes. Chylomicrons were not detected. This appears to be a nonchylous fluid. INTERPRETIVE INFORMATION: Chylomicron Screen, Body Fluid This test was developed and its performance characteristics determined by [facility]. It has not been cleared or approved by the U.S. Food and Drug Administration. This test was performed in a CLIA-certified laboratory and is intended for clinical purposes. Performed By: [facility] [address] [place] [address] Fox Farmer: Raymond Zhang MD, PhD CLIA Number: [id number] Harlan Vu MD LAB REF LAB BLOOD AND FLUID ORD Final Result [facility] ([facility]) [address] [place] [address] * Cholesterol Fluid Battery (08/12/2024 3:28 PM EDT) CHOLESTEROL, FLUID 95 mg/dL 08/14/2024 8:01 PM EDT [facility] ([place]) CHOLESTEROL FLUID SOURCE Pleural fluid 08/14/2024 8:01 PM EDT [facility] ([facility]) Pleural Fluid Structure of right pleural cavity / Unknown Non-blood Collection / Unknown 08/12/2024 3:28 PM EDT 08/12/2024 3:49 PM EDT Narrative [facility] ([place]) - 08/14/2024 8:01 PM EDT INTERPRETIVE INFORMATION: Cholesterol, Body Fluid For information on body fluid reference ranges and/or interpretive guidance visit [email or web address] Skip Connect.IntegralReach/bodyfluids/ This test was developed and its performance characteristics determined by [facility]. It has not been cleared or approved by the [place] Food and Drug Administration. This test was performed in a CLIA certified laboratory and is intended for clinical purposes. Performed By: [facility] [address] [place] [address] Fox Farmer: Raymond Zhang MD, PhD CLIA Number: [id number] Harlan Vu MD LAB REF LAB BLOOD AND FLUID ORD Final Result Performing Organization Address [facility] Co de Phone Number [facility] ([place]) [address] [place] [address] * Albumin - Pleural Right (08/12/2024 3:28 PM EDT) Albumin, Pleural Fluid 2.7 g/dL 08/12/2024 7:52 PM EDT [facility] Pleural Fluid Structure of right pleural cavity / Unknown Non-blood Collection / Unknown 08/12/2024 3:28 PM EDT 08/12/2024 3:49 PM EDT Narrative [facility] - 08/12/2024 7:52 PM EDT REPORTING RESULTS Reference Values: No established reference interval. Results should be interpreted in comparison to the concentration in blood and in conjunction with the clinical context. This test was developed and its performance characteristics determined by [facility]. The U.S. Food and Drug Administration has not approved or cleared this test; however, FDA clearance or approval is not currently required for clinical use. The results are not intended to be used as the sole means for clinical diagnosis or patient management decisions. Harlan Vu MD LAB BODY FLUIDS AND STOOLS ORDERABLES Final Result [facility] [address] [place] [address] * (ABNORMAL) Anti Xa Level Unfractionated Heparin (08/12/2024 11:49 AM EDT) Anti Xa Level Unfractionated Heparin >1.10(HH) <1.00 IU/mL 08/12/2024 12:19 PM EDT [facility] Blood Venous blood specimen / Unknown Venipuncture / Unknown 08/12/2024 11:49 AM EDT 08/12/2024 11:54 AM EDT Narrative [facility] - 08/12/2024 12:19 PM EDT Therapeutic Range: UFH Full Dose and ACS/AR protocols*: 0.30 - 0.70 IU/mL UFH Low Dose protocol*: 0.25 - 0.50 IU/mL UFH prophylaxis: Not established Harlan Vu MD LAB BLOOD ORDERABLES Final Result Performing Organization Address [facility] Co de Phone Number [facility] [address] [place] [address] * (ABNORMAL) PT-INR (08/12/2024 11:22 AM EDT) Prothrombin Time 17.2(H) 12.0 - 14.3 sec 08/12/2024 11:45 AM EDT [facility] INR 1.4(H) 0.9 - 1.1 08/12/2024 11:45 AM EDT [facility] Blood Venous blood specimen / Unknown Venipuncture / Unknown 08/12/2024 11:22 AM EDT 08/12/2024 11:25 AM EDT Narrative [facility] - 08/12/2024 11:45 AM EDT OPTIMAL INR RANGES FOR PATIENT ON ORAL ANTICOAGULANT THERAPY Prevention of venous thromboembolism INR 2.0 to 3.0 In patients with heart disease: Atrial fibrillation INR 2.0 to 3.0 Valvular heart disease INR 2.0 to 3.0 Tissue heart valves INR 2.0 to 3.0 Mechanical prosthetic valves INR 2.5 to 3.5 Prevention of recurrent AR INR 2.5 to 3.5 Harlan Vu MD LAB BLOOD ORDERABLES Final Result Performing Organization Address City/[facility]/ZIP Co de Phone Number [facility] [address] [place] [address] * (ABNORMAL) Hepatic function panel (08/12/2024 11:22 AM EDT) Conjugated Bilirubin, Plasma <0.2 <=0.3 mg/dL 08/12/2024 12:18 PM EDT [facility] Alkaline Phosphatase, Plasma 83 46 - 142 U/L 08/12/2024 12:18 PM EDT [facility] Total Bilirubin, Plasma 0.5 0.2 - 1.1 mg/dL 08/12/2024 12:18 PM EDT [facility] Albumin, Plasma 3.3(L) 3.5 - 5.2 g/dL 08/12/2024 12:18 PM EDT [facility] Total Protein 5.8(L) 6.3 - 7.9 g/dL 08/12/2024 12:18 PM EDT [facility] ALT, Plasma 24 10 - 35 U/L 08/12/2024 12:18 PM EDT [facility] AST, Plasma 22 10 - 35 U/L 08/12/2024 12:18 PM EDT [facility] Blood Venous blood specimen / Unknown Venipuncture / Unknown 08/12/2024 11:22 AM EDT 08/12/2024 11:25 AM EDT Harlan Vu MD LAB BLOOD ORDERABLES Final Result [facility] [address] [place] [address] * (ABNORMAL) BMP (08/12/2024 11:06 AM EDT) Glucose, Plasma 94 74 - 99 mg/dL 08/12/2024 11:45 AM EDT [facility] BUN, Plasma 8 8 - 23 mg/dL 08/12/2024 11:45 AM EDT [facility] Creatinine, Plasma 0.58(L) 0.60 - 1.10 mg/dL 08/12/2024 11:45 AM EDT [facility] BUN/Creatinine Ratio 14 08/12/2024 11:45 AM EDT [facility] Sodium, Plasma 137 136 - 145 mmol/L 08/12/2024 11:45 AM EDT [facility] Potassium, Plasma 3.6 3.6 - 4.9 mmol/L 08/12/2024 11:45 AM EDT [facility] Chloride, Plasma 103 97 - 107 mmol/L 08/12/2024 11:45 AM EDT [facility] CO2, Plasma 23 22 - 29 mmol/L 08/12/2024 11:45 AM EDT [facility] Anion Gap 11 6 - 16 mmol/L 08/12/2024 11:45 AM EDT [facility] Total Calcium, Plasma 8.7(L) 8.9 - 10.2 mg/dL 08/12/2024 11:45 AM EDT [facility] eGFRcr 103.7 mL/min/1.7 3m*2 08/12/2024 11:45 AM EDT [facility] Comment:Reported eGFRcr in m L/min/1.73m2 is based the CKD-EPI 2020 equation that does not use a race coefficient. Blood Venous blood specimen / Unknown Venipuncture / Unknown 08/12/2024 11:06 AM EDT 08/12/2024 11:18 AM EDT us Tesfaye Flood MD LAB BLOOD ORDERABLES Final Res ult [facility] [address] [place] [address] * ECG Adult (08/12/2024 10:52 AM EDT) Only the most recent of2 resultswithin the time period is included. EKG DIAGNOSIS CLASS Abnormal MUSE ECG Ventricular Rate 89 BPM MUSE ECG Atrial Rate 89 BPM MUSE ECG TX Interval 116 ms MUSE ECG QRSD Interval 76 ms MUSE ECG QT Interval 382 ms MUSE ECG QTC Interval 464 ms MUSE ECG P [place] 21 degrees MUSE ECG R [place] 40 degrees MUSE ECG T Wave [place] 73 degrees MUSE ECG Diagnosis Normal sinus rhythm MUSE ECG Diagnosis Nonspecific ST and T wave abnormality MUSE ECG Diagnosis Abnormal ECG MUSE ECG Diagnosis MUSE ECG Diagnosis Confirmed by Sincere Rico ([id number]) on 08/12/2024 10:56:44 AM MUSE ECG 08/12/2024 10:5 2 AM EDT 08/12/2024 10:56 AM EDT us Harlan Vu MD ECG ORDERABLES Final Resul t MUSE ECG * CT Angio Pulmonary Embolism (08/12/2024 10:03 AM EDT) Anatomical Region Laterality Modality Chest Computed Tomogra phy Impressions 08/12/2024 10:32 AM EDT No pulmonary embolism. Interval increase in size [...] MD on 08/12/2024 at 10:24 AM by Hi Ceja MD with acknowledgment of the results and arrangements are being made for transportation to the emergency department. Drafted by Hi Ceja MD on 08/12/2024 10:01 AM Final report signed by Hi Ceja MD on 08/12/2024 10:32 AM Narrative 08/12/2024 10:32 AM EDT CLINICAL INDICATION: Shortness of breath. TECHNIQUE: Imaging [...] report depending on the interpreting/reporting physicians. COMPARISON: Chest CT with contrast on June [...] in the left lower lobe are noted (series 8, image 105, 90, and 82). New nodules [...] and lower thoracic spine. No axillary adenopathy. Procedure Note Hi Ceja MD - 08/12/2024 CLINICAL INDICATION: Shortness of breath. TECHNIQUE: Imaging of the chest was performed from thoracic inlet through upperabdomen, using spiral technique, with administration of IV contrast perthe pulmonary angiogram protocol. 80 mL of Omnipaque-350 were administeredintravenously. Coronal MIP images were reconstructed from this dataset. Total DLP (Dose-Length Product): 455 mGy*cm. Please note: The reportedvalue represents the total of one or more individual components during theCT acquisition on this date and at this time, and as such, the same valuemay appear in more than one CT report depending on theinterpreting/reporting physicians. COMPARISON: Chest CT with contrast on June 26, 2024 FINDINGS: Pulmonary Arteries/Vessels: No filling defect. Right Heart Strain: Absent. Mediastinum and Pleura: Interval increase in size of a large right-sidedpleural effusion. No pericardial effusion. No enlarged mediastinal orhilar lymph nodes. Trace left-sided pleural effusion. Lungs: Interval complete compressed atelectasis of the right lower lobe.Interval near complete atelectasis of the right middle lobe. Partialresidual atelectasis of the right upper lobe. Linear atelectasis in theinferior lingula. Multiple pulmonary nodules in the left lower lobe arenoted (series 8, image 105, 90, and 82). New nodules in the left upperlobe also noted (series 8, image 33 and 41). Increase in size of nodule inthe inferior lingula (series 8, image 87). Upper Abdomen: Interval increase in size of left adrenal gland nodulemeasuring 20 mm, previously 17 mm (series 7, image 139. Partially imagedleft renal lesion is noted measuring up to at least 25 mm (series 7, . There is increase in size of a retrocaval lymph node measuring 17 mm,previously 15 mm (series 7, image 149). 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 No axillary adenopathy. IMPRESSION: No pulmonary embolism. Interval increase in size of a now large right pleural effusion, possiblymetastatic. Associated complete atelectasis of the right lower and middlelobes with partial atelectasis, worse compared to prior New trace left pleural effusion. Evidence of disease progression with interval increase in size and numberof pulmonary nodules as well as increase in size of a left adrenal glandnodule and retrocaval lymph node. Partially imaged heterogeneous left renal mass. Grossly unchanged lytic lesions of the left scapula and lower thoracicspine. CRITICAL RESULT: No. COMMUNICATION: These findings were discussed via secure chat with CARROL IRVERA MD on08/12/2024 at 10:24 AM by Hi Ceja MD with acknowledgment of theresults and arrangements are being made for transportation to theemergency department. Drafted by Hi Ceja MD on 08/12/2024 10:01 AM Final report signed by Hi Ceja MD on 08/12/2024 10:32 AM us Carrol Rivera MD IMG CT PROCEDURES Final Result * ECHO, ADULT TRANSTHORACIC COMPLETE W/ STRAIN (08/11/2024 2:20 PM EDT) BSA 1.80 m2 LUIS E ISCV Height 157.5 LUIS E ISCV Weight 78.9 LUIS E ISCV MV E Vmax 56.1 cm/s LUIS E ISCV MV A Vmax 72.8 cm/s LUIS E ISCV MV E/A 0.8 cm/s ULIS E ISCV TR Vmax 221.0 cm/s LUIS E ISCV RV s' Sohan 11.2 cm/s LUIS E ISCV TAPSE 18 mm LUIS E ISCV TR Max PG 20 mmHG LUIS E ISCV PA acc time 90 msec LUIS E ISCV mean PAP 39 mmHg LUIS E ISCV PA TX(ACCEL) 40.8 mmHg LUIS E ISCV Ao Root [...] E ISCV Ao V2 VTI 18.5 cm LUIS E ISCV Ao mean PG 3 mmHg LUIS [...] CHAU CV ECHO PROCEDURES Final Resul t * N-Terminal Probnp, Plasma (08/11/2024 9:56 AM EDT) [facility] N-Terminal, PROBNP, Plasma <50 0 - 899 pg/mL 08/11/2024 11:07 AM EDT [facility] Blood Venous blood specimen / Unknown Venipuncture / Unknown 08/11/2024 9:56 AM EDT 08/11/2024 10:22 AM EDT us Aurora Hubbard APRN LAB BLOOD ORDERABLES Fin al Result [facility] [address] [place] [address] * Lipid Profile, Plasma (08/11/2024 9:56 AM EDT) Pathologist [facility] Cholesterol, Plasma 160 <200 mg/dL 08/11/2024 11:07 AM EDT [facility] Comment: Cholesterol Reference Range (age >17 years): Desirable <200 mg/dL Borderline 200 to 239 mg/dL Undesirable >239 mg/dL HDL 51 >=50 mg/dL 08/11/2024 11:07 AM EDT [facility] Comment: HDL Cholesterol Reference Ranges (age >17 years): Female, acceptable > or = 50 mg/dL Male, acceptable > or = 40 mg/dL Triglycerides, Plasma 87 <150 mg/dL 08/11/2024 11:07 AM EDT [facility] Comment: Triglyceride Reference Range (age >17 years): Desirable: <150 mg/dL Borderline high: 150 to 199 mg/dL High: 200 to 499 mg/dL Very high: >499 mg/dL Increased risk of pancreatitis: >1000 mg/dL Cholesterol/HDL Ratio 3 08/11/2024 11:07 AM EDT [facility] LDL, Calculated 93 <100 mg/dL 11:07 AM EDT [facility] Comment: LDL Cholesterol Reference Range (age >17 years): Optimal: <100 mg/dL Near or above optimal: 100 - 129 mg/dL Borderline high: 130 - 159 mg/dL High: 160 - 189 mg/dL Very high: >189 mg/dL LDL Cholesterol Reference Range (age <18 years): Desirable: <110 mg/dL Borderline: 110 - 129 mg/dL Undesirable: >130 mg/dL LDL Cholesterol is calculated using the Marino/NIH equation. Fasting greater than or equal to 12 hours? Unknown 08/11/2024 11:07 AM EDT [facility] Blood Venous blood specimen / Unknown Venipuncture / Unknown 08/11/2024 9:56 AM EDT 08/11/2024 10:22 AM EDT us Aurora Hubbard APRN LAB BLOOD ORDERABLES Fin al Result [facility] [address] [place] [address] * (ABNORMAL) Hemoglobin A1c (08/22/2023 9:46 AM EDT) Hemoglobin A1c 5.7(H) <5.7 % 08/22/2023 11:54 AM EDT [facility] Blood Venous blood specimen / Unknown Venipuncture / Unknown 08/22/2023 9:46 AM EDT 08/22/2023 10:06 AM EDT Narrative [facility] - 08/22/2023 11:54 AM EDT HA1C Interpretive Data: Diagnosis of Diabetes: Diabetic > or = 6.5% Pre-diabetic 5.7 to 6.4% Non-diabetic < or = 5.6% Glycemic Targets for Type I and Type II Diabetics: Non- Adults <7.0% Adults <6.0% Children and Adolescents <7.5% Source: [place] [employer]. Standards of medical care in diabetes,2017. Diabetes Care.2017:40 (suppl 1):S1-S135. HbA1c assay performed by an ion-exchange chromatography method that is certified traceable to the DCCT. us aMrion Kennedy MOLD CLEANING AND STORAGE SUPERVISOR LAB BLOOD ORDERABLES Final Re sult [facility] [address] [place] [address] * Cytology (04/09/2006 12:00 AM EST) 04/09/2006 04/10/2006 3:1 1 PM EST Narrative [facility] - 04/16/2006 12:42 PM EST [facility] MR #: [id number] [facility] [address] [place], [place] [address] 1965 (Age: 41) FW Collect Date: 04/09/2006 00:00 Receipt Date: 04/10/2006 15:11 Page 1 DEPARTMENT OF PATHOLOGY AND LABORATORY MEDICINE CYTOPATHOLOGY REPORT Email: [email or web address] ATTENDING MD/Practitioner: Ro Maurice MD Service: PAT Location: OUTS Reported: 04/16/2006 12:42 Collected: 04/09/2006 00:00 INTERPRETATION A. THIN PREP (CERVICAL/VAGINAL): NEGATIVE FOR INTRAEPITHELIAL LESION OR MALIGNANCY. SATISFACTORY FOR EVALUATION; ENDOCERVICAL/ TRANSFORMATION ZONE COMPONENT PRESENT. Slide scanned and imaged by [employer] Imaging System with manual review of all selected jenkins. Electronically Signed Out By FELIBERTO Modi(ASCP) FELIBERTO Moid(ASCP) Cervical cytology is a screening test primarily for squamous cancers and precursors and has associated false negative and positive results. New technologies such as liquid based sampling may decrease but will not eliminate all false negative results. Regular screening and follow-up of unexplained clinical signs and symptoms are recommended to minimize false negative results. Please see the ASCCP website (www.asccp.org) for followup recommendations. If HPV testing was requested, correlation with the results is suggested (please call Microbiology at [phone] for results). CLINICAL INFORMATION: Menstrual History: Cyclic Date of Last Menstrual Period: 03/26/06 Other Clinical Conditions: Tobacco user Abnormal pap results elsewhere SPECIMEN DESCRIPTION: A: THIN PREP (CERVICAL/VAGINAL) THIN PREP PROCESS CELLULAR ENHANCEMENT ICD: 795.09 OTHER ABNORMAL PAPANICOLAOU SMEAR OF CERVIX AND CERVICAL HPV F: A; DX IMAGE [id number] SNOMED CODES: A; [id number] In cases where a pathologist has signed out the report, the service has been rendered in part by a resident. The signing pathologist has performed and is responsible for the reported pathologic evaluation. us Historical Provider MD LAB PATHOLOGY ORDERABLES Final Result [employer] from Last 3 Months or Most Recently Relevant to Health Maintenance Insurance TARA Advance Directives * Full Code (Latest Code Status on File) Date Activated Date Inactivated Comments 11/21/2023 3:19 PM 11/23/2023 4:54 PM Question Answer Comments Patient has decision-making capacity? Yes * Full Code Date Activated Date Inactivated Comments 02/04/2023 4:19 PM 02/07/2023 1:47 PM Question Answer Comments Patient has decision-making capacity? Yes Care Teams Shop Teacher Relationship Specialty Start Date End Date Jared Coronel MD [address] [place], [place] [address] PCP - General 08/12/20 Joseph Odonnell MD [address] [facility] [address] [place] [address] Surgeon Neurosurgery 02/28/23 Carrol Rivera MD [address] [facility] [address] [place] [address] Consulting Physician Medical Oncology 06/12/23 Sky Moreau MD [address] [facility] [address] [place] [address] Consulting Physician Radiation Oncology 06/12/23 Lauren Paiz, MOLD CLEANING AND STORAGE SUPERVISOR [address] [facility] [address] [place] [address] Nurse Practitioner Internal Medicine 07/19/23
--- OUTSIDE RECORDS SUMMARY | 2024-10-13 14:27 | XMS_ITS | Encounter Summary ---
Author Organization Healthcare Address [address] [place] [address] Care Team Providers Care Dbas Name Role Phone Jared Coronel MD Primary Care Provider + [phone] Joseph Odonnell MD Unavailable [phone] Carrol Armenta MD Unavailable Sky Moreau MD Unavailable [phone] Lauren Paiz APRN Unavailable [phone] Encounter Details Date Type Department Care Team (Latest Contact Info) Description 10/05/2024 Travel Social History Tobacco Use Types Packs/Day [...] in a snf (including now)? 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-PRINT AND PATTERN DESIGNER) to steady your nerves or to get [...] EDT Travel History Travel Start Travel End [place] 09/20/2024 09/25/2024 documented as of this encounter Plan of Treatment Upcoming Encounters Date Type Department Care Team (Late st Contact Info) Description 10/14/2024 11:30 AM EDT Appointment [facility] Nuclear Medicine [address] [place] [address] 10/14/2024 12:40 PM EDT Appointment [facility] Radiology [address] [place] [address] 10/14/2024 1:45 PM EDT Appointment [facility] [address] [place] [address] 10/16/2024 1:30 PM EDT Clinical Support [facility] [address] [place] [address] 10/16/2024 2:00 PM EDT Office Visit [facility] [address] [place] [address] Carrol Armenta MD [address] [address] 11/13/2024 1:00 PM EDT Office Visit [facility] Res[facility] [address] [facility], [address]nd [place] [address] Aurora Hubbard, YARN SIZER [address] [place] [address] 11/26/2024 9:15 AM EDT Appointment [facility] [address] [place] [address] 11/26/2024 10:45 AM EDT [facility] [address] [place] [address] Joseph Odonnell MD [address] [place] [address] documented as of this encounter [...] documented as of this encounter Care Teams Dbas Relationship Specialty Start Date End Date Jared Coronel MD [address] [place] [address] PCP - General 08/12/20 Joseph Odonnell MD [address] [place] [address] Surgeon Neurosurgery 02/28/23 Carrol Armenta MD [address] [facility] [address] [place] [address] Consulting Physician Medical Oncology 06/12/23 Sky Moreau MD [address] [facility] [address] [place] [address] Consulting Physician Radiation Oncology 06/12/23 Lauren Paiz APRN [address] [facility] [address] [place] [address] Nurse Practitioner Internal Medicine 07/19/23 documented as of this encounter
--- OUTSIDE RECORDS SUMMARY | 2024-10-13 14:27 | XMS_ITS | Encounter Summary ---
Author Organization Healthcare Address [address] [place] [address] Care Team Providers Care Air Valve Mechanic Name Role Phone Jared Coronel MD Primary Care Provider + [phone] Joseph Odonnell MD Unavailable [phone] Carrol Armenta MD Unavailable Sky Moreau MD Unavailable [phone] Lauren Paiz SUPERVISOR SCRAP PREPARATION Unavailable [phone] Encounter Details Date Type Department Care Team (Late st Contact Info) Description 10/09/2024 Telephone [facility] [address] [place] [address] Carrol Armenta MD [address] [address] Social History Tobacco Use Types [...] place to sleep or slept in a intermediate (including now)? 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-HEAD IRRIGATOR) to steady your nerves or to get [...] EDT Travel History Travel Start Travel End [place] 09/20/2024 09/25/2024 documented as of this encounter Miscellaneous Notes * Telephone Encounter - Rachna Maher RN - 10/09/2024 4:44 PM EDT Paperwork has been faxed back to employer, pt notified. * Telephone Encounter - Rachna Faith - 10/09/2024 9:47 AM EDT Patient Phone Message Reason for Call: Patient is calling to see if the nurses had received her paperwork about her half-way. Can you please call her back to let her know if it was received or not? Thank you so much! Best contact number and optimal time of day to reach caller: [phone] Note: Please do not reply to this message. Follow-up communication and further actions as a result of this message need to be communicated with the patient directly, if the patient is not active onMyChart. If the patient is active on MyChart, they will receive notification of the communication/outcome via The History Presst. documented in this encounter Plan of Treatment Upcoming Encounters Date Type Department Care Team (Late st Contact Info) Description 10/14/2024 11:30 AM EDT Appointment [facility] Nuclear Medicine [address] [place] [address] 10/14/2024 12:40 PM EDT Appointment [facility] Radiology [address] [place] [address] 10/14/2024 1:45 PM EDT Appointment [facility] Nuclear Medicine [address] [place] [address] 10/16/2024 1:30 PM EDT Clinical Support [facility] [address] [place] [address] 10/16/2024 2:00 PM EDT Office Visit [facility] [address] [place] [address] Carrol Armenta MD 800 [facility] [address] [place] [facility] [address] [place] [address] 11/13/2024 1:00 PM EDT Office Visit [facility] [address] [facility], [address]nd [place] [address] Aurora Hubbard, SUPERVISOR SCRAP PREPARATION [address] [place] [address] 11/26/2024 9:15 AM EDT Appointment [facility] Radiology [address] [place] [address] 11/26/2024 10:45 AM EDT Office Visit [facility] [address] [place] [address] Joseph Odonnell MD [address] [place] [address] documented as of this encounter Visit Diagnoses [...] documented as of this encounter Care Teams Air Valve Mechanic Relationship Specialty Start Date End Date Jared Coronel MD [address] [place] [address] PCP - General 08/12/20 Joseph Odonnell MD [address] [facility] [address] [place] [address] Surgeon Neurosurgery 02/28/23 Carrol Armenta MD [address] [facility] [address] [place] [address] Consulting Physician Medical Oncology 06/12/23 Sky oMreau MD [address] [facility] [address] [place] [address] Consulting Physician Radiation Oncology 06/12/23 Lauren Paiz, SUPERVISOR SCRAP PREPARATION [address] [facility] [address] [place] [address] Nurse Practitioner Internal Medicine 07/19/23 documented as of this encounter
--- NOTE | 2024-10-13 14:28 | PC.NURSE ---
MOUTH SWABS GIVEN TO PATIENT.
--- NOTE | 2024-10-13 14:38 | CT_ITS ---
PROCEDURE INFORMATION: Exam: CT Abdomen And Pelvis With Contrast Exam date and time: 10/13/2024 6:10 PM Age: 59 years old Clinical indication: Other: Abd pain, n/v/d, history of renal cell carcinoma TECHNIQUE: Imaging protocol: Computed tomography of the abdomen and pelvis with contrast. 3D rendering (Not supervised by radiologist): MIP and/or 3D reconstructed images were created by the technologist. Radiation optimization: All CT scans at this facility use at least one of these dose optimization techniques: automated exposure control; mA and/or kV adjustment per patient size (includes targeted exams where dose is matched to clinical indication); or iterative reconstruction. Contrast material: ISOVUE; Contrast volume: 70 ml; Contrast route: IV; COMPARISON: CR XR CHEST PORTABLE 10/13/2024 2:56 PM FINDINGS: Lungs: Mild right basilar opacities suggest passive atelectasis. Innumerable small nodules are present within the visualized lung bases. Two small irregular nonspecific pulmonary opacities are present, 1 within the posterior left lower lobe measuring approximately 12 mm and another in the lingula measuring approximately 13 mm. Findings may reflect additional metastatic foci, areas of parenchymal scarring and can not entirely exclude primary malignancy. Pleural spaces: There is a moderate right pleural effusion. No left effusion. Heart: The visualized portions of the heart are unremarkable. Liver: There is diffuse decrease in hepatic/liver parenchymal density consistent with fatty infiltration. Gallbladder and biliary ducts: Minor high-density material layering dependently in the gallbladder suggests stones and sludge. The gallbladder is otherwise within range of normal without gallbladder wall thickening or pericholecystic fluid. Pancreas: There is diffuse atrophy of the pancreatic parenchyma. Spleen: The spleen is normal. Adrenal glands: There is a hypodense nodule in the left adrenal gland. The density of this lesion does not allow definitive diagnosis of a benign adrenal adenoma on this enhanced examination. Hounsfield units measure approximately 35. The density of this lesion does not allow definitive diagnosis of a benign adrenal adenoma on this enhanced examination. There is a 10 x 13 mm hypodense nodule involving the right adrenal gland with internal Hounsfield units measuring approximately 20. Kidneys and ureters: There is an inferolateral small left renal hypodensity which is too small to accurately characterize. Statistically, these may be cyst. There is a 2.5 cm cyst involving the posterior left kidney. There is a mixed attenuation heterogeneous hypodensity in the superior left kidney but may reflect a renal cell carcinoma described in the clinical history. Recommend comparison with any prior studies. There are areas of renal cortical thinning/scarring bilaterally. There is mild decreased attenuation involving the superomedial renal cortices bilaterally of uncertain clinical significance. Stomach and bowel: The stomach is normal. The duodenum is unremarkable. There is mild retained fluid in the colon raising the question of diarrheal illness. There is mild mucosal enhancement involving a few loops of small bowel which are nonspecific but may reflect enteritis. Correlate clinically. Appendix: A normal appendix is identified. Intraperitoneal space: There is a small amount of free fluid present. No evidence of intraperitoneal free air. Vasculature: The aorta and iliac arteries demonstrate mild atherosclerotic calcification. Lymph nodes: There is no evidence of pathologic adenopathy. Urinary bladder: The bladder is decompressed. Reproductive: The uterus is normal. No adnexal masses. Bones/joints: Streak artifact from right hip arthroplasty and left ORIF orthopedic hardware limit evaluation of adjacent structures. Alignment appears near anatomic. There is a lucent lesion within the right pubic symphysis with bony erosive change suggestive of osseous metastasis with pathologic fracture. There is a lucent lesion within the posterior aspect of the T12 vertebral body and the T10 vertebral body worrisome for metastases. There is partial sacralization of what will be termed the L5 segment. Soft tissues: No significant soft tissue edema. IMPRESSION: 1. Multiple nodules in the visualized lung bases suggestive of pulmonary metastases. 2. Several lytic osseous lesions worrisome for osseous metastases, most noted involving the right pubic symphysis with pathologic fracture. 3. Ill-defined complex cystic mass in the superior left kidney is not optimally characterized but likely reflecting the known renal cell carcinoma. 4. Moderate right pleural effusion. 5. Small gallstones versus sludge. 6. Fatty hepatic infiltration. 7. Left and right adrenal nonspecific hypodense nodules. Definitive diagnosis of this adrenal lesion would require a noncontrast cross-sectional imaging study. 9. Small amount of non-specific free fluid. 10. Mild decreased attenuation involving the superomedial renal cortices bilaterally of uncertain clinical significance. Correlate clinically. Findings may reflect artifact, remote injury, pyelonephritis and can not exclude vascular process. COMMENTS: Consistent with the [place] [employer]'s Incidental Findings Committee white paper (J Am Joshua Radiol 2018): Any incidental renal lesion less than 1 cm or classified as too small to characterize, or any incidental cystic renal lesion characterized as simple-appearing, is likely benign. No follow-up imaging is recommended for these lesions per consensus recommendations based on imaging criteria. THIS REPORT CONTAINS FINDINGS THAT MAY BE CRITICAL TO PATIENT CARE. The findings were verbally communicated via telephone conference with Dennys Juares at 4:12 PM PT on 10/13/2024. The findings were acknowledged and understood.
--- NOTE | 2024-10-13 14:42 | ED_ITS ---
<Statement entered by Debra Sorto DO - 10/14/24 09:09> I was consulted by the DIMITRIS, and we discussed the complexity of problems being addressed. I approve the treatment and management plan for this patient's care in the emergency department, thus performing a substantial portion of the medical decision making. Debra Sorto DO Discharge Plan Disposition Patient Disposition: Home, Self-Care Prescriptions Prescriptions: No Action levothyroxine 100 mcg tablet 100 mcg PO DAILY famotidine 20 mg tablet 20 mg PO DAILY dexamethasone 1 mg tablet 1 mg PO DAILY Eliquis 5 mg tablet 5 mg PO DAILY Fotivda 1.34 mg capsule 1.34 mg PO DAILY loperamide 2 mg Tablet 2 mg PO DAILY acetaminophen 1 unit 500 mg PO DAILY ondansetron 1 unit 4 mg PO DAILY senna-docusate sodium 1 unit 8.6 - 50 mg PO DAILY Referrals Follow up/Referrals: Provider,Referral, MD [Primary Care Provider, Medical] - See instructions Activity Restrictions/Add. Instructions Additional Instructions/Restrictions: Your generalized weakness was likely secondary to being dehydrated from your ongoing diarrhea. On your CT scans we did find multiple areas of pulmonary nodules a right pleural effusion and a lytic lesion on your right scapula and lytic lesions within your pelvis concerning for possible pathologic fracture. This all seems to be consistent with your known metastatic disease potentially new lesions or areas of concern. Please continue to hydrate yourself and take your [id number] diarrhea medications and follow-up closely with your primary care doctor. Additionally as noted you had an abnormal EKG we offered for you to come to the hospital to be evaluated by her auto locator potentially to have a left heart cath which you wanted to follow-up with your auto locator at which is completely reasonable. No definitive evidence of any type of injury to your heart or heart attack. Clinical Impressions Clinical Impression: Dehydration, Renal cell carcinoma, Metastatic cancer, Lytic bone lesions on xray, Pulmonary nodule, Pleural effusion, Generalized weakness, Diarrhea, Abnormal ECG Print Language Print Language: Romansh Discharge ED Provider: Debra Sorto General Adult HPI <ISAC Banks - Last Filed: 10/13/24 19:07> General Chief complaint: Weakness Stated complaint: Weakness Time Seen by Provider: 10/13/24 14:33 Mode of Arrival: EMS Source of Information: Patient Limitations: No Limitations Description of Symptoms (Recalled from ER Triage Doc. by RN): PATIENT REPORTS DIARRHEA, WEAKNESS AND VOMITING. PATIENT REPORTS IT GOT WORSE YESTERDAY. HX OF RENAL CELL CARCINOMA. 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 ALTAMIRANO AT [facility]. HAD A THORACENTISIS 1 WEEK AGO. History of Present Illness HPI narrative: 59-year-old female presents to the emergency department via EMS for a 2-day history of generalized weakness/fatigue, nausea vomiting and diarrhea, denies any melena hematochezia hematemesis or hemoptysis, denies any hematuria, denies any dizziness lightheadedness, denies any headache, chest pain no shortness of breath, does admit to some abdominal pain at times, denies any urinary type symptomatology, initial triage vitals are notable for tachycardia, and SpO2 of 92% on room air, otherwise unremarkable, patient is a former smoker, denies any alcohol or drug use, she is currently undergoing oral chemotherapy treatment for renal cell carcinoma, unknown/unsure of which kidney affected, hematology oncologist is at [facility], she is on anticoagulation therapy with Eliquis, for what sounds of DVT prophylaxis, in the setting of most likely active cancer, however patient is unsure , hypothyroidism, GERD, she is on glucocorticoid therapy daily,/adrenal insufficiency, patient states that she had what sounds like a thoracentesis , multiple in the past, she tells me her last thoracentesis was last week, she tells me that she has some fluid buildup around my lungs due to the cancer . Of note, patient has IV NS going at the bedside patient also tells me that she has had previous what looks like metastatic disease/intracranial mass, and status post gamma knife surgery 2 to 3 years ago. Onset (ago): day(s) Related Data Home Medications ?Medication ?Instructions ?Recorded ?Confirmed acetaminophen 500 mg PO DAILY 10/13/24 apixaban 5 mg tablet (Eliquis) 5 mg PO DAILY 10/13/24 10/13/24 dexamethasone 1 mg tablet 1 mg PO DAILY 10/13/2410/13 famotidine 20 mg tablet 20 mg PO DAILY 10/13/2409/29 levothyroxine 100 mcg tablet 100 mcg PO DAILY 10/13/24 10/13/24 loperamide 2 mg tablet 2 mg PO DAILY 10/13/2410/13 ondansetron 4 mg PO DAILY 10/13/2410/13 senna-docusate sodium 8.6 - 50 mg PO DAILY 5 10/13/24 tivozanib 1.34 mg capsule (Fotivda) 1.34 mg PO DAILY 0 10/13/24 10/13/24 Allergies Allergy/AdvReac Type Severity Reaction Status Date / Time Sulfa (Sulfonamide Allergy Intermediate SWELLING, Verified 12/03/22 17:09 Antibiotics) SHORT OF BREATH PFSH <ISAC Banks - Last Filed: 10/13/24 19:07> PFS Disclaimer: The information contained in this section may have been updated after the patient was seen, as this information can be updated by other users. Medical History (Updated 10/13/24 @ 19:57 by Sloane Boggs MD) GERD (gastroesophageal reflux disease) Diabetes mellitus Surgical History (Updated 10/22/22 @ 10:09 by FARHANA Loving) History of total hip replacement Family History Family/Other Cancer Breast-aunts Other Diabetes Social History Smoking Status: Never smoker alcohol intake: never substance use type: denies use current occupational status: employed Travel in the last 8 weeks?: None caffeine: No Have you lived/traveled outside US in past 30 days?: No Contact w/someone who lives/traveled outside US past 30 days?: No Exposure to someone with infectious disease in past 14 days?: No Do you have a fever (greater than 100.4 F or 38 C)?: No Have you tested positive for COVID-19?: No Exposed to someone with COVID-19 in past 14 days?: No Do you have a sore throat?: No Do you have a cough?: No Do you have any weakness?: Yes Do you have any diarrhea?: No Are you experiencing any unusual bleeding?: No Do you have any muscle aches/pain?: No Do you have any abdominal pain?: No Are you experiencing loss of taste or smell?: No Other Medical History Have you received the Flu Vaccine for this season: No Have you received the Pneumonia Vaccine: No <ISAC Banks - Last Filed: 10/13/24 19:07> ROS Obtained: Yes All systems reviewed & no additional complaints except as documented Physical Exam <ISAC Banks - Last Filed: 10/13/24 19:07> General General appearance: alert and in no apparent distress Comment: Ill and pale appearing female Head Head exam: atraumatic and normocephalic Eye Eye exam: Present PERRL and EOMI ENT ENT exam: Present mucous membranes moist Neck Neck exam: Present normal inspection Chest Chest inspection: Present normal inspection and symmetric chest wall rise Respiratory Respiratory exam: Present normal lung sounds bilaterally; Absent respiratory distress, wheezes or stridor Cardiovascular Cardiovascular exam: Present normal rhythm and tachycardia Abdominal Exam Abdominal exam: Present soft; Absent tenderness, guarding, rebound or rigidity Extremities Exam Extremities exam: Present normal inspection Neurological Exam Neurological exam: Present alert and oriented X3 Psychiatric Psychiatric exam: Present normal affect Skin Skin exam: Present warm and dry Medical Decision Making <ISAC Banks - Last Filed: 10/13/24 19:07> Medical Records Medical records reviewed: Yes I reviewed the patient's medical records. Screening: Per USPSTF and CDC recommendations, given the prevalence of disease in our region, it is our hospital?s policy to screen for HIV and viral Hepatitis for all patients aged 18 and over and those with ongoing risk factors. Christiano Inquiry Pt receiving controlled substance: No Christiano was queried for this patient: No Vital Signs: 10/13/24 14:15 10/13/24 14:34 10/13/24 16:00 Temperature 97.8 F Temperature Source Oral Pulse Rate 118 H 109 H Pulse Rate [Left Radial] 118 H Respiratory Rate 18 17 Blood Pressure 128/63 105/72 L Blood Pressure [Left Radial Artery] 135/94 H Blood Pressure Mean [Left Radial Artery] 107 Blood Pressure Source Automatic Cuff Blood Pressure Source [Left Radial Artery] Automatic Cuff Blood Pressure Position Sitting Blood Pressure Position [Left Radial Artery] Sitting 02 Sat by Pulse Oximetry 97 97 96 Oxygen Delivery Method Room Air Room Air 10/13/24 16:30 10/13/24 17:00 10/13/24 17:31 Temperature Temperature Source Pulse Rate 109 H 107 H 112 H Pulse Rate [Left Radial] Respiratory Rate Blood Pressure 103/67 L 111/82 116/63 Blood Pressure [Left Radial Artery] Blood Pressure Mean [Left Radial Artery] Blood Pressure Source Blood Pressure Source [Left Radial Artery] Blood Pressure Position Blood Pressure Position [Left Radial Artery] 02 Sat by Pulse Oximetry 92 L 97 95 Oxygen Delivery Method 10/13/24 18:00 Temperature Temperature Source Pulse Rate 108 H Pulse Rate [Left Radial] Respiratory Rate Blood Pressure 119/81 Blood Pressure [Left Radial Artery] Blood Pressure Mean [Left Radial Artery] Blood Pressure Source Blood Pressure Source [Left Radial Artery] Blood Pressure Position Blood Pressure Position [Left Radial Artery] 02 Sat by Pulse Oximetry 96 Oxygen Delivery Method Lab Data Lab results reviewed: Yes I reviewed the patient's lab results. Lab Results 10/13/24 17:17: WBC 9.5, RBC 5.02, Hgb 13.6, Hct 43.1, MCV 85.9, MCH 27.1, MCHC 31.6 L, RDW 17.9 H, Plt Count 256, MPV 11.0 H, Neut % (Auto) 77.7, Lymph % (Auto) 14.1, [place] % (Auto) 6.4, Eos % (Auto) 0.9, Baso % (Auto) 0.3, Neut # (Auto) 7.4, Lymph # (Auto) 1.3, [place] # (Auto) 0.6, Eos # (Auto) 0.1, Baso # (Auto) 0.0, ESR 22, Sodium 136, Potassium 3.7, Chloride 101, Carbon Dioxide 22, Anion Gap 16.7 H, BUN 15, Creatinine 0.70, Estimated Creat Clear 102, Estimated GFR 85, Est GFR ( Amer) 103, Glucose 97, Calcium 9.6, Magnesium 1.8, T otal Bilirubin 1.7 H, AST 34, ALT 33, Alkaline Phosphatase 95, Troponin I < 0.01, C-Reactive Protein 86.5 H, NT-Pro-B Natriuret Pep 67.3, Total Protein 6.2 L, Albumin 3.7, Globulin 2.5, Albumin/Globulin Ratio 1.5, Lipase 44, HIV Ag/Ab Combo Qual Negative 10/13/24 17:28: Urine Color Red, Urine Appearance Cloudy, Urine pH 6.0, Ur Specific [place] >= 1.030, Urine Protein 1+ A, Urine Glucose (UA) Negative, Urine Ketones Negative, Urine Blood Trace-l, Urine Nitrate Negative, Urine Bilirubin 2+ A, Urine Urobilinogen 0.2, Ur Leukocyte Esterase 1+ A, Urine RBC 5- 10, Urine WBC 5-10, Ur Squamous Epith Cells 5-10, Urine Bacteria 2+ 10/13/24 18:54: Troponin I < 0.01 10/13/24 17:17 10/13/24 17:17 Orders (Tests/Meds): ED MEDICATIONS Discontinued Medications Generic Name Dose Route Start Last Admin Trade Name Freq PRN Reason Stop Dose Admin Iopamidol 70 ml 10/13/24 18:10 10/13/24 18:12 Iopamidol-370 (76%);100ml Bottle IV 10/13/24 18:11 70 ml ONCE ONE Administration Ondansetron HCl 4 mg 10/13/24 14:39 10/13/24 15:01 Ondansetron 4mg/2ml Vial IV 10/13/24 14:40 4 mg ONCE ONE Administration Sodium Chloride 50 ml 10/13/24 18:10 10/13/24 18:12 0.9 % Sodium Chloride 50 Ml Vial IV 10/13/24 18:11 50 ml ONCE ONE Administration Sodium Chloride 10 ml 10/13/24 18:10 10/13/24 18:12 Sodium Chloride 0.9% 10ml Syr (Rad Only) IV 10/13/24 18:11 10 ml ONCE ONE Administration ORDERS Category Date Time Status CT abdomen pelvis w con Stat Cat Scan 10/13/24 14:38 Completed CTA Chest [CT angio chest PE protocol] Stat Cat Scan 10/13/24 16:01 Completed XR chest portable Stat Exams 10/13/24 14:43 Completed CRP [C-Reactive Protein] Stat Lab 10/13/24 17:17 Completed Complete Blood Count Auto Diff Stat Lab 10/13/24 17:17 Completed Comprehensive Metabolic Panel Stat Lab 10/13/24 17:17 Completed ESR [Erythrocyte Sedimentation Rate] Stat Lab 10/13/24 17:17 Completed HIV Combo Routine Lab 10/13/24 17:17 Completed Hepatitis C Ab Qual. W/ RFX Routine Lab 10/13/24 17:17 Received Lipase Stat Lab 10/13/24 17:17 Completed Magnesium Stat Lab 10/13/24 17:17 Completed NT Pro Brain Natriuretic Pep. Stat Lab 10/13/24 17:17 Completed Troponin I Q3H Lab 10/13/24 18:54 Completed Troponin I Q3H Lab 10/13/24 21:45 Ordered Troponin I Stat Lab 10/13/24 17:17 Completed Urinalysis and Microscopic Stat Lab 10/13/24 17:28 Completed Urine Culture Stat Micro 10/13/24 17:28 Received Medical Decision Narrative: 59-year-old female presents to the emergency department with generalized weakness, diarrhea nausea and vomiting, for 2 days, differential diagnosis include but not limited to cardiac arrhythmia, electrolyte disturbance, acute kidney injury, hypovolemia, malignancy, acute UTI, colitis, ileitis, bowel obstruction among others. Will obtain basic laboratory studies, lipase, magnesium level urinalysis, CT ab pelvis with contrast, troponin, EKG, will give 4 mg of Zofran for nausea, and CXR. I along with the attending physician reviewed the patient's EKG at 1534, sinus tachycardia at 110 bpm, ID interval within normals, QT interval within normal limits there is no STEMI, there are some ST depression/inversions in multiple leads, concerning for subendocardial injury, thus will obtain CTA chest with and without contrast PE protocol. Reviewed the patient's chest x-ray along the corresponding radiologic report, small right pleural effusion. Red cell distribution width is 17.9% which is elevated CRP is significantly elevated 86.5 CMP is notable for total bilirubin is mildly evaded at 1.7, lipase in normal limits Troponin within normal limits at less than 0.01 UA is notable for 1+ leukocyte Estrace, negative nitrites. ESR within normal limits I discussed the patient's case with the attending physician Dr. Boggs at shift change, he will be assuming the patient's care/workup, disposition is pending CT reads. <Sloane Boggs MD - Last Filed: 10/13/24 19:59> Vital Signs: 10/13/24 14:15 10/13/24 14:34 10/13/24 16:00 Temperature 97.8 F Temperature Source Oral Pulse Rate 118 H 109 H Pulse Rate [Left Radial] 118 H Respiratory Rate 18 17 Blood Pressure 128/63 105/72 L Blood Pressure [Left Radial Artery] 135/94 H Blood Pressure Mean [Left Radial Artery] 107 Blood Pressure Source Automatic Cuff Blood Pressure Source [Left Radial Artery] Automatic Cuff Blood Pressure Position Sitting Blood Pressure Position [Left Radial Artery] Sitting 02 Sat by Pulse Oximetry 97 97 96 Oxygen Delivery Method Room Air Room Air 10/13/24 16:30 10/13/24 17:00 10/13/24 17:31 Temperature Temperature Source Pulse Rate 109 H 107 H 112 H Pulse Rate [Left Radial] Respiratory Rate Blood Pressure 103/67 L 111/82 116/63 Blood Pressure [Left Radial Artery] Blood Pressure Mean [Left Radial Artery] Blood Pressure Source Blood Pressure Source [Left Radial Artery] Blood Pressure Position Blood Pressure Position [Left Radial Artery] 02 Sat by Pulse Oximetry 92 L 97 95 Oxygen Delivery Method 10/13/24 18:00 Temperature Temperature Source Pulse Rate 108 H Pulse Rate [Left Radial] Respiratory Rate Blood Pressure 119/81 Blood Pressure [Left Radial Artery] Blood Pressure Mean [Left Radial Artery] Blood Pressure Source Blood Pressure Source [Left Radial Artery] Blood Pressure Position Blood Pressure Position [Left Radial Artery] 02 Sat by Pulse Oximetry 96 Oxygen Delivery Method Lab Data Lab Results 10/13/24 17:17: WBC 9.5, RBC 5.02, Hgb 13.6, Hct 43.1, MCV 85.9, MCH 27.1, MCHC 31.6 L, RDW 17.9 H, Plt Count 256, MPV 11.0 H, Neut % (Auto) 77.7, Lymph % (Auto) 14.1, [place] % (Auto) 6.4, Eos % (Auto) 0.9, Baso % (Auto) 0.3, Neut # (Auto) 7.4, Lymph # (Auto) 1.3, [place] # (Auto) 0.6, Eos # (Auto) 0.1, Baso # (Auto) 0.0, ESR 22, Sodium 136, Potassium 3.7, Chloride 101, Carbon Dioxide 22, Anion Gap 16.7 H, BUN 15, Creatinine 0.70, Estimated Creat Clear 102, Estimated GFR 85, Est GFR ( Amer) 103, Glucose 97, Calcium 9.6, Magnesium 1.8, T otal Bilirubin 1.7 H, AST 34, ALT 33, Alkaline Phosphatase 95, Troponin I < 0.01, C-Reactive Protein 86.5 H, NT-Pro-B Natriuret Pep 67.3, Total Protein 6.2 L, Albumin 3.7, Globulin 2.5, Albumin/Globulin Ratio 1.5, Lipase 44, HIV Ag/Ab Combo Qual Negative 10/13/24 17:28: Urine Color Red, Urine Appearance Cloudy, Urine pH 6.0, Ur Specific [place] >= 1.030, Urine Protein 1+ A, Urine Glucose (UA) Negative, Urine Ketones Negative, Urine Blood Trace-l, Urine Nitrate Negative, Urine Bilirubin 2+ A, Urine Urobilinogen 0.2, Ur Leukocyte Esterase 1+ A, Urine RBC 5- 10, Urine WBC 5-10, Ur Squamous Epith Cells 5-10, Urine Bacteria 2+ 10/13/24 18:54: Troponin I < 0.01 Orders (Tests/Meds): ED MEDICATIONS Discontinued Medications Generic Name Dose Route Start Last Admin Trade Name Mychalq PRN Reason Stop Dose Admin Iopamidol 70 ml 10/13/24 18:10 10/13/24 18:12 Iopamidol-370 (76%);100ml Bottle IV 10/13/24 18:11 70 ml ONCE ONE Administration Ondansetron HCl 4 mg 10/13/24 14:39 10/13/24 15:01 Ondansetron 4mg/2ml Vial IV 10/13/24 14:40 4 mg ONCE ONE Administration Sodium Chloride 50 ml 10/13/24 18:10 10/13/24 18:12 0.9 % Sodium Chloride 50 Ml Vial IV 10/13/24 18:11 50 ml ONCE ONE Administration Sodium Chloride 10 ml 10/13/24 18:10 10/13/24 18:12 Sodium Chloride 0.9% 10ml Syr (Rad Only) IV 10/13/24 18:11 10 ml ONCE ONE Administration ORDERS Category Date Time Status CT abdomen pelvis w con Stat Cat Scan 10/13/24 14:38 Completed CTA Chest [CT angio chest PE protocol] Stat Cat Scan 10/13/24 16:01 Completed XR chest portable Stat Exams 10/13/24 14:43 Completed CRP [C-Reactive Protein] Stat Lab 10/13/24 17:17 Completed Complete Blood Count Auto Diff Stat Lab 10/13/24 17:17 Completed Comprehensive Metabolic Panel Stat Lab 10/13/24 17:17 Completed ESR [Erythrocyte Sedimentation Rate] Stat Lab 10/13/24 17:17 Completed HIV Combo Routine Lab 10/13/24 17:17 Completed Hepatitis C Ab Qual. W/ RFX Routine Lab 10/13/24 17:17 Received Lipase Stat Lab 10/13/24 17:17 Completed Magnesium Stat Lab 10/13/24 17:17 Completed NT Pro Brain Natriuretic Pep. Stat Lab 10/13/24 17:17 Completed Troponin I Q3H Lab 10/13/24 18:54 Completed Troponin I Q3H Lab 10/13/24 21:45 Ordered Troponin I Stat Lab 10/13/24 17:17 Completed Urinalysis and Microscopic Stat Lab 10/13/24 17:28 Completed Urine Culture Stat Micro 10/13/24 17:28 Received Medical Decision Narrative: 59-year-old female presents to the emergency department with generalized weakness, diarrhea nausea and vomiting, for 2 days, differential diagnosis include but not limited to cardiac arrhythmia, electrolyte disturbance, acute kidney injury, hypovolemia, malignancy, acute UTI, colitis, ileitis, bowel obstruction among others. Will obtain basic laboratory studies, lipase, magnesium level urinalysis, CT ab pelvis with contrast, troponin, EKG, will give 4 mg of Zofran for nausea, and CXR. I along with the attending physician reviewed the patient's EKG at 1534, sinus tachycardia at 110 bpm, ID interval within normals, QT interval within normal limits there is no STEMI, there are some ST depression/inversions in multiple leads, concerning for subendocardial injury, thus will obtain CTA chest with and without contrast PE protocol. Reviewed the patient's chest x-ray along the corresponding radiologic report, small right pleural effusion. Red cell distribution width is 17.9% which is elevated CRP is significantly elevated 86.5 CMP is notable for total bilirubin is mildly evaded at 1.7, lipase in normal limits Troponin within normal limits at less than 0.01 UA is notable for 1+ leukocyte Estrace, negative nitrites. ESR within normal limits I discussed the patient's case with the attending physician Dr. Boggs at shift change, he will be assuming the patient's care/workup, disposition is pending CT reads. I was consulted by the DIMITRIS, and we discussed the complexity of the problems being addressed. I approved the treatment and management plan for this patient's care in the emergency department, thus performing a substantive portion of the medical decision making. Sloane Boggs MD, TEMO, FACEP This is Dr. Boggs I took over from [place] around 7 PM to follow-up CT scans. I personally interpreted them and reviewed radiology reads. There are multiple pulmonary nodules or right pleural effusion and lytic lesions on the right scapula lytic lesions within the right pelvis concerning for pathologic fracture and a known lesion of the left kidney consistent with renal cell carcinoma. Patient is known to have stage IV renal cell carcinoma closely follows with we will follow-up about all these with after discussing them with her. Additionally patient felt much better after IV fluids she has had ongoing diarrhea likely have some volume loss and dehydration associated with this given the fact that she significantly improved with rehydration. Patient is been advised to continue her clci-imi-iwxkhts loperamide and to continue to take her nausea medications and hydrate herself and to follow-up closely with her doctors at . Lastly she had an abnormal EKG with some concern for subendocardial ischemia however she has had no ischemic symptoms and has a normal troponin. I offered to admit her to be evaluated by her auto locator but she wants to follow-up with her auto locator at . Additionally she states that she would not want to have a left heart cath right now. Patient was discharged in stable condition and significantly improved from her initial presentation. Critical Care <ISAC Banks - Last Filed: 10/13/24 19:07> Critical Care Time Critical Care Time: No <Sloane Boggs MD - Last Filed: 10/13/24 19:59> Critical Care Time Critical Care Time: Yes Attestation: On 10/13/24, the high probability of a clinically significant, sudden or life threatening deterioration of the following system(s) required my full and direct attention, intervention and personal management. The time I documented below is in addition to time spent performing reported procedures but includes the following listed in this critical care notation. Total Time Total Critical Care Time: 35
--- NOTE | 2024-10-13 14:43 | XR_ITS ---
FINAL REPORT CLINICAL HISTORY: Shortness of breath COMPARISON: 08/10/2024 FINDINGS: A single frontal view of the chest was obtained. Small right pleural effusion, significantly improved from the previous exam. The left lung is clear. There is no pneumothorax. Mediastinum is unremarkable. Heart size is normal. IMPRESSION: Small right pleural effusion. Reviewed, Interpreted and Dictated by Faiza Iniguez MD Transcribed by Mini Renae Authenticated and . [facility]
[2024-10-13] MEDS: ONDANSETRON 4MG/2ML VIAL 4 MG IV (15:01)
--- NOTE | 2024-10-13 15:33 | ECG_ITS ---
APPROVED REPORT Exam: Resting ECG HR:110 bpm ECG Measurements Heart Rate 110 AXES TX 137 P 53 QRSd 100 QRS 112 QT 332 T 217 QTc 397 Conclusion Sinus tachycardia without acute ST or T wave changes concerning for ischemia Electronically signed by : Debra Sorto, 10/14/2024 07:07:39
--- NOTE | 2024-10-13 16:01 | CT_ITS ---
PROCEDURE INFORMATION: Exam: CTA Chest With Contrast Exam date and time: 10/13/2024 6:10 PM Age: 59 years old Clinical indication: Shortness of breath; Additional info: Shortness of air TECHNIQUE: Imaging protocol: Computed tomographic angiography of the chest with contrast. Exam focused on the arteries. 3D rendering (Not supervised by radiologist): MIP and/or 3D reconstructed images were created by the technologist. Radiation optimization: All CT scans at this facility use at least one of these dose optimization techniques: automated exposure control; mA and/or kV adjustment per patient size (includes targeted exams where dose is matched to clinical indication); or iterative reconstruction. Contrast material: ISO 370; Contrast volume: 70 ml; Contrast route: INTRAVENOUS (IV); COMPARISON: CT ANGIO CHEST PE PROTOCOL 10/13/2024 6:10 PM FINDINGS: Pulmonary arteries: There is no evidence of filling defects within the pulmonary arterial circulation to suggest pulmonary embolism. Aorta: There is no evidence of an aortic aneurysm. There is no evidence of aortic dissection, leak, rupture, or other acute vascular pathology. Lungs: Innumerable pulmonary nodules are consistent with metastases. Mild right basilar opacities suggest passive atelectasis. Innumerable small nodules are present within the visualized lung bases. Two small irregular nonspecific pulmonary opacities are present, 1 within the posterior left lower lobe measuring approximately 12 mm and another in the lingula measuring approximately 13 mm. Findings may reflect additional metastatic foci, areas of parenchymal scarring and can not entirely exclude primary malignancy. Pleural spaces: There is a moderate right pleural effusion. No left pleural effusion. Heart: No significant pericardial effusions. The heart is nonenlarged. Lymph nodes: No enlarged lymph nodes. Intraperitoneal space: Findings within the upper abdomen are described in the associated CT of the abdomen and pelvis report from the same date and time. Please reference that report for additional information. Bones/joints: There is a lytic lesion involving the superomedial scapula worrisome for osseous metastasis. There is a lytic lesion involving the T12 left parasagittal posterior vertebral body with extension into the posterior elements/pedicle. There is a lytic lesion also involving the left posterior T10 vertebral body with extension posteriorly into the pedicle. Soft tissues: Unremarkable. IMPRESSION: 1. Lytic lesions suggestive of osseous metastases involving the left scapula, as well as the T10 and T12 vertebral bodies. 2. Moderate right pleural effusion with adjacent passive atelectasis. 3. Innumerable pulmonary nodules consistent with pulmonary metastases. Fleischner Society follow up recommendations for incidental nodules are not indicated. Follow up per the patient's medical condition. 4. No evidence of pulmonary embolism. THIS REPORT CONTAINS FINDINGS THAT MAY BE CRITICAL TO PATIENT CARE. The findings were verbally communicated via telephone conference with Dennys Juares at 4:12 PM PT on 10/13/2024. The findings were acknowledged and understood.
[2024-10-13 17:34] LABS: Microscopic, Urine URINE MICROSCOPIC (MICROSCOPIC)
[2024-10-13 17:34] LABS: Hematocrit 43.1 % (37.0-47.0); Hemoglobin 13.6 g/dL (12.2-16.2); Immature Granulocytes % 0.6 %; Mean Corpuscular HGB Conc 31.6 g/dL (31.8-35.4); Mean Corpuscular Hemoglobin 27.1 pg (27.0-31.2); Mean Corpuscular Volume 85.9 fl (81-99); Nucleated Red Blood Cells % 0 %; Platelet Count 256 K/mm3 (142-424); Red Blood Count 5.02 M/mm3 (4.20-5.40); Red Cell Distribution Width-SD 55.5 fL; White Blood Count 9.5 K/mm3 (4.8-10.8)
[2024-10-13 17:41] LABS: C-Reactive Protein 86.5 mg/L (0-4)
[2024-10-13 17:47] LABS: NT Pro Brain Natriuretic Pep. 67.3 pg/mL (0-125)
[2024-10-13 17:48] LABS: Glucose,Urine (UA) Negative (Negative); Ketones,Urine Negative (Negative); Leukocyte Esterase,Urine 1+ (Negative); PH,Urine 6.0 (5.0-8.5); Protein,Urine 1+ (Negative); Specific Gravity, Urine >= 1.030 (1.005-1.030); Urobilinogen,Urine 0.2 EU/dl (0.2)
[2024-10-13 17:58] LABS: Alanine Aminotransferase 33 U/L (12-78); Albumin Level 3.7 g/dl (3.5-5.0); Albumin/Globulin Ratio 1.5 (1.1-1.8); Alkaline Phosphatase 95 U/L (38-126); Anion Gap 16.7 mEq/L (5-15); Aspartate Amino Transferase 34 U/L (14-36); Bilirubin,Total 1.7 mg/dl (0.2-1.3); Blood Urea Nitrogen 15 mg/dl (7-17); Calcium 9.6 mg/dl (8.4-10.2); Carbon Dioxide 22 mmol/L (22.0-30.0); Chloride 101 mmol/L (98-107); Creatinine Clearance Estimated 102 mL/min (50-200); Creatinine,Serum 0.70 mg/dl (0.52-1.04); Estimated Glomerular Filt Rate 85 ml/min (>60); GFR (African American) 103 ML/MIN (>60); Globulin 2.5 g/dL (1.3-3.2); Glucose 97 mg/dl (74-100); Lipase 44 U/L (23-300); Magnesium 1.8 mg/dl (1.6-2.3); Potassium 3.7 mmoL/L (3.5-5.1); Sodium 136 mmol/L (136-145); Total Protein,Serum 6.2 g/dl (6.3-8.2)
[2024-10-13 18:03] LABS: Troponin I < 0.01 ng/ml (0.00-0.034)
[2024-10-13 18:05] LABS: Bilirubin,Urine 2+ (Negative)
[2024-10-13 18:06] LABS: Color,Urine Red (Yellow)
[2024-10-13] MEDS: SODIUM CHLORIDE 0.9% 10ML SYR (RAD ONLY) 10 ML IV (18:12)
[2024-10-13] MEDS: 0.9 % SODIUM CHLORIDE 50 ML VIAL IV (18:12)
[2024-10-13] MEDS: IOPAMIDOL-370 (76%);100ML BOTTLE 70 ML IV (18:12)
[2024-10-13 18:21] LABS: Bacteria,Urine 2+ /lpf
--- NOTE | 2024-10-13 18:39 | PC.NURSE ---
upon attempt to redress IV, skin tear noted during process. MD notified, wound clean and dressed
[2024-10-13 19:50] LABS: Troponin I < 0.01 ng/ml (0.00-0.034)
--- NOTE | 2024-10-13 19:56 | [facility].EDGENADL ---
Discharge Plan Disposition Patient Disposition: Home, Self-Care Prescriptions Prescriptions: No Action levothyroxine 100 mcg tablet 100 mcg PO DAILY famotidine 20 mg tablet 20 mg PO DAILY dexamethasone 1 mg tablet 1 mg PO DAILY Eliquis 5 mg tablet 5 mg PO DAILY Fotivda 1.34 mg capsule 1.34 mg PO DAILY loperamide 2 mg Tablet 2 mg PO DAILY acetaminophen 1 unit 500 mg PO DAILY ondansetron 1 unit 4 mg PO DAILY senna-docusate sodium 1 unit 8.6 - 50 mg PO DAILY Referrals Follow up/Referrals: Provider,Referral, MD [Primary Care Provider, Medical] - See instructions Activity Restrictions/Add. Instructions Additional Instructions/Restrictions: Your generalized weakness was likely secondary to being dehydrated from your ongoing diarrhea. On your CT scans we did find multiple areas of pulmonary nodules a right pleural effusion and a lytic lesion on your right scapula and lytic lesions within your pelvis concerning for possible pathologic fracture. This all seems to be consistent with your known metastatic disease potentially new lesions or areas of concern. Please continue to hydrate yourself and take your [id number] diarrhea medications and follow-up closely with your primary care doctor. Additionally as noted you had an abnormal EKG we offered for you to come to the hospital to be evaluated by her dish stacker potentially to have a left heart cath which you wanted to follow-up with your dish stacker at which is completely reasonable. No definitive evidence of any type of injury to your heart or heart attack. Clinical Impressions Clinical Impression: Dehydration, Renal cell carcinoma, Metastatic cancer, Lytic bone lesions on xray, Pulmonary nodule, Pleural effusion, Generalized weakness, Diarrhea, Abnormal ECG Print Language Print Language: Romanian Discharge ED Provider: Debra Sorto Adult HPI General Chief complaint: Weakness Stated complaint: Weakness Time Seen by Provider: 10/13/24 14:33 Mode of Arrival: EMS Source of Information: Patient Limitations: No Limitations Description of Symptoms (Recalled from ER Triage Doc. by RN): PATIENT REPORTS DIARRHEA, WEAKNESS AND VOMITING. PATIENT REPORTS IT GOT WORSE YESTERDAY. HX OF RENAL CELL CARCINOMA. 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 ALTAMIRANO AT [facility]. HAD A THORACENTISIS 1 WEEK AGO. History of Present Illness Onset (ago): day(s) Related Data Home Medications ?Medication ?Instructions ?Recorded ?Confirmed acetaminophen 500 mg PO DAILY 10/13/24 10/13/24 apixaban 5 mg tablet (Eliquis) 5 mg PO DAILY 10/13/24 10/13/24 dexamethasone 1 mg tablet 1 mg PO DAILY 10/13/24 10/13/24 famotidine 20 mg tablet 20 mg PO DAILY 10/13/24 10/13/24 levothyroxine 100 mcg tablet 100 mcg PO DAILY 10/13/24 10/13/24 loperamide 2 mg tablet 2 mg PO DAILY 10/13/24 10/13/24 ondansetron 4 mg PO DAILY 10/13/24 10/13/24 senna-docusate sodium 8.6 - 50 mg PO DAILY 10/13/24 10/13/24 tivozanib 1.34 mg capsule (Fotivda) 1.34 mg PO DAILY 10/13/24 10/13/24 Allergies Allergy/AdvReac Type Severity Reaction Status Date / Time Sulfa (Sulfonamide Allergy Intermediate SWELLING, Verified 12/03/22 17:09 Antibiotics) [facility]ORT [facility] BREATH [facility] Disclaimer: The information contained in this section may have been updated after the patient was seen, as this information can be updated by other users. Medical History (Updated 10/13/24 @ 19:57 by Sloane Boggs MD) GERD (gastroesophageal reflux disease) Diabetes mellitus Surgical History (Updated 10/22/22 @ 10:09 by FARHANA Loving) History of total hip replacement Family History Family/Other Cancer Breast-aunts Other Diabetes Social History Smoking Status: Never smoker alcohol intake: never substance use type: denies use current occupational status: employed Travel in the last 8 weeks?: None caffeine: No Have you lived/traveled outside [place] in past 30 days?: No Contact w/someone who lives/traveled outside US past 30 days?: No Exposure to someone with infectious disease in past 14 days?: No Do you have a fever (greater than 100.4 F or 38 C)?: No Have you tested positive for COVID-19?: No Exposed to someone with COVID-19 in past 14 days?: No Do you have a sore throat?: No Do you have a cough?: No Do you have any weakness?: Yes Do you have any diarrhea?: No Are you experiencing any unusual bleeding?: No Do you have any muscle aches/pain?: No Do you have any abdominal pain?: No Are you experiencing loss of taste or smell?: No Other Medical History Have you received the Flu Vaccine for this season: No Have you received the Pneumonia Vaccine: No Physical Exam General General appearance: alert and in no apparent distress Medical Decision Making Medical Records Screening: Per USPSTF and CDC recommendations, given the prevalence of disease in our region, it is our hospital?s policy to screen for HIV and viral Hepatitis for all patients aged 18 and over and those with ongoing risk factors. Vital Signs: 10/13/24 14:15 10/13/24 14:34 10/13/24 16:00 Temperature 97.8 F Temperature Source Oral Pulse Rate 118 H 109 H Pulse Rate [Left Radial] 118 H Respiratory Rate 18 17 Blood Pressure 128/63 105/72 L Blood Pressure [Left Radial Artery] 135/94 H Blood Pressure Mean [Left Radial Artery] 107 Blood Pressure Source Automatic Cuff Blood Pressure Source [Left Radial Artery] Automatic Cuff Blood Pressure Position Sitting Blood Pressure Position [Left Radial Artery] Sitting 02 Sat by Pulse Oximetry 97 97 96 Oxygen Delivery Method Room Air Room Air 10/13/24 16:30 10/13/24 17:00 10/13/24 17:31 Temperature Temperature Source Pulse Rate 109 H 107 H 112 H Pulse Rate [Left Radial] Respiratory Rate Blood Pressure 103/67 L 111/82 116/63 Blood Pressure [Left Radial Artery] Blood Pressure Mean [Left Radial Artery] Blood Pressure Source Blood Pressure Source [Left Radial Artery] Blood Pressure Position Blood Pressure Position [Left Radial Artery] 02 Sat by Pulse Oximetry 92 L 97 95 Oxygen Delivery Method 10/13/24 18:00 Temperature Temperature Source Pulse Rate 108 H Pulse Rate [Left Radial] Respiratory Rate Blood Pressure 119/81 Blood Pressure [Left Radial Artery] Blood Pressure Mean [Left Radial Artery] Blood Pressure Source Blood Pressure Source [Left Radial Artery] Blood Pressure Position Blood Pressure Position [Left Radial Artery] 02 Sat by Pulse Oximetry 96 Oxygen Delivery Method Lab Data Lab results reviewed: Yes I reviewed the patient's lab results. Lab Results 10/13/24 17:17: WBC 9.5, RBC 5.02, Hgb 13.6, Hct 43.1, MCV 85.9, MCH 27.1, MCHC 31.6 L, RDW 17.9 H, Plt Count 256, MPV 11.0 H, Neut % (Auto) 77.7, Lymph % (Auto) 14.1, [place] % (Auto) 6.4, Eos % (Auto) 0.9, Baso % (Auto) 0.3, Neut # (Auto) 7.4, Lymph # (Auto) 1.3, [place] # (Auto) 0.6, Eos # (Auto) 0.1, Baso # (Auto) 0.0, ESR 22, Sodium 136, Potassium 3.7, Chloride 101, Carbon Dioxide 22, Anion Gap 16.7 H, BUN 15, Creatinine 0.70, Estimated Creat Clear 102, Estimated GFR 85, Est GFR ( Amer) 103, Glucose 97, Calcium 9.6, Magnesium 1.8, Total Bilirubin 1.7 H, AST 34, ALT 33, Alkaline Phosphatase 95, Troponin I < 0.01, C-Reactive Protein 86.5 H, NT-Pro-B Natriuret Pep 67.3, Total Protein 6.2 L, Albumin 3.7, Globulin 2.5, Albumin/Globulin Ratio 1.5, Lipase 44, HIV Ag/Ab Combo Qual Negative 10/13/24 17:28: Urine Color Red, Urine Appearance Cloudy, Urine pH 6.0, Ur Specific [place] >= 1.030, Urine Protein 1+ A, Urine Glucose (UA) Negative, Urine Ketones Negative, Urine Blood Trace-l, Urine Nitrate Negative, Urine Bilirubin 2+ A, Urine Urobilinogen 0.2, Ur Leukocyte Esterase 1+ A, Urine RBC 5-10, Urine WBC 5-10, Ur Squamous Epith Cells 5-10, Urine Bacteria 2+ 10/13/24 18:54: Troponin I < 0.01 10/13/24 17:17 10/13/24 17:17 Orders (Tests/Meds): ED MEDICATIONS Discontinued Medications Generic Name Dose Route Start Last Admin Trade Name Freq PRN Reason Stop Dose Admin Iopamidol 70 ml 10/13/24 18:10 10/13/24 18:12 Iopamidol-370 (76%);100ml Bottle IV 10/13/24 18:11 70 ml ONCE ONE Administration Ondansetron HCl 4 mg 10/13/24 14:39 10/13/24 15:01 Ondansetron 4mg/2ml Vial IV 10/13/24 14:40 4 mg ONCE ONE Administration Sodium Chloride 50 ml 10/13/24 18:10 10/13/24 18:12 0.9 % Sodium Chloride 50 Ml Vial IV 10/13/24 18:11 50 ml ONCE ONE Administration Sodium Chloride 10 ml 10/13/24 18:10 10/13/24 18:12 Sodium Chloride 0.9% 10ml Syr (Rad Only) IV 10/13/24 18:11 10 ml ONCE ONE Administration ORDERS Category Date Time Status CT abdomen pelvis w con Stat Cat Scan 10/13/24 14:38 Completed CTA Chest [CT angio chest PE protocol] Stat Cat Scan 10/13/24 16:01 Completed XR chest portable Stat Exams 10/13/24 14:43 Completed CRP [C-Reactive Protein] Stat Lab 10/13/24 17:17 Completed Complete Blood Count Auto Diff Stat Lab 10/13/24 17:17 Completed Comprehensive Metabolic Panel Stat Lab 10/13/24 17:17 Completed ESR [Erythrocyte Sedimentation Rate] Stat Lab 10/13/24 17:17 Completed HIV Combo Routine Lab 10/13/24 17:17 Completed Hepatitis C Ab Qual. W/ RFX Routine Lab 10/13/24 17:17 Received Lipase Stat Lab 10/13/24 17:17 Completed Magnesium Stat Lab 10/13/24 17:17 Completed NT Pro Brain Natriuretic Pep. Stat Lab 10/13/24 17:17 Completed Troponin I Q3H Lab 10/13/24 18:54 Completed Troponin I Q3H Lab 10/13/24 21:45 Ordered Troponin I Stat Lab 10/13/24 17:17 Completed Urinalysis and Microscopic Stat Lab 10/13/24 17:28 Completed Urine Culture Stat Micro 10/13/24 17:28 Received
[2024-10-13 20:01] LABS: Hepatitis C Ab Qual. W/ RFX NEGATIVE (Negative)
== END 2024-10-13 20:07 | disposition home or self-care (01) ==
PROVIDERS: Physician Assistant; Emergency Provider Student in an Organized Health Care Education/Training Program
DX: E86.0 Dehydration (principal); J90 Pleural effusion, not elsewhere classified; R91.8 Other nonspecific abnormal finding of lung field; C64.9 Malignant neoplasm of unspecified kidney, except renal pelvis; M89.8X9 Other specified disorders of bone, unspecified site; R94.31 Abnormal electrocardiogram [ECG] [EKG]; R53.1 Weakness; R19.7 Diarrhea, unspecified
CPT/HCPCS: 71045; 71275; 74177; 80053; 81001; 83690; 83735; 83880; 84484; 85025; 85651; 86140; 86803; 87086; 87389; 93005; 96374; 99285; J2405; Q9967

== ENCOUNTER 2024-12-21 17:41 | Emergency (ER) | payer BC, SELFPAY ==
--- OUTSIDE RECORDS SUMMARY | 2024-10-23 10:38 | XMS_ITS | Encounter Summary ---
Author Organization Healthcare Address [address] [place] [address] Care Team Providers Care Setter Molding And Coremaking Machines Name Role Phone Jared Coronel MD Primary Care Provider + [phone] Joseph Odonnell MD Unavailable [phone] Carrol Armenta MD Unavailable Sky Moreau MD Unavailable [phone] Lauren Paiz ENDOSCOPY TECHNICAN Unavailable [phone] Reason for Referral * Imaging (Urgent) - Closed Specialty Diagnoses / Procedures Referred By Tammy little Referred To Contact Radiology Diagnoses Renal cell carcinoma, unspecified laterality Procedures CT Abdomen Pelvis w IV Contrast Carrol Armenta MD [address] [address] Phone: tel: fax: Referral ID Status Reason Start Date Expiration Date Visits Re quested Visits Authorized [id number] Closed 10/16/2024 04/17/2026 1 1 Reason for Visit * Imaging (Urgent) - Closed Specialty Diagnoses / Procedures Referred By Tammy little Referred To Contact Radiology Diagnoses Renal cell carcinoma, unspecified laterality Procedures CT Abdomen Pelvis w IV Contrast Carrol Armenta MD [address] [address] Phone: tel: fax: Referral ID Status Reason Start Date Expiration Date Visits Re quested Visits Authorized [id number] Closed 10/16/2024 04/17/2026 1 1 Encounter Details Date Type Department Care Team (Latest Contact Info) Description 10/23/2024 10:38 AM EDT - 10/23/2024 11:59 PM EDT Hospital Encounter [facility] [place] [address] [place] [address] Renal cell carcinoma, unspecified laterality Discharge Disposition: [...] drink first t nichole in the morning (EYE-CHIROPRACTIC ASSISTANT) to steady your nerves or to get [...] Orientation Straight 11/21/2023 5: 34 PM EDT documented as of this encounter Medications at Time of Discharge acetaminophen (Tylenol) 500 MG tablet Take 1 tablet (500 mg) by mouth every 6 (six) hours. 100 tablet 11/23/2023 famotidine (Pepcid) 20 MG tablet Take 1 [...] 11/23/2023 Tivozanib HCl 0.89 MG capsule Take one cap daily 30 capsule 3 10/16/2024 dexamethasone (Decadron) 1 MG tablet Take 1 tablet by mouth in the morning and 1 tablet before bedtime. 60 tablet 1 07/03/2024 5 oxyCODONE (Roxicodone) 5 MG immediate release tablet Take 1 tablet by mouth every 8 hours as needed for moderate pain. 90 tablet 09/16/2024 5 apixaban (Eliquis) 5 MG tabletIndications:Re nal cell carcinoma, unspecified laterality Take 1 tablet by mouth 2 times a day. 60 tablet 5 09/01/2024 5 documented as of this encounter Miscellaneous Notes * Lisa Billings N - 10/23/2024 10:42 AM EDT Images from the original note were not included. [id number] Caring for Yourself after Contrast Imaging If [...] Care Team (Late st Contact Info) Description 12/22/2024 12:30 PM EDT Appointment [facility] Interventional Radiology [facility] [place] [address] 12/29/2024 11:45 AM EDT Appointment [facility] Interventional Radiology [address] [place] [address] 02/17/2025 11:20 AM EST Office Visit [facility] 800 [facility], [address]nd [place] [address] Aurora Hubbard, ENDOSCOPY TECHNICAN [address] [place] [address] documented as of this encounter Procedures Procedure Name Priority Date/Time Associated Diagnosis Comments CT ABDOMEN PELVIS W IV CONTRAST STAT 10/23/2024 11:33 AM EDT Renal cell carcinoma, unspecified laterality documented in this encounter Results * CT Abdomen Pelvis w IV Contrast (10/23/2024 11:33 AM EDT) Anatomical Region Laterality Modality Abdomen, Pelvis Computed Tomogra phy Impressions 10/23/2024 1:46 PM EDT Small interval increase in size of the previously demonstrated ill-defined left renal mass, with bilateral adrenal nodules compatible with metastatic disease. The previously described liver lesion is similar in appearance compared to prior study, with questionable peripheral arterial enhancement, and may represent an additional metastatic focus. MRI scan of the abdomen with contrast may be performed for further evaluation if clinically indicated. Stable bone metastases. CRITICAL RESULT: No. COMMUNICATION: Per this written report. By electronically signing this report, I, the attending physician, attest that I have personally reviewed the images/data for the above examination(s) and agree with the final edited report. Drafted by Fausto Holley MD on 10/23/2024 12:14 PM Final report signed by Ramila Diaz MD on 10/23/2024 1:46 PM Narrative 10/23/2024 1:46 PM EDT CLINICAL INDICATION: liver mass TECHNIQUE: Multiple axial CT images were obtained from lung bases through pubic symphysis following administration of IV contrast, Omnipaque 300, 100 mL. Images were obtained in the arterial, venous, and three-minute delayed phases. Reformatted images in the coronal and sagittal planes were generated from the axial data set to facilitate diagnostic accuracy. Total DLP (Dose-Length Product): 842.39 mGy.cm. Please note: The reported value represents the total of one or more individual components during the CT acquisition on this date and at this time, and as such, the same value may appear in more than one CT report depending on the interpreting/reporting physicians. COMPARISON: October 14, 2024 FINDINGS: Lower Chest: Persistent moderate right-sided pleural effusion, unchanged. Persistent pulmonary nodules in the left lower lobe, for example an 8 mm left lower lobe nodule (series 9 image 8), additional subpleural 8 mm nodule in the posterior costophrenic angle (series 9 image 29) Solid Abdominal Organs: 9 mm hypodense hepatic segment 2 (series 9 image 33), which demonstrates questionable peripheral arterial enhancement is unchanged. No new suspicious hepatic lesions. Unremarkable gallbladder. No suspicious pancreatic findings. Normal size spleen with homogeneous enhancement. Persistent bilateral adrenal nodules, with a 2.1 cm nodule in the left adrenal gland and a 1.5 cm nodule in the right adrenal gland. Left kidney demonstrates heterogeneous ill-defined endophytic mass, measuring approximately 4.0 x 3.4 x 3.7 cm (series 8 image 48 and series 10 image 82), previously 3.1 cm. Exophytic cyst in the left upper pole measuring approximately 2.5 cm (series 8 image 52). Unremarkable right kidney GI Tract/Mesentery/Peritoneum: The large and small bowel appear normal in caliber. No evidence of inflammatory change. No suspicious peritoneal/mesenteric findings. Pelvic Viscera: No suspicious pelvic mass lesions. Lymph Nodes/Vasculature: No lymphadenopathy by CT size criteria. The aortoiliac vasculature is patent and normal in caliber. Free Fluid: No ascites Musculoskeletal and Body Wall: Redemonstration of lytic lesions in the T11 and L1 vertebral bodies, compatible with metastatic disease. Procedure Note Ramila Diaz MD - 10/23/2024 CLINICAL INDICATION: liver mass TECHNIQUE: Multiple axial CT images were obtained from lung bases through pubicsymphysis following administration of IV contrast, Omnipaque 300, 100 mL.Images were obtained in the arterial, venous, and three-minute delayedphases. Reformatted images in the coronal and sagittal planes weregenerated from the axial data set to facilitate diagnostic accuracy. Total DLP (Dose-Length Product): 842.39 mGy.cm. Please note: The reportedvalue represents the total of one or more individual components during theCT acquisition on this date and at this time, and as such, the same valuemay appear in more than one CT report depending on theinterpreting/reporting physicians. COMPARISON: October 14, 2024 FINDINGS: Lower Chest: Persistent moderate right-sided pleural effusion, unchanged.Persistent pulmonary nodules in the left lower lobe, for example an 8 mmleft lower lobe nodule (series 9 image 8), additional subpleural 8 mmnodule in the posterior costophrenic angle (series 9 image 29) Solid Abdominal Organs: 9 mm hypodense hepatic segment 2 (series 9 image33), which demonstrates questionable peripheral arterial enhancement isunchanged. No new suspicious hepatic lesions. Unremarkable gallbladder. Nosuspicious pancreatic findings. Normal size spleen with homogeneousenhancement. Persistent bilateral adrenal nodules, with a 2.1 cm nodule inthe left adrenal gland and a 1.5 cm nodule in the right adrenal gland.Left kidney demonstrates heterogeneous ill-defined endophytic mass,measuring approximately 4.0 x 3.4 x 3.7 cm (series 8 image 48 and qarqjp40 image 82), previously 3.1 cm. Exophytic cyst in the left upper polemeasuring approximately 2.5 cm (series 8 image 52). Unremarkable rightkidney GI Tract/Mesentery/Peritoneum: The large and small bowel appear normal incaliber. No evidence of inflammatory change. No suspiciousperitoneal/mesenteric findings. Pelvic Viscera: No suspicious pelvic mass lesions. Lymph Nodes/Vasculature: No lymphadenopathy by CT size criteria. Theaortoiliac vasculature is patent and normal in caliber. Free Fluid: No ascites Musculoskeletal and Body Wall: Redemonstration of lytic lesions in the T11and L1 vertebral bodies, compatible with metastatic disease. IMPRESSION: Small interval increase in size of the previously demonstratedill-defined left renal mass, with bilateral adrenal nodules compatiblewith metastatic disease. The previously described liver lesion is similar in appearance compared toprior study, with questionable peripheral arterial enhancement, and mayrepresent an additional metastatic focus. MRI scan of the abdomen withcontrast may be performed for further evaluation if clinicallyindicated. Stable bone metastases. CRITICAL RESULT: No. COMMUNICATION: Per this written report. By electronically signing this report, I, the attending physician, attestthat I have personally reviewed the images/data for the aboveexamination(s) and agree with the final edited report. Drafted by Fausto Holley MD on 10/23/2024 12:14 PM Final report signed by Ramila Diaz MD on 10/23/2024 1:46 PM Carrol Armenta MD IMG CT PROCEDURES Final Result documented in this encounter Visit Diagnoses Diagnosis Renal cell carcinoma, unspecified laterality documented in this encounter Administered Medications Inactive Administered Medications - up to 3 most recent administrations Medication Order MAR Action Action Date Dose Rate Site iohexol (OMNIPaque) 350 MG/ML injection 100 mL 100 mL, Intravenous, Once in imaging, 1 dose, Starting on Sat10/23/24 at 1042, Until Sat10/23/24 at 1117, Routine, Imaging Protocol Orders Given 10/23/2024 11:17 AM EDT 100 mL iohexol (OMNIPaque) 9 MG/ML oral contrast 500 mL 500 mL, Oral, Once in imaging, 1 dose, Starting on Sat10/23/24 at 1042, Until Sat10/23/24 at 1046, Routine, Imaging Protocol Orders Given 10/23/2024 10:46 AM EDT 500 mL documented in this encounter Additional Health Concerns Assessment Noted Time PHQ-9 Depression Total Score: 0 09/17/19 9:51 AM EDT A fall risk assessment has been complete d for the patient 09/16/2024 9:51 AM EDT A Body Mass Index follow-up plan has been documented for the patient 10/05/2024 12:41 PM EDT documented as of this encounter Care Teams Setter Molding And Coremaking Machines Relationship Specialty Start Date End Date Jared Coronel MD [address] [place] [address] PCP - General 08/12/20 Joseph Odonnell MD [address] [place] [address] Surgeon Neurosurgery 02/28/23 Carrol Armenta MD [address] [facility] [address] [place] [address] Consulting Physician Medical Oncology 06/12/23 Sky Moreau MD [address] [facility] [address] [place] [address] Consulting Physician Radiation Oncology 06/12/23 Lauren Paiz, ERIC [address] [facility] [place] [address] [place] [address] Nurse Practitioner Internal Medicine 07/19/23 documented as of this encounter
--- OUTSIDE RECORDS SUMMARY | 2024-11-03 08:20 | XMS_ITS | Encounter Summary ---
Author Organization Healthcare Address [address] [place] [address] Care Team Providers Care Counter Former Name Role Phone Jared Coronel MD Primary Care Provider [phone] Joseph Odonnell MD Unavailable [phone] Carrol Armenta MD Unavailable Sky Moreau MD Unavailable [phone] Lauren Paiz ACOUSTICAL INSTALLER Unavailable [phone] Reason for Referral * Imaging (Routine) - Closed Specialty Diagnoses / Procedures Referred By Contac t Referred To Contact Radiology Diagnoses Pleural effusion Procedures US Guided Thoracentesis Natty Choe APRN [address] [place] [address] Phone: tel: fax: Referral ID Status Reason Start Date Expiration Date Visits Re quested Visits Authorized [id number] Closed 10/29/2024 04/30/2026 1 1 Reason for Visit * Imaging (Routine) - Closed Specialty Diagnoses / Procedures Referred By Contac t Referred To Contact Radiology Diagnoses Pleural effusion Procedures US Guided Thoracentesis Natty Choe APRN [address] [place] [address] Phone: tel: fax: Referral ID Status Reason Start Date Expiration Date Visits Re quested Visits Authorized [id number] Closed 10/29/2024 04/30/2026 1 1 Encounter Details Date Type Department Care Team (Late st Contact Info) Description 11/03/2024 8:20 AM EDT - 11/03/2024 10:26 AM EDT Hospital Encounter [facility] Interventional Radiology [address] [place] [address] Natali Ho RN [facility] INTERVENT[facility]OLOG[facility] Pleural effusion Discharge Disposition: Home or Self [...] place to sleep or slept in a [facility] (including now)? 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-FACIAL OPERATOR) to steady your nerves or to [...] PM EDT documented as of this encounter Last Filed Vital Signs Vital Sign Reading Time Taken Comments Blood Pressure 102/60 11/03/2024 10:15 AM EDT Pulse 92 11/03/2024 10:15 AM EDT Temperature 36.4 C (97.6 F) 11/03/2024 9:36 AM EDT Respiratory Rate 19 11/03/2024 10:15 AM EDT Oxygen Saturation 92% 11/03/2024 10:15 AM EDT Inhaled Oxygen Concentration - - Weight 76.8 kg (169 lb 5 oz) 11/03/2024 8:28 AM EDT Height 157.5 cm (5' 2 ) 11/03/2024 8:28 AM EDT Body Mass Index 30.97 11/03/2024 8:28 AM EDT documented in this encounter Functional Status * Calculated C-SSRS Risk Score (Lifetime/Recent) Answer Date of Assessment Author No Risk Indicated 11/03/2024 8:41 AM EDT Natali Ho RN * Question Answer Date of Assessment Author 1. Wish to be (Past 1 Month) No 025 8:41 AM EDT Natali Ho RN 2. Non-Specific Active Suici yemi Thoughts (Past 1 Month) No 11/03/2024 8:41 AM EDT Natali Ho RN 6. Suicidal Behavior (Lifetime) No 8:41 AM EDT Natali Ho RN documented as of this encounter Discharge Instructions * Discharge Instructions* Natali Ho RN - 11/03/2024 8:31 AM EDT *Interventional Radiology* (IR) Questions/Concerns & Appointments: If there are questions or concerns after discharge please call: [facility] at [phone] Saturday - Saturday 8:00 AM to 4:30 PM After hours, weekends, and holidays please call [phone] and ask for the Interventional Radiology provider/Resident on-call Intervention Radiology Appointments: If you need to reschedule a procedure, please call our Schedulers at [phone], option 4. If you need to schedule or reschedule a clinic appointment, please call [phone]. [facility] Inter[facility] [address], [facility] [place] [address] documented in this encounter Medications at Time [...] encounter Miscellaneous Notes * Progress Notes - Natali Ho RN - 11/03/2024 11:09 AM EDT VSSJACQUIE noted, VU of care after discharge and denies questions or concerns. Discharged to private vehicle by ambulation accompanied by family; all personal belongings with pt, bay void of any patient belongings upon exit. Natali Ho RN 11/03/2024 1105 * Post-Procedure Note - Natty Choe APRN - 11/03/2024 9:30 AM EDT Vascular and Interventional Radiology Brief Postprocedure Note Performed by: Natty Choe APRN Senior Category Manager: DEEPALI Pre-operative Diagnosis: right pleural effusion Post-operative [...] H&P Note - Natty Choe APRN - 11/03/2024 9:30 AM EDT H&P reviewed. No new changes Source Note - Anaya Nagel APRN, DNP - [...] Total DLP (Dose-Length Product): 1087.15 mGy.cm (accession [id number]), 1087.15 mGy.cm (accession [id number]) Please note: The reported value represents the [...] is no recent study available for direct potu-oz-rlky comparison. Assessment & Plan: De Smita Metastatic [...] the care of this patient. Anaya Nagel, ACOUSTICAL INSTALLER, DNP Interventional Radiology [phone] [1] Past Medical History: Diagnosis Date Blood [...] 10 mL, Intravenous, PRN,Anaya Nagel APRN, DNP * Natali Torres RN - 11/03/2024 8:28 AM EDT Images from the original note were not included. [id number] Discharge Instructions for Thoracentesis Thoracentesis is a [...] blood. Last Reviewed Date: 2024 00:00:00 ?? [id number] [employer]. All rights reserved. This information is not intended as a substitute for professional medical care. Always follow your healthcare professional's instructions. documented in this encounter Plan of Treatment Upcoming Encounters Date Type Department Care Team ([facility] st Contact Info) Description 12/22/2024 12:30 PM EDT Appointment [facility] Interventional Radiology [address] [place] [address] 12/29/2024 11:45 AM EDT Appointment [facility] A Interventional Radiology [address] [place] [address] 02/17/2025 11:20 AM EST Office Visit [facility]ck [facility] Respiratory [address] [facility], [address] [place] [address] Aurora Hubbard, ACOUSTICAL INSTALLER [address] [place] [address] documented as of this encounter Procedures Procedure Name Priority Date/Time Associated Diagnosis Comments XR CHEST 1 VIEW Routine 11/03/2024 10:53 AM EDT US GUIDED THORACENTESIS Routine 11/03/2024 9:32 AM EDT Pleural effusion documented in this encounter Results * XR Chest 1 View (11/03/2024 10:53 AM EDT) Anatomical Region Laterality Modality Chest Digital Radiogra phy Impressions 11/03/2024 11:00 AM EDT No pneumothorax. CRITICAL RESULT: No. COMMUNICATION: Per this written report. By electronically signing this report, I, the attending physician, attest that I have personally reviewed the images/data for the above examination(s) and agree with the final edited report. Drafted by Liz Castle MD on 11/03/2024 10:55 AM Final report signed by Laith Cash MD on 11/03/2024 11:00 AM Narrative 11/03/2024 11:00 AM EDT CLINICAL INDICATION: s/p thora TECHNIQUE: XR CHEST 1 VIEW COMPARISON: Chest radiograph October 05, 2024 FINDINGS: Cardiac silhouette and mediastinal contours are stable. No consolidation. Right perihilar and basilar atelectasis. Stable small right-sided pleural effusions. No pneumothorax. Procedure Note Laith Cash MD - 11/03/2024 CLINICAL INDICATION: s/p thora TECHNIQUE: XR CHEST 1 VIEW COMPARISON: Chest radiograph October 05, 2024 FINDINGS: Cardiac silhouette and mediastinal contours are stable. No consolidation.Right perihilar and basilar atelectasis. Stable small right-sided pleuraleffusions. No pneumothorax. IMPRESSION: No pneumothorax. CRITICAL RESULT: No. COMMUNICATION: Per this written report. By electronically signing this report, I, the attending physician, attestthat I have personally reviewed the images/data for the aboveexamination(s) and agree with the final edited report. Drafted by Liz Castle MD on 11/03/2024 10:55 AM Final report signed by Laith Cash MD on 11/03/2024 11:00 AM us Natty N Cheeks ACOUSTICAL INSTALLER IMG XR PROCEDURES Final Resu lt * US Guided Thoracentesis (11/03/2024 9:32 AM EDT) Anatomical Region Laterality Modality Chest Ultrasound Impressions 11/03/2024 2:56 PM EDT Technically successful ultrasound guided thoracentesis. A total of 1.55 liters of clear yellow fluid was removed. CRITICAL RESULT: No. COMMUNICATION: Per this written report. Preliminary report signed by ANDERSON Banda on 11/03/2024 2:46 PM By electronically signing this report, I, the attending physician, attest that I was not present for the procedure(s) but agree with the final edited report. Drafted by ANDERSON Banda on 11/03/2024 2:44 PM Final report signed by Kam Montes MD on 11/03/2024 2:56 PM Narrative 11/03/2024 2:56 PM EDT CLINICAL INDICATION: Abby Winston is a 59 y.o. 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 TECHNIQUE: Pizza Chef: Natty Choe APRN Secondary Edge Glue Machine Tender: None. Nurse: Sumeet Technologist: Melanie Kemp Dose: NA Medications: Continuous physiologic monitoring provided by a qualified healthcare professional. Administered: 1% Lidocaine SQ. Antibiotics: NA Time out: 911 Procedure: After discussion of risks and benefits, [...] permanent storage in PACS. A total of 1.55 liters of clear yellow fluid was removed. The needle was removed and occlusive dressing applied. The patient tolerated the procedure well. The patient left the IR suite in stable condition. COMPARISON: None. FINDINGS: Large right pleural fluid. COMPLICATION: No. Procedure Note Kam Montes MD - 11/03/2024 CLINICAL INDICATION: Abby Winston is a 59 y.o. female with a past medical history of withpast medical history of De Smita Metastatic Clear Cell Renal Cell Carcinomawith brain mets and right pleural effusion who presents for rightthoracentesis. TECHNIQUE: Pizza Chef: Natty Choe APRN Secondary Edge Glue Machine Tender: None. Nurse: Sumeet Technologist: Melanie Kemp Dose: NA Medications: Continuous physiologic monitoring provided by a qualifiedhealthcare professional. Administered: 1% Lidocaine SQ. Antibiotics: NA Time out: 911 Procedure: After discussion of risks and benefits, [...] to permanentstorage in PACS. A total of 1.55 liters of clear yellow fluid was removed.The needle was removed and occlusive dressing applied. The patient tolerated the procedure well. The patient left the IR suitein stable condition. COMPARISON: None. FINDINGS: Large right pleural fluid. COMPLICATION: No. IMPRESSION: Technically successful ultrasound guided thoracentesis. A total of 1.55 liters of clear yellow fluid was removed. CRITICAL RESULT: No. COMMUNICATION: Per this written report. Preliminary report signed by ANDERSON Banda on 11/03/2024 2:46 PM By electronically signing this report, I, the attending physician, attestthat I was not present for the procedure(s) but agree with the finaledited report. Drafted by ANDERSON Banda on 11/03/2024 2:44 PM Final report signed by Kam Montes MD on 11/03/2024 2:56 PM Natty Choe ACOUSTICAL INSTALLER IMG US PROCEDURES Final Resu lt documented in this encounter Visit Diagnoses Diagnosis Pleural effusion Unspecified pleural effusion documented in this encounter Administered Medications Inactive Administered Medications - up to 3 most recent administrations Medication Order MAR Action Action Date Dose Rate Site lidocaine 0.9% in sodium bicarbonate (buffered lidocaine) solution solution As needed, Starting on Sat11/03/24 at 0912, Until Sat11/03/24 at 0912, Routine, Intraprocedure Given 11/03/2024 9:12 AM EDT 10 mL Back documented in this encounter Additional Health Concerns Assessment Noted Time PHQ-9 Depression Total Score: 0 09/17/19 9:51 AM EDT A fall risk assessment has been complete d for the patient 09/16/2024 9:51 AM EDT A Body Mass Index follow-up plan has been documented for the patient 11/03/2024 10:35 AM EDT documented as of this encounter Care Teams Counter Former Relationship Specialty Start Date End Date Jared Coronel MD [address] [place] [address] PCP - General 08/12/20 Joseph Odonnell MD [address] [place] [address] Surgeon Neurosurgery 02/28/23 Carrol Armenta MD [address] [place] [address] Consulting Physician Medical Oncology 06/12/23 Sky Moreau MD [address] [facility] [address] [place] [address] Consulting Physician Radiation Oncology 06/12/23 Lauren Paiz APRN [address] [facility] [address] [address] Nurse Practitioner Internal Medicine 07/19/23 documented as of this encounter
--- OUTSIDE RECORDS SUMMARY | 2024-11-03 10:27 | XMS_ITS | Encounter Summary ---
Author Organization Healthcare Address [address] [place] [address] Care Team Providers Care Pediatric Immunologist Name Role Phone Jared Coronel MD Primary Care Provider [phone] Joseph Odonnell MD Unavailable [phone] Carrol Armenta MD Unavailable Sky Moreau MD Unavailable [phone] Lauren Paiz PEDIATRICIAN Unavailable [phone] Encounter Details Date Type Department Care Team (Latest Contact Info) Description 11/03/2024 10:27 AM EDT - 11/03/2024 11:59 PM EDT Hospital Encounter [facility] [address] [place] [address] Discharge Disposition: Home or Self Care Social [...] place to sleep or slept in a skilled nursing (including now)? 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) to steady your nerves or to get rid of a hangover? 0 11/21/2023 CAGE Questionnaire Score 0 024 Utilities Answer Date Recorded In the past 12 months has th e electric, gas, oil, or water [employer] threatened to shut off services in your home? No 11/22/2023 PHQ-2A Answer Date Recorded Depression Risk 0 01/20/2024 Comments No Sex and Gender Information Value Date Recorded Sex Assigned at Female 02/06/2023 2:02 PM EST Legal Sex Female 8:17 PM EDT Gender Identity Female 02/06/2023 2:02 PM EST Sexual Orientation Straight 11/21/2023 5: 34 PM EDT documented as of this encounter Functional Status [...] Ho RN documented as of this encounter Medications at [...] 09/01/2024 5 documented as of this encounter Plan of Treatment Upcoming Encounters Date Type Department Care Team ([facility] st Contact Info) Description 12/22/2024 12:30 PM EDT Appointment [facility]iology [address] [place] [address] 12/29/2024 11:45 AM EDT Appointment [facility] [address] [place] [address] 02/17/2025 11:20 AM EST Office Visit [facility] [address] [facility] [place] [address] Aurora Hubbard, PEDIATRICIAN [address] [place] [address] documented as of this encounter Procedures Procedure Name Priority Date/Time Associated Diagnosis Comments XR CHEST 1 VIEW Routine 11/03/2024 10:53 AM EDT documented in this encounter Results [...] 11/03/2024 11:00 AM us Natty N Cheeks PEDIATRICIAN IMG XR PROCEDURES Final Resu lt documented [...] documented as of this encounter Care Teams Pediatric Immunologist Relationship Specialty Start Date End Date Jared Coronel MD [address] [place] [address] PCP - General 08/12/20 Joseph Odonnell MD [address] [place] [id number] Surgeon Neurosurgery 02/28/23 Carrol Armenta MD [address] [facility] [address] [place] [id number] Consulting Physician Medical Oncology 06/12/23 Sky Moreau MD [address] [place] [phone] Consulting Physician Radiation Oncology 06/12/23 Lauren Paiz, PEDIATRICIAN [address] [facility] [address] [place] [id number] Nurse Practitioner Internal Medicine 07/19/23 documented as of this encounter
--- OUTSIDE RECORDS SUMMARY | 2024-11-13 13:00 | XMS_ITS | Encounter Summary ---
Author Organization Healthcare Address [address] [place] [address] Care Team Providers Care Developmental Training Counselor Name Role Phone Jared Coronel MD Primary Care Provider [phone] Joseph Odonnell MD Unavailable [phone] Carrol Armenta MD Unavailable Sky Moreau MD Unavailable [phone] Lauren Paiz PUBLIC HEALTH OUTREACH WORKER Unavailable [phone] Reason for Visit * Reason Comments Follow-up Encounter Details Date Type Department Care Team (Late st Contact Info) Description 11/13/2024 1:00 PM EDT Office Visit Pav CC Head, Neck & Respiratory [address] [facility], [address] [place] [id number] Aurora Hubbard, PUBLIC HEALTH OUTREACH WORKER [address] [place] [address] Bruising (Primary Dx); Current use of fci anticoagulation; Encounter for monitoring cardiotoxic drug therapy Social History Tobacco Use Types Packs/Day Years Used Date Smoking Tobacco: Former Cigarettes 1 35 0 04/01/1979 - 2014 Passive Smoke Exposure: Never Smokeless Tobacco: Never Tobacco Cessation:Counseling Given: No Alcohol Use Standard Drinks/Week Comments Never 0 [...] Date Recorded Patient Health Questionnaire-2 Score 0 11/18/2024 Hunger Vital Sign Answer Date Recorded Within [...] in a assisted (including now)? No 11/22/2023 PHQ-9 Answer Date [...] first t nichole in the morning (EYE-SENIOR QUALITY CONTROL TECHNICIAN) to steady your nerves or to get [...] Sign Reading Time Taken Comments Blood Pressure 130/83 11/13/2024 1:24 PM EDT Pulse 103 11/13/2024 1:24 PM EDT Temperature 36.8 C (98.2 F) 11/13/2024 12:59 PM EDT Respiratory Rate - - Oxygen Saturation 92% 11/13/2024 1:24 PM EDT Inhaled Oxygen Concentration - - Weight 76.6 kg (168 lb 14 oz) 11/13/2024 12:59 P M EDT Height - - Body Mass Index 30.89 11/03/2024 8:28 AM EDT documented in this encounter Miscellaneous Notes * Clinician Note - Brad Pinto RN - 11/13/2024 1:00 PM EDT CARDIO-ONCOLOGY SUMMARY REFERRING: Sonali Beasley APRN CURRENT ONCOLOGY DIAGNOSIS: Metastatic renal call carcinoma REASON FOR VISIT: Shortness of breath CARDIOTOXIC CHEMOTHERAPIES RECEIVED: Nivolumab Ipilimumab Cabozantinib Tivozanib- current treatment RISK STRATIFICATION: DVT DM CARDIAC TESTING COMPLETED: Echo 08/11/2024- EF 50%, mild AR and TR * Clinician Note - Laith Saunders PharmD - 11/13/2024 1:00 PM EDT Cardio-Oncology Cardiotoxicity Review CV PharmD evaluated the patient's current cancer treatment for pertinent cardiotoxicities. Current Cancer Treatment Regimen Tivozanib on days 1-21 of a 28-day cycle Pertinent Cardiotoxicities VEGF-inhibiting monoclonal antibodies (aflibercept, bevacizumab, ramucirumab) and tyrosine kinase inhibitors (axitinib, cabozantinib, lenvatinib, pazopanib, regorafenib, sorafenib, sunitinib, tivozanib, vandetanib) are most commonly associated with hypertension and less commonly with HF and QTcF prolongation.1 Hypertension is a class effect of VEGF-inhibiting medications and typically occurs within a hours to first few days of starting treatment. Reference Neal Suarez??keny-Eduarda??yvonne T, Jhonatan LS, et al. 2021 ESC Guidelines on cardio- oncology developed in collaboration with the Hematology Association (EHA), the Society for Therapeutic Radiology and Oncology (ESTRO) and the International Cardio-Oncology Society (IC-OS). Eur Heart J. 202 2;43(75):1413-0037. doi:10.1093/eurheartj/[email or web address] Laith Saunders PharmD, [facility] Ambulatory Clinical Pharmacist General Cardiology, Cardio-Oncology, and [facility] [phone] * Clinician Note - Laith Saunders PharmD - 11/13/2024 1:00 PM EDT Reviewed the patient's past medical and treatment history with apixaban with Aurora Hubbard APRN. Patient in clinic today reports severe bruising and petechiae for the past month with even the water pressure from showering causing her to bruise. Patient's upper and lower extremities covered in bruises that are also painful. Of note, patient recently started treatment with ivosidenib in August 2024. Ivosidenib is a VEGF-inhibiting tyrosine kinase inhibitor that increases risk of both bleeding and clotting due to anti-VEGF activity. Patient has been treated with apixaban 5 mg twice daily for >6 months for DVT. Repeat venous duplex in August 2024 revealed no evidence of acute DVT. In reviewing these data with PUBLIC HEALTH OUTREACH WORKER, recommended to stop treatment with apixaban due to concerns for severe bruising and to reassess when she sees oncology next week. Patient expressed understanding and is agreeable to plan. Follow up with provider as scheduled. Patient understands to call clinic sooner with any questions or concerns. Laith Saunders, [place], [facility] Ambulatory Clinical Pharmacist General Cardiology, Cardio-Oncology, and [facility] [phone] * Progress Notes - Aurora Hubbard, ERIC - 11/13/2024 1:00 PM EDT Images from the original note were not included. Cardio-Oncology Clinic CC: Chief Complaint Patient presents with Follow-up HPI: Ms.Angela Nichole Winston is a 59 y.o. female seen today in the Cardio-Oncology Clinic @ [facility] for follow up for worsening shortness of breath. Due to progressive worsening widespread bruising the pt self decreased her dose of Eliquis down to once daily. Originally seen by us in Cardio Oncology 12/2023 for dizziness and Ici surveillance . She is complaining of worsening SOB on exertion. She has noted this ~6 months ago, following Cabozantinib start. Symptoms gradually improved, and she noted she felt well and without symptoms prior to her operationin 10/2023 and when chemo was held. She has noticed since restarting, she is having more exertional dyspnea in the last ~3 weeks She followed up and was last seen in our office 04/14/[address] Horton and her symptoms had improvedwith holding therapy. the echocardiogram done today which was ordered last visit and shows normal ejection fraction, overall unremarkable echocardiogram. We also obtain labs last visit notably NT proBNP and troponin to workup her dyspnea on exertion with chemotherapy and they both were normal. Interval History Pt has excessive bruising and bleeding under the skin. This started 6 weeks ago and has gotten muchworse in the last 2 weeks. Taking a shower causes bruising just the water hitting her legs. It originally started more on her legs and forearms but has now started to cover her chest and upper arms. Simply placing the BP cuff on her arm today caused bruising. She states that she went to the ER [facility] for weakness, severe fatigue, N/V/D and was dehydrated. They did an EKG per the pt and wanted to admit her and do a heart cath and the pt declined. She said she was not comfortable with having a heart cath there and she was not having any chest pain. She has some shortness of breathbut this is baseline and has not progressed in the last few months. She does have routine thoracentesis for pleural effusions and the last one was last week. She remains on Tivo and follows with Dr. Armenta. Pt reports she had a spot on liver via scan and she has not been back to discuss the plan of care. She is on Eliquis for DVT and was started on Eliquis at that time,, she was taking 5 mg BID but self reduced her dose to once daily when the skin bruising/bleeding staterted to get worse as she felt as though the blood thinner was the cause. She also reports 2 nose bleeds. No bleeding of the gums. Her skin is cool to touch. Skin is thin and tears easily. CARDIO-ONCOLOGY SUMMARY REFERRING: Sonali Beasley APRN CURRENT ONCOLOGY DIAGNOSIS: Metastatic renal call carcinoma REASON FOR VISIT: follow up recent SOA ONCOLOGY HISTORY: Diagnosed 01/2023, after ED visit for left leg paresthesias, imbalance and mild groin pain. Imaging showed right posterior periventricular brain mass, right upper lobe nodule and left renal mass. Subtotal resection of brain lesion 01/2023 with residual tumor Pathology consistent with renal cell carcinoma Initiated Dexamethasone Neurosurgery recommended Gamma Knife 03/08/2023 Initiated Nivolumab and Ipilimumab 03/08/2023-05/10/2023. Completed 4/4 cycles Disease progression with new lytic bone lesion,, new right occipital brain mass and increase in size of adrenal gland nodule 05/2023 SBRT to right adrenal nodule, L1 vertebral body and right pubic symphysis. Last treatment 07/22/2023 Initiated Cabozantinib 05/2023 due to disease progression to present Gamma Knife to right temporoparietal occipital region 07/05/2023 Radical intralesional resection of left proximal femur renal cell metastasis 11/21/2023 RT to left femur for left femur metastasis s/p intralesional excision completed 01/24/2024 total dose 2500 cGy in 5 fractions Scans 05/2024 show stable disease Tivozanib- current treatment RISK STRATIFICATION: DM Hypotension (dehydration) CARDIAC TESTING COMPLETED: Echo 04/14/2024- EF 53%, GLS normal, no regional wall motion abnormalities, normal diastolic function, no pericardial effusion Cardio-Oncology Cardiotoxicity Review CV PharmD evaluated the patient's current cancer treatment for pertinent cardiotoxicities. Current Cancer Treatment Regimen Tivozanib on days 1-21 of a 28-day cycle Pertinent Cardiotoxicities VEGF-inhibiting monoclonal antibodies (aflibercept, bevacizumab, ramucirumab) and tyrosine kinase inhibitors (axitinib, cabozantinib, lenvatinib, pazopanib, regorafenib, sorafenib, sunitinib, tivozanib, vandetanib) are most commonly associated with hypertension and less commonly with HF and QTcF prolongation.1 Hypertension is a class effect of VEGF-inhibiting medications and typically occurs within a hours to first few days of starting treatment. Reference Neal Suarez??keny-Eduarda??yvonne T, Jhonatan LS, et al. 2021 ESC Guidelines on cardio- oncology developed in collaboration with the Hematology Association (EHA), the Society for Therapeutic Radiology and Oncology (ESTRO) and the International Cardio-Oncology Society (IC-OS). Eur Heart J. 202 2;43(41):2327-0235. doi:10.1093/eurheartj/[email or web address] Review of symptoms Review of Systems Constitutional: Positive for malaise/fatigue. Negative for chills and fever. Cardiovascular: Positive for dyspnea on exertion. Negative for chest pain, irregular heartbeat, legswelling, near-syncope, orthopnea, palpitations, paroxysmal nocturnal dyspnea and syncope. Respiratory: Positive for cough and shortness of breath. Negative for hemoptysis. Skin: Positive for color change, poor wound healing and rash. Neurological: Positive for weakness. Negative for dizziness. All other systems reviewed and are negative. PROBLEM LIST: Problem List[1] Past Medical History: Past Medical History[2] Surgical History: Surgical History[3] Medications: Current Medications[4] Family History: family history includes Alzheimer's disease in her mother's sister; Breast cancer in her father's sister and mother's sister. Social History: reports that she quit smoking about 10 years ago. Her smoking use included cigarettes. She started smoking about 45 years ago. She has a 35 pack-year smoking history. She has never been exposed to tobacco smoke. She has never used smokeless tobacco. She reports that she does not currently use drugs. She reports that she does not drink alcohol. Physical Exam: Visit Vitals BP 130/83 (BP Location: Left arm, Patient Position: Sitting, BP Cuff Size: Adult) Pulse 103 Temp 36.8 ??C (98.2 ??F) (Oral) Wt 76.6 kg (168 lb 14 oz) SpO2 92% BMI 30.89 kg/m?? Constitutional: Patient appears well; no acute distress; speaks without dyspnea Skin: petechia, widespread bruising on arms, legs and trunk HENT: Anicteric JVP: no JVD Carotid: no bruit Cardiovascular: S1S2 heard, regular rate and rhythm; no murmur or gallop appreciated Pulmonary: breath sounds diminished right upper and lower lobe, clear on left Abdominal: Soft; no tenderness; no hepatomegaly; positive bowel sounds Extremities: Warm and well perfused; no edema Neurological: Alert and oriented X 3; no focal deficits appreciated Psychiatric: Normal mood and behavior Cardiac Testing: None today Imaging: Echo, Adult Transthoracic Complete Result Date: 08/11/2024 Left Ventricle: The left ventricle is normal size. There is normal left ventricular myocardial thickness and mass. The left ventricular systolic function is normal. The LVEF as measured by biplane volume is 50%. The left ventricular filling pressure is normal. The septal motion is most consistent w ith a conduction abnormality. Pericardium: No pericardial effusion. [...] is no recent study available for direct [id number] comparison. Labs: Lab Results Component Value Date HGB 13.5 11/13/2024 HCT 43.1 11/13/2024 PLT 280 11/13/2024 CHOL 160 08/11/2024 TRIG 87 08/11/2024 HDL 51 08/11/2024 LDLCALC 93 08/11/2024 ALT 21 11/13/2024 AST 18 11/13/2024 NA 139 11/13/2024 K 4.6 11/13/2024 CREATININE 0.47 (L) 11/13/2024 BUN 19 11/13/2024 CO2 22 11/13/2024 TSH 0.96 04/24/2024 INR 1.2 (H) 11/13/2024 HGBA1C 5.7 (H) 08/22/2023 Lab Results Component Value Date GLUCOSE 87 11/13/2024 CALCIUM 10.2 11/13/2024 NA 139 11/13/2024 K 4.6 11/13/2024 CO2 22 11/13/2024 CL 103 11/13/2024 BUN 19 11/13/2024 CREATININE 0.47 (L) 11/13/2024 Lab Results Component Value Date WBC 11.18 (H) 11/13/2024 HGB 13.5 11/13/2024 HCT 43.1 11/13/2024 MCV 85 11/13/2024 PLT 280 11/13/2024 Risk Stratification: The 10-year ASCVD risk score (Porum DK, et al., 2019) is: 5.7% Values used to calculate the score: Age: 59 years Clincally relevant sex: Female Is Non- : No Diabetic: Yes Tobacco smoker: No Systolic Blood Pressure: 130 mmHg Is BP treated: No HDL Cholesterol: 51 mg/dL Total Cholesterol: 160 mg/dL Impression: Abby was seen today for follow-up. Diagnoses and all orders for this visit: Bruising - CBC and Differential; Future - Prothrombin Time/INR; Future - Comprehensive Metabolic Panel, Plasma; Future - APTT; Future Current use of exterminator helper anticoagulation - CBC and Differential; Future - Prothrombin Time/INR; Future - Comprehensive Metabolic Panel, Plasma; Future - APTT; Future Encounter for monitoring cardiotoxic drug therapy - Troponin T, High Sensitivity, Cardiac Risk Assessment; Future Plan: Orders Placed This Encounter Procedures CBC and Differential Standing Status: Future Number of Occurrences: 1 Expected Date: 11/13/2024 Expiration Date: 11/13/2025 Release to patient in [facility]: Immediate [1] Prothrombin Time/INR Standing Status: Future Number of Occurrences: 1 Expected Date: 11/13/2024 Expiration Date: 11/13/2025 [facility] [1] Comprehensive Metabolic Panel, Plasma Standing Status: Future Number of Occurrences: 1 Expected Date: 11/13/2024 Expiration Date: 05/16/2026 [facility] APTT Standing Status: Future Number of Occurrences: 1 Expected Date: 11/13/2024 Expiration Date: 05/17/2026 [facility]: [facility] [1] Troponin T, High Sensitivity, Cardiac Risk Assessment Standing Status: Future Number of Occurrences: 1 Expected Date: 11/13/2024 Expiration Date: 05/17/2026 [facility] [1] #encounter for monitoring of cardiotoxic drug therapy/chemo #dyspnea Pt remain on Tivozanib for history of metastatic renal cell carcinoma Pertinent Cardiotoxicities VEGF-inhibiting monoclonal antibodies (aflibercept, bevacizumab, ramucirumab) and tyrosine kinase inhibitors (axitinib, cabozantinib, lenvatinib, pazopanib, regorafenib, sorafenib, sunitinib, tivozanib, vandetanib) are most commonly associated with hypertension and less commonly with HF and QTcF prolongation.1 Hypertension is a class effect of VEGF-inhibiting medications and typically occurs within a hours to first few days of starting treatment. Discussed the potential risk of cardiotoxicity from current active treatment included but not limited to acute AZ, angina pectoris, ischemic heart disease, cardiac arrhythmia, cardiomyopathy, heart failure, venous thromboembolism and the ongoing need for cardiovascular surveillance and cardiovascular risk assessment. Will get an echo later today to assess for cardiac etiology of SOA Likely dyspnea is multifactorial but likely more from recent CT chest showing moderate to large pleural effusion, decreased breath sounds on right side Ongoing need for thoracentesis if pleural effusion is larger given she is so symptomatic Given severe bruising and petechia will order STAT labs today Hold Elicecy and follow up with Dr. Armenta later next week. (See pharm D note). I have communicated with Dr. Armenta Pt declines ED Follow up with me in 3 months A total time of 39 minutes was spent by myself addressing the current illness, reviewing records (prior imaging, lab work, etc), and formulating a plan. The patient is agreeable to the plan and all pertinent questions were answered. Aurora Hubbard, ERIC [1] Patient Active Problem List Diagnosis Brain mass Diabetes mellitus (CMS/HCC) Renal cell carcinoma Renal cell carcinoma of left kidney Right leg pain Cancer (CMS/HCC) Metastatic renal cell carcinoma to bone Disease of thyroid gland Hypothyroidism Renal cell carcinoma, unspecified laterality Shortness of breath Current use of exterminator helper anticoagulation Hyperlipidemia Bruising [2] Past Medical History: Diagnosis Date Blood clot associated with vein wall inflammation left leg Cancer (CMS/HCC) 02-04-2023 kidney Diabetes mellitus (CMS/HCC) prediabetic per pt Disease of thyroid gland GERD (gastroesophageal reflux disease) Hypothyroidism Neuromuscular disorder (CMS/HCC) Right leg pain [3] Past Surgical History: Procedure Laterality Date JOINT REPLACEMENT Right hip OTHER SURGICAL HISTORY Left Removed tumor left femur [4] Current Outpatient Medications Medication Sig Dispense Refill acetaminophen (Tylenol) 500 MG tablet Take 1 tablet (500 mg) by mouth every 6 (six) hours. 100 tablet 0 apixaban (Eliquis) 5 MG tablet Take 1 tablet by mouth 2 times a day. (Patient taking differently: Take 1 tablet by mouth daily.) 60 tablet 5 levothyroxine (Synthroid, Levoxyl) 100 MCG tablet Take 1 tablet (100 mcg) by mouth daily before breakfast. 30 tablet 11 ondansetron ODT (Zofran-ODT) 4 MG disintegrating tablet Take 1 tablet (4 mg) by mouth every 8 (eight) hours if needed for nausea or vomiting. 20 tablet 0 senna-docusate sodium (Senokot-S) 8.6-50 MG tablet Take 1 tablet by mouth 1 (one) time each day. 20tablet 0 Tivozanib HCl 0.89 MG capsule Take one cap daily 30 capsule 3 dexamethasone (Decadron) 1 MG tablet TAKE 1 TABLET BY MOUTH IN THE MORNING AND 1 TABLET BEFORE BEDTIME. (Patient not taking: Reported on 11/13/2024) 60 tablet 0 famotidine (Pepcid) 20 MG tablet Take 1 tablet (20 mg) by mouth 1 (one) time each day. (Patient nottaking: Reported on 11/03/2024) 30 tablet 3 loperamide (Imodium A-D) 2 MG tablet Take 1 tablet (2 mg) by mouth 4 (four) times a day if needed for diarrhea. (Patient not taking: Reported on 11/13/2024) 30 tablet 1 No current facility-administered medications for this visit. documented in this encounter Plan of Treatment Upcoming Encounters Date Type Department Care Team ([facility] st Contact Info) Description 12/22/2024 12:30 PM EDT Appointment P[facility] A Interventional Radiology [address] [place] [phone] 12/29/2024 11:45 AM EDT Appointment [facility] A Interventional Radiology [address] [place] [phone] 02/17/2025 11:20 AM EST Office Visit Pav CC Head, Neck & Respiratory [address] [facility], [address] [place] [address] Aurora Hubbard, ERIC [address] [place] [phone] documented as of this encounter Results * Troponin T, High Sensitivity, Cardiac Risk Assessment (11/13/2024 1:33 PM EDT) Troponin T, High Sensitivity, 0 Hour 7 <14 ng/L 11/13/2024 2:51 PM EDT [facility] Blood Venous blood specimen / Unknown Venipuncture / Unknown 11/13/2024 1:33 PM EDT 11/13/2024 2:19 PM EDT us Aurora Hubbard APRN LAB BLOOD ORDERABLES Fin al Result [facility] [address] [place] [address] * APTT (11/13/2024 1:33 PM EDT) aPTT 29 25 - 35 sec LAB COAGULATION METHOD 11/13/2024 3:04 PM EDT [facility] Blood Venous blood specimen / Unknown Venipuncture / Unknown 11/13/2024 1:33 PM EDT 11/13/2024 2:21 PM EDT us Aurora Hubbard APRN LAB BLOOD ORDERABLES Fin al Result [facility] [address] [place] [address] * (ABNORMAL) Comprehensive Metabolic Panel, Plasma (11/13/2024 1:33 PM EDT) Pathologist [facility] Glucose, Plasma 87 74 - 99 mg/dL 11/13/2024 2:51 PM EDT [facility] BUN, Plasma 19 8 - 23 mg/dL 11/13/2024 2:51 PM EDT [facility] Creatinine, Plasma 0.47(L) 0.60 - 1.10 mg/dL 11/13/2024 2:51 PM EDT [facility] BUN/Creatinine Ratio 40 11/13/2024 2:51 PM EDT [facility] Sodium, Plasma 139 136 - 145 mmol/L 11/13/2024 2:51 PM EDT [facility] Potassium, Plasma 4.6 3.6 - 4.9 mmol/L 11/13/2024 2:51 PM EDT [facility] Chloride, Plasma 103 97 - 107 mmol/L 11/13/2024 2:51 PM EDT [facility] CO2, Plasma 22 22 - 29 mmol/L 11/13/2024 2:51 PM EDT [facility] Anion Gap 14 6 - 16 mmol/L 11/13/2024 2:51 PM EDT [facility] Total Calcium, Plasma 10.2 8.9 - 10.2 mg/dL 11/13/2024 2:51 PM EDT [facility] Total Protein 6.7 6.3 - 7.9 g/dL 11/13/2024 2:51 PM EDT [facility] Albumin, Plasma 3.7 3.5 - 5.2 g/dL 11/13/2024 2:51 PM EDT [facility] AST, Plasma 18 10 - 35 U/L 11/13/2024 2:51 PM EDT [facility] ALT, Plasma 21 10 - 35 U/L 11/13/2024 2:51 PM EDT [facility] Alkaline Phosphatase, Plasma 110 46 - 142 U/L 11/13/2024 2:51 PM EDT [facility] Total Bilirubin, Plasma 0.3 0.2 - 1.1 mg/dL 11/13/2024 2:51 PM EDT [facility] eGFRcr 109.1 mL/min/1.7 3m*2 11/13/2024 2:51 PM EDT [facility] Comment:Reported eGFRcr in m L/min/1.73m2 is based the CKD-EPI 2020 equation that does not use a race coefficient. Blood Venous blood specimen / Unknown Venipuncture / Unknown 11/13/2024 1:33 PM EDT 11/13/2024 2:19 PM EDT us Aurora Hubbard APRN LAB BLOOD ORDERABLES Fin al Result [facility] [address] [place] [address] * (ABNORMAL) Prothrombin Time/INR (11/13/2024 1:33 PM EDT) Prothrombin Time 15.3(H) 12.0 - 14.3 sec LAB COAGULATION METHOD 11/13/2024 3:04 PM EDT [facility] INR 1.2(H) 0.9 - 1.1 LAB COAGULATION METHOD 11/13/2024 3:04 PM EDT [facility] Blood Venous blood specimen / Unknown Venipuncture / Unknown 11/13/2024 1:33 PM EDT 11/13/2024 2:21 PM EDT Narrative [facility] - 11/13/2024 3:04 PM EDT OPTIMAL INR RANGES FOR PATIENT ON ORAL ANTICOAGULANT THERAPY Prevention of venous thromboembolism INR 2.0 to 3.0 In patients with heart disease: Atrial fibrillation INR 2.0 to 3.0 Valvular heart disease INR 2.0 to 3.0 Tissue heart valves INR 2.0 to 3.0 Mechanical prosthetic valves INR 2.5 to 3.5 Prevention of recurrent AZ INR 2.5 to 3.5 us Aurora Hubbard PUBLIC HEALTH OUTREACH WORKER LAB BLOOD ORDERABLES Fin al Result [facility] [address] [place] [address] * (ABNORMAL) CBC and Differential (11/13/2024 1:33 PM EDT) [facility] WBC Count 11.18(H) 3.70 - 10.30 10*3/uL LAB HEMATOLOGY METHOD 11/13/2024 2:38 PM EDT [facility] RBC Count 5.08 3.90 - 5.20 10*6/uL LAB HEMATOLOGY METHOD 11/13/2024 2:38 PM EDT [facility] HGB 13.5 11.2 - 15.7 g/dL LAB HEMATOLOGY METHOD 11/13/2024 2:38 PM EDT [facility] HCT 43.1 34.0 - 45.0 % LAB HEMATOLOGY METHOD 11/13/2024 2:38 PM EDT [facility] Platelet Count 280 155 - 369 10*3/uL LAB HEMATOLOGY METHOD 11/13/2024 2:38 PM EDT [facility] MCV 85 79 - 98 fL LAB HEMATOLOGY METHOD 11/13/2024 2:38 PM EDT [facility] MCH 26.6 26.0 - 32.0 pg LAB HEMATOLOGY METHOD 11/13/2024 2:38 PM EDT [facility] MCHC 31.3 30.7 - 35.5 g/dL LAB HEMATOLOGY METHOD 11/13/2024 2:38 PM EDT [facility] RDW 17.8(H) 11.5 - 14.5 % LAB HEMATOLOGY METHOD 11/13/2024 2:38 PM EDT [facility] MPV 10.1 8.8 - 12.5 fL LAB HEMATOLOGY METHOD 11/13/2024 2:38 PM EDT [facility] nRBC 0.3(H) <=0.0 per 100 WBCs LAB HEMATOLOGY METHOD 11/13/2024 2:38 PM EDT [facility] Differential Type Automated LAB HEMATOLOGY METHOD 11/13/2024 2:38 PM EDT [facility] Neutrophils % 82 % LAB HEMATOLOGY METHOD 11/13/2024 2:38 PM EDT [facility] Lymphocytes % 10 % LAB HEMATOLOGY METHOD 11/13/2024 2:38 PM EDT [facility] Monocytes % 6 % LAB HEMATOLOGY METHOD 11/13/2024 2:38 PM EDT [facility] Eosinophils % 0 % LAB HEMATOLOGY METHOD 11/13/2024 2:38 PM EDT [facility] Basophils % 0 % LAB HEMATOLOGY METHOD 11/13/2024 2:38 PM EDT [facility] Immature Granulocytes % 2 % LAB HEMATOLOGY METHOD 11/13/2024 2:38 PM EDT [facility] Neutrophils Absolute 9.07(H) 1.60 - 6.10 10*3/uL LAB HEMATOLOGY METHOD 11/13/2024 2:38 PM EDT [facility] Lymphocytes Absolute 1.12(L) 1.20 - 3.90 10*3/uL LAB HEMATOLOGY METHOD 11/13/2024 2:38 PM EDT [facility] Monocytes Absolute 0.68 0.30 - 0.90 10*3/uL LAB HEMATOLOGY METHOD 11/13/2024 2:38 PM EDT [facility] Eosinophils Absolute 0.04 0.00 - 0.50 10*3/uL LAB HEMATOLOGY METHOD 11/13/2024 2:38 PM EDT [facility] Basophils Absolute 0.04 0.00 - 0.10 10*3/uL LAB HEMATOLOGY METHOD 11/13/2024 2:38 PM EDT [facility] Immature Granulocytes Absolute 0.23(H) 0.00 - 0.06 10*3/uL LAB HEMATOLOGY METHOD 11/13/2024 2:38 PM EDT [facility] Blood Venous blood specimen / Unknown Venipuncture / Unknown 11/13/2024 1:33 PM EDT 11/13/2024 2:30 PM EDT [facility] - 11/13/2024 2:38 PM EDT Therapeutic decision making should be based on absolute values, rather than percentages. us Aurora Hubbard APRN LAB BLOOD ORDERABLES Fin al Result [facility] [address] [place] [address] documented in this encounter Visit Diagnoses Diagnosis Bruising- Primary Contusion of unspecified site Current use of exterminator helper anticoagulation Encounter for monitoring cardiotoxic drug therapy documented in this encounter Additional Health Concerns Assessment Noted Time PHQ-9 Depression Total Score: 0 09/17/19 25 9:51 AM EDT A fall risk assessment has been complete d for the patient 11/13/2024 1:02 PM EDT A Body Mass Index follow-up plan has been documented for the patient 11/03/2024 10:35 AM EDT documented as of this encounter Care Teams Developmental Training Counselor Relationship Specialty Start Date End Date Jared Coronel MD [address] [place] [address] PCP - General 08/12/20 Joseph Odonnell MD [address] [place] [address] Surgeon Neurosurgery 02/28/23 Carrol Armenta MD [address] [facility] [address] [place] [phone] Consulting Physician Medical Oncology 06/12/23 Sky Moreau MD [address] [place] [id number] Consulting Physician Radiation Oncology 06/12/23 Lauren Paiz APRN [address] [place] [phone] Nurse Practitioner Internal Medicine 07/19/23 documented as of this encounter
--- OUTSIDE RECORDS SUMMARY | 2024-11-13 13:30 | XMS_ITS | Encounter Summary ---
Author Organization Healthcare Address [address] [place] [address] Care Team Providers Care Math Teacher Name Role Phone Jared Coronel MD Primary Care Provider [phone] Joseph Odonnell MD Unavailable [phone] Carrol Armenta MD Unavailable Sky Moreau MD Unavailable [phone] Lauren Paiz GEAR LAPPER Unavailable [phone] Reason for Visit * Reason Comments Labs Encounter Details Date Type Department Care Team (Latest Contact Info) Description 11/13/2024 1:30 PM EDT Clinical Support [facility] [address] [facility] [place] [address] Bruising; Current use of chcf anticoagulation; Encounter for monitoring cardiotoxic drug therapy [...] place to sleep or slept in a fdc (including now)? 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-CALF SKINNER) to steady your nerves or to get [...] PM EDT documented as of this encounter Plan of Treatment Upcoming Encounters Date Type Department Care Team (Late st Contact Info) Description 12/22/2024 12:30 PM EDT Appointment [facility] Interventional Radiology [address] [place] [address] 12/29/2024 11:45 AM EDT Appointment [facility] Inter[facility]iology [address] [place] [address] 02/17/2025 11:20 AM EST Office Visit [facility] [address] [place] [address] Aurora Hubbard, GEAR LAPPER [address] [place] [address] documented as of this encounter Procedures Procedure Name Priority Date/Time Associated Diagnosis Comments APTT Routine 11/13/2024 1:33 PM EDT Bruising Current use of intermediate card tender anticoagulation PROTHROMBIN TIME(PT) / INR Routine 11/13/2024 1:33 PM EDT Bruising Current use of chcf anticoagulation CBC WITH AUTO DIFFERENTIAL STAT 11/13/2024 1:33 PM EDT Bruising Current use of intermediate card tender anticoagulation TROPONIN T, HIGH SENSITIVITY, CARDIAC RISK ASSESSMENT Routine 11/13/2024 1:33 PM EDT Encounter for monitoring cardiotoxic drug therapy COMPREHENSIVE METABOLIC PANEL, PLASMA Routine 11/13/2024 1:33 PM EDT Bruising Current use of intermediate card tender anticoagulation documented in this encounter Results * Troponin T, High Sensitivity, Cardiac Risk Assessment (11/13/2024 1:33 PM EDT) Pathologist [facility] Troponin T, High Sensitivity, 0 Hour 7 <14 ng/L 11/13/2024 2:51 PM EDT [facility] Blood Venous blood specimen / Unknown Venipuncture / Unknown 11/13/2024 1:33 PM EDT 11/13/2024 2:19 PM EDT us Aurora Hubbard APRN LAB BLOOD ORDERABLES Fin al Result [facility] [address] [place] [address] * (ABNORMAL) CBC and Differential (11/13/2024 1:33 PM EDT) Pathologist [facility] WBC Count 11.18(H) 3.70 - 10.30 10*3/uL LAB HEMATOLOGY METHOD 11/13/2024 2:38 PM EDT [facility] RBC Count 5.08 3.90 - 5.20 10*6/uL LAB HEMATOLOGY METHOD 11/13/2024 2:38 PM EDT [facility] HGB 13.5 11.2 - 15.7 g/dL LAB HEMATOLOGY METHOD 11/13/2024 2:38 PM EDT [facility] HCT 43.1 34.0 - 45.0 % LAB HEMATOLOGY METHOD 11/13/2024 2:38 PM EDT [facility] Platelet Count 280 155 - 369 10*3/uL LAB HEMATOLOGY METHOD 11/13/2024 2:38 PM EDT [facility] MCV 85 79 - 98 fL LAB HEMATOLOGY METHOD 11/13/2024 2:38 PM EDT [facility] MCH 26.6 26.0 - 32.0 pg LAB HEMATOLOGY METHOD 11/13/2024 2:38 PM EDT [facility] MCHC 31.3 30.7 - 35.5 g/dL LAB HEMATOLOGY METHOD 11/13/2024 2:38 PM EDT [facility] RDW 17.8(H) 11.5 - 14.5 % LAB HEMATOLOGY METHOD 11/13/2024 2:38 PM EDT [facility] MPV 10.1 8.8 - 12.5 fL LAB HEMATOLOGY METHOD 11/13/2024 2:38 PM EDT [facility] nRBC 0.3(H) <=0.0 per 100 WBCs LAB HEMATOLOGY METHOD 11/13/2024 2:38 PM EDT [facility] Differential Type Automated LAB HEMATOLOGY METHOD 11/13/2024 2:38 PM EDT [facility] Neutrophils % 82 % LAB HEMATOLOGY METHOD 11/13/2024 2:38 PM EDT [facility] Lymphocytes % 10 % LAB HEMATOLOGY METHOD 11/13/2024 2:38 PM EDT [facility] Monocytes % 6 % LAB HEMATOLOGY METHOD 11/13/2024 2:38 PM EDT [facility] Eosinophils % 0 % LAB HEMATOLOGY METHOD 11/13/2024 2:38 PM EDT [facility] Basophils % 0 % LAB HEMATOLOGY METHOD 11/13/2024 2:38 PM EDT [facility] Immature Granulocytes % 2 % LAB HEMATOLOGY METHOD 11/13/2024 2:38 PM EDT [facility] Neutrophils Absolute 9.07(H) 1.60 - 6.10 10*3/uL LAB HEMATOLOGY METHOD 11/13/2024 2:38 PM EDT [facility] Lymphocytes Absolute 1.12(L) 1.20 - 3.90 10*3/uL LAB HEMATOLOGY METHOD 11/13/2024 2:38 PM EDT [facility] Monocytes Absolute 0.68 0.30 - 0.90 10*3/uL LAB HEMATOLOGY METHOD 11/13/2024 2:38 PM EDT [facility] Eosinophils Absolute 0.04 0.00 - 0.50 10*3/uL LAB HEMATOLOGY METHOD 11/13/2024 2:38 PM EDT [facility] Basophils Absolute 0.04 0.00 - 0.10 10*3/uL LAB HEMATOLOGY METHOD 11/13/2024 2:38 PM EDT [facility] Immature Granulocytes Absolute 0.23(H) 0.00 - 0.06 10*3/uL LAB HEMATOLOGY METHOD 11/13/2024 2:38 PM EDT [facility] Blood Venous blood specimen / Unknown Venipuncture / Unknown 11/13/2024 1:33 PM EDT 11/13/2024 2:30 PM EDT Narrative [facility] - 11/13/2024 2:38 PM EDT Therapeutic decision making should be based on absolute values, rather than percentages. Aurora Hubbard APRN LAB BLOOD ORDERABLES Fin al Result Performing Organization Address [facility] Co de Phone Number [facility] [address] [place] [address] * (ABNORMAL) Prothrombin Time/INR (11/13/2024 1:33 PM EDT) Prothrombin Time 15.3(H) 12.0 - 14.3 sec LAB COAGULATION METHOD 11/13/2024 3:04 PM EDT [facility] INR 1.2(H) 0.9 - 1.1 LAB COAGULATION METHOD 11/13/2024 3:04 PM EDT [facility] Blood Venous blood specimen / Unknown Venipuncture / Unknown 11/13/2024 1:33 PM EDT 11/13/2024 2:21 PM EDT Narrative [facility] - 11/13/2024 3:04 PM EDT OPTIMAL INR RANGES FOR PATIENT ON ORAL ANTICOAGULANT THERAPY Prevention of venous thromboembolism INR 2.0 to 3.0 In patients with heart disease: Atrial fibrillation INR 2.0 to 3.0 Valvular heart disease INR 2.0 to 3.0 Tissue heart valves INR 2.0 to 3.0 Mechanical prosthetic valves INR 2.5 to 3.5 Prevention of recurrent [place] INR 2.5 to 3.5 Aurora Hubbard APRN LAB BLOOD ORDERABLES Fin al Result Performing Organization Address City/[facility]/ZIP Co de Phone Number [facility] [address] [place] [address] * (ABNORMAL) Comprehensive Metabolic Panel, Plasma (11/13/2024 1:33 PM EDT) Glucose, Plasma 87 74 - 99 mg/dL 11/13/2024 2:51 PM EDT [facility] BUN, Plasma 19 8 - 23 mg/dL 11/13/2024 2:51 PM EDT [facility] Creatinine, Plasma 0.47(L) 0.60 - 1.10 mg/dL 11/13/2024 2:51 PM EDT [facility] BUN/Creatinine Ratio 40 11/13/2024 2:51 PM EDT [facility] Sodium, Plasma 139 136 - 145 mmol/L 11/13/2024 2:51 PM EDT [facility] Potassium, Plasma 4.6 3.6 - 4.9 mmol/L 11/13/2024 2:51 PM EDT [facility] Chloride, Plasma 103 97 - 107 mmol/L 11/13/2024 2:51 PM EDT [facility] CO2, Plasma 22 22 - 29 mmol/L 11/13/2024 2:51 PM EDT [facility] Anion Gap 14 6 - 16 mmol/L 11/13/2024 2:51 PM EDT [facility] Total Calcium, Plasma 10.2 8.9 - 10.2 mg/dL 11/13/2024 2:51 PM EDT [facility] Total Protein 6.7 6.3 - 7.9 g/dL 11/13/2024 2:51 PM EDT [facility] Albumin, Plasma 3.7 3.5 - 5.2 g/dL 11/13/2024 2:51 PM EDT [facility] AST, Plasma 18 10 - 35 U/L 11/13/2024 2:51 PM EDT [facility] ALT, Plasma 21 10 - 35 U/L 11/13/2024 2:51 PM EDT [facility] Alkaline Phosphatase, Plasma 110 46 - 142 U/L 11/13/2024 2:51 PM EDT [facility] Total Bilirubin, Plasma 0.3 0.2 - 1.1 mg/dL 11/13/2024 2:51 PM EDT [facility] eGFRcr 109.1 mL/min/1.7 3m*2 11/13/2024 2:51 PM EDT [facility] Comment:Reported eGFRcr in m L/min/1.73m2 is based the CKD-EPI 2020 equation that does not use a race coefficient. Blood Venous blood specimen / Unknown Venipuncture / Unknown 11/13/2024 1:33 PM EDT 11/13/2024 2:19 PM EDT Aurora Hubbard GEAR LAPPER LAB BLOOD ORDERABLES Fin al Result Performing Organization Address City/[facility]/ZIP Co de Phone Number [facility] [address] [place] [address] * APTT (11/13/2024 1:33 PM EDT) aPTT 29 25 - 35 sec LAB COAGULATION METHOD 11/13/2024 3:04 PM EDT [facility] Blood Venous blood specimen / Unknown Venipuncture / Unknown 11/13/2024 1:33 PM EDT 11/13/2024 2:21 PM EDT Aurora Hubbard APRN LAB BLOOD ORDERABLES Fin al Result Performing Organization Address [facility] de Phone Number [facility] [address] [place] [address] documented in this encounter Visit Diagnoses Diagnosis Bruising Contusion of unspecified site Current use of intermediate card tender anticoagulation Encounter for monitoring cardiotoxic drug therapy [...] documented as of this encounter Care Teams Math Teacher Relationship Specialty Start Date End Date Jared Coronel MD [address] [place] [address] PCP - General 08/12/20 Joseph Odonnell MD [address] [place] [address] Surgeon Neurosurgery 02/28/23 Carrol Armenta MD [address] [facility] [address] [place] [address] Consulting Physician Medical Oncology 06/12/23 Sky Moreau MD [address] [facility] [address] [place] [phone] Consulting Physician Radiation Oncology 06/12/23 Lauren Paiz APRN [address] [facility] [address] [place] [address] Nurse Practitioner Internal Medicine 07/19/23 documented as of this encounter
--- OUTSIDE RECORDS SUMMARY | 2024-11-18 11:30 | XMS_ITS | Encounter Summary ---
Author Organization Healthcare Address [address] [place] [address] Care Team Providers Care Sagger Filler Name Role Phone Jared Coronel MD Primary Care Provider [phone] Joseph Odonnell MD Unavailable [phone] Carrol Armenta MD Unavailable Sky Moreau MD Unavailable [phone] Lauren Paiz PATTERN STORAGE CLERK Unavailable [phone] Reason for Visit * Reason Comments Follow-up Kidney Cancer Encounter Details Date Type Department Care Team (Late st Contact Info) Description 11/18/2024 11:30 AM EDT Office Visit [facility] Mult[facility] On[facility] [address] [place] [address] Carrol Armenta MD [address] [address] Renal cell carcinoma, unspecified laterality (Primary Dx); Shortness of breath; Renal cell carcinoma of left kidney; Dizziness; Dyspnea on exertion; Right leg pain; Lytic bone lesion of left femur; Degenerative tear of medial meniscus of left knee Social History Tobacco Use Types Packs/Day Years [...] place to sleep or slept in a detention (including now)? No 11/22/2023 PHQ-9 Answer Date [...] first t nichole in the morning (EYE-CUST[employer]ER ENERGY SPECIALIST) to steady your nerves or to get rid of a hangover? 0 11/21/2023 CAGE Questionnaire Score 0 024 Utilities Answer Date Recorded In the past 12 months has th e [employer], gas, oil, or water company threatened to [...] Sign Reading Time Taken Comments Blood Pressure 131/81 11/18/2024 12:03 PM EDT Pulse 102 11/18/2024 12:03 PM EDT Temperature 36.3 C (97.4 F) 11/18/2024 12:03 PM EDT Respiratory Rate 16 11/18/2024 12:03 PM EDT Oxygen Saturation 93% 11/18/2024 12:03 PM EDT Inhaled Oxygen Concentration - - Weight 75.4 kg (166 lb 3.6 oz) 11/18/2024 12:03 PM EDT Height 160 cm (5' 3 ) 11/18/2024 12:03 PM EDT Body Mass Index 29.45 11/18/2024 12:03 PM EDT documented in this encounter Functional Status * Over the past 2 weeks, how often have you been bothered by any of the following problems? Question Answer Date of Assessment Author Little interest or pleasure in doing things Not at all 11/18/2024 12:04 PM EDT Nathalie Keenan Feeling down, depressed, or hopeless Not at all 11/18/2024 12:04 PM EDT Nathalie Keenan Patient Health Questionnaire -2 Score 0 11/18/2024 12:04 PM EDT Nathalie Keenan * Question Answer Date of Assessment Author Thoughts that you would be better off or hurting yourself in some way Not at all 11/18/2024 12:04 PM EDT Nathalie Keenan documented as of this encounter Miscellaneous Notes * Progress Notes - Carrol Armenta MD - 11/18/2024 11:30 AM EDT Medical Oncology Clinic Note Patient Name: Jo Ann Winston Date of : 1965 59 y.o. Referring Physician:No referring provider defined for this encounter. Encounter Date: 11/18/2024 Interval History: The patient presents today for follow up for tox check. She is on eliquis for her previous DVT. Shewas in her cardiology appt for routine follow up and noted to have generalized petechaie/bruises inboth upper and lower extremities. She said she did not fall or had injured. No hematoma or other symptoms. She has stopped taking eliquis since cardiology appt. Otherwise, she has chronic left sided weakness and uses wheelchair sometimes as she is worried about falling and has mild headache. Overall she is stable. She does not have much drainage from her pleurocentesis. Oncology History: Oncology History Overview Note -presented to the [facility] on 02/04/2023 with left leg paresthesias and [...] the current list of radiation treatment: 3D FORENSIC LOCKSMITH: Right Bone of pelvis (Resolved) Treatment Period [...] the current list of radiation treatment: 3D FORENSIC LOCKSMITH: Not Applicable Thoracic spine, Left Rib (Resolved) [...] IV (rcT1b, cNX, pM1) - Signed by kSy Moreau MD on 01/23/2024 Renal cell carcinoma, unspecified laterality 01/10/2024 Initial Diagnosis Renal cell carcinoma, unspecified laterality (CMS/HCC) 01/10/2024 - 05/16/2024 Radiation Therapy The patient saw Sky Moreau MD for radiation treatment. This is the current list of radiation treatment: 3D FORENSIC LOCKSMITH: Left Leg (Resolved) Treatment Period Fraction Dose [...] 16, Sats 96%, HR- 98. Weight Temp: [36.3 ??C (97.4 ??F)] 36.3 ??C (97.4 ??F) Heart Rate: [102] 102 Resp: [16] 16 BP: (131)/(81) 131/81 SpO2: [93 %] 93 %155lbs, 70.7kg ECO General: -Sitting/resting comfortably in [...] Psychiatric: Normal mood and thought content LABS: Appointment on 11/18/2024 Component Date Value Glucose, Plasma 11/18/2024 229 (H) BUN, Plasma 11/18/2024 21 Creatinine, Plasma 11/18/2024 0.59 (L) BUN/Creatinine Ratio 11/18/2024 36 Sodium, Plasma 11/18/2024 138 Potassium, Plasma 11/18/2024 5.4 (H) Chloride, Plasma 11/18/2024 102 CO2, Plasma 11/18/2024 22 Anion Gap 11/18/2024 14 Total Calcium, Plasma 11/18/2024 10.0 Total Protein 11/18/2024 6.7 Albumin, Plasma 11/18/2024 3.8 AST, Plasma 11/18/2024 24 ALT, Plasma 11/18/2024 19 Alkaline Phosphatase, Pl* 11/18/2024 116 Total Bilirubin, Plasma 11/18/2024 0.6 eGFRcr 11/18/2024 103.3 WBC Count 11/18/2024 10.33 (H) RBC Count 11/18/2024 4.99 HGB 11/18/2024 13.2 HCT 11/18/2024 41.8 Platelet Count 11/18/2024 233 MCV 11/18/2024 84 MCH 11/18/2024 26.5 MCHC 11/18/2024 31.6 RDW 11/18/2024 17.4 (H) MPV 11/18/2024 10.3 nRBC 11/18/2024 0.2 (H) Differential Type 11/18/2024 Automated Neutrophils % 11/18/2024 79 Lymphocytes % 11/18/2024 11 Monocytes % 11/18/2024 6 Eosinophils % 11/18/2024 1 Basophils % 11/18/2024 1 Immature Granulocytes % 11/18/2024 2 Neutrophils Absolute 11/18/2024 8.27 (H) Lymphocytes Absolute 11/18/2024 1.16 (L) Monocytes Absolute 11/18/2024 0.63 Eosinophils Absolute 11/18/2024 0.07 Basophils Absolute 11/18/2024 0.05 Immature Granulocytes Ab* 11/18/2024 0.15 (H) RADIOLOGY: COMPARISON: Thoracoabdominal CTs 09/15/2024 FINDINGS: Chest: Lymph Nodes and Mediastinum: Unremarkable thyroid. No suspicious intrathoracic or axillary adenopathy. Cardiovascular: Normal caliber heart and patent central thoracic great vessels. No pericardial effusion. Lungs and Pleura: Similar distribution, size and appearance of the presumably metastatic predominantly subcentimeter multifocal bilateral pulmonary metastases when compared to CT 5 weeks prior. Similar moderate right pleural effusion without obvious suspicious nodular pleural enhancement. There is some extrapleural fat proliferation on the left but no left pleural effusion. Musculoskeletal and Body Wall: Similar distribution of lytic/sclerotic osseous metastases when compared to CT 5 weeks prior, for example destructive lytic lesion involving the left glenoid on 4:149, lytic lesion involving the left humeral head on 4:29, sclerotic lesion involving the right anterior fourth on 4:199 and and multifocal neoplastic involvement of the T8-T12 vertebral bodies on 5:150. No aggressive chest wall soft tissue masses. Abdomen/Pelvis: Solid Abdominal Organs: There is a 9-10 mm hypodense lesion within hepatic segment II/YESSI on 3:29 that is more conspicuous compared to August 2024 CT and was not appreciable on the May 2024 CT. Thereis perhaps some associated tendon enhancement. There are no additional hepatic focal lesions. Some gallbladder sludge. Nondilated biliary tree. Similar diffuse pancreatic parenchymal volume loss. Similar apparent borderline splenomegaly. The bilateral adrenal gland nodules are grossly unchanged in size accounting for slight differences in slice obliquity between the studies, 24 mm on the left (3:68), and 17 mm on the right (3:79). Interval decrease in size of the ill-defined hypoenhancing endophytic left interpolar lesion measuring 24 mm in radial width on 3: 106 compared to 31 mm previously when remeasured similarly. The more superior well-defined partially exophytic lesion is unchanged insize and appearance measuring 30 mm on 3:101. There is another poorly marginated endophytic mass like lesion within the upper pole measuring up to 3 cm on 3:87 that is overall unchanged. There areno other new suspicious renal focal lesions and no hydronephrosis. There is similar multifocal cortical scarring of the left renal upper pole. GI Tract/Mesentery/Peritoneum: No evidence of GI tract obstruction, perforation, or obvious focal acute inflammation. No suspicious sizable mesenteric/peritoneal masses or organized intraperitoneal fluid collections. Few uninflamed appearing colonic diverticula. Pelvic Viscera: Grossly unremarkable under distended urinary bladder and female pelvic viscera aside from retroverted uterine positioning. Lymph Nodes/Vasculature: No suspicious adenopathy by CT size criteria. No large vessel occlusions or aneurysms. Mild scattered aortoiliac exophytic atherosclerotic plaque. Free Fluid: No ascites. Musculoskeletal and Body Wall: Left femoral ORIF and right hip arthroplasty. Similar destructive lytic involvement of the right superior pubic ramus and pubic bone. No aggressive body wall soft tissue masses. IMPRESSION: Chest: No significant progression when compared to 09/15/2024 CT (5 weeks prior). Similar appearanceof numerous subcentimeter pulmonary nodules, moderate-sized right pleural effusion and multifocal lytic/sclerotic osseous metastases. Abdomen/Pelvis: * Interval decrease in size of the poorly marginated hypoenhancing left interpolar renal mass whichwas described to be enlarging on the CT 5 months prior. Otherwise, the other left renal lesions in the adrenal nodules are overall stable from that CT 5 weeks prior. *There is an indeterminate non-10 mm hypodense lesion within the left hepatic dome that appears newfrom May 2024 and more conspicuous from August 2024, potentially a new focus of metastatic disease. ASSESSMENT AND PLAN: Mrs. Winston is a [...] with cemented plate on 11/21/23. PLAN for 11/18/2024: - continue with Tivo 0.89 mg daily. Tolerating better on this lower dose - she went to [facility] and has some potential trials for her. Given recent scans show stable disease, advised her to continue with Tivo and then clinical study - we can also consider HIF2 alpha inhibitor drug in the future # Generalized rash/bruises all over the body - unclear etiology - denied trauma or fall - she has been on eliquis for several months - hold eliquis for about 2 weeks - RTC in 2 weeks to re-assess - if everything improves, could re-try again or change to a different medicine # Left side weakness -? Unclear from previous brain met or radiation necrosis - she has MRI head pending - follow with Dr. Odonnell # Medical Necessity for Wheelchair Given the patient???s neurologic deficits, orthopedic instability, and overall functional decline, a wheelchair is medically necessary to ensure safe and reliable mobility. It will reduce the risk offalls, prevent further orthopedic injury, and support her independence in daily activities. Withouta wheelchair, the patient is at significant risk for fracture, hospitalization, and further deterioration of quality of life #Epigastric discomfort- improving -continue with Pepcid 20 [...] - Continue tylenol as needed for pain 45 minutes were spent with the patient of which 31 or more were counseling minutes regarding plan and coordination of care and follow up scheduling, symptom management, and possible treatment side effects. * Progress Notes - Niharika Smith, PharmD - 11/18/2024 11:30 AM EDT Pharmacy Hematology/Oncology Treatment Note Jo [...] have new metastatic lytic lesions and worsening [employer] metastasis so switched to cabozantinib; she is also undergoing GKRT to [employer] disease. Will start at a reduced dose [...] so will start tivozanib and refer to [place]. 09/16/24: Repeat imaging demonstrates continued POD and is tolerating therapy well. Will increase tivo to 1.34 mg. 10/16/24: Will reduce back to 0.89 mg for patient tolerability. 11/18/24: Ms. Winston has been tolerating tivozanib relatively well but recently has developed widespread bruising. Discussed with her cardiology team, and given time since last DVT (currently fully resolved) she is holding her apixaban. Will continue tivozanib for now and continue holding apixabanfor another 2 weeks at which time, will reassess. Dosing Wt: 82.1 kg Dosing Ht: 157.5 cm DosingBSA: 1.9 m2 Recent Labs: Lab Results Component Value Date WBC 10.33 (H) 11/18/2024 NEUTROABS 8.27 (H) 11/18/2024 HGB 13.2 11/18/2024 PLT 233 11/18/2024 Lab Results Component Value Date GLUCOSE 229 (H) 11/18/2024 NA 138 11/18/2024 CL 102 11/18/2024 K 5.4 (H) 11/18/2024 MG 1.8 (L) 04/03/2024 BUN 21 11/18/2024 CREATININE 0.59 (L) 11/18/2024 Lab Results Component Value Date AST 24 11/18/2024 ALT 19 11/18/2024 ALKPHOS 116 11/18/2024 BILITOT 0.6 11/18/2024 Visit Vitals BP 131/81 Pulse 102 Temp 36.3 ??C (97.4 ??F) Resp 16 Other Relevant Monitoring: Treatment/Therapy Plan: Tivozanib 0.89 mg PO D1-21 Every 28 days [x] Dose reduced 1 dose level for diarrhea, fatigue BMA: Denosumab 120 mg subcutaneous every 28 days (next due 12/02/24) Current Treatment Plan History: Tivozanib Cycle 1: ~09/02/24 Cycle 2: ~09/30/24 Prior Treatment History: Ipi/Nivo Cycle 1: 03/08/23 [...] prescribed to: [facility] Refills will be due: November 2024 Patient will return to clinic in 2 weeks. Will follow-up at that time. Pharmacist Attestation: Niharika Smith, BonitaD Clinical Oncology Pharmacist documented in this encounter Plan of Treatment Upcoming Encounters Date Type Department Care Team ([facility] st Contact Info) Description 12/22/2024 12:30 PM EDT Appointment [facility] [address] [place] [address] 12/29/2024 11:45 AM EDT Appointment [facility] [address] [place] [address] 02/17/2025 11:20 AM EST Office Visit [facility] [address] [facility] [place] [address] Aurora Hubbard, PATTERN STORAGE CLERK [address] [place] [address] documented as of this encounter Visit Diagnoses Diagnosis Renal cell carcinoma, unspecified laterality- Primary Shortness of breath Dizziness Dizziness and giddiness Dyspnea on exertion Other dyspnea and respiratory abnormality Right leg pain Pain in soft tissues of limb Lytic bone lesion of left femur Degenerative tear of medial meniscus of left knee documented in this encounter Additional Health Concerns Assessment Noted Time PHQ-9 Depression Total Score: 0 09/17/19 25 9:51 AM EDT A fall risk assessment has been complete d for the patient 11/18/2024 12:04 PM EDT A Body Mass Index follow-up plan has been documented for the patient 11/03/2024 10:35 AM EDT documented as of this encounter Care Teams Sagger Filler Relationship Specialty Start Date End Date Jared Coronel MD [address] [place] [address] PCP - General 08/12/20 Joseph Odonnell MD [address] [place] [address] Surgeon Neurosurgery 02/28/23 Carrol Armenta MD [address] [facility] [address] [place] [address] Consulting Physician Medical Oncology 06/12/23 Sky Moreau MD [address] [facility] [address] [place] [address] Consulting Physician Radiation Oncology 06/12/23 Lauren Paiz APRN [address] [facility] [address] [place] [address] Nurse Practitioner Internal Medicine 07/19/23 documented as of this encounter
--- OUTSIDE RECORDS SUMMARY | 2024-11-24 09:15 | XMS_ITS | Encounter Summary ---
Author Organization Healthcare Address [address] [place] [address] Care Team Providers Care Cigar Wrapper Tender Automatic Name Role Phone Jared Coronel MD Primary Care Provider [phone] Joseph Odonnell MD Unavailable [phone] Carrol Armenta MD Unavailable Sky Moreau MD Unavailable [phone] Lauren Paiz YEAST WASHER Unavailable [phone] Reason for Referral * Imaging (Routine) - Closed Specialty Diagnoses / Procedures Referred By Contac t Referred To Contact Radiology Diagnoses Pleural effusion Procedures US Guided Thoracentesis Natty Choe APRN [address] [place] [address] Phone: tel: fax: Referral ID Status Reason Start Date Expiration Date Visits Re quested Visits Authorized [id number] Closed 10/29/2024 04/30/2026 1 1 Reason for Visit * Imaging (Routine) - Closed Specialty Diagnoses / Procedures Referred By Contac t Referred To Contact Radiology Diagnoses Pleural effusion Procedures US Guided Thoracentesis Natty Choe APRN [address] [place] [address] Phone: tel: fax: Referral ID Status Reason Start Date Expiration Date Visits Re quested Visits Authorized [id number] Closed 10/29/2024 04/30/2026 1 1 Encounter Details Date Type Department Care Team (Latest Contact Info) Description 11/24/2024 9:15 AM EDT - 11/24/2024 11:51 AM EDT Hospital Encounter [facility] Inter[facility] Radiology [address] [place] [address] Robyn Winston, WIRE FRAME LAMP SHADE MAKER Pleural effusion Discharge Disposition: Home or Self [...] drink first t nichole in the morning (EYE-CHIEF OF VITAL STATISTICS) to steady your nerves or to get [...] Sign Reading Time Taken Comments Blood Pressure 109/84 11/24/2024 11:36 AM EDT Pulse 102 11/24/2024 11:36 AM EDT Temperature 36.6 C (97.9 F) 11/24/2024 11:36 AM EDT Respiratory Rate 19 11/24/2024 11:36 AM EDT Oxygen Saturation 95% 11/24/2024 11:36 AM EDT Inhaled Oxygen Concentration - - Weight 75.5 kg (166 lb 7.2 oz) 11/24/2024 9:34 A M EDT Height 157.5 cm (5' 2 ) 11/24/2024 9:34 AM EDT Body Mass Index 30.44 11/24/2024 9:34 AM EDT documented in this encounter Medications [...] (one) time each day. 20 tablet 11/23/2023 dexamethasone (Decadron) 1 MG tablet TAKE 1 TABLET BY MOUTH IN THE MORNING AND 1 TABLET BEFORE BEDTIME. 60 tablet 11/09/2024 Tivozanib HCl 0.89 MG capsule Take one cap daily 30 capsule 3 10/16/2024 apixaban (Eliquis) 5 MG tabletIndications:Re nal cell carcinoma, unspecified laterality Take 1 tablet by mouth 2 times a day. 60 tablet 5 09/01/2024 5 documented as of this encounter Miscellaneous Notes * Post-Procedure Note - Monica Smith APRN - 11/24/2024 10:30 AM EDT Vascular and Interventional Radiology Brief [...] is in stable condition. * H&P - Monica Smith APRN - 11/24/2024 10:30 AM EDT 11/24/24 Patient: Jo Ann Winston Date of : 1965/59 y.o. Chief Complaint: Here for thoracentesis. History of Present Illness: Abby Winston is a 59 y.o. 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 History and admission information obtained from chart review of primary and consulting teams notation , as well as speaking directly to consulting [...] are personally reviewed unless otherwise noted. VITALS: BP: ()/() Arterial Line BP: ()/() There [...] Alb ?? D.Bili ?? HOURS) EXAM: GENERAL: WD, WN, NAD. EYES: PERRL; No scleral icterus or conjunctivitis HENT: Atraumatic, normocephalic NECK: Supple. RESP/CHEST: Symmetric expansion; non labored. CARD: regular rate and rhythm, normal S1 and S2, no murmur, rub, or gallop Extremities: No edema, no cyanosis or clubbing. Pedal pulses palpable +2. GI: No organomegaly or masses. Soft, Nontender, nondistended. Bowel sounds present x 4. SKIN: No rash, sores, lesions or subcutaneous nodules. NEURO: AAOx4. Motor intact and no focal deficits Radiographics/Diagnostics: Imaging personally reviewed and reviewed with attending. === 10/23/24 === CT ABDOMEN PELVIS W IV CONTRAST - Narrative - CLINICAL INDICATION: liver mass TECHNIQUE: Multiple axial CT images were obtained from lung bases through pubic symphysis following administration of IV contrast, Omnipaque 300, 100 mL. Images were obtained in the arterial, venous, and three-minute delayed phases. Reformatted images in the coronal and sagittal planes were generated from theaxial data set to facilitate diagnostic accuracy. Total [...] image 48 and series 10 image 82), previously3.1 cm. Exophytic cyst in the left upper [...] lesions in the T11 and L1 vertebral bodies,compatible with metastatic disease. - Impression - Small interval increase in size of the [...] Ramila Diaz MD on 10/23/2024 1:46 PM === 11/03/24 === XR CHEST 1 VIEW - Narrative - CLINICAL INDICATION: s/p thora TECHNIQUE: XR CHEST 1 VIEW COMPARISON: Chest radiograph October 05, 2024 FINDINGS: Cardiac silhouette and mediastinal contours are stable. No consolidation. Right perihilar and basilar atelectasis. Stable small right-sided pleural effusions. No pneumothorax. - Impression - No pneumothorax. CRITICAL RESULT: No. COMMUNICATION: Per this written report. By electronically signing this report, I, the attending physician, attest that I have personally reviewed the images/data for the above examination(s) and agree with the final edited report. Drafted by Liz Castle MD on 11/03/2024 10:55 AM Final report signed by Laith Cash MD on 11/03/2024 11:00 AM Echo, Adult Transthoracic Complete Result Date: [...] is no recent study available for direct [id number]-ki-[id number] comparison. 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 - INR 1.2, PTT ??, Plt 233 - VSS, Afebrile - Followed by Oncology Initiated first-line therapy with Nivo/Ipi from 03/08/23 to 05/10/23 Underwent SBRT to right adrenal gland T11 through L1, right iliac bone from 07/02/23-07/09/23 and left 12th rib from 07/15/23-07/22/23 PLAN: - Will perform right thoracentesis today. - Will consent prior to procedure Thank you for allowing us to participate in the care of this patient. Monica Smith, YEAST WASHER Interventional Radiology [phone] [1] Past Medical History: Diagnosis Date Blood [...] date: 04/01/1979 Quit date: 2014 Years since quittin.6 Passive exposure: Never Smokeless tobacco: Never Substance [...] by mouth 2 times a day. (Patient not taking: Reportedon 11/18/2024), Disp: 60 tablet, Rfl: 5 dexamethasone (Decadron) 1 MG tablet, TAKE 1 TABLET BY MOUTH IN THE MORNING AND 1 TABLET BEFORE BEDTIME. (Patient not taking: Reported on 11/13/2024), Disp: 60 tablet, Rfl: 0 famotidine (Pepcid) 20 MG tablet, Take 1 tablet (20 mg) by mouth 1 (one) time each day. (Patient not taking: Reported on 11/03/2024), Disp: 30 tablet, Rfl: 3 levothyroxine (Synthroid, Levoxyl) 100 MCG tablet, Take 1 tablet (100 mcg) by mouth daily before breakfast., Disp: 30 tablet, Rfl: 11 loperamide (Imodium A-D) 2 MG tablet, Take 1 tablet (2 mg) by mouth 4 (four) times a day if needed for diarrhea. (Patient not taking: Reported on 11/13/2024), Disp: 30 tablet, Rfl: 1 ondansetron ODT (Zofran-ODT) 4 MG disintegrating tablet, Take 1 tablet (4 mg) by mouth every 8 (eight) hours if needed for nausea or vomiting., Disp: 20 tablet, Rfl: 0 senna-docusate sodium (Senokot-S) 8.6-50 MG tablet, Take 1 tablet by mouth 1 (one) time each day., Disp: 20 tablet, Rfl: 0 Tivozanib HCl 0.89 MG capsule, Take one cap daily, Disp: 30 capsule, Rfl: 3 documented in this encounter Plan of Treatment Upcoming Encounters Date Type Department Care Team (Late st Contact Info) Description 12/22/2024 12:30 PM EDT Appointment [facility] Inter[facility] Radiology [address] [place] [address] 12/29/2024 11:45 AM EDT Appointment [facility] Inter[facility] Radiology [address] [place] [address] 02/17/2025 11:20 AM EST Office Visit [facility] [address] [facility], [address] [place] [address] Aurora Hubbard, YEAST WASHER [address] [place] [address] documented as of this encounter Procedures Procedure Name Priority Date/Time Associated Diagnosis Comments XR CHEST 1 VIEW STAT 11/24/2024 12:02 PM EDT US GUIDED THORACENTESIS Routine 11/24/2024 11:28 AM EDT Pleural effusion documented in this encounter Results * XR Chest 1 View (11/24/2024 12:02 PM EDT) Anatomical Region Laterality Modality Chest Digital Radiogra phy Impressions 11/24/2024 12:06 PM EDT No pneumothorax. CRITICAL RESULT: No. COMMUNICATION: Per this written report. Drafted by Pasha Louise MD on 11/24/2024 12:05 PM Final report signed by Pasha Louise MD on 11/24/2024 12:06 PM Narrative 11/24/2024 12:06 PM EDT CLINICAL INDICATION: s/p right thora TECHNIQUE: XR CHEST 1 VIEW COMPARISON: November 03, 2024 FINDINGS: Small right pleural effusion. No significant pneumothorax. Basilar atelectasis. No edema or consolidation. Procedure Note Pasha Louise MD - 11/24/2024 CLINICAL INDICATION: s/p right thora TECHNIQUE: XR CHEST 1 VIEW COMPARISON: November 03, 2024 FINDINGS: Small right pleural effusion. No significant pneumothorax. Basilaratelectasis. No edema or consolidation. IMPRESSION: No pneumothorax. CRITICAL RESULT: No. COMMUNICATION: Per this written report. Drafted by Pasha Louise MD on 11/24/2024 12:05 PM Final report signed by Pasha Louise MD on 11/24/2024 12:06 PM us Monica Smith APRN IMG XR PROCEDURES Final Resu lt * US Guided Thoracentesis (11/24/2024 11:28 AM EDT) Anatomical Region Laterality Modality Chest Ultrasound Impressions 11/24/2024 2:13 PM EDT Technically successful ultrasound guided thoracentesis. A total of 1.2 L of clear yellow fluid was removed. A sample of the fluid was sent for laboratory analysis. CRITICAL RESULT: No. COMMUNICATION: Per this written report. Preliminary report signed by ANDERSON Hernandez on 11/24/2024 12:32 PM By electronically signing this report, I, the attending physician, attest that I was not present for the procedure(s) but agree with the final edited report. Drafted by ANDERSON Hernandez on 11/24/2024 12:31 PM Final report signed by Harlan Keith MD on 11/24/2024 2:13 PM Narrative 11/24/2024 2:13 PM EDT CLINICAL INDICATION: Right pleural effusion TECHNIQUE: Industrial Economist: Monica Smith APRN Secondary Bone Char Puller: None. Rad Dose: NA Medications: Continuous physiologic monitoring provided by a qualified healthcare professional. Administered: 1% Lidocaine SQ. Antibiotics: NA Time out: 1118 Procedure: After discussion of risks and benefits, [...] permanent storage in PACS. A total of 1.2 L of clear yellow fluid was removed. The needle was removed and occlusive dressing applied. The patient tolerated the procedure well. The patient left the IR suite in stable condition. COMPARISON: None. FINDINGS: Moderate right pleural fluid. COMPLICATION: No. Procedure Note Harlan Keith MD - 11/24/2024 CLINICAL INDICATION: Right pleural effusion TECHNIQUE: Industrial Economist: Monica Smith APRN Secondary Bone Char Puller: None. Rad Dose: NA Medications: Continuous physiologic monitoring provided by a qualifiedhealthcare professional. Administered: 1% Lidocaine SQ. Antibiotics: NA Time out: 1118 Procedure: After discussion of risks and benefits, [...] to permanentstorage in PACS. A total of 1.2 L of clear yellow fluid was removed. Theneedle was removed and occlusive dressing applied. The patient tolerated the procedure well. The patient left the IR suitein stable condition. COMPARISON: None. FINDINGS: Moderate right pleural fluid. COMPLICATION: No. IMPRESSION: Technically successful ultrasound guided thoracentesis. A total of 1.2 L of clear yellow fluid was removed. A sample of the fluid was sent for laboratory analysis. CRITICAL RESULT: No. COMMUNICATION: Per this written report. Preliminary report signed by ANDERSON Hernandez on 11/24/2024 12:32 PM By electronically signing this report, I, the attending physician, attestthat I was not present for the procedure(s) but agree with the finaledited report. Drafted by ANDERSON Hernandez on 11/24/2024 12:31 PM Final report signed by Harlan Keith MD on 11/24/2024 2:13 PM us Natty Choe YEAST WASHER IMG US PROCEDURES Final Resu lt documented in this encounter Visit Diagnoses Diagnosis Pleural effusion Unspecified pleural effusion documented in this encounter Administered Medications Inactive Administered Medications - up to 3 most recent administrations Medication Order MAR Action Action Date Dose Rate Site lidocaine 1% in sodium bicarbonate (buffered lidocaine)10 mL 10 mL, Infiltration, Once, 1 dose, On Sat11/24/24 at 1015, Routine, Holding - Preprocedure Given 11/24/2024 11:19 AM EDT 10 mL documented in this encounter Additional Health Concerns Assessment Noted Time PHQ-9 Depression Total Score: 0 09/17/19 9:51 AM EDT A fall risk assessment has been complete d for the patient 11/18/2024 12:04 PM EDT A Body Mass Index follow-up plan has been documented for the patient 11/03/2024 10:35 AM EDT documented as of this encounter Care Teams Cigar Wrapper Tender Automatic Relationship Specialty Start Date End Date Jared Coronel MD [address] [place] [address] PCP - General 08/12/20 Joseph Odonnell MD [address] [place] [address] Surgeon Neurosurgery 02/28/23 Carrol Armenta MD [address] [facility] [address] [place] [address] Consulting Physician Medical Oncology 06/12/23 Sky Moreau MD [address] [facility] [address] [place] [address] Consulting Physician Radiation Oncology 06/12/23 Lauren Paiz APRN [address] [address] Nurse Practitioner Internal Medicine 07/19/23 documented as of this encounter
--- OUTSIDE RECORDS SUMMARY | 2024-11-24 11:52 | XMS_ITS | Encounter Summary ---
Author Organization Healthcare Address [address] [place] [address] Care Team Providers Care Packing House Supervisor Name Role Phone Jared Coronel MD Primary Care Provider [phone] Joseph Odonnell MD Unavailable [phone] Carrol Armenta MD Unavailable Sky Moreau MD Unavailable [phone] Lauren Paiz CATEGORY DIRECTOR Unavailable [phone] Encounter Details Date Type Department Care Team (Latest Contact Info) Description 11/24/2024 11:52 AM EDT - 11/24/2024 11:59 PM EDT Hospital Encounter [facility] Radiology [address] [place] [address] Discharge Disposition: Home or Self Care Social [...] drink first t nichole in the morning (EYE-METAL PUNCH PRESS OPERATOR) to steady your nerves or to get rid of a hangover? 0 11/21/2023 CAGE Questionnaire Score 0 024 Utilities Answer Date Recorded In the past 12 months has th e electric, gas, [employer], or water Room 77 threatened to shut off services in your [...] Appointment [facility] Interventional Radiology [address] [place] [address] 12/29/2024 11:45 AM EDT Appointment [facility] Inter[facility] Radiology [address] [place] [address] 02/17/2025 11:20 AM EST Office Visit [facility] [address] [facility] [place] [address] Aurora Hubbard, CATEGORY DIRECTOR [address] [place] [address] documented as of this encounter Procedures Procedure Name Priority Date/Time Associated Diagnosis Comments XR CHEST 1 VIEW STAT 11/24/2024 12:02 PM EDT documented in this encounter Results [...] MD on 11/24/2024 12:06 PM us Monica M Luis CATEGORY DIRECTOR IMG XR PROCEDURES Final Resu lt documented [...] documented as of this encounter Care Teams Packing House Supervisor Relationship Specialty Start Date End Date Jared Coronel MD [address] [place] [address] PCP - General 08/12/20 Joseph Odonnell MD [address] [facility] [address] [place] [id number] Surgeon Neurosurgery 02/28/23 Carrol Armenta MD [address] [facility] [address] [place] [address] Consulting Physician Medical Oncology 06/12/23 Sky Moreau MD [address] [facility] [address] [place] [address] Consulting Physician Radiation Oncology 06/12/23 Lauren Paiz APRN [address] [facility] [address] [place] [address] Nurse Practitioner Internal Medicine 07/19/23 documented as of this encounter
--- OUTSIDE RECORDS SUMMARY | 2024-11-26 08:55 | XMS_ITS | Encounter Summary ---
Author Organization Healthcare Address [address] [place] [address] Care Team Providers Care Crt Name Role Phone Jared Coronel MD Primary Care Provider [phone] Joseph Odonnell MD Unavailable [phone] Carrol Armenta MD Unavailable Sky Moreau MD Unavailable [phone] Lauren Paiz INCIDENT RESPONSE ANALYST Unavailable [phone] Reason for Referral * Imaging (Routine) - Closed Specialty Diagnoses / Procedures Referred By Tammy little Referred To Contact Radiology Diagnoses Brain mass Renal cell carcinoma, unspecified laterality Procedures MR Head w and wo IV Contrast Joseph Odonnell MD [address] [address] Phone: tel: fax: Referral ID Status Reason Start Date Expiration Date Visits Re quested Visits Authorized [id number] Closed 07/16/2024 01/15/2026 1 1 Reason for Visit * Imaging (Routine) - Closed Specialty Diagnoses / Procedures Referred By Tammy little Referred To Contact Radiology Diagnoses Brain mass Renal cell carcinoma, unspecified laterality Procedures MR Head w and wo IV Contrast Joseph Odonnell MD [id number] [place] [address] Phone: tel: fax: Referral ID Status Reason Start Date Expiration Date Visits Re quested Visits Authorized [id number] Closed 07/16/2024 01/15/2026 1 1 Encounter Details Date Type Department Care Team (Latest Contact Info) Description 11/26/2024 8:55 AM EDT - 11/26/2024 11:59 PM EDT Hospital Encounter [facility] [address] [place] [address] Brain mass; Renal cell carcinoma, unspecified laterality [...] Date Recorded Patient Health Questionnaire-2 Score 0 12/03/2024 Hunger Vital Sign Answer Date Recorded Within [...] drink first t nichole in the morning (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-SHOT BLAST EQUIPMENT OPERATOR) to steady your nerves or to [...] pleasure in doing things Not at all 12/03/2024 9:18 AM EDT Kerry Zimmerman Feeling down, depressed, or hopeless Not at all 12/03/2024 9:18 AM EDT Kerry Zimmerman Patient Health Questionnaire -2 Score 0 12/03/2024 9:18 AM EDT Kerry Zimmerman * Question Answer Date of Assessment Author Thoughts that you would be b barry off or hurting yourself in some way Not at all 12/03/2024 9:18 AM EDT Kerry Zimmerman documented as of this encounter Medications at [...] Appointment [facility] [address] [place] [address] 12/29/2024 11:45 AM EDT Appointment [facility] [address] [place] [address] 02/17/2025 11:20 AM EST Office Visit [facility] [address] [facility], [address] [place] [address] Aurora Hubbard Kelsie, INCIDENT RESPONSE ANALYST [address] [place] [address] documented as of this encounter Procedures Procedure Name Priority Date/Time Associated Diagnosis Comments MR HEAD W AND WO IV CONTRAST Routine 11/26/2024 9:54 AM EDT Brain mass Renal cell carcinoma, unspecified laterality documented in this encounter Results * MR Head w and wo IV Contrast (11/26/2024 9:54 AM EDT) Anatomical Region Laterality Modality Head Magnetic Resonan ce Impressions 11/27/2024 5:25 PM EDT 1. No change in T1 hyperintense treated right posterior frontal parietal metastasis. Mass is T1 hyperintense so contrast enhancement cannot be determined 2. Metastatic lesion in C3 vertebral body without vertebral body collapse Julienne Jones M.D. This report has been electronically signed [...] error, please notify the sender immediately at [phone] and permanently delete the original report and destroy any copies or printouts. 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 Since last seen 06/2024 patient has remained at neurologic baseline with no new neurologic deficits or concerns. States that she has had improvement in her additional sites of metastasis on recent imaging. Additional History (per [facility]): Treated renal cell carcinoma metastases Examination: MRI brain without and with intravenous contrast Technique: High-resolution multiplanar MR images were obtained through the brain both before and after intravenous contrast Gadavist 7.6 mL was administered intravenously Images obtained on a 3 T magnet Comparison: Compared to prior MRI brain 09-15-2024 FINDINGS: Right parietal treated metastasis is unchanged in size and signal intensity. Lesion is T1 hyperintense precontrast. Therefore no definite contrast enhancement can be appreciated. No change in surrounding gliosis. No acute intracranial hemorrhage, infarction, mass, or mass-effect. No other imaging findings that suggest metastatic disease. DWI: No abnormal restricted diffusion or acute infarction SWI: No microbleeds Abnormal low signal intensity in the left C3 vertebral body, with enhancement, characteristic for an osseous met. No vertebral body collapse. 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 Since last seen 06/2024 patient has remained at neurologicbaseline with no new neurologic deficits or concerns. States that she hashad improvement in her additional sites of metastasis on recent imaging. Additional History (per [facility]): Treated renal cell carcinomametastases Examination: MRI brain without and with intravenous contrast Technique: High-resolution multiplanar MR images were obtained through thebrain both before and after intravenous contrast Gadavist 7.6 mL was administered intravenously Images obtained on a 3 T magnet Comparison: Compared to prior MRI brain 09-15-2024 FINDINGS: Right parietal treated metastasis is unchanged in size and signalintensity. Lesion is T1 hyperintense precontrast. Therefore no definitecontrast enhancement can be appreciated. No change in surrounding gliosis. No acute intracranial hemorrhage, infarction, mass, or mass-effect. No other imaging findings that suggest metastatic disease. DWI: No abnormal restricted diffusion or acute infarction SWI: No microbleeds Abnormal low signal intensity in the left C3 vertebral body, withenhancement, characteristic for an osseous met. No vertebral bodycollapse. IMPRESSION: 1. No change in T1 hyperintense treated right posterior frontal parietalmetastasis. Mass is T1 hyperintense so contrast enhancement cannot bedetermined 2. Metastatic lesion in C3 vertebral body without vertebral bodycollapse Julienne Jones M.D. This report has been electronically signed [...] in error, pleasenotify the sender immediately at [phone] and permanently delete theoriginal report and destroy any copies or printouts. us Joseph Odonnell MD IM MRI PROCEDURES Final Resul t documented in this encounter Visit Diagnoses Diagnosis Brain mass Unspecified condition of brain Renal cell carcinoma, unspecified laterality documented in this encounter Administered Medications Inactive Administered Medications - up to 3 most recent administrations Medication Order MAR Action Action Date Dose Rate Site gadobutrol (Gadavist) injection 7.6 mL 7.6 mL (0.1 mL/kg 76 kg), Intravenous, Once in imaging, 1 dose, Starting on Sat11/26/24 at 0944, Until Sat11/26/24 at 0953, Routine, Imaging Protocol Orders Given 11/26/2024 9:53 AM EDT 7.6 mL documented in this encounter Additional Health Concerns Assessment Noted Time PHQ-9 Depression Total Score: 0 09/17/19 9:51 AM EDT A fall risk assessment has been complete d for the patient 11/26/2024 11:07 AM EDT A Body Mass Index follow-up plan has been documented for the patient 11/26/2024 1:33 PM EDT documented as of this encounter Care Teams Crt Relationship Specialty Start Date End Date Jared Coronel MD [address] [place] [address] PCP - General 08/12/20 Joseph Odonnell MD [address] [place] [address] Surgeon Neurosurgery 02/28/23 Carrol Armenta MD [address] [facility] [address] [place] [address] Consulting Physician Medical Oncology 06/12/23 Sky Moreau MD [address] [facility] [address] [place] [address] Consulting Physician Radiation Oncology 06/12/23 Lauren Paiz, INCIDENT RESPONSE ANALYST [address] [facility] [address] [place] [address] Nurse Practitioner Internal Medicine 07/19/23 documented as of this encounter
--- OUTSIDE RECORDS SUMMARY | 2024-11-26 10:45 | XMS_ITS | Encounter Summary ---
Author Organization Healthcare Address [address] [place] [address] Care Team Providers Care Dental Hygienist Mobile Coordinator Name Role Phone Jared Coronel MD Primary Care Provider + [phone] Joseph Odonnell MD Unavailable [phone] Carrol Armenta MD Unavailable Sky Moreau MD Unavailable [phone] Lauren Paiz ROLLER HAND Unavailable [phone] Encounter Details Date Type Department Care Team (Late st Contact Info) Description 11/26/2024 10:45 AM EDT Office Visit [place] [facility] [address], [address] [place] [address] Joseph Odonnell MD [address] [place] [address] Renal cell carcinoma, unspecified laterality (Primary Dx) [...] drink first t nichole in the morning (EYE-PIANO MAKER) to steady your nerves or to [...] Sign Reading Time Taken Comments Blood Pressure 122/73 11/26/2024 11:07 AM EDT Pulse - - Temperature - - Respiratory Rate - - Oxygen Saturation - - Inhaled Oxygen Concentration - - Weight 75.8 kg (167 lb) 11/26/2024 11:07 AM EDT Height 154.9 cm (5' 1 ) 11/26/2024 11:07 AM EDT Body Mass Index 31.55 11/26/2024 11:07 AM EDT documented in this encounter Miscellaneous Notes * Progress Notes - Vernon Shen - 11/26/2024 10:45 AM EDT We had the pleasure of seeing your patient in our clinic today for continued Neurosurgical evaluation. Chief Complaint: s/p GKRS History Of Present Illness: Abby Winston is a 59 y.o. 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 Since last seen 06/2024 patient has remained at neurologic baseline with no new neurologic deficits orconcerns. States that she has had improvement in her additional sites of metastasis on recent imaging. Of note patient is undergoing evaluation for Trial therapy in [place]. Social History, Medications, and Allergies reviewed and noted below or in HPI Sulfa drugs, Vancomycin, and Nivolumab Physical Exam GEN: well developed, no acute distress HEENT: normocephalic, atraumatic, no scleral icterus, oropharynx clear PULM: no increased work of breathing, normal effort CV: normal rate and regular rhythm ABD: non-distended MSK: no joint swelling SKIN: warm and dry, capillary refill <2 seconds PSYCH: normal mood and affect Neuro Exam GCS (EMV): 465 Awake, alert, oriented Follows commands appropriately Speech clear PERRL, EOMI HURLYE symmetrically, no drift Imaging I personally reviewed MR W 11/26/2024 - reduced size of previously noted parietal and left occipital metastases; 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 Assessment and Plan Abby Winston is a 59 y.o. female with metastatic RCC to brain s/p GKRS to bilateral parietal and left occipital metastases 03/08/23. Since last seen patient has remained at neurologic baseline with no new neurologic deficits or concerns. We will plan to see the patient back in 4 months with repeat MRI head w/w/o contrast. The patient is agreeable to plan of care. They had the opportunity to ask questions, all of which were answered to their satisfaction. I reviewed this patient's history, exam, and imaging with Dr. Odonnell. He guided plan of care for this patient. The total [id number] time spent on this visit was greater than 30 minutes, with the majority (>50%) of the time spent in counseling, discussing pathology and management options, and coordination of care. Vernon Shen MD PGY-2, Department of neurosurgery [facility] Pager: [phone] Cosigned by Joseph Odonnell MD at 11/26/2024 1:32 PM EDT Associated attestation - Joseph Odonnell MD - 11/26/2024 1:32 PM EDT I saw and evaluated the patient with the resident/fellow. I discussed the case with the resident/fellow and agree with the findings and plan as documented. documented in this encounter Plan of Treatment Upcoming Encounters Date Type Department Care Team (Late st Contact Info) Description 12/22/2024 12:30 PM EDT Appointment [facility] [address] [place] [address] 12/29/2024 11:45 AM EDT Appointment [facility] [address] [place] [address] 02/17/2025 11:20 AM EST Office Visit [facility] Head[facility] Neck [facility] Res[facility] [address] [facility], [address]nd [place] [address] Aurora Hubbard, ROLLER HAND [address] [place] [address] documented as of this encounter Visit Diagnoses [...] documented as of this encounter Care Teams Dental Hygienist Mobile Coordinator Relationship Specialty Start Date End Date Jared Coronel MD [address] [place] [address] PCP - General 08/12/20 Joseph Odonnell MD [address] [facility] [address] [place] [address] Surgeon Neurosurgery 02/28/23 Carrol Armenta MD [address] [facility] [address] [place] [address] Consulting Physician Medical Oncology 06/12/23 Sky Moreau MD [address] [facility] [address] [place] [address] Consulting Physician Radiation Oncology 06/12/23 Lauren Paiz APRN [address] [facility] [address] [address] Nurse Practitioner Internal Medicine 07/19/23 documented as of this encounter
--- OUTSIDE RECORDS SUMMARY | 2024-12-03 08:30 | XMS_ITS | Encounter Summary ---
Author Organization Healthcare Address [address] [place] [address] Care Team Providers Care Network Account Manager Name Role Phone Jared Coronel MD Primary Care Provider [phone] Joseph Odonnell MD Unavailable [phone] Carrol Armenta MD Unavailable Sky Moreau MD Unavailable [phone] Lauren Paiz CANNERY TENDER ENGINEER Unavailable [phone] Reason for Visit * Reason Comments Follow-up Renal cell carcinoma of left kidney Encounter Details Date Type Department Care Team (Late st Contact Info) Description 12/03/2024 8:30 AM EDT Office Visit [facility] Multidisciplinary Oncology Clinic [address] [place] [address] Lauren Paiz, CANNERY TENDER ENGINEER [address] [address] Renal cell carcinoma, unspecified laterality [...] drink first t nichole in the morning (EYE-LOADER ENGINEER) to steady your nerves or to get [...] Sign Reading Time Taken Comments Blood Pressure 130/92 12/03/2024 9:13 AM EDT Pulse 105 12/03/2024 9:13 AM EDT Temperature 36.4 C (97.6 F) 12/03/2024 9:13 AM EDT Respiratory Rate 16 12/03/2024 9:13 AM EDT Oxygen Saturation 95% 12/03/2024 9:13 AM EDT Inhaled Oxygen Concentration - - Weight 76.7 kg (169 lb 1.5 oz) 12/03/2024 9:13 A M EDT Height 160 cm (5' 3 ) 12/03/2024 9:13 AM EDT Body Mass Index 29.95 12/03/2024 9:13 AM EDT documented in this encounter Functional [...] Kerry Zimmerman documented as of this encounter Miscellaneous Notes * Progress Notes - Lauren Paiz, CANNERY TENDER ENGINEER - 12/03/2024 8:30 AM EDT Images from the original note were not included. Medical Oncology Clinic Note Patient Name: Jo Ann Winston Date of : 1965 59 y.o. Referring Physician:No referring provider defined for this encounter. Encounter Date: 12/03/2024 Interval History: The patient presents today for follow up and continuation of treatment with Tivo 0.89 mg PO D1-21 Q28 days. Here today for reassessment of bruising. She is here today accompanied by her daughter. She reports that her bruising is fading but still present (see picture). She has HELD Eliquis since 2 weeks ago. She reports right eye cataract and would like a referral to ophthalmology. She reports wea kness/numbness in left leg and would like to know if anything on the recent MRI could explain this.She is inquiring about liver scan ?? If it needs to be done. She would like to know if compression socks would be beneficial for her to wear. Since her last thoracentesis, she reports pain on the left side, non productive cough and some chest discomfort. No other significant clinical findings. Oncology History: Oncology History Overview Note -presented to the [facility] on 02/04/2023 with left leg paresthesias [...] the current list of radiation treatment: 3D CHAIN CARRIER: Right Bone of pelvis (Resolved) Treatment Period [...] the current list of radiation treatment: 3D CHAIN CARRIER: Not Applicable Thoracic spine, Left Rib (Resolved) [...] (rcT1b, cNX, pM1) - Signed by Sky Moraeu MD on 01/23/2024 Renal cell carcinoma, unspecified laterality 01/10/2024 Initial Diagnosis Renal cell carcinoma, unspecified laterality (CMS/HCC) 01/10/2024 - 05/16/2024 Radiation Therapy The patient saw Sky Moreau MD for radiation treatment. This is the current list of radiation treatment: 3D CHAIN CARRIER: Left Leg (Resolved) Treatment Period Fraction Dose [...] except as noted in HPI. Physical Exam: ECO General: Sitting/resting comfortably in chair, NAD HEENT: NCAT, PERRLA/EOMI, anicteric; no oral lesions Neck: Supple, no lymphadenopathy or JVD Heart: RRR, no MGR Lungs: CTAB; no rales, rhonchi or wheezes Abdomen: Soft, NTND, + BS Extremities: No edema, distal pulses intact Musculoskeletal: No focal tenderness or deformity Skin: Bruising as noted on picture below; no visible rashes or lesions Neuro: Grossly nonfocal; no localizing deficits of strength, sensation, or mentation Psychiatric: Normal mood and thought content LABS: Office Visit on 12/03/2024 Component Date Value WBC Count 12/03/2024 11.63 (H) RBC Count 12/03/2024 5.07 HGB 12/03/2024 13.4 HCT 12/03/2024 42.5 Platelet Count 12/03/2024 248 MCV 12/03/2024 84 MCH 12/03/2024 26.4 MCHC 12/03/2024 31.5 RDW 12/03/2024 18.1 (H) MPV 12/03/2024 9.7 nRBC 12/03/2024 0.2 (H) Differential Type 12/03/2024 Automated Neutrophils % 12/03/2024 79 Lymphocytes % 12/03/2024 11 Monocytes % 12/03/2024 6 Eosinophils % 12/03/2024 1 Basophils % 12/03/2024 0 Immature Granulocytes % 12/03/2024 3 Neutrophils Absolute 12/03/2024 9.28 (H) Lymphocytes Absolute 12/03/2024 1.25 Monocytes Absolute 12/03/2024 0.69 Eosinophils Absolute 12/03/2024 0.08 Basophils Absolute 12/03/2024 0.04 Immature Granulocytes Ab* 12/03/2024 0.29 (H) Glucose, Plasma 12/03/2024 139 (H) BUN, Plasma 12/03/2024 19 Creatinine, Plasma 12/03/2024 0.55 (L) BUN/Creatinine Ratio 12/03/2024 35 Sodium, Plasma 12/03/2024 137 Potassium, Plasma 12/03/2024 4.8 Chloride, Plasma 12/03/2024 104 CO2, Plasma 12/03/2024 22 Anion Gap 12/03/2024 11 Total Calcium, Plasma 12/03/2024 9.9 Total Protein 12/03/2024 6.4 Albumin, Plasma 12/03/2024 3.4 (L) AST, Plasma 12/03/2024 25 ALT, Plasma 12/03/2024 21 Alkaline Phosphatase, Pl* 12/03/2024 123 Total Bilirubin, Plasma 12/03/2024 0.3 eGFRcr 12/03/2024 105.1 RADIOLOGY: No image results found. ASSESSMENT AND PLAN: Mrs. Winston is a 59 y.o. female who initially presented with left leg paraesthesias and imbalance. She was found to have brain mass and left renal mass s/p intracranial supratentorial resection on 02/06/23. 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 PLAN FOR 12/03/2024: - Continue with Tivo 0.89 mg daily. Tolerating better on this lower dose - She went to [facility] and has some potential trials for her. Given recent scans show stable disease, advised her to continue with Tivo and then clinical study - Can also consider HIF2 alpha inhibitor drug in the future - RTC for f/up with MD/DIMITRIS in 2-3 weeks for tox check, check bruising on lower dose Eliquis - Of note, will get MRI abdomen liver protocol per Dr. Armenta prior to RTC #Right eye cataract - Will refer to ophthalmology #Non productive cough/chest discomfort/pain after thoracentesis - Chest x-ray today showed significant interval worsening of right side pleural effusion - Will get thoracentesis scheduled per IR #Generalized rash/bruises all over the body - Unclear etiology - Denied trauma or fall - She has been on eliquis for several months but was previously HELD eliquis for about 2 weeks now - Will restart her on lower dose Eliquis 2.5 mg BID - RTC in 2-3 weeks to reassess #Left side weakness - Unclear from previous brain met or radiation necrosis - MRI head on 11/26/2024 - No change in T1 hyperintense treated right posterior frontal parietal metastasis. Mass is T1 hyperintense so contrast enhancement cannot be determined. Metastatic lesion in C3 vertebral body without vertebral body collapse pending - Follows with Dr. Odonnell - May be due to previous radiation as she is also experiencing numbness/tingling in her left lower extremity (left hip site of surgery/radiation) - Due to numbness and tingling, will start her on Gabapentin 300 mg at bedtime - Pt has agreed to do PT locally, referral placed. She will call to set up appt. #Medical Necessity for Wheelchair - Given the patient???s neurologic deficits, orthopedic instability, and overall functional decline, a wheelchair is medically necessary to ensure safe and reliable mobility. It will reduce the risk of falls, prevent further orthopedic injury, and support her independence in daily activities. Without a wheelchair, the patient is at significant risk for fracture, hospitalization, and further deterioration of quality of life #Epigastric discomfort- improving - Continue with Pepcid 20 mg daily - Reports that symptoms are well-controlled #Left proximal left femur lesion with loss of anterior cortex and posterior cortical thinning concerning for impending fracture in October 2023 - Underwent radical intralesional resection left proximal femur renal cell metastasis and Prophylactic stabilization left hip with cemented plate on 11/21/23. - s/p radiation completed 01/24/2024 - Xgeva is switched to monthly given fracture-->>due now but will give at next visit - She can f/u with Dr. 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 Modifications of drug dose and schedule as well as the initiation of supportive care interventions are often necessary because of expected toxicities. This varies individually based on patient tolerability, priortreatments and comorbidities/risk status. Monitoring typically entails labs, imaging and/or other diagnostics, utilizing a healthcare delivery team experienced in the use of anticancer agents and themanagement of associated toxicities in patients with cancer. Lauren Paiz, SONNY, CANNERY TENDER ENGINEER, ELECTRIC POWERLINE EXAMINER-C Division of Medical Oncology documented in this encounter Plan of Treatment Upcoming Encounters Date Type Department Care Team ([facility] st Contact Info) Description 12/22/2024 12:30 PM EDT Appointment [facility] Interventional Radiology [address] [place] [address] 12/29/2024 11:45 AM EDT Appointment [facility] Interventional Radiology [address] [place] [address] 02/17/2025 11:20 AM EST Office Visit [facility] Head, Neck & Respiratory [address] [facility], [address]nd [place] [address] Aurora Hubbard, ERIC [address] [place] [address] documented as of this encounter Procedures Procedure Name Priority Date/Time Associated Diagnosis Comments CBC WITH AUTO DIFFERENTIAL Routine 12/03/2024 8:58 AM EDT Renal cell carcinoma, unspecified laterality COMPREHENSIVE METABOLIC PANEL, PLASMA Routine 12/03/2024 8:58 AM EDT Renal cell carcinoma, unspecified laterality documented in this encounter Results * XR Chest 2 Views (12/03/2024 11:20 AM EDT) Anatomical Region Laterality Modality Chest Digital Radiogra phy Impressions 12/03/2024 12:38 PM EDT Significant interval worsening of right-sided pleural effusion. CRITICAL RESULT: No. COMMUNICATION: Per this written report. By electronically signing this report, I, the attending physician, attest that I have personally reviewed the images/data for the above examination(s) and agree with the final edited report. Drafted by Molina Dawson MD on 12/03/2024 11:38 AM Final report signed by Laith Cash MD on 12/03/2024 12:38 PM Narrative 12/03/2024 12:38 PM EDT CLINICAL INDICATION: chest discomfort, cough TECHNIQUE: XR CHEST 2 VIEWS COMPARISON: Chest x-ray 11/24/2024. FINDINGS: Significant interval worsening of right sided pleural effusion. Similar appearance of bibasilar atelectasis. No osseous anomalies. No significant pneumothorax. Procedure Note Laith Cash MD - 12/03/2024 CLINICAL INDICATION: chest discomfort, cough TECHNIQUE: XR CHEST 2 VIEWS COMPARISON: Chest x-ray 11/24/2024. FINDINGS: Significant interval worsening of right sided pleural effusion. Similarappearance of bibasilar atelectasis. No osseous anomalies. No significantpneumothorax. IMPRESSION: Significant interval worsening of right-sided pleural effusion. CRITICAL RESULT: No. COMMUNICATION: Per this written report. By electronically signing this report, I, the attending physician, attestthat I have personally reviewed the images/data for the aboveexamination(s) and agree with the final edited report. Drafted by Molina Dawson MD on 12/03/2024 11:38 AM Final report signed by Laith Cash MD on 12/03/2024 12:38 PM Lauren Paiz CANNERY TENDER ENGINEER IMG XR PROCEDURES Final Resul t * (ABNORMAL) Comprehensive Metabolic Panel, Plasma (12/03/2024 8:58 AM EDT) Glucose, Plasma 139(H) 74 - 99 mg/dL 12/03/2024 10:12 AM EDT [facility] BUN, Plasma 19 8 - 23 mg/dL 12/03/2024 10:12 AM EDT [facility] Creatinine, Plasma 0.55(L) 0.60 - 1.10 mg/dL 12/03/2024 10:12 AM EDT [facility] BUN/Creatinine Ratio 35 12/03/2024 10:12 AM EDT [facility] Sodium, Plasma 137 136 - 145 mmol/L 12/03/2024 10:12 AM EDT [facility] Potassium, Plasma 4.8 3.6 - 4.9 mmol/L 12/03/2024 10:12 AM EDT [facility] Chloride, Plasma 104 97 - 107 mmol/L 12/03/2024 10:12 AM EDT [facility] CO2, Plasma 22 22 - 29 mmol/L 12/03/2024 10:12 AM EDT [facility] Anion Gap 11 6 - 16 mmol/L 12/03/2024 10:12 AM EDT [facility] Total Calcium, Plasma 9.9 8.9 - 10.2 mg/dL 12/03/2024 10:12 AM EDT [facility] Total Protein 6.4 6.3 - 7.9 g/dL 12/03/2024 10:12 AM EDT [facility] Albumin, Plasma 3.4(L) 3.5 - 5.2 g/dL 12/03/2024 10:12 AM EDT [facility] AST, Plasma 25 10 - 35 U/L 12/03/2024 10:12 AM EDT [facility] Comment:Hemolyzed, result ma y be falsely increased. ALT, Plasma 21 10 - 35 U/L 12/03/2024 10:12 AM EDT [facility] Alkaline Phosphatase, Plasma 123 46 - 142 U/L 12/03/2024 10:12 AM EDT [facility] Total Bilirubin, Plasma 0.3 0.2 - 1.1 mg/dL 12/03/2024 10:12 AM EDT [facility] eGFRcr 105.1 mL/min/1.7 3m*2 12/03/2024 10:12 AM EDT [facility] Comment:Reported eGFRcr in m L/min/1.73m2 is based the CKD-EPI 2020 equation that does not use a race coefficient. Blood Venous blood specimen / Unknown Venipuncture / Unknown 12/03/2024 8:58 AM EDT 12/03/2024 9:37 AM EDT us Lauren Paiz CANNERY TENDER ENGINEER LAB BLOOD ORDERABLES Final Re sult [facility] [address] [place] [address] * (ABNORMAL) CBC and Differential (12/03/2024 8:58 AM EDT) WBC Count 11.63(H) 3.70 - 10.30 10*3/uL LAB HEMATOLOGY METHOD 12/03/2024 9:53 AM EDT [facility] RBC Count 5.07 3.90 - 5.20 10*6/uL LAB HEMATOLOGY METHOD 12/03/2024 9:53 AM EDT [facility] HGB 13.4 11.2 - 15.7 g/dL LAB HEMATOLOGY METHOD 12/03/2024 9:53 AM EDT [facility] HCT 42.5 34.0 - 45.0 % LAB HEMATOLOGY METHOD 12/03/2024 9:53 AM EDT [facility] Platelet Count 248 155 - 369 10*3/uL LAB HEMATOLOGY METHOD 12/03/2024 9:53 AM EDT [facility] MCV 84 79 - 98 fL LAB HEMATOLOGY METHOD 12/03/2024 9:53 AM EDT [facility] MCH 26.4 26.0 - 32.0 pg LAB HEMATOLOGY METHOD 12/03/2024 9:53 AM EDT [facility] MCHC 31.5 30.7 - 35.5 g/dL LAB HEMATOLOGY METHOD 12/03/2024 9:53 AM EDT [facility] RDW 18.1(H) 11.5 - 14.5 % LAB HEMATOLOGY METHOD 12/03/2024 9:53 AM EDT [facility] MPV 9.7 8.8 - 12.5 fL LAB HEMATOLOGY METHOD 12/03/2024 9:53 AM EDT [facility] nRBC 0.2(H) <=0.0 per 100 WBCs LAB HEMATOLOGY METHOD 12/03/2024 9:53 AM EDT [facility] Differential Type Automated LAB HEMATOLOGY METHOD 12/03/2024 9:53 AM EDT [facility] Neutrophils % 79 % LAB HEMATOLOGY METHOD 12/03/2024 9:53 AM EDT [facility] Lymphocytes % 11 % LAB HEMATOLOGY METHOD 12/03/2024 9:53 AM EDT [facility] Monocytes % 6 % LAB HEMATOLOGY METHOD 12/03/2024 9:53 AM EDT [facility] Eosinophils % 1 % LAB HEMATOLOGY METHOD 12/03/2024 9:53 AM EDT [facility] Basophils % 0 % LAB HEMATOLOGY METHOD 12/03/2024 9:53 AM EDT [facility] Immature Granulocytes % 3 % LAB HEMATOLOGY METHOD 12/03/2024 9:53 AM EDT [facility] Neutrophils Absolute 9.28(H) 1.60 - 6.10 10*3/uL LAB HEMATOLOGY METHOD 12/03/2024 9:53 AM EDT [facility] Lymphocytes Absolute 1.25 1.20 - 3.90 10*3/uL LAB HEMATOLOGY METHOD 12/03/2024 9:53 AM EDT [facility] Monocytes Absolute 0.69 0.30 - 0.90 10*3/uL LAB HEMATOLOGY METHOD 12/03/2024 9:53 AM EDT [facility] Eosinophils Absolute 0.08 0.00 - 0.50 10*3/uL LAB HEMATOLOGY METHOD 12/03/2024 9:53 AM EDT [facility] Basophils Absolute 0.04 0.00 - 0.10 10*3/uL LAB HEMATOLOGY METHOD 12/03/2024 9:53 AM EDT [facility] Immature Granulocytes Absolute 0.29(H) 0.00 - 0.06 10*3/uL LAB HEMATOLOGY METHOD 12/03/2024 9:53 AM EDT [facility] Blood Venous blood specimen / Unknown Venipuncture / Unknown 12/03/2024 8:58 AM EDT 12/03/2024 9:39 AM EDT Narrative [facility] - 12/03/2024 9:53 AM EDT Therapeutic decision making should be based on absolute values, rather than percentages. us Lauren Paiz CANNERY TENDER ENGINEER LAB BLOOD ORDERABLES Final Re sult [facility] [address] [place] [address] documented in this encounter Visit Diagnoses Diagnosis Renal cell carcinoma, unspecified laterality- Primary Renal cell carcinoma, unspecified laterality documented in this encounter Additional Health Concerns Assessment Noted Time PHQ-9 Depression Total Score: 0 09/17/19 25 9:51 AM EDT A fall risk assessment has been complete d for the patient 12/03/2024 9:18 AM EDT A Body Mass Index follow-up plan has been documented for the patient 11/26/2024 1:33 PM EDT documented as of this encounter Care Teams Network Account Manager Relationship Specialty Start Date End Date Jared Coronel MD [address] [place] [address] PCP - General 08/12/20 Joseph Odonnell MD [address] [place] [address] Surgeon Neurosurgery 02/28/23 Carrol Armenta MD [address] [place] [address] Consulting Physician Medical Oncology 06/12/23 Sky Moreau MD [address] [facility] [address] [place] [id number] Consulting Physician Radiation Oncology 06/12/23 Lauren Paiz, ERIC [address] [facility] [address] [address] Nurse Practitioner Internal Medicine 07/19/23 documented as of this encounter
--- OUTSIDE RECORDS SUMMARY | 2024-12-03 10:27 | XMS_ITS | Encounter Summary ---
Author Organization Healthcare Address [address] [place] [address] Care Team Providers Care Commercial Center Manager Name Role Phone Jared Coronel MD Primary Care Provider [phone] Joseph Odonnell MD Unavailable [phone] Carrol Armenta MD Unavailable Sky Moreau MD Unavailable [phone] Lauren Paiz ASBESTOS BRAKE LINING FINISHER Unavailable [phone] Encounter Details Date Type Department Care Team (Latest Contact Info) Description 12/03/2024 10:27 AM EDT - 12/03/2024 11:59 PM EDT Hospital Encounter [facility] Radiology [address] [place] [address] Renal cell carcinoma, unspecified laterality Discharge Disposition: [...] place to sleep or slept in a care home (including now)? No 11/22/2023 PHQ-9 Answer [...] drink first t nichole in the morning (EYE-MARINE DRAFTER) to steady your nerves or to get rid of a hangover? 0 11/21/2023 CAGE Questionnaire Score 0 024 Utilities Answer Date Recorded In the past 12 months has th e [employer], gas, oil, or water [employer] threatened to shut off services in your [...] each day. 20 tablet 11/23/2023 apixaban (Eliquis) 2.5 MG tablet Take 1 tablet by mouth 2 times a day. 60 tablet 2 12/03/2024 dexamethasone (Decadron) 1 MG tablet TAKE 1 TABLET BY MOUTH IN THE MORNING AND 1 TABLET BEFORE BEDTIME. 60 tablet 11/09/2024 gabapentin (Neurontin) 300 MG capsule Take 1 capsule by mouth nightly. 30 capsule 1 12/03/2024 Tivozanib HCl 0.89 MG capsule Take one cap daily 30 capsule 3 10/16/2024 documented as of this encounter Plan of Treatment Upcoming Encounters Date Type Department Care Team ([facility] st Contact Info) Description 12/22/2024 12:30 PM EDT Appointment [facility] Interventional Radiology [address] [place] [address] 12/29/2024 11:45 AM EDT Appointment [facility] Interventional Radiology [address] [place] [address] 02/17/2025 11:20 AM EST Office Visit Pav [facility] Head, Neck & Respiratory [address] [facility], [address] [place] [address] Aurora Hubbard, ASBESTOS BRAKE LINING FINISHER [address] [place] [address] documented as of this encounter Procedures Procedure Name Priority Date/Time Associated Diagnosis Comments XR CHEST 2 VIEWS Routine 12/03/2024 11:2 0 AM EDT Renal cell carcinoma, unspecified laterality [...] MD on 12/03/2024 12:38 PM Lauren Paiz ASBESTOS BRAKE LINING FINISHER IMG XR PROCEDURES Final Resul t documented in this [...] documented as of this encounter Care Teams Commercial Center Manager Relationship Specialty Start Date End Date Jared Coronel MD [address] [place] [address] PCP - General 08/12/20 Joseph Odonnell MD [address] [place] [phone] Surgeon Neurosurgery 02/28/23 Carrol Armenta MD [address] [facility] [address] [place] [address] Consulting Physician Medical Oncology 06/12/23 Sky Moreau MD [address] [place] [phone] Consulting Physician Radiation Oncology 06/12/23 Lauren Paiz, ASBESTOS BRAKE LINING FINISHER [address] [facility] [address] [place] [phone] Nurse Practitioner Internal Medicine 07/19/23 documented as of this encounter
--- OUTSIDE RECORDS SUMMARY | 2024-12-04 12:31 | XMS_ITS | Encounter Summary ---
Author Organization Healthcare Address [address] [place] [address] Care Team Providers Care Personal Health Coach Name Role Phone Jared Coronel MD Primary Care Provider [phone] Joseph Odonnell MD Unavailable [phone] Carrol Armenta MD Unavailable Sky Moreua MD Unavailable [phone] Lauren Paiz PERSONNEL QUALITY ASSURANCE AUDITOR Unavailable [phone] Reason for Referral * Imaging (Routine) - Closed Specialty Diagnoses / Procedures Referred By Contac t Referred To Contact Radiology Diagnoses Pleural effusion Procedures US Guided Thoracentesis Natty Choe APRN [address] [place] [address] Phone: tel: fax: Referral ID Status Reason Start Date Expiration Date Visits Re quested Visits Authorized [id number] Closed 12/03/2024 06/04/2026 1 1 Reason for Visit * Imaging (Routine) - Closed Specialty Diagnoses / Procedures Referred By Contac anabel Referred To Contact Radiology Diagnoses Pleural effusion Procedures US Guided Thoracentesis Natty hCoe APRN [address] [place] [address] Phone: tel: fax: Referral ID Status Reason Start Date Expiration Date Visits Re quested Visits Authorized [id number] Closed 12/03/2024 06/04/2026 1 1 Encounter Details Date Type Department Care Team (Latest Contact Info) Description 12/04/2024 12:31 PM EDT - 12/04/2024 2:24 PM EDT Hospital Encounter [facility] Interventional Radiology [address] [place] [address] Haley Mayorga, RN [facility] MEDICAL SURGICAL & CRITICAL CAR Pleural effusion Discharge Disposition: Home or Self [...] in a longterm (including now)? 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-GEOLOGICAL MANAGER) to steady your nerves or to [...] Sign Reading Time Taken Comments Blood Pressure 97/70 12/04/2024 2:00 PM EDT Pulse 105 12/04/2024 2:00 PM EDT Temperature 36.4 C (97.6 F) 12/04/2024 12:47 PM EDT Respiratory Rate 14 12/04/2024 2:00 PM EDT Oxygen Saturation 94% 12/04/2024 2:00 PM EDT Inhaled Oxygen Concentration - - Weight 76.7 kg (169 lb 1.5 oz) 12/04/2024 12:47 PM EDT Height 157.5 cm (5' 2 ) 12/04/2024 12:47 PM EDT Body Mass Index 30.93 12/04/2024 12:47 PM EDT documented in this encounter Discharge Instructions * Discharge Instructions* Haley Mayorga RN - 12/04/2024 2:24 PM EDT *Interventional Radiology* (IR) Questions/Concerns & Appointments If there are questions or concerns after discharge please call: [facility] at [phone] Saturday - Saturday 8:00 AM to 4:30 PM After hours, weekends, and holidays please call [phone] and ask for the Interventional Radiology provider/Resident on-call For Emergencies please go to the nearest Emergency Room or dial 911. Intervention Radiology Appointments: If you need to reschedule a procedure, please call our Schedulers at [phone], option 4. If you need to schedule or reschedule a clinic appointment, please call [phone]. [facility] Vascular and Interventional Radiology Clinic [address], [address] [place] [address] documented in this encounter Medications at Time [...] 3 10/16/2024 documented as of this encounter Miscellaneous Notes * Haley Jones RN - 12/04/2024 2:24 PM EDT Images from the original note were not included. [id number] Discharge Instructions for Thoracentesis Thoracentesis is a [...] blood. Last Reviewed Date: 2024 00:00:00 ?? [id number] [employer]. All rights reserved. This information is not intended as a substitute for professional medical care. Always follow your healthcare professional's instructions. * Post-Procedure Note - Harmony Valencia APRN, DNP - 12/04/2024 1:45 PM EDT Vascular and Interventional Radiology Brief Postprocedure Note Performed by: Harmony Valencia APRN Insurance Executive: Natty Choe APRN Pre-operative Diagnosis: right pleural effusion Post-operative Diagnosis: same Type of Anesthesia: Local Description of Findings: Right pleural effusion Technical/Surgical Procedures Used: image guided right thoracentesis Specimen Obtained: No Complications: None Estimated Blood Loss: none Procedure Events Event Event Time See detailed result report with images in PACS. The patient tolerated the procedure well without incident or complication and is in stable condition. * Interval H&P Note - Natty Choe APRN - 12/04/2024 1:45 PM EDT H&P reviewed, no new changes Source Note - Monica Smith APRN - 11/24/2024 [...] assessment and no significant valve regurgitation or stenosisis seen. There is no recent study available for direct bvym-dc-ruys comparison. Assessment & Plan: Large right pleural [...] the care of this patient. Monica Smith, PERSONNEL QUALITY ASSURANCE AUDITOR Interventional Radiology [phone] [1] Past Medical History: Diagnosis Date Blood [...] Types: Cigarettes Start date: 04/01/1979 Quit date: 2015 Years since quittin.6 Passive exposure: Never Smokeless [...] Appointment [facility] Inter[facility] Radiology [address] [place] [address] 12/29/2024 11:45 AM EDT Appointment [facility] Interventional Radiology [address] [place] [address] 02/17/2025 11:20 AM EST Office Visit [facility] Neck [facility] Respiratory [address] [facility], [address] [place] [address] Aurora Hubbard, PERSONNEL QUALITY ASSURANCE AUDITOR [address] [place] [address] documented as of this encounter Procedures Procedure Name Priority Date/Time Associated Diagnosis Comments XR CHEST 1 VIEW Routine 12/04/2024 2:39 PM EDT US GUIDED THORACENTESIS Routine 12/04/2024 1:54 PM EDT Pleural effusion documented in this encounter Results * XR Chest 1 View (12/04/2024 2:39 PM EDT) Anatomical Region Laterality Modality Chest Digital Radiogra phy Impressions 12/04/2024 2:52 PM EDT Stable bibasilar atelectasis with near resolution of right-sided pleural effusion seen on most recent comparison. No pneumothorax. CRITICAL RESULT: No. COMMUNICATION: Per this written report. By electronically signing this report, I, the attending physician, attest that I have personally reviewed the images/data for the above examination(s) and agree with the final edited report. Drafted by Mariano Patel MD on 12/04/2024 2:40 PM Final report signed by Laith Cash MD on 12/04/2024 2:52 PM Narrative 12/04/2024 2:52 PM EDT CLINICAL INDICATION: s/p thora TECHNIQUE: XR CHEST 1 VIEW COMPARISON: Chest x-ray 12/03/2024 FINDINGS: Stable cardiomediastinal silhouette. Near resolution of right-sided pleural effusion since most recent comparison. Redemonstrated bibasilar atelectasis, without significant interval change. No new focal consolidation. No significant pneumothorax or left-sided effusion. Procedure Note Laith Cash MD - 12/04/2024 CLINICAL INDICATION: s/p thora TECHNIQUE: XR CHEST 1 VIEW COMPARISON: Chest x-ray 12/03/2024 FINDINGS: Stable cardiomediastinal silhouette. Near resolution of right-sidedpleural effusion since most recent comparison. Redemonstrated bibasilaratelectasis, without significant interval change. No new focalconsolidation. No significant pneumothorax or left-sided effusion. IMPRESSION: Stable bibasilar atelectasis with near resolution of right-sided pleuraleffusion seen on most recent comparison. No pneumothorax. CRITICAL RESULT: No. COMMUNICATION: Per this written report. By electronically signing this report, I, the attending physician, attestthat I have personally reviewed the images/data for the aboveexamination(s) and agree with the final edited report. Drafted by Mariano Patel MD on 12/04/2024 2:40 PM Final report signed by Laith aCsh MD on 12/04/2024 2:52 PM us Natty Choe APRN IMG XR PROCEDURES Final Resu lt * US Guided Thoracentesis (12/04/2024 1:54 PM EDT) Anatomical Region Laterality Modality Chest Ultrasound Impressions 12/04/2024 7:24 PM EDT Technically successful ultrasound guided thoracentesis. A sample of the fluid was sent for laboratory analysis. CRITICAL RESULT: No. By electronically signing this report, I, the supervising DIMITRIS, Natty Choe APRN, attest that I was present for the entire procedure(s) and agree with the final edited report. COMMUNICATION: Per this written report. Preliminary report signed by ANDERSON Banda on 12/04/2024 3:07 PM By electronically signing this report, I, the attending physician, attest that I was not present for the procedure(s) but agree with the final edited report. Drafted by ANDERSON Banda on 12/04/2024 3:01 PM Final report signed by Kam Montes MD on 12/04/2024 7:24 PM Narrative 12/04/2024 7:24 PM EDT CLINICAL INDICATION: Abby Winston is a 59 y.o. 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 Last thoracentesis with us on 11/03/24 with 1.5L removed. TECHNIQUE: Panel Machine Setter: Harmony Valencia APRN Secondary Process Worker: Natty Choe APRN Rad Dose: NA Medications: Continuous physiologic monitoring provided by a qualified healthcare professional. Administered: 1% Lidocaine SQ Antibiotics: NA Time out: 1330 Procedure: After discussion of risks and benefits, informed written consent was obtained. Appropriate time out was done to confirm patient identity and planned procedure. The patient was placed sitting up and initial limited Right chest ultrasound scan performed. Strict hand hygiene [...] showed an anechoic fluid collection in the pleural space. 1% lidocaine used for local analgesia. Under ultrasound guidance, a 6 Fr safety-centesis catheter was advanced into the pleural fluid. Ultrasound images were sent to permanent storage in PACS. A total of 1.3 Lof clear fluid was removed. The needle was removed and occlusive dressing applied. The patient tolerated the procedure well. The patient left the IR suite in stable condition. COMPARISON: None. FINDINGS: Moderate Right pleural fluid. COMPLICATION: No. Procedure Note Kam Montes MD - 12/04/2024 CLINICAL INDICATION: Abby Winston is a 59 y.o. 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 Last thoracentesis with us on 11/03/24with 1.5L removed. TECHNIQUE: Panel Machine Setter: Harmony Valencia APRN Secondary Process Worker: Natty Choe APRN Rad Dose: NA Medications: Continuous physiologic monitoring provided by a qualifiedhealthcare professional. Administered: 1% Lidocaine SQ Antibiotics: NA Time out: 1330 Procedure: After discussion of risks and benefits, informed written consent wasobtained. Appropriate time out was done to confirm patient identity andplanned procedure. The patient was placed sitting up and initial limitedRight chest ultrasound scan performed. Strict hand hygiene [...] which showed an anechoic fluidcollection in the pleural space. 1% lidocaine used for local analgesia.Under ultrasound guidance, a 6 Fr safety-centesis catheter was advancedinto the pleural fluid. [facility] A total of 1.3 Lof clear fluid was removed. The needle wasremoved and occlusive dressing applied. The patient tolerated the procedure well. The patient left the IR suitein stable condition. COMPARISON: None. FINDINGS: Moderate Right pleural fluid. COMPLICATION: No. IMPRESSION: Technically successful ultrasound guided thoracentesis. A sample of the fluid was sent for laboratory analysis. CRITICAL RESULT: No. By electronically signing this report, I, the supervising DIMITRIS, ERIC Vergara, attest that I was present for the entire procedure(s) andagree with the final edited report. COMMUNICATION: Per this written report. Preliminary report signed by ANDERSON Banda on 12/04/2024 3:07 PM By electronically signing this report, I, the attending physician, attestthat I was not present for the procedure(s) but agree with the finaledited report. Drafted by ANDERSON Banda on 12/04/2024 3:01 PM Final report signed by Kam Montes MD on 12/04/2024 7:24 PM us Natty Choe PERSONNEL QUALITY ASSURANCE AUDITOR IMG US PROCEDURES Final Resu lt documented in this encounter Visit Diagnoses Diagnosis Pleural effusion Unspecified pleural effusion documented in this encounter Administered Medications Inactive Administered Medications - up to 3 most recent administrations Medication Order MAR Action Action Date Dose Rate Site lidocaine (Xylocaine) 1 % injection Intradermal, As needed, Starting on Sat12/04/24 at 1335, Until Sat12/04/24 at 1335, Routine, Intraprocedure Given 12/04/2024 1:35 PM EDT 10 mL documented in this encounter Additional Health Concerns Assessment Noted Time PHQ-9 Depression Total Score: 0 09/17/19 9:51 AM EDT A fall risk assessment has been complete d for the patient 12/03/2024 9:18 AM EDT A Body Mass Index follow-up plan has been documented for the patient 12/04/2024 2:24 PM EDT documented as of this encounter Care Teams Personal Health Coach Relationship Specialty Start Date End Date Jared Coronel MD [address] [place] [address] PCP - General 08/12/20 Joseph Odonnell MD [address] [place] [address] Surgeon Neurosurgery 02/28/23 Carrol Armenta MD [address] [facility] [address] [place] [address] Consulting Physician Medical Oncology 06/12/23 Sky Moreau MD [address] [facility] [address] [place] [phone] Consulting Physician Radiation Oncology 06/12/23 Lauren Paiz APRN [address] [facility] [address] [place] [address] Nurse Practitioner Internal Medicine 07/19/23 documented as of this encounter
--- OUTSIDE RECORDS SUMMARY | 2024-12-04 14:25 | XMS_ITS | Encounter Summary ---
Author Organization Healthcare Address [address] [place] [address] Care Team Providers Care Pinion Sorter Name Role Phone Jared Coronel MD Primary Care Provider + [phone] Joseph Odonnell MD Unavailable [phone] Carrol Armenta MD Unavailable Sky Moreau MD Unavailable [phone] Lauren Paiz PAYROLL ACCOUNTANT Unavailable [phone] Encounter Details Date Type Department Care Team (Latest Contact Info) Description 12/04/2024 2:25 PM EDT - 12/04/2024 11:59 PM EDT Hospital Encounter [facility] Radiology [address] [place] [address] Discharge Disposition: Home or Self Care Social [...] drink first t nichole in the morning (EYE-CARDIOLOGY TECHNICIAN) to steady your nerves or to get rid of a hangover? 0 11/21/2023 CAGE Questionnaire Score 0 024 Utilities Answer Date Recorded In the past 12 months has th e electric, gas, [employer], or water [employer] threatened to shut off services in your [...] Appointment [facility] Interventional Radiology [address] [place] [address] 12/29/2024 11:45 AM EDT Appointment [facility] Interventional Radiology [address] [place] [address] 02/17/2025 11:20 AM EST Office Visit [facility] Res[facility] [address] [place] [address] Aurora Hubbard, PAYROLL ACCOUNTANT [address] [place] [phone] documented as of this encounter Procedures Procedure Name Priority Date/Time Associated Diagnosis Comments XR CHEST 1 VIEW Routine 12/04/2024 2:39 PM EDT documented in this encounter Results [...] Laith Cash MD on 12/04/2024 2:52 PM us Natty N Cheeks PAYROLL ACCOUNTANT IMG XR PROCEDURES Final Resu lt documented [...] documented as of this encounter Care Teams Pinion Sorter Relationship Specialty Start Date End Date Jared Coronel MD [address] [place] [address] PCP - General 08/12/20 Joseph Odonnell MD [address] [place] [address] Surgeon Neurosurgery 02/28/23 Carrol Armenta MD [address] [facility] [address] [place] [address] Consulting Physician Medical Oncology 06/12/23 Sky Moreau MD [address] [facility] [address] [place] [phone] Consulting Physician Radiation Oncology 06/12/23 Lauren Paiz APRN [address] [facility] [address] [place] [address] Nurse Practitioner Internal Medicine 07/19/23 documented as of this encounter
--- OUTSIDE RECORDS SUMMARY | 2024-12-15 10:22 | XMS_ITS | Encounter Summary ---
Author Organization Healthcare Address [address] [place] [address] Care Team Providers Care Lead Retail Sales Associate Name Role Phone Jared Coronel MD Primary Care Provider + [phone] Joseph Odonnell MD Unavailable [phone] Carrol Armenta MD Unavailable Sky Moreau MD Unavailable [phone] Lauren Paiz SLOT EDITOR Unavailable [phone] Reason for Referral * Imaging (Routine) - Closed Specialty Diagnoses / Procedures Referred By Contac t Referred To Contact Radiology Diagnoses Pleural effusion, not elsewhere classified Procedures US Guided Thoracentesis Natty Choe APRN [address] [place] [address] Phone: tel: fax: Referral ID Status Reason Start Date Expiration Date Visits Re quested Visits Authorized [id number] Closed 12/08/2024 06/09/2026 1 1 Reason for Visit * Imaging (Routine) - Closed Specialty Diagnoses / Procedures Referred By Contac anabel Referred To Contact Radiology Diagnoses Pleural effusion, not elsewhere classified Procedures US Guided Thoracentesis Natty Choe, SLOT EDITOR [address] [place] [address] Phone: tel: fax: Referral ID Status Reason Start Date Expiration Date Visits Re quested Visits Authorized [id number] Closed 12/08/2024 06/09/2026 1 1 Encounter Details Date Type Department Care Team (Latest Contact Info) Description 12/15/2024 10:22 AM EDT - 12/15/2024 12:10 PM EDT Hospital Encounter [facility] Interventional Radiology [address] [place] [address] Maria C Menezes Pleural effusion, not elsewhere classified Discharge Disposition: Home or Self Care Social [...] in a fpc (including now)? 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-SHOE CASER) to steady your nerves or to get [...] Sign Reading Time Taken Comments Blood Pressure 117/74 12/15/2024 12:00 PM EDT Pulse 98 12/15/2024 12:00 PM EDT Temperature 36.5 C (97.7 F) 12/15/2024 11:40 AM EDT Respiratory Rate 24 12/15/2024 12:0 0 PM EDT Oxygen Saturation 93% 12/15/2024 12: 00 PM EDT Inhaled Oxygen Concentration - - Weight 76.5 kg (168 lb 10.4 oz) 025 10:45 AM EDT Height 157.5 cm (5' 2 ) 12/15/2024 10:4 5 AM EDT Body Mass Index 30.85 12/15/2024 10:45 AM EDT documented in this encounter Discharge Instructions * Discharge Instructions* Maria C Menezes - 12/15/2024 11:06 AM EDT *Interventional Radiology* (IR) Questions/Concerns & Appointments If there are questions or concerns after discharge please call: [facility] at [phone] Saturday - Saturday 8:00 AM to 4:30 PM After hours, weekends, and holidays please call [phone] and ask for the Interventional Radiology provider/Resident on-call For Emergencies please go to the nearest Emergency Room or dial 911. Intervention Radiology Appointments: If you need to reschedule a procedure, please call our Schedulers at [phone], option 4. If you need to schedule or reschedule a clinic appointment, please call [phone]. [facility] [address] [place] [address] documented in this encounter Medications at Time [...] encounter Miscellaneous Notes * Progress Notes - Maria C Menezes - 12/15/2024 1:16 PM EDT DC instructions given to pt and family. Pt and family verbalized understanding and agreement with home care. Opportunity provided to ask and have questions answered. Pt xray shows no pneumothorax. VS stable, NAD, verbalized understanding of care after DC and denies questions. DC to private vehicle via WC, accompanied by RN and family. All personal belongings with pt. [place] void of any pt belongings upon exit. * Post-Procedure Note - Monica Smith APRN - 12/15/2024 11:15 AM EDT Vascular and Interventional Radiology Brief [...] H&P Note - Monica Smith APRN - 12/15/2024 11:15 AM EDT Reviewed previous H/P, no significant interval change. Here for right thoracentesis. Source Note - Monica Smith APRN - [...] is no recent study available for direct [id number] comparison. Assessment & Plan: Large right pleural [...] the care of this patient. Monica Smith, SLOT EDITOR Interventional Radiology [phone] [1] Past Medical History: Diagnosis Date Blood [...] cap daily, Disp: 30 capsule, Rfl: 3 * Maria C Jim - 12/15/2024 11:06 AM EDT Images from the original note were not included. [id number] Discharge Instructions for Thoracentesis Thoracentesis is a [...] blood. Last Reviewed Date: 2024 00:00:00 ?? [id number] [employer]. All rights reserved. This information is not intended as a substitute for professional medical care. Always follow your healthcare professional's instructions. documented in this encounter Plan of Treatment Upcoming Encounters Date Type Department Care Team ([facility] st Contact Info) Description 12/22/2024 12:30 PM EDT Appointment [facility] Interventional Radiology [address] [place] [address] 12/29/2024 11:45 AM EDT Appointment [facility] Interventional Radiology [address] [place] [address] 02/17/2025 11:20 AM EST Office Visit Pav [facility] Head, Neck & Respiratory [address] [facility], 2nd [place] [address] Aurora Hubbard, SLOT EDITOR [address] [place] [address] documented as of this encounter Procedures Procedure Name Priority Date/Time Associated Diagnosis Comments XR CHEST 1 VIEW STAT 12/15/2024 12:21 PM EDT US GUIDED THORACENTESIS Routine 12/15/2024 11:32 AM EDT Pleural effusion, not elsewhere classified documented in this encounter Results * XR Chest 1 View (12/15/2024 12:21 PM EDT) Anatomical Region Laterality Modality Chest Digital Radiogra phy Impressions 12/15/2024 1:08 PM EDT No pneumothorax. CRITICAL RESULT: No. COMMUNICATION: Per this written report Drafted by Jared Amezcua MD on 12/15/2024 1:07 PM Final report signed by Jared Amezcua MD on 12/15/2024 1:08 PM Narrative 12/15/2024 1:08 PM EDT CLINICAL INDICATION: s/p right thora TECHNIQUE: XR CHEST 1 VIEW COMPARISON: December 04, 2024 FINDINGS: Small right pleural effusion. No pneumothorax. Mediastinal and cardiac contours are stable. Procedure Note Jared Amezcua MD - 12/15/2024 CLINICAL INDICATION: s/p right thora TECHNIQUE: XR CHEST 1 VIEW COMPARISON: December 04, 2024 FINDINGS: Small right pleural effusion. No pneumothorax. Mediastinal and cardiaccontours are stable. IMPRESSION: No pneumothorax. CRITICAL RESULT: No. COMMUNICATION: Per this written report Drafted by Jared Amezcua MD on 12/15/2024 1:07 PM Final report signed by Jared Amezcua MD on 12/15/2024 1:08 PM us Monica Smith SLOT EDITOR IMG XR PROCEDURES Final Resu lt * US Guided Thoracentesis (12/15/2024 11:32 AM EDT) Anatomical Region Laterality Modality Chest Ultrasound Impressions 12/15/2024 3:05 PM EDT Technically successful ultrasound guided thoracentesis. A total of 1.2 L of clear yellow fluid was removed. A sample of the fluid was sent for laboratory analysis. CRITICAL RESULT: No. COMMUNICATION: Per this written report. Preliminary report signed by ANDERSON Hernandez on 12/15/2024 1:15 PM By electronically signing this report, I, the attending physician, attest that I was not present for the procedure(s) but agree with the final edited report. 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 TECHNIQUE: Engineering Executive: Monica Smith APRN Secondary Composition Floor Setter: None. Rad Dose: NA Medications: Continuous physiologic monitoring provided by a qualified healthcare professional. Administered: 1% Lidocaine SQ. Antibiotics: NA Time out: 1120 Procedure: After discussion of risks and benefits, [...] in stable condition. COMPARISON: None. FINDINGS: Moderate right, simple, pleural fluid. COMPLICATION: No. Procedure Note Td Rose MD - 12/15/2024 CLINICAL INDICATION: 59 year old female with Metastatic Clear Cell Renal Cell Carcinoma withbrain met who presents for right thoracentesis. TECHNIQUE: Engineering Executive: Monica Smith APRN Secondary Composition Floor Setter: None. Rad Dose: NA Medications: Continuous physiologic monitoring provided by a qualifiedhealthcare professional. Administered: 1% Lidocaine SQ. Antibiotics: NA Time out: 1120 Procedure: After discussion of risks and benefits, [...] pleural fluid. [facility] A total of 1.2 L of clear yellow fluid was removed. Theneedle was removed and occlusive dressing applied. The patient tolerated the procedure well. The patient left the IR suitein stable condition. COMPARISON: None. FINDINGS: Moderate right, simple, pleural fluid. COMPLICATION: No. IMPRESSION: Technically successful ultrasound guided thoracentesis. A total of 1.2 L of clear yellow fluid was removed. A sample of the fluid was sent for laboratory analysis. CRITICAL RESULT: No. COMMUNICATION: Per this written report. Preliminary report signed by ANDERSON Hernandez on 12/15/2024 1:15 PM By electronically signing this report, I, the attending physician, attestthat I was not present for the procedure(s) but agree with the finaledited report. Drafted by ANDERSON Hernandez on 12/15/2024 1:14 PM Final report signed by Td Rose MD on 12/15/2024 3:05 PM us Natty Choe SLOT EDITOR IMG US PROCEDURES Final Resu lt documented in this encounter Visit Diagnoses Diagnosis Pleural effusion, not elsewhere classified documented in this encounter Administered Medications Inactive Administered Medications - up to 3 most recent administrations Medication Order MAR Action Action Date Dose Rate Site lidocaine 0.9% in sodium bicarbonate (buffered lidocaine) solution solution As needed, Starting on Sat12/15/24 at 1122, Until Sat12/15/24 at 1122, Routine, Intraprocedure Given 12/15/2024 11:22 AM EDT 10 mL documented in this encounter Additional Health Concerns Assessment Noted Time PHQ-9 Depression Total Score: 0 09/17/19 9:51 AM EDT A fall risk assessment has been complete d for the patient 12/03/2024 9:18 AM EDT A Body Mass Index follow-up plan has been documented for the patient 12/04/2024 2:24 PM EDT documented as of this encounter Care Teams Lead Retail Sales Associate Relationship Specialty Start Date End Date Jared Coronel MD [address] [place] [address] PCP - General 08/12/20 Joseph Odonnell MD [address] [facility] [address] [place] [address] Surgeon Neurosurgery 02/28/23 Carrol Armenta MD [address] [facility] [address] [place] [address] Consulting Physician Medical Oncology 06/12/23 Sky Moreau MD [address] [facility] [address] [place] [address] Consulting Physician Radiation Oncology 06/12/23 Lauren Paiz, SLOT EDITOR [address] [facility] [address] [place] [address] Nurse Practitioner Internal Medicine 07/19/23 documented as of this encounter
--- OUTSIDE RECORDS SUMMARY | 2024-12-15 12:11 | XMS_ITS | Encounter Summary ---
Author Organization Healthcare Address [address] [place] [address] Care Team Providers Care Funeral Attendant Name Role Phone Jared Coronel MD Primary Care Provider + [phone] Joseph Odonnell MD Unavailable [phone] Carrol Armenta MD Unavailable Sky Moreau MD Unavailable [phone] Lauren Paiz CLERK TELEVISION PRODUCTION Unavailable [phone] Encounter Details Date Type Department Care Team (Latest Contact Info) Description 12/15/2024 12:11 PM EDT - 12/15/2024 11:59 PM EDT Hospital Encounter [facility] Radiology [address] [place] [address] Discharge Disposition: Home or Self Care Social [...] drink first t nichole in the morning (EYE-BINDER FIXER) to steady your nerves or to get rid of a hangover? 0 11/21/2023 CAGE Questionnaire Score 0 024 Utilities Answer Date Recorded In the past 12 months has th e electric, gas, [employer], or water [employer] threatened to shut off services in your [...] Appointment [facility] Interventional Radiology [address] [place] [address] 12/29/2024 11:45 AM EDT Appointment [facility] Interventional Radiology [address] [place] [address] 02/17/2025 11:20 AM EST Office Visit Pav [facility] Head, Neck & Respiratory [address] [place] [address] Aurora Hubbard, CLERK TELEVISION PRODUCTION [address] [place] [address] documented as of this encounter Procedures Procedure Name Priority Date/Time Associated Diagnosis Comments XR CHEST 1 VIEW STAT 12/15/2024 12:21 PM EDT documented in this encounter Results [...] MD on 12/15/2024 1:08 PM us Monica M Luis CLERK TELEVISION PRODUCTION IMG XR PROCEDURES Final Resu lt documented [...] documented as of this encounter Care Teams Funeral Attendant Relationship Specialty Start Date End Date Jared Coronel MD [address] [place] [address] PCP - General 08/12/20 Joseph Odonnell MD [address] [place] [address] Surgeon Neurosurgery 02/28/23 Carrol Armenta MD [address] [facility] [address] [place] [address] Consulting Physician Medical Oncology 06/12/23 Sky Moreau MD [address] [facility] [address] [place] [address] Consulting Physician Radiation Oncology 06/12/23 Lauren Paiz APRN [address] [facility] [address] [place] [address] Nurse Practitioner Internal Medicine 07/19/23 documented as of this encounter
[2024-12-21] VITALS (22 sets, daily range): BP systolic 89–120; BP diastolic 43–85; PULSE 94–121; RESP 11–25; TEMP 36.9; O2SAT 89–99; BMI 30.9
--- NOTE | 2024-12-21 18:13 | ECG_ITS ---
APPROVED REPORT Exam: Resting ECG HR:127 bpm ECG Measurements Heart Rate 127 AXES GA 145 P 42 QRSd 75 QRS 244 QT 245 T 76 QTc 320 Conclusion SINUS TACHYCARDIA RIGHT VENTRICULAR HYPERTROPHY [SOME/ALL OF: PROMINENT R IN V1, LATE TRANSITION, RAD, JOHN, SSS] MODERATE ST DEPRESSION [0.05+ mV ST DEPRESSION] ABNORMAL ECG UNCONFIRMED REPORT Sinus tachycardia. Isolated ST elevation in aVR. Mild ST depression in V2, V3, V4, V5 as well as leads II, aVF and I. Does not meet STEMI criteria Electronically signed by : JANNET ZALDIVAR, 12/21/2024 23:53:56
--- OUTSIDE RECORDS SUMMARY | 2024-12-21 18:13 | XMS_ITS | Encounter Summary ---
Author Organization Healthcare Address [address] [place] [address] Care Team Providers Care Manager Of Exhibitions And Collections Name Role Phone Jared Coronel MD Primary Care Provider + [phone] Joseph Odonnell MD Unavailable [phone] Carrol Armenta MD Unavailable Sky Moreau MD Unavailable [phone] Lauren Paiz INTERMODAL OWNER OPERATOR TRUCK DRIVER Unavailable [phone] Encounter Details Date Type Department Care Team (Late st Contact Info) Description 02/05/2023 Lab Requisition [facility] H Lab [address] [place] [address] Ronaldo Chance MD [address] [facility] [address] [place] [address] Encounter for general adult medical [...] Author No Risk Indicated 02/05/2023 8:00 AM EST Onelia Camacho, RENARD * Question Answer Date of Assessment [...] Appointment [facility] Interventional Radiology [address] [place] [address] 12/29/2024 11:45 AM EDT Appointment [facility] Interventional Radiology [address] [place] [address] 02/17/2025 11:20 AM EST Office Visit Pav CC Head, Neck & Respiratory [address] [facility], 2nd [place] [address] Aurora Hubbard, INTERMODAL OWNER OPERATOR TRUCK DRIVER [address] [place] [address] documented as of this encounter Procedures Procedure Name Priority Date/Time Associated Diagnosis Comments SUSIE AURIS SURVEILLANCE BY PCR Routine 02/05/2023 9:45 PM EST Encounter for general adult medical examination without abnormal findings documented in this encounter Results * Susie auris Surveillance by PCR (02/05/2023 9:45 PM EST) Susie auris PCR Result Not Detected Not Detected 02/06/2023 8:47 AM EST [facility] Swab (Axilla and Groin) 02/05/2023 9:45 PM EST 02/05/2023 10:05 PM EST Narrative [facility] - 02/06/2023 8:47 AM EST This PCR assay was developed and its performance characteristics determined by [facility] as appropriate for clinical purposes. This assay has not been cleared or approved by the FDA, but is performed in a CLIA regulated laboratory that is qualified to perform high-complexity testing. us Ronaldo Chance MD LAB MICROBIOLOGY - GEN ERAL ORDERABLES Final Result [facility] [address] [place] [address] documented in this encounter Visit Diagnoses Diagnosis Encounter for general adult medical examination without abnormal findings documented in this encounter Additional Health Concerns Assessment Noted Time A Body Mass Index follow-up plan has been documented for the patient 02/07/2023 10:11 AM EST documented as of this encounter Care Teams Manager Of Exhibitions And Collections Relationship Specialty Start Date End Date Jared Coronel MD [address] [place] [address] PCP - General 08/12/20 Joseph Odonnell MD [address] [place] [address] Surgeon Neurosurgery 02/28/23 Carrol rAmenta MD [address] [place] [address] Consulting Physician Medical Oncology 06/12/23 Sky Moreau MD [address] [facility] [address] [place] [address] Consulting Physician Radiation Oncology 06/12/23 Lauren Paiz APRN [address] [place] [address] Nurse Practitioner Internal Medicine 07/19/23 documented as of this encounter
--- OUTSIDE RECORDS SUMMARY | 2024-12-21 18:13 | XMS_ITS | Encounter Summary ---
Author Organization Healthcare Address [address] [place] [address] Care Team Providers Care Ditch Digger Name Role Phone Jared Coronel MD Primary Care Provider + [phone] Joseph Odonnell MD Unavailable [phone] Carrol Armenta MD Unavailable Sky Moreau MD Unavailable [phone] Lauren Paiz MEDICAL HISTORIAN Unavailable [phone] Encounter Details Date Type Department Care Team (Latest Contact Info) Description 01/10/2024 Orders Only [facility] Multidisciplinary Oncology Clinic [address] [place] [address] Sky Moreau MD [address] [facility] [address] [place] [address] Renal cell carcinoma, unspecified laterality [...] in a long-term (including now)? No 11/22/2023 CAGE ASSESSMENT Answer [...] drink first t nichole in the morning (EYE-DESIGN DIRECTOR) to steady your nerves or to get [...] Appointment [facility] Interventional Radiology [address] [place] [address] 12/29/2024 11:45 AM EDT Appointment [facility] Interventional Radiology [address] [place] [address] 02/17/2025 11:20 AM EST Office Visit Pav CC Head, Neck & Respiratory [address] [facility], [address]nd [place] [address] Aurora Hubbard, MEDICAL HISTORIAN [address] [place] [address] documented as of this encounter Visit Diagnoses Diagnosis Renal cell carcinoma, unspecified laterality- Primary documented in this encounter Additional Health Concerns Assessment Noted Time A fall risk assessment has been complete d for the patient 01/07/2024 2:46 PM EDT A Body Mass Index follow-up plan has been documented for the patient 12/09/2023 12:57 PM EDT documented as of this encounter Care Teams Ditch Digger Relationship Specialty Start Date End Date Jared Coronel MD [address] [place] [address] PCP - General 08/12/20 Joseph Odonnell MD [address] [place] [address] Surgeon Neurosurgery 02/28/23 Carrol Armenta MD [address] [facility] [address] [place] [address] Consulting Physician Medical Oncology 06/12/23 Sky Moreau MD [address] [facility] [address] [place] [address] Consulting Physician Radiation Oncology 06/12/23 Lauren Paiz APRN [address] [facility] [address] [place] [address] Nurse Practitioner Internal Medicine 07/19/23 documented as of this encounter
--- OUTSIDE RECORDS SUMMARY | 2024-12-21 18:13 | XMS_ITS | Encounter Summary ---
Author Organization Healthcare Address [address] [place] [address] Care Team Providers Care First Leveler Name Role Phone Jared Coronel MD Primary Care Provider + [phone] Joseph Odonnell MD Unavailable [phone] Carrol Armenta MD Unavailable Sky Moreau MD Unavailable [phone] Lauren Paiz BALANCE ASSEMBLER Unavailable [phone] Reason for Referral * Consultation (Routine) - Authorized Specialty Diagnoses / Procedures Referred By Tammy little Referred To Contact Cardiology Diagnoses Shortness of breath Harmony Thomas PA [address] [place] [address] Phone: tel: fax: Winston Horton MD [address] [place] [address] Phone: tel: fax: Referral ID Status Reason Start Date Expiration Date Visits Requested Visits Authorized [id number] Authorized Specialty Services Required 08/10/2024 02/09/2026 1 1 * Imaging (Routine) - Closed Specialty Diagnoses / Procedures Referred By Contchristel t Referred To Contact Cardiology Diagnoses Shortness of breath Procedures Echo, Adult Transthoracic Complete Harmony Thomas PA [address] [place] [address] Phone: tel: fax: Referral ID Status Reason Start Date Expiration Date V isits Requested Visits Authorized [id number] Closed Perform Procedure 08/10/2024 02/09/2026 1 1 Encounter Details Date Type Department Care Team (Late st Contact Info) Description 08/10/2024 Community Orders Community Practice [address] [place] [address] Harmony Thomas PA [address] [place] [address] Shortness of breath (Primary Dx) Social History [...] in a penitentiary (including now)? No 11/22/2023 CAGE ASSESSMENT Answer [...] drink first t nichole in the morning (EYE-PRINCIPAL AUTOMATION ENGINEER) to steady your nerves or to [...] Month) No 025 11:26 AM EDT Mirella Laurent RN 2. Non-Specific Active Suici yeim Thoughts (Past 1 Month) No 08/12/2024 11:26 AM EDT Vesna Laurent RN 6. Suicidal Behavior (Lifetime) No 11:26 AM EDT Mirella Laurent RN documented as of this encounter Plan of Treatment Upcoming Encounters Date Type Department Care Team ([facility] st Contact Info) Description 12/22/2024 12:30 PM EDT Appointment [facility] Interventional Radiology [address] [place] [address] 12/29/2024 11:45 AM EDT Appointment [facility] Interventional Radiology [address] [place] [address] 02/17/2025 11:20 AM EST Office Visit Pav CC Head, Neck & Respiratory [address] [facility], [address]nd [place] [address] Aurora Hubbard, BALANCE ASSEMBLER [address] [place] [address] Scheduled Referrals Name Type Priority Associated Diagnoses [...] PAP 39 mmHg LUIS E ISCV PA WA(ACCEL) 40.8 mmHg LUIS E ISCV Ao Root [...] there is no significant interval change noted. Harmony CHAU CV ECHO PROCEDURES Final Resul [...] documented as of this encounter Care Teams First Leveler Relationship Specialty Start Date End Date Jared Coronel MD [address] [place] [address] PCP - General 08/12/20 Joseph Odonnell MD [address] [place] [address] Surgeon Neurosurgery 02/28/23 Carrol Armenta MD [address] [facility] [address] [place] [address] Consulting Physician Medical Oncology 06/12/23 Sky Moreau MD [address] [place] [address] Consulting Physician Radiation Oncology 06/12/23 Lauren Paiz, BALANCE ASSEMBLER [address] [facility] [address] [place] [address] Nurse Practitioner Internal Medicine 07/19/23 documented as of this encounter
--- OUTSIDE RECORDS SUMMARY | 2024-12-21 18:14 | XMS_ITS | Encounter Summary ---
Author Organization Healthcare Address [address] [place] [address] Care Team Providers Care Ribbon Lapper Tender Name Role Phone Jared Coronel MD Primary Care Provider + [phone] Joseph Odonnell MD Unavailable [phone] Carrol Armenta MD Unavailable Sky Moreau MD Unavailable [phone] Lauren Paiz PAYROLL BENEFITS CLERK Unavailable [phone] Reason for Visit * Reason Comments Med Refill Encounter Details Date Type Department Care Team (Late st Contact Info) Description 11/12/2023 Refill [facility] [address] [place] [address] Carrol Armenta MD [address] [address] Social History Tobacco Use Types [...] 11/13/2023 10:13 AM EDT Chey Webb, RN Feeling down, depressed, or hopeless Not at all 11/13/2023 10:13 AM EDT Chey Webb, RN Patient Health Questionnaire-2 Score 0 11/13/2023 10:13 AM EDT Leela Webb RN documented as of this encounter Plan of Treatment Upcoming Encounters Date Type Department Care Team (Late st Contact Info) Description 12/22/2024 12:30 PM EDT Appointment [facility] A Interventional Radiology [address] [place] [address] 12/29/2024 11:45 AM EDT Appointment [facility] A Interventional Radiology [address] [place] [address] 02/17/2025 11:20 AM EST Office Visit Pav [facility] Head, Neck & Respiratory 800 [facility], [address]nd [place] [address] Aurora Hubbard, PAYROLL BENEFITS CLERK [address] [place] [phone] documented as of this encounter Visit Diagnoses Not on filedocumented in this encounter Additional Health Concerns Assessment Noted Time A fall risk assessment has been complete d for the patient 10/15/2023 11:47 AM EDT A Body Mass Index follow-up plan has been documented for the patient 10/10/2023 3:05 PM EDT documented as of this encounter Care Teams Ribbon Lapper Tender Relationship Specialty Start Date End Date Jared Coronel MD [address] [place] [address] PCP - General 08/12/20 Joseph Odonnell MD [address] [facility] [address] [place] [address] Surgeon Neurosurgery 02/28/23 Carrol Armenta MD [address] [phone] Consulting Physician Medical Oncology 06/12/23 Sky Moreau MD [address] [facility] [address] [place] [address] Consulting Physician Radiation Oncology 06/12/23 Lauren Paiz, PAYROLL BENEFITS CLERK [address] [address] Nurse Practitioner Internal Medicine 07/19/23 documented as of this encounter
--- OUTSIDE RECORDS SUMMARY | 2024-12-21 18:14 | XMS_ITS | Clinical Summary ---
[facility] Address [address] [place] [address] Care Team Providers Care Trolley Car Overhauler Name Role Phone Jared Coronel MD Primary Care Provider [phone] Allergies Active Allergy Reactions Criticality Noted Date Comments Sulfa Antibiotics Shortness Of Breath High 9 Medications naproxen sodium (ALEVE) 220 MG tablet Take 220 mg by mouth 2 (Two) Times a Day As Needed. Active mupirocin (BACTROBAN) 2 % ointment Apply into the nostril(s) as directed by provider 2 (Two) Times a Day. 22 g 05/04/2019 Active Chlorhexidine Gluconate 4 % solution Shower with solution as directed for 5 days prior to surgery 237 mL 05/04/2019 Active Active Problems Problem Noted Date Diagnosed Date Primary osteoarthritis of right hip 05/04/2019 Overview (05/04/2019): Added automatically from request for surgery [id number] Family History Medical History Relation Name Comments Diabetes Mother Relation Name Status Comments Mother Alive Social History Tobacco Use Types Packs/Day Years Used Date Smoking Tobacco: Former Cigarettes 1 8 - 2014 Smokeless Tobacco: Never Alcohol Use Standard Drinks/Week Comments Yes 0 (1 standard drink = 0.6 oz pur e alcohol) occasional Abuse Screen Answer Date Recorded Unsafe at Home or Work/School Not on file Feels Threatened by Someone? Not on file 01/2023 Does Anyone Keep You from Co ntacting Others or Doint Things Outside the Home? Not on file 01/09/2023 Physical Sign of Abuse Present Not on file 1 Housing Stability Answer Date Recorded Current Living Arrangements Not on file 12/30 Potentially Unsafe Housing Conditions Not on zacarias e 01/09/2023 Family and Community Support Answer Emil e Recorded Help with Day-to-Day Activities Not on file 01/09/2023 Lonely or Isolated Not on file 01/09/2023 Employment Answer Date Recorded Do you want help finding or keeping work or a oscar b? Not on file 01/09/2023 Disabilities Answer Date Recorded Concentrating, Remembering, or Making Decisions Difficulty Not on file 01/09/2023 Doing Errands Independently Difficulty Not on fi le 01/09/2023 Education Answer Date Recorded Help with school or training? Not on file Preferred Language Not on file 01/09/2023 Comments Unknown Sex and Gender Information Value Date Recorded Sex Assigned at Not on file Legal Sex Female 12:50 PM EDT Gender Identity Not on file Sexual Orientation Not on file Last Filed Vital Signs Vital Sign Reading Time Taken Comments Blood Pressure - - Pulse 82 05/04/2019 2:25 PM EST Temperature - - Respiratory Rate - - Oxygen Saturation 97% 05/04/2019 2:25 PM EST Inhaled Oxygen Concentration - - Weight 89.7 kg (197 lb 12 oz) 05/04/2019 2:25 PM EST Height 160.5 cm (5' 3.19 ) 05/04/2019 2:25 PM ES T Body Mass Index 34.82 05/04/2019 2:25 PM EST Plan of Treatment Health Maintenance Due Date Last Done Comments Annual Gynecologic Pelvic and Breast Exam 1964 TDAP/TD VACCINES (1 - Tdap) 1983 MAMMOGRAM 2004 COLOGUARD 2009 COLON CANCER SCREENING 5 YEAR SIGMOIDOSCOPY 2009 COLONOSCOPY 2009 [address] CANCER SCREENING 2009 CT COLONOGRAPHY 2009 FECAL OCCULT BLOOD TEST 2009 FIT Testing (1 year) 2009 Pneumococcal Vaccine 50+ (1 of 1 - PCV) 2014 ZOSTER VACCINE (1 of 2) 2014 ANNUAL PHYSICAL 10/08/2018 HEPATITIS C SCREENING 10/08/2018 INFLUENZA VACCINE 10/30/2024 Insurance [employer] Care Teams Trolley Car Overhauler Relationship Specialty Start Date End Date Jared Coronel MD [address] [facility] [address] [facility] [address] PCP - General Adolescent Medicine 10/08/18
--- OUTSIDE RECORDS SUMMARY | 2024-12-21 18:14 | XMS_ITS | Encounter Summary ---
Author Organization Healthcare Address [address] [place] [address] Care Team Providers Care Log Sawyer Name Role Phone Jared Coronel MD Primary Care Provider + [phone] Joseph Odonnell MD Unavailable [phone] Carrol Armenta MD Unavailable Sky Moreau MD Unavailable [phone] Lauren Paiz PRIOR AUTHORIZATION NURSE Unavailable [phone] Encounter Details Date Type Department Care Team (Late st Contact Info) Description 11/13/2024 Results Follow-Up Pav CC Head, Neck & Respiratory 800 [facility], [address]nd [place] [phone] Aurora Hubbard, PRIOR AUTHORIZATION NURSE 800 [place] [address] Social History Tobacco Use Types [...] drink first t nichole in the morning (EYE-HOOK AND EYE MACHINE OPERATOR) to steady your nerves or to [...] EDT Appointment [facility] A Interventional Radiology [address] [place] [address] 12/29/2024 11:45 AM EDT Appointment [facility] A Interventional Radiology [address] [place] [address] 02/17/2025 11:20 AM EST Office Visit Pav CC Head, Neck & Respiratory [address] [facility], [address]nd [place] [address] Aurora Hubbard, PRIOR AUTHORIZATION NURSE 800 [place] [phone] documented as of this encounter Visit Diagnoses [...] documented as of this encounter Care Teams Log Sawyer Relationship Specialty Start Date End Date Jared Coronel MD [address] [place], [place] [address] PCP - General 08/12/20 Joseph Odonnell MD [address] [facility] [address] [place] [address] Surgeon Neurosurgery 02/28/23 Carrol Armenta MD [address] M[address] [facility] [address] [place] [address] Consulting Physician Medical Oncology 06/12/23 Sky Moreau MD [address] [facility] [address] [place] [phone] Consulting Physician Radiation Oncology 06/12/23 Lauren Paiz, ERIC [address] [facility] [address] [place] [phone] Nurse Practitioner Internal Medicine 07/19/23 documented as of this encounter
--- OUTSIDE RECORDS SUMMARY | 2024-12-21 18:14 | XMS_ITS | Encounter Summary ---
Author Organization Healthcare Address [address] [place] [address] Care Team Providers Care Nutrient Management Specialist Name Role Phone Jared Coronel MD Primary Care Provider + [phone] Joseph Odonnell MD Unavailable [phone] Carrol Armenta MD Unavailable Sky Moreau MD Unavailable [phone] Lauren Paiz APRN Unavailable [phone] Encounter Details Date Type Department Care Team (Latest Contact Info) Description 10/23/2024 Travel Social History Tobacco Use Types Packs/Day [...] first t nichole in the morning (EYE-SENIOR DATA DEVELOPER) to steady your nerves or to get [...] Appointment [facility] A Interventional Radiology [address] [place] [phone] 12/29/2024 11:45 AM EDT Appointment [facility] A Interventional Radiology [address] [place] [address] 02/17/2025 11:20 AM EST Office Visit Pav CC Head, Neck & Respiratory [address] [facility], [address]nd [place] [address] Aurora Hubbard, FARM OWNER OPERATOR [address] [place] [phone] documented as of this encounter Visit Diagnoses [...] documented as of this encounter Care Teams Nutrient Management Specialist Relationship Specialty Start Date End Date Jared Coronel MD [address] [place] [address] PCP - General 08/12/20 Joseph Odonnell MD [address] [place] [address] Surgeon Neurosurgery 02/28/23 Carrol Armenta MD [address] [facility] [address] [place] [address] Consulting Physician Medical Oncology 06/12/23 Sky Moreau MD 800 [facility] [address] [place] [phone] Consulting Physician Radiation Oncology 06/12/23 Lauren Paiz, FARM OWNER OPERATOR [address] [facility] [address] [address] Nurse Practitioner Internal Medicine 07/19/23 documented as of this encounter
--- OUTSIDE RECORDS SUMMARY | 2024-12-21 18:14 | XMS_ITS | Clinical Summary ---
Author Organization Healthcare Address [address] [place] [address] Care Team Providers Care Test Examiner Name Role Phone Jared Coronel MD Primary Care Provider [phone] Joseph Odonnell MD Unavailable [phone] Carrol Armenta MD Unavailable Sky Moreau MD Unavailable [phone] Lauren Paiz APRN Unavailable [phone] Allergies Active Allergy Reactions Criticality Noted [...] mouth every 6 (six) hours. 100 tablet 024 Active senna-docusate sodium (Senokot-S) 8.6-50 MG tablet Take 1 tablet by mouth 1 (one) time each day. 20 tablet 024 Active famotidine (Pepcid) 20 MG tablet Take 1 tablet (20 mg) by mouth 1 (one) time each day. 30 tablet 3 024 Active Additional Information Patient not taking.Reported on 11/03/2024 ondansetron ODT (Zofran-ODT) 4 MG disintegrating tablet Take 1 tablet (4 mg) by mouth every 8 (eight) hours if needed for nausea or vomiting. 20 tablet Active loperamide (Imodium A-D) 2 MG tablet Take 1 tablet (2 mg) by mouth 4 (four) times a day if needed for diarrhea. 30 tablet 1 Active Additional Information Patient not taking.Reported on 12/03/2024 levothyroxine (Synthroid, Levoxyl) 100 MCG tablet Take 1 tablet (100 mcg) by mouth daily before breakfast. 30 tablet 11 025 2025 Active Tivozanib HCl 0.89 MG capsule Take one cap daily 30 capsule 3 Active dexamethasone (Decadron) 1 MG tablet TAKE 1 TABLET BY MOUTH IN THE MORNING AND 1 TABLET BEFORE BEDTIME. 60 tablet Active Additional Information Patient not taking.Reported on 12/03/2024 apixaban (Eliquis) 2.5 MG tablet Take 1 tablet by mouth 2 times a day. 60 tablet 2 025 Active gabapentin (Neurontin) 300 MG capsule Take 1 capsule by mouth nightly. 30 capsule 1 Active apixaban (Eliquis) 5 MG tabletIndications :Renal cell carcinoma, unspecified laterality Take 1 tablet by mouth 2 times a day. 60 tablet 5 025 2024 Discontinued Active Problems Problem Noted Date Diagnosed Date Bruising 11/17/2024 Shortness of breath 08/11/2024 Current use of long term care phlebotomist anticoagulation Hyperlipidemia 08/11/2024 Renal cell carcinoma, unspecified laterality [...] Encounters Date Type Department Care Team Description 12/15/2024 12:11 PM EDT - 12/15/2024 11:59 PM EDT Hospital Encounter [facility] [address] [place] [address] Discharge Disposition: Home or Self Care 12/15/2024 10:22 AM EDT - 12/15/2024 12:10 PM EDT Hospital Encounter [facility] [address] [place] [address] Maria C Menezes Pleural effusion, not elsewhere classified Discharge Disposition: Home or Self Care 12/15/2024 Travel 12/04/2024 2:25 PM EDT - 12/04/2024 11:59 PM EDT Hospital Encounter [facility] [address] [place] [address] Discharge Disposition: Home or Self Care 12/04/2024 12:31 PM EDT - 12/04/2024 2:24 PM EDT Hospital Encounter [facility] [address] [place] [address] Haley Mayorga, RENARD Pleural effusion Discharge Disposition: Home or Self Care 12/04/2024 Travel 12/03/2024 10:27 AM EDT - 12/03/2024 11:59 PM EDT Hospital Encounter [facility] [address] [place] [address] Renal cell carcinoma, unspecified laterality Discharge Disposition: Home or Self Care 12/03/2024 8:30 AM EDT Office Visit [facility] [address] [place] [phone] Lauren Paiz, BOOKKEEPERS SUPERVISOR Renal cell carcinoma, unspecified laterality (Primary Dx) 12/03/2024 Travel 12/01/2024 Telephone [facility] [address] [place] [address] Olga Oliveira RN 11/26/2024 10:45 AM EDT Office Visit [facility] [address] [place] [address] Joseph Odonnell MD Renal cell carcinoma, unspecified laterality (Primary Dx) 11/26/2024 8:55 AM EDT - 11/26/2024 11:59 PM EDT Hospital Encounter [facility] [address] [place] [address] Brain mass; Renal cell carcinoma, unspecified laterality Discharge Disposition: Home or Self Care 11/26/2024 Orders Only [place] [facility] [address] [place] [address] Joseph Odonnell MD Brain mass (Primary Dx); Renal cell carcinoma, unspecified laterality; Metastatic renal cell carcinoma to bone 11/26/2024 Travel 11/25/2024 Travel 11/24/2024 11:52 AM EDT - 11/24/2024 11:59 PM EDT Hospital Encounter [facility] [address] [place] [phone] Discharge Disposition: Home or Self Care 11/24/2024 9:15 AM EDT - 11/24/2024 11:51 AM EDT Hospital Encounter [facility] [address] [place] [address] Robyn Winston RN Pleural effusion Discharge Disposition: Home or Self Care 11/24/2024 Travel 11/18/2024 11:30 AM EDT Office Visit [facility] [address] [place] [phone] Carrol Armenta MD Renal cell carcinoma, unspecified laterality (Primary Dx); Shortness of breath; Renal cell carcinoma of left kidney; Dizziness; Dyspnea on exertion; Right leg pain; Lytic bone lesion of left femur; Degenerative tear of medial meniscus of left knee 11/18/2024 Travel 11/13/2024 1:30 PM EDT Clinical Support [facility] [address] [facility] [address] [place] [address] Bruising; Current use of usp anticoagulation; Encounter for monitoring cardiotoxic drug therapy 11/13/2024 1:00 PM EDT Office Visit [facility] [address] [facility], [address]nd [place] [address] Aurora Hubbard APRN Bruising (Primary Dx); Current use of usp anticoagulation; Encounter for monitoring cardiotoxic drug therapy 11/13/2024 Results Follow-Up [facility] [address] [facility], [address]nd [place] [address] Aurora Hubbard, BOOKKEEPERS SUPERVISOR 11/13/2024 Travel 11/09/2024 Refill [facility] [address] [place] [phone] Carrol Armenta MD 11/03/2024 10:27 AM EDT - 11/03/2024 11:59 PM EDT Hospital Encounter [facility] [address] [place] [phone] Discharge Disposition: Home or Self Care 11/03/2024 8:20 AM EDT - 11/03/2024 10:26 AM EDT Hospital Encounter [facility] [address] [place] [address] Natali Ho, RN Pleural effusion Discharge Disposition: Home or Self Care 11/03/2024 Travel 10/23/2024 10:38 AM EDT - 10/23/2024 11:59 PM EDT Hospital Encounter [facility] [address], [address] [place] [address] Renal cell carcinoma, unspecified laterality Discharge Disposition: Home or Self Care 10/23/2024 Travel 10/20/2024 Telephone [facility] [address] [place] [address] Ani Wells, PharmD 10/16/2024 2:00 PM EDT Office Visit [facility] [address] [place] [phone] Carrol Armenta MD Renal cell carcinoma, unspecified laterality (Primary Dx); Chest pain, unspecified type 10/16/2024 Travel 10/14/2024 3:40 PM EDT - 10/14/2024 11:59 PM EDT Hospital Encounter [facility] [address] [place] [phone] Renal cell carcinoma of left kidney Discharge Disposition: Home or Self Care 10/14/2024 1:45 PM EDT - 10/14/2024 3:39 PM EDT Hospital Encounter [facility] [address] [place] [address] Discharge Disposition: Home or Self Care 10/14/2024 12:06 PM EDT - 10/14/2024 1:44 PM EDT Hospital Encounter [facility] [address] [place] [address] Renal cell carcinoma of left kidney Discharge Disposition: Home or Self Care 10/14/2024 11:27 AM EDT - 10/14/2024 12:05 PM EDT Hospital Encounter [facility] [address] [place] [address] Renal cell carcinoma of left kidney Discharge Disposition: Home or Self Care 10/14/2024 Travel 10/09/2024 Telephone [facility] [address] [place] [address] Carrol Armenta MD 10/05/2024 11:22 AM EDT - 10/05/2024 11:59 PM EDT Hospital Encounter [facility] [address] [place] [address] Discharge Disposition: Home or Self Care 10/05/2024 8:41 AM EDT - 10/05/2024 11:21 AM EDT Hospital Encounter [facility] [address] [place] [address] Stacy Matute, RN Other ascites Discharge Disposition: Home or Self Care 10/05/2024 Travel 09/22/2024 Telephone [facility] [address] [place] [address] Carrol Armenta MD from Last 3 Months Immunizations Immunization Administration Dates Next Due Tdap 05/31/2020 Family History Medical History Relation Name Comments Breast cancer Father's Sister Breast cancer Mother's Sister 1 Alzheimer's disease Mother's Sister 2 Chante Keaton Relation Name Status Comments Father's Sister Mother's [...] drink first t nichole in the morning (EYE-MECHANIC SOUND TECHNICIAN) to steady your nerves or to [...] Orientation Straight 11/21/2023 5: 34 PM EDT Last Filed Vital Signs Vital Sign Reading Time Taken Comments Blood Pressure 112/80 12/15/2024 1:00 PM EDT Pulse 103 12/15/2024 1:11 PM EDT Temperature 36.5 C (97.7 F) 12/15/2024 11:40 AM EDT Respiratory Rate 24 12/15/2024 1:11 PM EDT Oxygen Saturation 90% 12/15/2024 1:11 PM EDT Inhaled Oxygen Concentration - - Weight 76.5 kg (168 lb 10.4 oz) 025 10:45 AM EDT Height 157.5 cm (5' 2 ) 12/15/2024 10:4 5 AM EDT Body Mass Index 30.85 12/15/2024 10:45 AM EDT Plan of Treatment Upcoming Encounters Date Type Department Care Team (Late st Contact Info) Description 12/22/2024 12:30 PM EDT Appointment [facility] [address] [place] [address] 12/29/2024 11:45 AM EDT Appointment [facility] [address] [place] [phone] 02/17/2025 11:20 AM EST Office Visit [facility] [address] [facility], [address]nd [place] [address] Aurora Hubbard, BOOKKEEPERS SUPERVISOR [address] [place] [phone] Health Maintenance Due Date Last Done Comments [facility]-HIV Screening 1965 [facility]-Hepatitis C Screening 1965 [facility]-/Child/Adol SDOH Screenings 1965 [id number] Vaccine (#1) 1969 Diabetes: Dental Exam 1974 [facility]- SDOH Screenings 1982 [facility]-Adult SDOH Screenings 1982 [facility]-Hepatitis A Vaccines (1 of 2 - Risk 2-dose series) 1983 [facility]-Pneumococcal Vaccine: 50+ Years (1 of 2 - PCV) 1983 [facility]-Zoster Vaccines (1 of 2) 1983 CT Colonography 2009 Colonoscopy 2009 FIT-DNA 2009 FIT 2009 FOBT 2009 Sigmoidoscopy 2009 [facility]-Colorectal Cancer Screening 2009 [facility]-Pap Smear 04/09/2009 04/09/2006, 10/1998, 06/10/1998, Additional history exists [facility]-Cervical Cancer Screening 04/09/2011 [facility]-HPV/Cotest 04/09/2011 04/09/2006, 10/1998, 06/10/1998, Additional history exists [facility]-Breast Cancer Screening 2014 [facility]-Diabetes: Hemoglobin A1C 02/19/2024 08/22/2023 [facility]-RSV Vaccine: 60+ Years or (1 - Risk 60-74 years 1-dose series) 2024 [facility]-Influenza Vaccine (#1) 2024 [facility]-Lung Cancer Screening 10/14/20252024, 09/15/2024, 08/12/2024, Additional history exists [facility]-Depression Screening 12/03/2025 025, 09/16/2024, 01/20/2024 [facility]-DTaP,Tdap,and Td Vaccines (2 - Td or Tdap) 05/31/2030 05/31/2020 [facility]-Obesity Intervention Completed 025, 11/26/2024, 11/03/2024, Additional history exists HPV Vaccines Aged Out [...] this topic Medical Devices Implanted Type Area Personal Computer Network Engineer Device Identifier Shelf Expiration Date Model / Serial / Lot Plate Dhs 4h 135deg - [id number] Implanted:Qty: 1 on 11/21/2023 by Mando Plaza MD at [facility] Plate Left: Femur Synthes [facility]-[id number] 11/20/2024 281.140 / / Screw Lag Dhs/Dcs 12.7mm Thrd/90mm - [id number] Implanted:Qty: 1 on 11/21/2023 by Mando Plaza MD at [facility] Screw Left: Femur Synthes [facility]-[id number] 11/20/2024 280.290 / / Screw 4.5mm Cortex Selftap 36mm - [id number] Implanted:Qty: 4 on 11/21/2023 by Mando Plaza MD at [facility] Screw Left: Femur Active DSP [facility]-[id number] 11/20/2024 214.836 / / Cement With Tobramycin - [id number] Implanted:Qty: 2 on 11/21/2023 by Mando Plaza MD at [facility] Left: Femur [employer] [facility]-[id number] 01/29/2025 [id number] / / [id number] Procedures Procedure Name Priority Date/Time Associated Diagnosis Comments XR CHEST 1 VIEW STAT 12/15/2024 12:21 PM EDT US GUIDED THORACENTESIS Routine 12/15/2024 11:32 AM EDT Pleural effusion, not elsewhere classified XR CHEST 1 VIEW Routine 12/04/2024 2:39 PM EDT US GUIDED THORACENTESIS Routine 12/04/2024 1:54 PM EDT Pleural effusion XR CHEST 2 VIEWS Routine 12/03/2024 11:2 0 AM EDT Renal cell carcinoma, unspecified laterality COMPREHENSIVE METABOLIC PANEL, PLASMA Routine 12/03/2024 8:58 AM EDT Renal cell carcinoma, unspecified laterality CBC WITH AUTO DIFFERENTIAL Routine 12/03/2024 8:58 AM EDT Renal cell carcinoma, unspecified laterality MR HEAD W AND WO IV CONTRAST Routine 11/26/2024 9:54 AM EDT Brain mass Renal cell carcinoma, unspecified laterality XR CHEST 1 VIEW STAT 11/24/2024 12:02 PM EDT US GUIDED THORACENTESIS Routine 11/24/2024 11:28 AM EDT Pleural effusion CBC WITH AUTO DIFFERENTIAL Routine 11/18/2024 11:01 AM EDT Renal cell carcinoma of left kidney COMPREHENSIVE METABOLIC PANEL, PLASMA Routine 11/18/2024 11:01 AM EDT Renal cell carcinoma of left kidney TROPONIN T, HIGH SENSITIVITY, CARDIAC RISK ASSESSMENT Routine 11/13/2024 1:33 PM EDT Encounter for monitoring cardiotoxic drug therapy CBC WITH AUTO DIFFERENTIAL STAT 11/13/2024 1:33 PM EDT Bruising Current use of usp anticoagulation PROTHROMBIN TIME(PT) / INR Routine 11/13/2024 1:33 PM EDT Bruising Current use of long term care phlebotomist anticoagulation COMPREHENSIVE METABOLIC PANEL, PLASMA Routine 11/13/2024 1:33 PM EDT Bruising Current use of long term care phlebotomist anticoagulation APTT Routine 11/13/2024 1:33 PM EDT Bruising Current use of long term care phlebotomist anticoagulation XR CHEST 1 VIEW Routine 11/03/2024 10:53 AM EDT US GUIDED THORACENTESIS Routine 11/03/2024 9:32 AM EDT Pleural effusion CT ABDOMEN PELVIS W IV CONTRAST STAT 10/23/2024 11:33 AM EDT Renal cell carcinoma, unspecified laterality NM BONE SCAN W SPECT/CT SINGLE AREA Routine 10/14/2024 5:36 PM EDT Renal cell carcinoma of left kidney NM BONE SCAN WHOLE BODY Routine 10/14/2024 3:08 PM EDT Renal cell carcinoma of left kidney CT ABDOMEN PELVIS W IV CONTRAST Routine 10/14/2024 1:16 PM EDT Renal cell carcinoma of left kidney CT CHEST W IV CONTRAST Routine 10/14/2024 1:16 PM EDT Renal cell carcinoma of left kidney XR CHEST 1 VIEW STAT 10/05/2024 11:38 AM EDT US GUIDED THORACENTESIS Routine 10/05/2024 10:00 AM EDT Other ascites TOTAL PROTEIN, PLEURAL FLUID Routine 10/05/2024 9:50 AM EDT BODY FLUID, CYTOSPIN, PATHOLOGIST INTERPRETATION Routine 10/05/2024 9:49 AM EDT BODY FLUID CELL COUNT W/ MANUAL DIFFERENTIAL Routine 10/05/2024 9:49 AM EDT HEMOGLOBIN A1C Routine 08/22/2023 9:46 AM EDT Diabetes mellitus, type 2 (CMS/HCC) Hyperlipemia CYTO DATA CONVERSION Routine 04/09/2006 12:00 AM EST from Last 3 Months or Most Recently Relevant to Health Maintenance Results * XR Chest 1 View (12/15/2024 12:21 PM EDT) Only the most recent of5 resultswithin [...] Jared Amezcua MD on 12/15/2024 1:08 PM Monica Smith BOOKKEEPERS SUPERVISOR IMG XR PROCEDURES Final Resu lt * US Guided Thoracentesis (12/15/2024 11:32 AM EDT) Only the most recent of5 [...] met who presents for right thoracentesis. TECHNIQUE: Police Commanding Officer: Monica Smith APRN Secondary Painter And Decorator Apprentice: None. Rad Dose: NA Medications: Continuous physiologic [...] met who presents for right thoracentesis. TECHNIQUE: Police Commanding Officer: Monica Smith APRN Secondary Painter And Decorator Apprentice: None. Rad Dose: NA Medications: Continuous physiologic [...] this written report. Preliminary report signed by ANDEROSN Hernandez on 12/15/2024 1:15 PM By electronically signing this report, I, the attending physician, attestthat I was not present for the procedure(s) but agree with the finaledited report. Drafted by ANDERSON Hernandez on 12/15/2024 1:14 PM Final report signed by Td Rose MD on 12/15/2024 3:05 PM us Natty N Edgardos BOOKKEEPERS SUPERVISOR IMG US PROCEDURES Final Resu lt * XR Chest 2 Views (12/03/2024 11:20 [...] MD on 12/03/2024 12:38 PM Lauren Paiz BOOKKEEPERS SUPERVISOR IMG XR PROCEDURES Final Resul t * (ABNORMAL) CBC and Differential (12/03/2024 8:58 AM EDT) Only the most recent of3 resultswithin the time period is included. WBC Count 11.63(H) 3.70 - 10.30 10*3/uL LAB HEMATOLOGY METHOD 12/03/2024 9:53 AM EDT [facility] RBC Count 5.07 3.90 - 5.20 10*6/uL LAB HEMATOLOGY METHOD 12/03/2024 9:53 AM EDT [facility] HGB 13.4 11.2 - 15.7 g/dL LAB HEMATOLOGY METHOD 12/03/2024 9:53 AM EDT [facility] HCT 42.5 34.0 - 45.0 % LAB HEMATOLOGY METHOD 12/03/2024 9:53 AM EDT [facility] Platelet Count 248 155 - 369 10*3/uL LAB HEMATOLOGY METHOD 12/03/2024 9:53 AM EDT [facility] MCV 84 79 - 98 fL LAB HEMATOLOGY METHOD 12/03/2024 9:53 AM EDT [facility] MCH 26.4 26.0 - 32.0 pg LAB HEMATOLOGY METHOD 12/03/2024 9:53 AM EDT [facility] MCHC 31.5 30.7 - 35.5 g/dL LAB HEMATOLOGY METHOD 12/03/2024 9:53 AM EDT [facility] RDW 18.1(H) 11.5 - 14.5 % LAB HEMATOLOGY METHOD 12/03/2024 9:53 AM EDT [facility] MPV 9.7 8.8 - 12.5 fL LAB HEMATOLOGY METHOD 12/03/2024 9:53 AM EDT [facility] nRBC 0.2(H) <=0.0 per 100 WBCs LAB HEMATOLOGY METHOD 12/03/2024 9:53 AM EDT [facility] Differential Type Automated LAB HEMATOLOGY METHOD 12/03/2024 9:53 AM EDT [facility] Neutrophils % 79 % LAB HEMATOLOGY METHOD 12/03/2024 9:53 AM EDT [facility] Lymphocytes % 11 % LAB HEMATOLOGY METHOD 12/03/2024 9:53 AM EDT [facility] Monocytes % 6 % LAB HEMATOLOGY METHOD 12/03/2024 9:53 AM EDT [facility] Eosinophils % 1 % LAB HEMATOLOGY METHOD 12/03/2024 9:53 AM EDT [facility] Basophils % 0 % LAB HEMATOLOGY METHOD 12/03/2024 9:53 AM EDT [facility] Immature Granulocytes % 3 % LAB HEMATOLOGY METHOD 12/03/2024 9:53 AM EDT [facility] Neutrophils Absolute 9.28(H) 1.60 - 6.10 10*3/uL LAB HEMATOLOGY METHOD 12/03/2024 9:53 AM EDT [facility] Lymphocytes Absolute 1.25 1.20 - 3.90 10*3/uL LAB HEMATOLOGY METHOD 12/03/2024 9:53 AM EDT [facility] Monocytes Absolute 0.69 0.30 - 0.90 10*3/uL LAB HEMATOLOGY METHOD 12/03/2024 9:53 AM EDT [facility] Eosinophils Absolute 0.08 0.00 - 0.50 10*3/uL LAB HEMATOLOGY METHOD 12/03/2024 9:53 AM EDT [facility] Basophils Absolute 0.04 0.00 - 0.10 10*3/uL LAB HEMATOLOGY METHOD 12/03/2024 9:53 AM EDT [facility] Immature Granulocytes Absolute 0.29(H) 0.00 - 0.06 10*3/uL LAB HEMATOLOGY METHOD 12/03/2024 9:53 AM EDT [facility] Blood Venous blood specimen / Unknown Venipuncture / Unknown 12/03/2024 8:58 AM EDT 12/03/2024 9:39 AM EDT Narrative [facility] - 12/03/2024 9:53 AM EDT Therapeutic decision making should be based on absolute values, rather than percentages. Lauren Paiz BOOKKEEPERS SUPERVISOR LAB BLOOD ORDERABLES Final Re sult [facility] [address] [place] [address] * (ABNORMAL) Comprehensive Metabolic Panel, Plasma (12/03/2024 8:58 AM EDT) Only the most recent of3 resultswithin the time period is included. Glucose, Plasma 139(H) 74 - 99 mg/dL 12/03/2024 10:12 AM EDT [facility] BUN, Plasma 19 8 - 23 mg/dL 12/03/2024 10:12 AM EDT [facility] Creatinine, Plasma 0.55(L) 0.60 - 1.10 mg/dL 12/03/2024 10:12 AM EDT [facility] BUN/Creatinine Ratio 35 12/03/2024 10:12 AM EDT [facility] Sodium, Plasma 137 136 - 145 mmol/L 12/03/2024 10:12 AM EDT [facility] Potassium, Plasma 4.8 3.6 - 4.9 mmol/L 12/03/2024 10:12 AM EDT [facility] Chloride, Plasma 104 97 - 107 mmol/L 12/03/2024 10:12 AM EDT [facility] CO2, Plasma 22 22 - 29 mmol/L 12/03/2024 10:12 AM EDT [facility] Anion Gap 11 6 - 16 mmol/L 12/03/2024 10:12 AM EDT [facility] Total Calcium, Plasma 9.9 8.9 - 10.2 mg/dL 12/03/2024 10:12 AM EDT [facility] Total Protein 6.4 6.3 - 7.9 g/dL 12/03/2024 10:12 AM EDT [facility] Albumin, Plasma 3.4(L) 3.5 - 5.2 g/dL 12/03/2024 10:12 AM EDT [facility] AST, Plasma 25 10 - 35 U/L 12/03/2024 10:12 AM EDT [facility] Comment:Hemolyzed, result ma y be falsely increased. ALT, Plasma 21 10 - 35 U/L 12/03/2024 10:12 AM EDT [facility] Alkaline Phosphatase, Plasma 123 46 - 142 U/L 12/03/2024 10:12 AM EDT [facility] Total Bilirubin, Plasma 0.3 0.2 - 1.1 mg/dL 12/03/2024 10:12 AM EDT [facility] eGFRcr 105.1 mL/min/1.7 3m*2 12/03/2024 10:12 AM EDT [facility] Comment:Reported eGFRcr in m L/min/1.73m2 is based the CKD-EPI 2020 equation that does not use a race coefficient. Blood Venous blood specimen / Unknown Venipuncture / Unknown 12/03/2024 8:58 AM EDT 12/03/2024 9:37 AM EDT Lauren Paiz BOOKKEEPERS SUPERVISOR LAB BLOOD ORDERABLES Final Re sult [facility] [address] [place] [address] * MR Head w and wo IV [...] error, please notify the sender immediately at [phone] and permanently delete the original report and destroy any copies or printouts. Narrative 11/27/2024 5:25 PM EDT [facility] - Phone Outpatient NAME: Aries Winston DATE OF EXAM: 11/26/2024 Patient No: [id number] Physician: Kieran Date of : 1965 Past [...] 11/27/2024 [facility] - Phone Outpatient NAME: Aries Winston DATE OF EXAM: 11/26/2024 Patient No: [id number] Physician: Kieran Date of : 1965 Past Medical/Surgical History (entered by technologist): Symptoms/Reason For Exam (entered by technologist): Brain metastases,assess treatment response Tech Notes (entered by technologist): with contrast gadobutrol (Gadavist)injection 7.6 mL; hx of RCC metastatic to brain, s/p needle [id number]/8/23, s/p GKRS to bilateral parietal and left occipital [id number]/8/23. Since last seen 06/2024 patient has remained [...] in error, pleasenotify the sender immediately at [phone] and permanently delete theoriginal report and destroy any copies or printouts. Joseph Odonnell MD IMG MRI PROCEDURES Final Resul t * APTT (11/13/2024 1:33 PM EDT) aPTT 29 25 - 35 sec LAB COAGULATION METHOD 11/13/2024 3:04 PM EDT [facility] Blood Venous blood specimen / Unknown Venipuncture / Unknown 11/13/2024 1:33 PM EDT 11/13/2024 2:21 PM EDT us Aurora Hubbard APRN LAB BLOOD ORDERABLES Fin al Result [facility] [address] [place] [address] * (ABNORMAL) Prothrombin Time/INR (11/13/2024 1:33 PM EDT) Prothrombin Time 15.3(H) 12.0 - 14.3 sec LAB COAGULATION METHOD 11/13/2024 3:04 PM EDT [facility] INR 1.2(H) 0.9 - 1.1 LAB COAGULATION METHOD 11/13/2024 3:04 PM EDT [facility] Blood Venous blood specimen / Unknown Venipuncture / Unknown 11/13/2024 1:33 PM EDT 11/13/2024 2:21 PM EDT Narrative [facility] - 11/13/2024 3:04 PM EDT OPTIMAL INR RANGES FOR PATIENT ON ORAL ANTICOAGULANT THERAPY Prevention of venous thromboembolism INR 2.0 to 3.0 In patients with heart disease: Atrial fibrillation INR 2.0 to 3.0 Valvular heart disease INR 2.0 to 3.0 Tissue heart valves INR 2.0 to 3.0 Mechanical prosthetic valves INR 2.5 to 3.5 Prevention of recurrent MS INR 2.5 to 3.5 Aurora Hubbard APRN LAB BLOOD ORDERABLES Fin al Result Performing Organization Address [facility] Co de Phone Number [facility] [address] [place] [address] * Troponin T, High Sensitivity, Cardiac Risk Assessment (11/13/2024 1:33 PM EDT) Troponin T, High Sensitivity, 0 Hour 7 <14 ng/L 11/13/2024 2:51 PM EDT [facility] Blood Venous blood specimen / Unknown Venipuncture / Unknown 11/13/2024 1:33 PM EDT 11/13/2024 2:19 PM EDT Aurora Hubbard APRN LAB BLOOD ORDERABLES Fin al Result Performing Organization Address [facility] [place] Co de Phone Number [facility] [address] [place] [address] * CT Abdomen Pelvis w IV Contrast (10/23/2024 11:33 AM EDT) Only the most recent of2 resultswithin the time period is included. Anatomical Region Laterality Modality Abdomen, Pelvis Computed [...] 3.7 cm (series 8 image 48 and image 82), previously 3.1 cm. Exophytic cyst [...] MD IMG CT PROCEDURES Final Result * NM Bone Scan w Spect/CT Single Area (10/14/2024 5:36 PM EDT) Anatomical Region Laterality Modality Nuclear Medicine Impressions 10/15/2024 10:30 AM EDT Grossly stable bone metastases compared to prior study from 06/24/2024, details above. New subtle focus of mild cortical increased uptake involving the midshaft of the right femur without definite associated CT finding, except for intramedullary density/calcification. This could represent stress reaction from post arthroplasty manipulation. Recommend short-term imaging follow-up. Please note that bone scan can demonstrate lower sensitivity with renal cell carcinoma due to possible purely lytic disease which may present as cold findings on bone scintigraphy. CRITICAL RESULT: No. COMMUNICATION: Per this written report. By electronically signing this report, I, the attending physician, attest that I have personally reviewed the images/data for the above examination(s) and agree with the final edited report. Drafted by Varghese Hancock MD on 10/14/2024 3:30 PM Final report signed by Morris Art MD on 10/15/2024 10:30 AM Narrative 10/15/2024 10:30 AM EDT CLINICAL INDICATION: Renal cell carcinoma.Underwent gamma knife on 03/08/23 to a right temporoparietal metastatic deposit. Initiated first-line therapy with Nivo/Ipi from 03/08/23 to 05/10/23. Underwent SBRT to right adrenal gland T11 through L1, right iliac bone from 07/02/23-07/09/23 and left 12th rib from 07/15/23-07/22/23. Started on cabozantinib 40 mg daily as a second-line agent on 07/22/23 with several interruptions due to symptoms. Underwent radical intralesional resection left proximal femur renal cell metastasis and Prophylactic stabilization left hip with cemented plate on 11/21/23. Recently started Tivozanib in July of 2024. TECHNIQUE: At 2-3 hours following intravenous administration of 26 mCi of Tc-99m MDP, whole-body images were acquired in anterior and posterior projections. Regional images of skull, cervical spine, thorax, upper extremities, and post-void pelvis were acquired in multiple projections. SPECT and CT images of femurs were acquired and processed using [employer] 16 SPECT/CT hybrid technology. Three-dimensional attenuation-corrected SPECT, CT and fused SPECT/CT tomographic images in coronal, sagittal, and transverse planes were created and reviewed interactively to optimize sensitivity, specificity, and anatomic localization. CT: low-dose, kuv-[id number]-[id number], without intravenous contrast; TOTAL DLP (Dose Length Product): 199.04 mGy.cm. For reference to the report, annotated images have not been created and made available in PACS. COMPARISON/CORRELATION: Bone scan, 06/24/2024, 04/29/2024, 11/11/2023, 07/29/2023. CT chest, abdomen and pelvis, 04/29/2024, 10/14/2024. CT chest, 09/15/2024. FINDINGS: Bones: Multiple sites of focal increased uptake in axial and appendicular skeleton correlates with lytic lesions on CT and consistent with bone metastasis. SPECT/CT showed a single cold focus with peripheral increased uptake associated with lytic lesion involving the right pubic bone. Compared to previous bone scan dated 06/24/2024: * No new sites. * Multiple sites with relatively unchanged intensity and/or extent, include: Left glenoid, left humeral head/neck, sternum, T10 and T12 vertebral bodies, right ischium. * Previously described foci involving the right occipital and left parietal skull are not well appreciated on the current study. New subtle focus of mild increased cortical uptake involving the midshaft of the right femur without definite associated CT finding, except for intramedullary density/calcification. This could represent stress reaction from post arthroplasty manipulation. Bones/Joints: Complete resolution of previously seen focal intense increased uptake involving the right medial tibial plateau with subtle cortical irregularity. Focal increased uptake involving the mandible, stable and likely to represent odontogenic disease. Focal increased uptake involving right knee and proximal tibia, left proximal femur, associated with postoperative changes. Cold foci in the lower thoracic and upper lumbar spine, consistent with postradiation changes. Cold focus over the right hip consistent with arthroplasty hardware. Soft-tissues: Diffuse low-grade increased uptake of the upper thigh consistent with postsurgical changes of left femoral ORIF. Bilateral renal activity visualized. Incidental CT: Right total hip arthroplasty. ORIF of the left femur. Rectus superior pubic ramus lytic lesion and fracture Procedure Note Morris Starr MD - 10/15/2024 CLINICAL INDICATION: Renal cell carcinoma.Underwent gamma knife on 03/08/23 to a righttemporoparietal metastatic deposit. Initiated first-line therapy withNivo/Ipi from 03/08/23 to 05/10/23. Underwent SBRT to right adrenal gland [id number] L1, right iliac bone from 07/02/23-07/09/23 and left 12th rib from07/15/23-07/22/23. Started on cabozantinib 40 mg daily as a second-lineagent on 07/22/23 with several interruptions due to symptoms. Underwentradical intralesional resection left proximal femur renal cell metastasisand Prophylactic stabilization left hip with cemented plate on 11/21/23.Recently started Tivozanib in July of 2024. TECHNIQUE: At 2-3 hours following intravenous administration of 26 mCi of Tc-99m MDP,whole- body images were acquired in anterior and posterior projections.Regional images of skull, cervical spine, thorax, upper extremities, andpost-void pelvis were acquired in multiple projections. SPECT and CT images of femurs were acquired and processed using [employer] 16 SPECT/CT hybrid technology. Mfiok-uwpusiabtqnodprbjjfhul-mebhuoukg SPECT, CT and fused SPECT/CT tomographic images incoronal, sagittal, and transverse planes were created and reviewedinteractively to optimize sensitivity, specificity, and anatomiclocalization. CT: low-dose, ytz-wkozxc-ncmf, without intravenous contrast;TOTAL DLP (Dose Length Product): 199.04 mGy.cm. For reference to the report, annotated images have not been created andmade available in PACS. COMPARISON/CORRELATION: Bone scan, 06/24/2024, 04/29/2024, 11/11/2023, 07/29/2023. CT chest, abdomenand pelvis, 04/29/2024, 10/14/2024. CT chest, 09/15/2024. FINDINGS: Bones: Multiple sites of focal increased uptake in axial and appendicularskeleton correlates with lytic lesions on CT and consistent with bonemetastasis. SPECT/CT showed a single cold focus with peripheral increased uptakeassociated with lytic lesion involving the right pubic bone. Compared to previous bone scan dated 06/24/2024: *No new sites. *Multiple sites with relatively unchanged intensity and/or extent,include: Left glenoid, left humeral head/neck, sternum, T10 and [id number] bodies, right ischium. *Previously described foci involving the right occipital and leftparietal skull are not well appreciated on the current study. New subtle focus of mild increased cortical uptake involving the midshaftof the right femur without definite associated CT finding, except forintramedullary density/calcification. This could represent stress reactionfrom post arthroplasty manipulation. Bones/Joints: Complete resolution of previously seen focal intense increased uptakeinvolving the right medial tibial plateau with subtle corticalirregularity. Focal increased uptake involving the mandible, stable and likely torepresent odontogenic disease. Focal increased uptake involving right knee and proximal tibia, leftproximal femur, associated with postoperative changes. Cold foci in the lower thoracic and upper lumbar spine, consistent withpostradiation changes. Cold focus over the right hip consistent with arthroplasty hardware. Soft-tissues: Diffuse low-grade increased uptake of the upper thigh consistent withpostsurgical changes of left femoral ORIF. Bilateral renal activity visualized. Incidental CT: Right total hip arthroplasty. ORIF of the left femur. Rectus superior pubic ramus lytic lesion and fracture IMPRESSION: Grossly stable bone metastases compared to prior study from 06/24/2024,details above. New subtle focus of mild cortical increased uptake involving the midshaftof the right femur without definite associated CT finding, except forintramedullary density/calcification. This could represent stress reactionfrom post arthroplasty manipulation. Recommend short-term imagingfollow-up. Please note that bone scan can demonstrate lower sensitivity with renalcell carcinoma due to possible purely lytic disease which may present ascold findings on bone scintigraphy. CRITICAL RESULT: No. COMMUNICATION: Per this written report. By electronically signing this report, I, the attending physician, attestthat I have personally reviewed the images/data for the aboveexamination(s) and agree with the final edited report. Drafted by Varghese Hancock MD on 10/14/2024 3:30 PM Final report signed by Morris Art MD on 10/15/2024 10:30 AM Carrol Armenta MD IMG NM PROCEDURES Final Result * NM Bone Scan Whole Body (10/14/2024 3:08 PM EDT) Anatomical Region Laterality Modality Nuclear Medicine Impressions 10/15/2024 10:30 AM EDT Grossly stable bone metastases compared to prior study from 06/24/2024, details above. New subtle focus of mild cortical increased uptake involving the midshaft of the right femur without definite associated CT finding, except for intramedullary density/calcification. This could represent stress reaction from post arthroplasty manipulation. Recommend short-term imaging follow-up. Please note that bone scan can demonstrate lower sensitivity with renal cell carcinoma due to possible purely lytic disease which may present as cold findings on bone scintigraphy. CRITICAL RESULT: No. COMMUNICATION: Per this written report. By electronically signing this report, I, the attending physician, attest that I have personally reviewed the images/data for the above examination(s) and agree with the final edited report. Drafted by Varghese Hancock MD on 10/14/2024 3:30 PM Final report signed by Morris Art MD on 10/15/2024 10:30 AM Narrative 10/15/2024 10:30 AM EDT CLINICAL INDICATION: Renal cell carcinoma.Underwent gamma knife on 03/08/23 to a right temporoparietal metastatic deposit. Initiated first-line therapy with Nivo/Ipi from 03/08/23 to 05/10/23. Underwent SBRT to right adrenal gland T11 through L1, right iliac bone from 07/02/23-07/09/23 and left 12th rib from 07/15/23-07/22/23. Started on cabozantinib 40 mg daily as a second-line agent on 07/22/23 with several interruptions due to symptoms. Underwent radical intralesional resection left proximal femur renal cell metastasis and Prophylactic stabilization left hip with cemented plate on 11/21/23. Recently started Tivozanib in July of 2024. TECHNIQUE: At 2-3 hours following intravenous administration of 26 mCi of Tc-99m MDP, whole-body images were acquired in anterior and posterior projections. Regional images of skull, cervical spine, thorax, upper extremities, and post-void pelvis were acquired in multiple projections. SPECT and CT images of femurs were acquired and processed using [employer] SPECT/CT hybrid technology. Three-dimensional attenuation-corrected SPECT, CT and fused SPECT/CT tomographic images in coronal, sagittal, and transverse planes were created and reviewed interactively to optimize sensitivity, specificity, and anatomic localization. CT: low-dose, ziw-wyciuw-dngm, without intravenous contrast; TOTAL DLP (Dose Length Product): 199.04 mGy.cm. For reference to the report, annotated images have not been created and made available in PACS. COMPARISON/CORRELATION: Bone scan, 06/24/2024, 04/29/2024, 11/11/2023, 07/29/2023. CT chest, abdomen and pelvis, 04/29/2024, 10/14/2024. CT chest, 09/15/2024. FINDINGS: Bones: Multiple sites of focal increased uptake in axial and appendicular skeleton correlates with lytic lesions on CT and consistent with bone metastasis. SPECT/CT showed a single cold focus with peripheral increased uptake associated with lytic lesion involving the right pubic bone. Compared to previous bone scan dated 06/24/2024: * No new sites. * Multiple sites with relatively unchanged intensity and/or extent, include: Left glenoid, left humeral head/neck, sternum, T10 and T12 vertebral bodies, right ischium. * Previously described foci involving the right occipital and left parietal skull are not well appreciated on the current study. New subtle focus of mild increased cortical uptake involving the midshaft of the right femur without definite associated CT finding, except for intramedullary density/calcification. This could represent stress reaction from post arthroplasty manipulation. Bones/Joints: Complete resolution of previously seen focal intense increased uptake involving the right medial tibial plateau with subtle cortical irregularity. Focal increased uptake involving the mandible, stable and likely to represent odontogenic disease. Focal increased uptake involving right knee and proximal tibia, left proximal femur, associated with postoperative changes. Cold foci in the lower thoracic and upper lumbar spine, consistent with postradiation changes. Cold focus over the right hip consistent with arthroplasty hardware. Soft-tissues: Diffuse low-grade increased uptake of the upper thigh consistent with postsurgical changes of left femoral ORIF. Bilateral renal activity visualized. Incidental CT: Right total hip arthroplasty. ORIF of the left femur. Rectus superior pubic ramus lytic lesion and fracture Procedure Note El Morris Art MD - 10/15/2024 CLINICAL INDICATION: Renal cell carcinoma.Underwent gamma knife on 03/08/23 to a righttemporoparietal metastatic deposit. Initiated first-line therapy withNivo/Ipi from 03/08/23 to 05/10/23. Underwent SBRT to right adrenal gland [id number] L1, right iliac bone from 07/02/23-07/09/23 and left 12th rib from07/15/23-07/22/23. Started on cabozantinib 40 mg daily as a second-lineagent on 07/22/23 with several interruptions due to symptoms. Underwentradical intralesional resection left proximal femur renal cell metastasisand Prophylactic stabilization left hip with cemented plate on 11/21/23.Recently started Tivozanib in July of 2024. TECHNIQUE: At 2-3 hours following intravenous administration of 26 mCi of Tc-99m MDP,whole- body images were acquired in anterior and posterior projections.Regional images of skull, cervical spine, thorax, upper extremities, andpost-void pelvis were acquired in multiple projections. SPECT and CT images of femurs were acquired and processed using [employer] 16 SPECT/CT hybrid technology. Zryhy-kztnolkvdmcdrpmxmdyqki-uiowakemf SPECT, CT and fused SPECT/CT tomographic images incoronal, sagittal, and transverse planes were created and reviewedinteractively to optimize sensitivity, specificity, and anatomiclocalization. CT: low-dose, xrf-equjjr-eabm, without intravenous contrast;TOTAL DLP (Dose Length Product): 199.04 mGy.cm. For reference to the report, annotated images have not been created andmade available in PACS. COMPARISON/CORRELATION: Bone scan, 06/24/2024, 04/29/2024, 11/11/2023, 07/29/2023. CT chest, abdomenand pelvis, 04/29/2024, 10/14/2024. CT chest, 09/15/2024. FINDINGS: Bones: Multiple sites of focal increased uptake in axial and appendicularskeleton correlates with lytic lesions on CT and consistent with bonemetastasis. SPECT/CT showed a single cold focus with peripheral increased uptakeassociated with lytic lesion involving the right pubic bone. Compared to previous bone scan dated 06/24/2024: *No new sites. *Multiple sites with relatively unchanged intensity and/or extent,include: Left glenoid, left humeral head/neck, sternum, T10 and [id number] bodies, right ischium. *Previously described foci involving the right occipital and leftparietal skull are not well appreciated on the current study. New subtle focus of mild increased cortical uptake involving the midshaftof the right femur without definite associated CT finding, except forintramedullary density/calcification. This could represent stress reactionfrom post arthroplasty manipulation. Bones/Joints: Complete resolution of previously seen focal intense increased uptakeinvolving the right medial tibial plateau with subtle corticalirregularity. Focal increased uptake involving the mandible, stable and likely torepresent odontogenic disease. Focal increased uptake involving right knee and proximal tibia, leftproximal femur, associated with postoperative changes. Cold foci in the lower thoracic and upper lumbar spine, consistent withpostradiation changes. Cold focus over the right hip consistent with arthroplasty hardware. Soft-tissues: Diffuse low-grade increased uptake of the upper thigh consistent withpostsurgical changes of left femoral ORIF. Bilateral renal activity visualized. Incidental CT: Right total hip arthroplasty. ORIF of the left femur. Rectus superior pubic ramus lytic lesion and fracture IMPRESSION: Grossly stable bone metastases compared to prior study from 06/24/2024,details above. New subtle focus of mild cortical increased uptake involving the midshaftof the right femur without definite associated CT finding, except forintramedullary density/calcification. This could represent stress reactionfrom post arthroplasty manipulation. Recommend short-term imagingfollow-up. Please note that bone scan can demonstrate lower sensitivity with renalcell carcinoma due to possible purely lytic disease which may present ascold findings on bone scintigraphy. CRITICAL RESULT: No. COMMUNICATION: Per this written report. By electronically signing this report, I, the attending physician, attronthat I have personally reviewed the images/data for the aboveexamination(s) and agree with the final edited report. Drafted by Varghese Hancock MD on 10/14/2024 3:30 PM Final report signed by Morris Art MD on 10/15/2024 10:30 AM us Carrol Armenta MD IMG NM PROCEDURES Final Result * CT Chest w IV Contrast (10/14/2024 1:16 PM EDT) Anatomical Region Laterality Modality Chest Computed Tomogra phy Impressions 10/14/2024 2:53 PM EDT Chest: No significant progression when compared to 09/15/2024 CT (5 weeks prior). Similar appearance of numerous subcentimeter pulmonary nodules, moderate-sized right pleural effusion and multifocal lytic/sclerotic osseous metastases. Abdomen/Pelvis: * Interval decrease in size of the poorly marginated hypoenhancing left interpolar renal mass which was described to be enlarging on the CT 5 months prior. Otherwise, the other left renal lesions in the adrenal nodules are overall stable from that CT 5 weeks prior. * There is an indeterminate non-10 mm hypodense lesion within the left hepatic dome that appears new from May 2024 and more conspicuous from August 2024, potentially a new focus of metastatic disease. CRITICAL RESULT: No. COMMUNICATION: Per this written report. Drafted by Praneeth Quinones MD on 10/14/2024 2:11 PM Final report signed by Praneeth Quinones MD on 10/14/2024 2:53 PM Narrative 10/14/2024 2:53 PM EDT CLINICAL INDICATION: Kidney cancer, active surveillance TECHNIQUE: Multiple axial CT images were obtained from thoracic inlet through pubic symphysis following administration of IV contrast, Omnipaque 300, 100 mL. Reformatted images in the coronal and sagittal planes were generated from the axial data set to facilitate diagnostic accuracy. Total DLP (Dose-Length Product): 532.99 mGy.cm (accession [id number]), 532.99 mGy.cm (accession [id number]) Please note: The reported value represents the total of one or more individual components during the CT acquisition on this date and at this time, and as such, the same value may appear in more than one CT report depending on the interpreting/reporting physicians. COMPARISON: Thoracoabdominal CTs 09/15/2024 FINDINGS: Chest: Lymph [...] not appreciable on the May 2024 CT. There is perhaps some associated tendon enhancement. There are [...] superior well-defined partially exophytic lesion is unchanged in size and appearance measuring 30 mm on 3:101. There is another poorly marginated endophytic mass like lesion within the upper pole measuring up to 3 cm on 3:87 that is overall unchanged. There are no other new suspicious renal focal lesions and [...] No aggressive body wall soft tissue masses. Procedure Note Praneeth Quinones MD - 10/14/2024 CLINICAL INDICATION: Kidney cancer, active surveillance TECHNIQUE: Multiple axial CT images were obtained from thoracic inlet through pubicsymphysis following administration of IV contrast, Omnipaque 300, 100 mL.Reformatted images in the coronal and sagittal planes were generated fromthe axial data set to facilitate diagnostic accuracy. Total DLP (Dose-Length Product): 532.99 mGy.cm (accession [id number]),532.99 mGy.cm (accession [id number]) Please note: The reported valuerepresents the total of one or more individual components during the CTacquisition on this date and at this time, and as such, the same value mayappear in more than one CT report depending on the interpreting/reportingphysicians. COMPARISON: Thoracoabdominal CTs 09/15/2024 FINDINGS: Chest: Lymph Nodes and Mediastinum: Unremarkable thyroid. No suspiciousintrathoracic or axillary adenopathy. Cardiovascular: Normal caliber heart and patent central thoracic greatvessels. No pericardial effusion. Lungs and Pleura: Similar distribution, size and appearance of thepresumably metastatic predominantly subcentimeter multifocal bilateralpulmonary metastases when compared to CT 5 weeks prior. Similar moderateright pleural effusion without obvious suspicious nodular pleuralenhancement. There is some extrapleural fat proliferation on the left butno left pleural effusion. Musculoskeletal and Body Wall: Similar distribution of lytic/scleroticosseous metastases when compared to CT 5 weeks prior, for exampledestructive lytic lesion involving the left glenoid on 4:149, lytic lesioninvolving the left humeral head on 4:29, sclerotic lesion involving theright anterior fourth on 4:199 and and multifocal neoplastic involvementof the T8-T12 vertebral bodies on 5:150. No aggressive chest wall softtissue masses. Abdomen/Pelvis: Solid Abdominal Organs: There is a 9-10 mm hypodense lesion within hepaticsegment II/YESSI on 3:29 that is more conspicuous compared to August 2024 CTand was not appreciable on the May 2024 CT. There is perhaps someassociated tendon enhancement. There are no additional hepatic focallesions. Some gallbladder sludge. Nondilated biliary tree. Similar diffusepancreatic parenchymal volume loss. Similar apparent borderlinesplenomegaly. The bilateral adrenal gland nodules are grossly unchanged insize accounting for slight differences in slice obliquity between thestudies, 24 mm on the left (3:68), and 17 mm on the right (3:79). Intervaldecrease in size of the ill-defined hypoenhancing endophytic leftinterpolar lesion measuring 24 mm in radial width on 3: 106 compared to 31mm previously when remeasured similarly. The more superior well-definedpartially exophytic lesion is unchanged in size and appearance [id number] mm on 3:101. There is another poorly marginated endophytic mass like lesion within the upper pole measuring up to 3 cm on 3:87 that isoverall unchanged. There are no other new suspicious renal focal lesionsand no hydronephrosis. There is similar multifocal cortical scarring ofthe left renal upper pole. GI Tract/Mesentery/Peritoneum: No evidence of GI tract obstruction,perforation, or obvious focal acute inflammation. No suspicious sizablemesenteric/peritoneal masses or organized intraperitoneal fluidcollections. Few uninflamed appearing colonic diverticula. Pelvic Viscera: Grossly unremarkable under distended urinary bladder andfemale pelvic viscera aside from retroverted uterine positioning. Lymph Nodes/Vasculature: No suspicious adenopathy by CT size criteria. Nolarge vessel occlusions or aneurysms. Mild scattered aortoiliac exophyticatherosclerotic plaque. Free Fluid: No ascites. Musculoskeletal and Body Wall: Left femoral ORIF and right hiparthroplasty. Similar destructive lytic involvement of the right superiorpubic ramus and pubic bone. No aggressive body wall soft tissue masses. IMPRESSION: Chest: No significant progression when compared to 09/15/2024 CT (5 weeksprior). Similar appearance of numerous subcentimeter pulmonary nodules,moderate-sized right pleural effusion and multifocal lytic/scleroticosseous metastases. Abdomen/Pelvis: *Interval decrease in size of the poorly marginated hypoenhancing leftinterpolar renal mass which was described to be enlarging on the CT 5months prior. Otherwise, the other left renal lesions in the adrenalnodules are overall stable from that CT 5 weeks prior. *There is an indeterminate non-10 mm hypodense lesion within the lefthepatic dome that appears new from May 2024 and more conspicuous fromAugust 2024, potentially a new focus of metastatic disease. CRITICAL RESULT: No. COMMUNICATION: Per this written report. Drafted by Praneeth Quinones MD on 10/14/2024 2:11 PM Final report signed by Praneeth Quinones MD on 10/14/2024 2:53 PM Carrol Armenta MD IMG CT PROCEDURES Final Result * Total Protein, Pleural Fluid - Pleural Right (10/05/2024 9:50 AM EDT) Total Protein, Fluid 4.4 g/dL 10/05/2024 11:32 AM EDT [facility] Pleural Fluid Structure of right pleural cavity / Unknown Non-blood Collection / Unknown 10/05/2024 9:50 AM EDT 10/05/2024 11:01 AM EDT Narrative [facility] - 10/05/2024 11:32 AM EDT This test was developed and its performance characteristics determined by [facility]. The U.S. Food and Drug Administration has not approved or cleared this test. However, FDA clearance or approval is not currently required for clinical use. The results are not intended to be used as the sole means for clinical diagnosis or patient management decisions. Anaya Nagel BOOKKEEPERS SUPERVISOR, DNP LAB BODY FLUIDS AND STOO LS ORDERABLES Final Result [facility] [address] [place] [address] * Body Fluid Cell Count w/ Diff - Pleural Right (10/05/2024 9:49 AM EDT) Color, Body fluid Yellow LAB HEMATOLOGY METHOD 10/05/2024 2:01 PM EDT [facility] Appearance, Body fluid Clear LAB HEMATOLOGY METHOD 10/05/2024 2:01 PM EDT [facility] Volume, Body fluid 9.0 cc LAB HEMATOLOGY METHOD 10/05/2024 2:01 PM EDT [facility] Fluid Container Tube 2 LAB HEMATOLOGY METHOD 10/05/2024 2:01 PM EDT [facility] Red Blood Cell Count, Body fluid 3,000 uL LAB HEMATOLOGY METHOD 10/05/2024 2:01 PM EDT [facility] Total Nucleated Cell Count, Body fluid 124 uL LAB HEMATOLOGY METHOD 10/05/2024 2:01 PM EDT [facility] Neutrophils %, Body fluid 16 % LAB HEMATOLOGY METHOD 10/05/2024 2:01 PM EDT [facility] Lymphocytes %, Body fluid 42 % LAB HEMATOLOGY METHOD 10/05/2024 2:01 PM EDT [facility] Monocytes/Macro phages %, Body fluid 42 % LAB HEMATOLOGY METHOD 10/05/2024 2:01 PM EDT [facility] Eosinophils %, Body fluid 0 % LAB HEMATOLOGY METHOD 10/05/2024 2:01 PM EDT [facility] Lining/Mesothel ial Cells %, Body fluid 0 % LAB HEMATOLOGY METHOD 10/05/2024 2:01 PM EDT [facility] Neutrophils Absolute (PMN), Body fluid 20 uL LAB HEMATOLOGY METHOD 10/05/2024 2:01 PM EDT [facility] Lymphocytes Absolute, Body fluid 52 uL LAB HEMATOLOGY METHOD 10/05/2024 2:01 PM EDT [facility] Monocytes/Macro phages Absolute, Body fluid 52 uL LAB HEMATOLOGY METHOD 10/05/2024 2:01 PM EDT [facility] Eosinophils Absolute, Body fluid 0 uL LAB HEMATOLOGY METHOD 10/05/2024 2:01 PM EDT [facility] Basophils Absolute, Body fluid 0 uL LAB HEMATOLOGY METHOD 10/05/2024 2:01 PM EDT [facility] Lining/Mesothel ial Cells Absolute, Body fluid 0 uL LAB HEMATOLOGY METHOD 10/05/2024 2:01 PM EDT [facility] Comment, Body fluid None LAB HEMATOLOGY METHOD 10/05/2024 2:01 PM EDT [facility] Basophils %, Body fluid 0 % LAB HEMATOLOGY METHOD 10/05/2024 2:01 PM EDT [facility] Body Fluid Structure of right pleural cavity / Unknown Non-blood Collection / Unknown 10/05/2024 9:49 AM EDT 10/05/2024 11:02 AM EDT Anaya Nagel BOOKKEEPERS SUPERVISOR, DNP LAB BODY FLUIDS AND STOOLS ORDERABLES NO SPECIMEN TYPE/SOURCE Final Result [facility] [address] [place] [address] * Body fluid, cytospin, pathologist interpretation (10/05/2024 9:49 AM EDT) Specimen Type Body Fluid LAB HEMATOLOGY METHOD 10/06/2024 1:27 PM EDT [facility] Specimen Source, Body Fluid Pleural, Right LAB HEMATOLOGY METHOD 10/06/2024 1:27 PM EDT [facility] Clinical Diagnosis, Body Fluid Pleural effusion; history of clear cell renal cell carcinoma LAB HEMATOLOGY METHOD 10/06/2024 1:27 PM EDT [facility] Interpretation , Body Fluid Light blood with predominantly chronic inflammation and rare atypical cells. See comment. A resident was involved in the service. I attest I examined the relevant preparations for the specimens and confirmed the diagnosis or interpretation. 10/06/2024 1:27 PM EDT [facility] Pathologist Signature, Body Fluid 10/06/2024 1:27 PM EDT [facility] Comment:Reviewed by: Cruzito Ray MD LAB CP ASR DISCLAIMER Yes 10/06/2024 1:27 PM EDT [facility] Body Fluid Structure of right pleural cavity / Unknown Non-blood Collection / Unknown 10/05/2024 9:49 AM EDT 10/05/2024 11:02 AM EDT Narrative [facility] - 10/06/2024 1:27 PM EDT Whether these atypical cells represent reactive mesothelial cells or rare tumor cells cannot be discerned from this preparation. us Anaya Nagel APRN, DNP LAB BODY FLUIDS AND STOO LS ORDERABLES Final Result Performing Organization Address [facility]/ZIP Co de Phone Number [facility] [address] [place] [address] * (ABNORMAL) Hemoglobin A1c (08/22/2023 9:46 AM EDT) Hemoglobin A1c 5.7(H) <5.7 % 08/22/2023 11:54 AM EDT [facility] Blood Venous blood specimen / Unknown Venipuncture / Unknown 08/22/2023 9:46 AM EDT 08/22/2023 10:06 AM EDT Narrative [facility] - 08/22/2023 11:54 AM EDT HA1C Interpretive Data: Diagnosis of Diabetes: Diabetic > or = 6.5% Pre-diabetic 5.7 to 6.4% Non-diabetic < or = 5.6% Glycemic Targets for Type I and Type II Diabetics: Non- Adults <7.0% Adults <6.0% Children and Adolescents <7.5% Source: Citizen Of [place] Diabetes Association. Standards of medical care in diabetes,2017. Diabetes Care.2017:40 (suppl 1):S1-S135. HbA1c assay performed by an ion-exchange chromatography method that is certified traceable to the DCCT. us Marion Kennedy APRN LAB BLOOD ORDERABLES Final Re sult Performing Organization Address City/[facility]/ZIP Co de Phone Number [facility] [address] [place] [address] * Cytology (04/09/2006 12:00 AM EST) 04/09/2006 04/10/2006 3:1 1 PM EST Narrative MALI - 04/16/2006 12:42 PM EST [facility] MR #: [id number] [facility] [place], [place] [address] 1965 (Age: 41) FW Collect Date: 04/09/2006 00:00 Receipt Date: 04/10/2006 15:11 Page 1 DEPARTMENT OF PATHOLOGY AND LABORATORY MEDICINE CYTOPATHOLOGY REPORT Email: [email or web address] ATTENDING MD/Practitioner: Ro Maurice MD Service: PAT Location: OUTS Reported: 04/16/2006 12:42 Collected: 04/09/2006 00:00 INTERPRETATION A. THIN PREP (CERVICAL/VAGINAL): NEGATIVE FOR INTRAEPITHELIAL LESION OR MALIGNANCY. SATISFACTORY FOR EVALUATION; ENDOCERVICAL/ TRANSFORMATION ZONE COMPONENT PRESENT. Slide scanned and imaged by [employer] ThinPrep Imaging System with manual review of all selected jenkins. Electronically Signed Out By FELIBERTO Modi(ASCP) FELIBERTO Modi(ASCP) Cervical cytology is a screening test primarily [...] results is suggested (please call Microbiology at [phone] for results). CLINICAL INFORMATION: Menstrual History: Cyclic Date of Last Menstrual Period: 03/26/06 Other Clinical Conditions: Tobacco user Abnormal pap results elsewhere SPECIMEN DESCRIPTION: A: THIN PREP (CERVICAL/VAGINAL) THIN PREP PROCESS CELLULAR ENHANCEMENT ICD: 795.09 OTHER ABNORMAL PAPANICOLAOU SMEAR OF CERVIX AND CERVICAL HPV F: A; DX IMAGE [id number] SNOMED CODES: A; [id number] In cases where a pathologist has signed out the report, the service has been rendered in part by a resident. The signing pathologist has performed and is responsible for the reported pathologic evaluation. us Historical Provider LAB PATHOLOGY ORDERABLES Fin al Result SUNQUEST from Last 3 Months or Most Recently Relevant to Health Maintenance Insurance ANTHEM Advance Directives * Full Code (Latest Code Status on File) Date Activated Date Inactivated Comments 11/21/2023 3:19 PM 11/23/2023 4:54 PM Question Answer Comments Patient has decision-making capacity? Yes * Full Code Date Activated Date Inactivated Comments 02/04/2023 4:19 PM 02/07/2023 1:47 PM Question Answer Comments Patient has decision-making capacity? Yes Care Teams Test Examiner Relationship Specialty Start Date End Date Jared Coronel MD [address] [place] [address] PCP - General 08/12/20 Joseph Odonnell MD [address] [place] [address] Surgeon Neurosurgery 02/28/23 Carrol Armenta MD [address] [place] [phone] Consulting Physician Medical Oncology 06/12/23 Sky Moreau MD [address] [facility] [address] [place] [address] Consulting Physician Radiation Oncology 06/12/23 Lauren Paiz APRN [address] [facility] [address] [place] [address] Nurse Practitioner Internal Medicine 07/19/23
--- OUTSIDE RECORDS SUMMARY | 2024-12-21 18:14 | XMS_ITS | Encounter Summary ---
Author Organization Healthcare Address [address] [place] [address] Care Team Providers Care Mri Tech Name Role Phone Jared Coronel MD Primary Care Provider + [phone] Joseph Odonnell MD Unavailable [phone] Carrol Armenta MD Unavailable Sky Moreau MD Unavailable [phone] Lauren Paiz APRN Unavailable [phone] Encounter Details Date Type Department Care Team (Latest Contact Info) Description 11/13/2024 Travel Social History Tobacco Use Types Packs/Day [...] drink first t nichole in the morning (EYE-LINER WORKER) to steady your nerves or to get [...] Appointment [facility] Interventional Radiology [address] [place] [address] 12/29/2024 11:45 AM EDT Appointment [facility] Interventional Radiology [address] [place] [address] 02/17/2025 11:20 AM EST Office Visit [facility] Head[facility]ck [facility] Res[facility] 800 [facility], 2nd [place] [address] Aurora Hubbard, LOCAL [place] TRUCK DRIVER [address] [place] [address] documented as of this encounter Visit Diagnoses [...] documented as of this encounter Care Teams Mri Tech Relationship Specialty Start Date End Date Jared Coronel MD [address] [place] [address] PCP - General 08/12/20 Joseph Odonnell MD [address] [place] [address] Surgeon Neurosurgery 02/28/23 Carrol Armenta MD 800 [facility] [address] [place] [address] Consulting Physician Medical Oncology 06/12/23 Sky Moreau MD [address] [facility] [address] [place] [phone] Consulting Physician Radiation Oncology 06/12/23 Lauren Paiz, LOCAL [place] TRUCK DRIVER 800 [facility] [address] [address] Nurse Practitioner Internal Medicine 07/19/23 documented as of this encounter
--- OUTSIDE RECORDS SUMMARY | 2024-12-21 18:14 | XMS_ITS | Encounter Summary ---
Author Organization Healthcare Address [address] [place] [address] Care Team Providers Care Annealing Furnace Tender Name Role Phone Jared Coronel MD Primary Care Provider + [phone] Joseph Odonnell MD Unavailable [phone] Carrol Armenta MD Unavailable Sky Moreau MD Unavailable [phone] Lauren Paiz APRN Unavailable [phone] Encounter Details Date Type Department Care Team (Latest Contact Info) Description 11/03/2024 Travel Social History Tobacco Use Types Packs/Day [...] place to sleep or slept in a custodial (including now)? 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-ROAD ROLLER OPERATOR HOT MIX) to steady your nerves or to get [...] Ho RN documented as of this encounter Plan of Treatment Upcoming Encounters Date Type Department Care Team ([facility] st Contact Info) Description 12/22/2024 12:30 PM EDT Appointment [facility] Interventional Radiology [address] [place] [address] 12/29/2024 11:45 AM EDT Appointment [facility] Interventional Radiology [address] [place] [address] 02/17/2025 11:20 AM EST Office Visit Pav [facility] Head[facility] Neck & Respiratory 800 [facility], 2nd [place] [address] Aurora Hubbard, EVENTS ADMINISTRATIVE ASSISTANT [address] [place] [address] documented as of this encounter Visit Diagnoses [...] documented as of this encounter Care Teams Annealing Furnace Tender Relationship Specialty Start Date End Date Jared Coronel MD [address] [place] [address] PCP - General 08/12/20 Joseph Odonnell MD [address] [place] [address] Surgeon Neurosurgery 02/28/23 Carrol Armenta MD [address] [facility] [address] [place] [address] Consulting Physician Medical Oncology 06/12/23 Sky Moreau MD [address] [facility] [address] [place] [address] Consulting Physician Radiation Oncology 06/12/23 Lauren Paiz, EVENTS ADMINISTRATIVE ASSISTANT [address] [facility] [address] [place] [address] Nurse Practitioner Internal Medicine 07/19/23 documented as of this encounter
--- OUTSIDE RECORDS SUMMARY | 2024-12-21 18:14 | XMS_ITS | Encounter Summary ---
Author Organization Healthcare Address [address] [place] [address] Care Team Providers Care Seismograph Computer Name Role Phone Jared Coronel MD Primary Care Provider + [phone] Joseph Odonnell MD Unavailable [phone] Carrol Armenta MD Unavailable Sky Moreau MD Unavailable [phone] Lauren Paiz MAP PLOTTER Unavailable [phone] Reason for Visit * Reason Comments Med Refill Encounter Details Date Type Department Care Team (Late st Contact Info) Description 11/09/2024 Refill [facility] [address] [place] [address] Carrol Armenta MD [address] [address] Social History Tobacco Use Types [...] Have you had a drink first t nicohle in the morning (EYE-GARAGE DOOR HANGER) to steady your nerves or to get [...] PM EDT Appointment [facility] Interventional Radiology [address] [place] [address] 12/29/2024 11:45 AM EDT Appointment [facility] Interventional Radiology [address] [place] [address] 02/17/2025 11:20 AM EST Office Visit Pav [facility] Head, Neck & Respiratory 800 [facility], [address]nd [place] [address] Aurora Hubbard, MAP PLOTTER [address] [place] [address] documented as of this encounter Visit Diagnoses [...] documented as of this encounter Care Teams Seismograph Computer Relationship Specialty Start Date End Date Jared Coronel MD [address] [place] [address] PCP - General 08/12/20 Joseph Odonnell MD [address] [facility] [address] [place] [address] Surgeon Neurosurgery 02/28/23 Carrol Armenta MD [address] [facility] [address] [place] [address] Consulting Physician Medical Oncology 06/12/23 Sky Moreau MD [address] [place] [address] Consulting Physician Radiation Oncology 06/12/23 Lauren Paiz, ERIC [address] [facility] [address] [place] [address] Nurse Practitioner Internal Medicine 07/19/23 documented as of this encounter
--- OUTSIDE RECORDS SUMMARY | 2024-12-21 18:14 | XMS_ITS ---
Author Organization Healthcare Address [address] [place] [address] Care Team Providers Care Kettle Skimmer Name Role Phone Jared Coronel MD Primary Care Provider + [phone] Joseph Odonnell MD Unavailable [phone] Carrol Armenta MD Unavailable Sky Moreau MD Unavailable [phone] Lauren Paiz DEFECTIVE CIGARETTE SLITTER Unavailable [phone] Active Problems Problem Noted Date Diagnosed Date Bruising 11/17/2024 Shortness of breath 08/11/2024 Current use of intermediate anticoagulation 025 Hyperlipidemia 08/11/2024 Renal cell carcinoma, unspecified laterality 01/2024 Disease of thyroid gland 01/01/2024 Hypothyroidism 01/01/2024 Metastatic renal cell carcinoma to bone 11/21/19 24 Cancer Staging:Clinical stage from 01/23/2024:Stage IV(rcT1b, rcNX, [...] cycles started Past Radiation Episodes * 3D CLIENT DELIVERY MANAGER: Left LegOverview* First Treatment Date Last Treatment Date Treatment Site Technique Goal Episode Provider 01/20/2024 01/27/2024 Left Leg 3D CLIENT DELIVERY MANAGER Control * Linked Problems Kidney cancer Treatment [...] 01/20/2024 - 01/24/2024 2,500 cGy * 3D CLIENT DELIVERY MANAGER: Not Applicable Thoracic spine, Left RibOverview* First Treatment Date Last Treatment Date Treatment Site Technique Goal Episode Provider 07/15/2023 07/22/2023 Thoracic spineLeft Rib 3D CLIENT DELIVERY MANAGER Palliative * Linked Problems Renal cell carcinoma of left kidney Treatment Courses* Course C2 07/15/2023 - 07/22/2023 Treatment Period Fraction Dose Fractions Total Dose Plans Planned C5C6 RIB 07/15/2023 - 07/22/2023 400 cGy 5 / 5 2 ,000 cGy Reference Points Delivered Rib 07/15/2023 - 07/22/2023 2,000 cGy * 3D CLIENT DELIVERY MANAGER: Right Bone of pelvisOverview* First Treatment Date Last Treatment Date Treatment Site Technique Goal Episode Provider 07/02/2023 07/09/2023 Right Bone of pelvis 3D CLIENT DELIVERY MANAGER Palliative * Linked Problems Renal cell carcinoma [...]
--- OUTSIDE RECORDS SUMMARY | 2024-12-21 18:15 | XMS_ITS | Encounter Summary ---
Author Organization Healthcare Address [address] [place] [address] Care Team Providers Care Financial Advisor Trainee Name Role Phone Jared Coronel MD Primary Care Provider + [phone] Joseph Odonnell MD Unavailable [phone] Carrol Armenta MD Unavailable Sky Moreau MD Unavailable [phone] Lauren Paiz APRN Unavailable [phone] Encounter Details Date Type Department Care Team (Latest Contact Info) Description 11/25/2024 Travel Social History Tobacco Use Types Packs/Day [...] drink first t nichole in the morning (EYE-FARMWORKER TURKEY FARM) to steady your nerves or to get [...] Appointment [facility] Interventional Radiology [address] [place] [address] 12/29/2024 11:45 AM EDT Appointment [facility] Interventional Radiology [address] [place] [address] 02/17/2025 11:20 AM EST Office Visit Pav CC Head, Neck & Respiratory 800 [facility], [address]nd [place] [address] Aurora Hubbard, MAGNETIC HEALER [address] [place] [phone] documented as of this encounter Visit Diagnoses [...] documented as of this encounter Care Teams Financial Advisor Trainee Relationship Specialty Start Date End Date Jared Coronel MD [address] [place] [address] PCP - General 08/12/20 Joseph Odonnell MD [address] [place] [address] Surgeon Neurosurgery 02/28/23 Carrol Armenta MD 800 [facility] [address] [place] [address] Consulting Physician Medical Oncology 06/12/23 Sky Moreau MD 800 [facility] [address] [place] [address] Consulting Physician Radiation Oncology 06/12/23 Lauren Paiz, MAGNETIC HEALER 800 [facility] [address] [address] Nurse Practitioner Internal Medicine 07/19/23 documented as of this encounter
--- OUTSIDE RECORDS SUMMARY | 2024-12-21 18:15 | XMS_ITS | Encounter Summary ---
Author Organization Healthcare Address [address] [place] [address] Care Team Providers Care Senior Inspector Name Role Phone Jared Coronel MD Primary Care Provider + [phone] Joseph Odonnell MD Unavailable [phone] Carrol Armenta MD Unavailable Sky Moreau MD Unavailable [phone] Lauren Paiz APRN Unavailable [phone] Encounter Details Date Type Department Care Team (Latest Contact Info) Description 11/24/2024 Travel Social History Tobacco Use Types Packs/Day [...] place to sleep or slept in a half-way (including now)? 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-AIR BRUSH DECORATOR) to steady your nerves or to get [...] Appointment [facility] Interventional Radiology [address] [place] [address] 12/29/2024 11:45 AM EDT Appointment [facility] Interventional Radiology [address] [place] [address] 02/17/2025 11:20 AM EST Office Visit Pav CC Head, Neck & Respiratory [address] [facility], [address]nd [place] [address] Aurora Hubbard, SUPPORT SERVICE TECH [address] [place] [phone] documented as of this encounter Visit Diagnoses [...] documented as of this encounter Care Teams Senior Inspector Relationship Specialty Start Date End Date Jared Coronel MD [address] [place] [address] PCP - General 08/12/20 Joseph Odonnell MD [address] [place] [address] Surgeon Neurosurgery 02/28/23 Carrol Armenta MD [address] [facility] [address] [place] [address] Consulting Physician Medical Oncology 06/12/23 Sky Moreau MD [address] [facility] [address] [place] [address] Consulting Physician Radiation Oncology 06/12/23 Lauren Paiz, SUPPORT SERVICE TECH [address] [facility] [address] [address] Nurse Practitioner Internal Medicine 07/19/23 documented as of this encounter
--- OUTSIDE RECORDS SUMMARY | 2024-12-21 18:15 | XMS_ITS | Encounter Summary ---
Author Organization Healthcare Address [address] [place] [address] Care Team Providers Care Workforce Services Representative Name Role Phone Jared Coronel MD Primary Care Provider + [phone] Joseph Odonnell MD Unavailable [phone] Carrol Armenta MD Unavailable Sky Moreau MD Unavailable [phone] Lauren Paiz APRN Unavailable [phone] Encounter Details Date Type Department Care Team (Late st Contact Info) Description 12/01/2024 Telephone [facility] Interventional Radiology [address] [place] [address] Olga Oliveira, RN [facility] INTERVENTIONAL RADIOLOGY Social History Tobacco Use Types Packs/Day Years [...] drink first t nichole in the morning (EYE-WHIPPER) to steady your nerves or to get rid of a hangover? 0 11/21/2023 CAGE Questionnaire Score 0 024 Utilities Answer Date Recorded In the past 12 months has th e Stand In, gas, oil, or water company threatened to [...] PM EDT documented as of this encounter Miscellaneous Notes * Nursing Note - Olga Oliveira, RN - 12/01/2024 1:29 PM EDT Images from the original note were not included. Vascular & Interventional Radiology Nurse Navigator Note Pt reached out to report back pain located under her left shoulder blade. She is status-post IR Thoracentesis on 11/24/24 of a right-sided pleural effusion and is curious as to whether she should comein to have an ultrasound repeated in IR. She states the pain comes and goes, and is sometimes sharp/shooting in nature. She reports her breathing seems better from before the thoracentesis, and the pa in is different from the pressure she has felt in the past when it is time to get a thoracentesis. She mentions she may have strained getting out of a chair. As the pain is consistent with musculoskeletal pain, I recommended reporting it to her PCP or oncologist to see what treatments or referrals may be appropriate for her. She voiced complete understanding. documented in this encounter Plan of Treatment Upcoming Encounters Date Type Department Care Team (Late st Contact Info) Description 12/22/2024 12:30 PM EDT Appointment [facility] Interventional Radiology [address] [place] [address] 12/29/2024 11:45 AM EDT Appointment [facility] Interventional Radiology [address] [place] [address] 02/17/2025 11:20 AM EST Office Visit [facility] Res[facility] [address] [place] [address] [place] Hubbard, TEST LAB TECHNICIAN [address] [place] [address] documented as of this encounter Visit Diagnoses [...] documented as of this encounter Care Teams Workforce Services Representative Relationship Specialty Start Date End Date Jared Coronel MD [address] [place] [address] PCP - General 08/12/20 Joseph Odonnell MD [address] [facility] [address] [place] [address] Surgeon Neurosurgery 02/28/23 Carrol Armenta MD [address] [facility] [facility] [address] [place] [address] Consulting Physician Medical Oncology 06/12/23 Sky Moreau MD [address] [facility] [address] [place] [address] Consulting Physician Radiation Oncology 06/12/23 Lauren Paiz APRN [address] [facility] [address] [place] [address] Nurse Practitioner Internal Medicine 07/19/23 documented as of this encounter
--- OUTSIDE RECORDS SUMMARY | 2024-12-21 18:15 | XMS_ITS | Encounter Summary ---
Author Organization Healthcare Address [address] [place] [address] Care Team Providers Care Freight Elevator Operator Name Role Phone Jared Coronel MD Primary Care Provider + [phone] Joseph Odonnell MD Unavailable [phone] Carrol Armenta MD Unavailable Sky Moreau MD Unavailable [phone] Lauren Paiz APRN Unavailable [phone] Encounter Details Date Type Department Care Team (Latest Contact Info) Description 11/26/2024 Travel Social History Tobacco Use Types Packs/Day [...] first t nichole in the morning (EYE-MANAGER HRIS) to steady your nerves or to get [...] Appointment [facility] Interventional Radiology [address] [place] [address] 12/29/2024 11:45 AM EDT Appointment [facility] Interventional Radiology [address] [place] [address] 02/17/2025 11:20 AM EST Office Visit [facility] Head[facility] Neck & Respiratory [address] [facility], 2nd [place] [address] [place] Hubbard, COTTON CANDY MAKER [address] [place] [address] documented as of this encounter Visit Diagnoses [...] documented as of this encounter Care Teams Freight Elevator Operator Relationship Specialty Start Date End Date Jared Coronel MD [address] [place] [address] PCP - General 08/12/20 Joseph Odonnell MD [address] [place] [address] Surgeon Neurosurgery 02/28/23 Carrol Armenta MD [address] [facility] [address] [place] [address] Consulting Physician Medical Oncology 06/12/23 Sky Moreau MD [address] [facility] [address] [place] [address] Consulting Physician Radiation Oncology 06/12/23 Lauren Paiz, COTTON CANDY MAKER [address] [facility] [address] [address] Nurse Practitioner Internal Medicine 07/19/23 documented as of this encounter
--- OUTSIDE RECORDS SUMMARY | 2024-12-21 18:15 | XMS_ITS | Encounter Summary ---
Author Organization Healthcare Address [address] [place] [address] Care Team Providers Care Lifter Driver Name Role Phone Jared Coronel MD Primary Care Provider + [phone] Joseph Odonnell MD Unavailable [phone] Carrol Armenta MD Unavailable Sky Moreau MD Unavailable [phone] Lauren Paiz APRN Unavailable [phone] Encounter Details Date Type Department Care Team (Latest Contact Info) Description 12/04/2024 Travel Social History Tobacco Use Types Packs/Day [...] drink first t nichole in the morning (EYE-DIRECTOR OF STRATEGIC COMMUNICATIONS) to steady your nerves or to get [...] Appointment [facility] Interventional Radiology [address] [place] [address] 12/29/2024 11:45 AM EDT Appointment [facility] Interventional Radiology [address] [place] [address] 02/17/2025 11:20 AM EST Office Visit [facility] Head[facility] Neck & Respiratory [address] [facility], [address]nd [place] [address] [place] Hubbard, CYLINDER HEAD ASSEMBLER [address] [place] [address] documented as of this encounter Visit Diagnoses [...] documented as of this encounter Care Teams Lifter Driver Relationship Specialty Start Date End Date Jared Coronel MD [address] [place] [address] PCP - General 08/12/20 Joseph Odonnell MD [address] [place] [address] Surgeon Neurosurgery 02/28/23 Carrol Armenta MD [address] [facility] [address] [place] [address] Consulting Physician Medical Oncology 06/12/23 Sky Moreau MD [address] [facility] [address] [place] [address] Consulting Physician Radiation Oncology 06/12/23 Lauren Paiz, CYLINDER HEAD ASSEMBLER [address] [facility] [address] [address] Nurse Practitioner Internal Medicine 07/19/23 documented as of this encounter
--- OUTSIDE RECORDS SUMMARY | 2024-12-21 18:15 | XMS_ITS | Encounter Summary ---
Author Organization Healthcare Address [address] [place] [address] Care Team Providers Care Boat Carpenter Name Role Phone Jared Coronel MD Primary Care Provider + [phone] Joseph Odonnell MD Unavailable [phone] Carrol Armenta MD Unavailable Sky Moreau MD Unavailable [phone] Lauren Paiz APRN Unavailable [phone] Encounter Details Date Type Department Care Team (Latest Contact Info) Description 11/18/2024 Travel Social History Tobacco Use Types Packs/Day [...] place to sleep or slept in a long term (including now)? 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-ICE GUARD SKATING RINK) to steady your nerves or to get [...] Appointment [facility] Interventional Radiology [address] [place] [address] 12/29/2024 11:45 AM EDT Appointment [facility] Interventional Radiology [address] [place] [address] 02/17/2025 11:20 AM EST Office Visit [facility] Head[facility] Neck & Respiratory [address] [facility], 2nd [place] [address] [place] Hubbard, PURCHASING INTERNSHIP [address] [place] [address] documented as of this encounter Visit Diagnoses [...] documented as of this encounter Care Teams Boat Carpenter Relationship Specialty Start Date End Date Jared Coronel MD [address] [place] [address] PCP - General 08/12/20 Joseph Odonnell MD [address] [place] [address] Surgeon Neurosurgery 02/28/23 Carrol Armenta MD [address] [facility] [address] [place] [address] Consulting Physician Medical Oncology 06/12/23 Sky Moreau MD [address] [facility] [address] [place] [address] Consulting Physician Radiation Oncology 06/12/23 Lauren Paiz, PURCHASING INTERNSHIP [address] [facility] [address] [place] [address] Nurse Practitioner Internal Medicine 07/19/23 documented as of this encounter
--- OUTSIDE RECORDS SUMMARY | 2024-12-21 18:15 | XMS_ITS | Encounter Summary ---
Author Organization Healthcare Address [address] [place] [address] Care Team Providers Care Patient Registration Clerk Name Role Phone Jared Coronel MD Primary Care Provider + [phone] Joseph Odonnell MD Unavailable [phone] Carrol Armenta MD Unavailable Sky Moreau MD Unavailable [phone] Lauren Paiz APRN Unavailable [phone] Encounter Details Date Type Department Care Team (Latest Contact Info) Description 12/15/2024 Travel Social History Tobacco Use Types Packs/Day [...] drink first t nichole in the morning (EYE-SEARCH ENGINE OPTIMIZATION ANALYST) to steady your nerves or to [...] Appointment [facility] Interventional Radiology [address] [place] [address] 12/29/2024 11:45 AM EDT Appointment [facility] Interventional Radiology [address] [place] [address] 02/17/2025 11:20 AM EST Office Visit [facility] Head, Neck & Respiratory [address] [facility], 2nd [place] [address] [place] Hubbard, ENAMEL PULVERIZER [address] [place] [address] documented as of this encounter Visit Diagnoses [...] documented as of this encounter Care Teams Patient Registration Clerk Relationship Specialty Start Date End Date Jared Coronel MD [address] [place] [address] PCP - General 08/12/20 Joseph Odonnell MD [address] [place] [address] Surgeon Neurosurgery 02/28/23 Carrol Armenta MD [address] [facility] [address] [place] [address] Consulting Physician Medical Oncology 06/12/23 Sky Moreau MD [address] [facility] [address] [place] [address] Consulting Physician Radiation Oncology 06/12/23 Lauren Paiz, ENAMEL PULVERIZER [address] [facility] [address] [address] Nurse Practitioner Internal Medicine 07/19/23 documented as of this encounter
--- OUTSIDE RECORDS SUMMARY | 2024-12-21 18:15 | XMS_ITS | Encounter Summary ---
Author Organization Healthcare Address [address] [place] [address] Care Team Providers Care Attraction Worker Name Role Phone Jared Coronel MD Primary Care Provider + [phone] Joseph Odonnell MD Unavailable [phone] Carrol Armenta MD Unavailable Sky Moreau MD Unavailable [phone] Lauren Paiz HIM ANALYST Unavailable [phone] Reason for Referral * Imaging (Routine) - Pending Review Specialty Diagnoses / Procedures Referred By Contac t Referred To Contact Radiology Diagnoses Brain mass Renal cell carcinoma, unspecified laterality Metastatic renal cell carcinoma to bone Procedures MR Head w and wo IV Contrast Joseph Odonnell MD [address] [place] [address] Phone: tel: fax: Referral ID Status Reason Start Date Expiration Date V isits Requested Visits Authorized [id number] Pending Review 11/26/2024 05/28/2026 1 1 Encounter Details Date Type Department Care Team (Late st Contact Info) Description 11/26/2024 Orders Only [facility] [address] [place] [address] Joseph Odonnell MD [address] [place] [address] Brain mass (Primary Dx); Renal cell carcinoma, unspecified laterality; Metastatic renal cell carcinoma to bone Social History Tobacco Use Types Packs/Day Years [...] drink first t nichole in the morning (EYE-HABILITATIVE INTERVENTIONIST) to steady your nerves or to get [...] Appointment [facility] Interventional Radiology [address] [place] [address] 12/29/2024 11:45 AM EDT Appointment [facility] Interventional Radiology [address] [place] [address] 02/17/2025 11:20 AM EST Office Visit Pav [facility] Head, Neck & Respiratory [address] [facility], 2nd [place] [address] [place] Hubbard, HIM ANALYST [address] [place] [address] Scheduled Orders Name Type Priority Associated Diagnoses Orde r Schedule MR Head w and wo IV Contrast Imaging Routine Brain mass Renal cell carcinoma, unspecified laterality Metastatic renal cell carcinoma to bone Expected: 04/08/2025 (Approximate), Expires: 05/30/2026 documented as of this encounter Visit Diagnoses Diagnosis Brain mass- Primary Unspecified condition of brain Renal cell carcinoma, unspecified laterality 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 documented in this encounter Additional Health Concerns Assessment Noted Time PHQ-9 Depression Total Score: 0 09/17/19 25 9:51 AM EDT A fall risk assessment has been complete d for the patient 11/26/2024 11:07 AM EDT A Body Mass Index follow-up plan has been documented for the patient 11/26/2024 1:33 PM EDT documented as of this encounter Care Teams Attraction Worker Relationship Specialty Start Date End Date Jared Coronel MD [address] [facility] [address] [place] [address] PCP - General 08/12/20 Joseph Odonnell MD [address] [facility] [address] [place] [address] Surgeon Neurosurgery 02/28/23 Carrol Armenta MD [address] [facility] [address] [place] [address] Consulting Physician Medical Oncology 06/12/23 Sky Moreau MD [address] [facility] [address] [place] [address] Consulting Physician Radiation Oncology 06/12/23 Lauren Paiz APRN [address] [facility] [address] [place] [address] Nurse Practitioner Internal Medicine 07/19/23 documented as of this encounter
--- OUTSIDE RECORDS SUMMARY | 2024-12-21 18:15 | XMS_ITS | Encounter Summary ---
Author Organization Healthcare Address [address] [place] [address] Care Team Providers Care Clinical Assistant Professor Name Role Phone Jared Coronel MD Primary Care Provider + [phone] Joseph Odonnell MD Unavailable [phone] Carrol Armenta MD Unavailable Sky Moreau MD Unavailable [phone] Lauren Paiz APRN Unavailable [phone] Encounter Details Date Type Department Care Team (Latest Contact Info) Description 12/03/2024 Travel Social History Tobacco Use Types Packs/Day [...] drink first t nichole in the morning (EYE-CHAIN CARRIER) to steady your nerves or to get [...] Kerry Zimmerman documented as of this encounter Plan of Treatment Upcoming Encounters Date Type Department Care Team (Late st Contact Info) Description 12/22/2024 12:30 PM EDT Appointment [facility] Interventional Radiology [address] [place] [address] 12/29/2024 11:45 AM EDT Appointment [facility] A Interventional Radiology [address] [place] [address] 02/17/2025 11:20 AM EST Office Visit Pav [facility] Head, Neck & Respiratory [address] [facility], [address]nd [place] [address] [place] Hubbard, ASSISTANT CHILD CARE TEACHER [address] [place] [address] documented as of this encounter Visit Diagnoses [...] as of this encounter Care Teams Clinical Assistant Professor Relationship Specialty Start Date End Date Jared Coronel MD [address] [place] [address] PCP - General 08/12/20 Joseph Odonnell MD [address] [place] [address] Surgeon Neurosurgery 02/28/23 Carrol Armenta MD [address] [facility] [address] [place] [address] Consulting Physician Medical Oncology 06/12/23 Sky Moreau MD [address] [facility] [address] [place] [address] Consulting Physician Radiation Oncology 06/12/23 Lauren Paiz, ASSISTANT CHILD CARE TEACHER [address] [facility] [address] [place] [address] Nurse Practitioner Internal Medicine 07/19/23 documented as of this encounter
--- NOTE | 2024-12-21 18:18 | CT_ITS ---
PROCEDURE INFORMATION: Exam: CT Abdomen And Pelvis With Contrast Exam date and time: 12/21/2024 7:32 PM Age: 59 years old Clinical indication: Other: HX renal cell carcinoma, n/v/d, abdom pain TECHNIQUE: Imaging protocol: Computed tomography of the abdomen and pelvis with contrast. 3D rendering (Not supervised by radiologist): MIP and/or 3D reconstructed images were created by the technologist. Radiation optimization: All CT scans at this facility use at least one of these dose optimization techniques: automated exposure control; mA and/or kV adjustment per patient size (includes targeted exams where dose is matched to clinical indication); or iterative reconstruction. Contrast material: ISOVUE; Contrast volume: 70 ml; Contrast route: IV; COMPARISON: CT ABDOMEN PELVIS W CON 10/13/2024 6:10 PM FINDINGS: Lungs: Multiple nodular opacities throughout the bilateral lower lungs, significantly increased in number compared to the prior study suggesting progression of metastatic disease. Pleural spaces: Partially visualized right pleural fluid collection appears at least partially loculated with surrounding pleural enhancement. Liver: Interval development of multiple ring-enhancing lesions throughout the liver, most numerous in the left lobe. Gallbladder and biliary ducts: Gallbladder is distended mild diffuse gallbladder wall thickening. Dependent density in the gallbladder suggesting sludge or small noncalcified gallstones. No significant biliary ductal dilation. Pancreas: Normal. No ductal dilation. Spleen: Normal. No splenomegaly. Adrenal glands: Stable bilateral adrenal nodules measuring 2.3 cm on the left and 1.3 cm on the right. Kidneys and ureters: 4.7 cm heterogeneously enhancing left renal mass has increased in size, compatible with given history of renal cell carcinoma. Adjacent simple appearing left renal cortical cyst. Right kidney appears normal. No hydronephrosis. Stomach and bowel: Unremarkable. No obstruction. No mucosal thickening. Appendix: The appendix is visualized and appears normal. Intraperitoneal space: Unremarkable. No free air. No significant fluid collection. Vasculature: Unremarkable. No abdominal aortic aneurysm. Lymph nodes: Unremarkable. No enlarged lymph nodes. Urinary bladder: Unremarkable as visualized. Reproductive: Unremarkable as visualized. Bones/joints: Right hip prosthesis in place. Orthopedic hardware in the proximal left femur. Multiple lytic lesions throughout the lower spine and bony pelvis, moderately increased in number compared to the prior study. Soft tissues: Unremarkable. IMPRESSION: 1. Partially loculated appearing large right pleural fluid collection raising concern for complicated fluid due to pleural metastatic disease or empyema 2. Interval increase in size of now 4.7 cm left renal mass and progression of findings of metastatic malignancy in the lungs, liver and bony structures as described. 3. Mild gallbladder distension and mild gallbladder wall thickening. No calcified gallstones.
--- NOTE | 2024-12-21 18:18 | CT_ITS ---
PROCEDURE INFORMATION: Exam: CTA Chest With Contrast Exam date and time: 12/21/2024 7:32 PM Age: 59 years old Clinical indication: Shortness of breath; Additional info: SOB, tachycardic, HX of effusions TECHNIQUE: Imaging protocol: Computed tomographic angiography of the chest with contrast. Exam focused on the arteries. 3D rendering (Not supervised by radiologist): MIP and/or 3D reconstructed images were created by the technologist. Radiation optimization: All CT scans at this facility use at least one of these dose optimization techniques: automated exposure control; mA and/or kV adjustment per patient size (includes targeted exams where dose is matched to clinical indication); or iterative reconstruction. Contrast material: ISOUVE 370; Contrast volume: 70 ml; Contrast route: INTRAVENOUS (IV); COMPARISON: CT ABDOMEN PELVIS W CON 10/13/2024 6:10 PM FINDINGS: Pulmonary arteries: Normal. No pulmonary emboli. Aorta: Unremarkable. No aortic aneurysm. No aortic dissection. Lungs: Significant interval increase in size and number of numerous pulmonary nodules throughout both lungs, the largest measuring approximately 1.5 cm in the left lower lobe. Pleural spaces: Large partially loculated appearing right pleural fluid collection with mild scattered pleural thickening and enhancement. No pneumothorax. Heart: Unremarkable. No cardiomegaly. No pericardial effusion. Lymph nodes: Unremarkable. No enlarged lymph nodes. Bones/joints: Scattered sclerotic and lytic lesions in the lower thoracic spine, left scapula and ribcage. Soft tissues: Unremarkable. IMPRESSION: 1. Persistent findings of metastatic disease throughout the lungs and osseous structures as described, with significant progression of metastatic disease throughout both lungs 2. Partially loculated appearing large right pleural fluid collection with mild pleural thickening and enhancement raises concern for pleural metastatic disease. Empyema would also be of consideration
--- NOTE | 2024-12-21 18:22 | ED_ITS ---
Discharge Plan Disposition Patient Disposition: Xfer Other Prescriptions Prescriptions: No Action levothyroxine 100 mcg tablet 100 mcg PO DAILY famotidine 20 mg tablet 20 mg PO DAILY dexamethasone 1 mg tablet 1 mg PO DAILY Eliquis 5 mg tablet 5 mg PO DAILY Fotivda 1.34 mg capsule 1.34 mg PO DAILY loperamide 2 mg Tablet 2 mg PO DAILY acetaminophen 1 unit 500 mg PO DAILY ondansetron 1 unit 4 mg PO DAILY senna-docusate sodium 1 unit 8.6 - 50 mg PO DAILY Referrals Follow up/Referrals: Jared Coronel MD [Primary Care Provider, Internal Medicine] - See instructions Clinical Impressions Clinical Impression: Pleural effusion, Empyema, Sepsis, Metastatic cancer Stand Alone Forms Stand Alone Forms: Transfer Record - ED Instructions Patient Instructions: DI for Acute Abdominal Pain Print Language Print Language: [place] Discharge ED Provider: Jesus Hannon Adult HPI <Jesus Hannon MD - Last Filed: 12/21/24 23:28> General Chief complaint: Abdominal Pain Stated complaint: Dehydrated Time Seen by Provider: 12/21/24 18:09 Mode of Arrival: Wheelchair Source of Information: Patient Description of Symptoms (Recalled from ER Triage Doc. by RN): pt c/o RUQ pain and N/V/D. pt states her pain is sharp and 8/10 pt denies urinary symptoms or chest pain. pt has metastatic cancer from renal cell carcinoma. pt is currently on chemo PO. pt has supportive thoracentesis with her last being last week. pts oncologist is at . 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 Patient states that starting this morning, she has had multiple episodes of nonbloody, watery diarrhea. She states that she has not been on antibiotics recently. She also reports some right-sided abdominal pain as well as intermittent chest pains. She does state that she is short of breath, however she does have recurrent pleural effusions and last had a thoracentesis performed last week at the emergency [facility]. She states that she has had multiple episodes of nonbloody vomiting throughout the day as well. She tried home antiemetics without relief. She has not had a fever. Patient does state that she takes Eliquis for DVTs and has bruising to her upper extremities. Related Data Home Medications ?Medication ?Instructions ?Recorded ?Confirmed acetaminophen 500 mg PO DAILY 10/13/24 apixaban 5 mg tablet (Eliquis) 5 mg PO DAILY 10/13/24 10/13/24 dexamethasone 1 mg tablet 1 mg PO DAILY 10/13/2410/13 famotidine 20 mg tablet 20 mg PO DAILY 10/13/2409/29 levothyroxine 100 mcg tablet 100 mcg PO DAILY 10/13/24 10/13/24 loperamide 2 mg tablet 2 mg PO DAILY 10/13/2410/13 ondansetron 4 mg PO DAILY 10/13/2410/13 senna-docusate sodium 8.6 - 50 mg PO DAILY 10/13/24 tivozanib 1.34 mg capsule (Fotivda) 1.34 mg PO DAILY 0 10/13/24 10/13/24 Allergies Allergy/AdvReac Type Severity Reaction Status Date / Time Sulfa (Sulfonamide Allergy Intermediate SWELLING, Verified 12/03/22 17:09 Antibiotics) SHORT OF BREATH vancomycin AdvReac Hives Verified 12/21/24 19:53 [facility] <Jesus Hannon MD - Last Filed: 12/21/24 23:28> [facility] Disclaimer: The information contained in this section may have been updated after the patient was seen, as this information can be updated by other users. Medical History (Updated 12/21/24 @ 23:54 by Nadia Brizuela MD) GERD (gastroesophageal reflux disease) Diabetes mellitus Surgical History (Updated 10/22/22 @ 10:09 by FARHNAA Loving) History of total hip replacement Family History Family/Other Cancer Breast-aunts Other Diabetes Social History Smoking Status: Never smoker alcohol intake: never substance use type: denies use current occupational status: employed Travel in the last 8 weeks?: None caffeine: No Have you lived/traveled outside US in past 30 days?: No Contact w/someone who lives/traveled outside US past 30 days?: No Exposure to someone with infectious disease in past 14 days?: No Do you have a fever (greater than 100.4 F or 38 C)?: No Have you tested positive for COVID-19?: No Exposed to someone with COVID-19 in past 14 days?: No Do you have a sore throat?: No Do you have a cough?: No Do you have any weakness?: No Do you have any diarrhea?: No Are you experiencing any unusual bleeding?: No Do you have any muscle aches/pain?: No Do you have any abdominal pain?: No Are you experiencing loss of taste or smell?: No Other Medical History Have you received the Flu Vaccine for this season: No Have you received the Pneumonia Vaccine: No <Jesus Hannon MD - Last Filed: 12/21/24 23:28> ROS Obtained: Yes Systems reviewed as appropriate & no additional complaints except as documented Physical Exam <Jesus Hannon MD - Last Filed: 12/21/24 23:28> General General appearance: alert and in no apparent distress Comment: ill appearing Head Head exam: atraumatic Eye Eye exam: Present normal appearance ENT ENT exam: Present mucous membranes moist and normal external ear exam Neck Neck exam: Present full ROM Chest Chest inspection: Present symmetric chest wall rise Respiratory Respiratory exam: Present normal lung sounds bilaterally (mildly diminished bilaterally); Absent respiratory distress, wheezes or stridor Cardiovascular Cardiovascular exam: Present normal rhythm and tachycardia Abdominal Exam Abdominal exam: Present soft and tenderness (Right lower quadrant, left upper quadrant); Absent distention, guarding or rigidity Extremities Exam Extremities exam: Present normal inspection Back Exam Back exam: Present normal inspection Neurological Exam Neurological exam: Present alert and oriented X3 Psychiatric Psychiatric exam: Present normal affect Skin Skin exam: Present warm, dry and other (Bruising to bilateral upper extremities) Medical Decision Making <Jesus Hannon MD - Last Filed: 12/21/24 23:28> Medical Records Screening: Per USPSTF and CDC recommendations, given the prevalence of disease in our region, it is our hospital?s policy to screen for HIV and viral Hepatitis for all patients aged 18 and over and those with ongoing risk factors. Christiano Inquiry Pt receiving controlled substance: No Vital Signs: 12/21/24 17:59 12/21/24 18:31 12/21/24 19:00 Temperature 98.5 F Temperature Source Oral Pulse Rate 110 H Pulse Rate [Left] 121 H Respiratory Rate 14 19 12 Blood Pressure 110/80 104/78 L Blood Pressure [Right Arm] 120/71 Blood Pressure Mean Blood Pressure Mean [Right Arm] 87 Blood Pressure Source [Right Arm] Manual Cuff/ Doppler Blood Pressure Position [Right Arm] Sitting 02 Sat by Pulse Oximetry 99 94 L Oxygen Delivery Method Room Air 12/21/24 20:00 12/21/24 20:14 12/21/24 20:15 Temperature Temperature Source Pulse Rate 96 H 102 H Pulse Rate [Left] Respiratory Rate 21 25 H 14 Blood Pressure 91/62 L 96/50 L 97/52 L Blood Pressure [Right Arm] Blood Pressure Mean Blood Pressure Mean [Right Arm] Blood Pressure Source [Right Arm] Blood Pressure Position [Right Arm] 02 Sat by Pulse Oximetry 96 95 Oxygen Delivery Method 12/21/24 20:15 12/21/24 20:16 12/21/24 20:16 Temperature Temperature Source Pulse Rate 102 H Pulse Rate [Left] Respiratory Rate 19 Blood Pressure 97/52 L 96/60 L 96/60 L Blood Pressure [Right Arm] Blood Pressure Mean 73 69 Blood Pressure Mean [Right Arm] Blood Pressure Source [Right Arm] Blood Pressure Position [Right Arm] 02 Sat by Pulse Oximetry 92 L Oxygen Delivery Method 12/21/24 20:17 12/21/24 20:30 12/21/24 20:45 Temperature Temperature Source Pulse Rate 98 H 98 H Pulse Rate [Left] Respiratory Rate 21 19 Blood Pressure 96/55 L 95/64 L 94/56 L Blood Pressure [Right Arm] Blood Pressure Mean 72 Blood Pressure Mean [Right Arm] Blood Pressure Source [Right Arm] Blood Pressure Position [Right Arm] 02 Sat by Pulse Oximetry 96 95 Oxygen Delivery Method 12/21/24 21:00 12/21/24 21:15 12/21/24 21:18 Temperature Temperature Source Pulse Rate 95 H 95 H 94 H Pulse Rate [Left] Respiratory Rate 19 19 21 Blood Pressure 103/57 L 92/43 L 89/55 L Blood Pressure [Right Arm] Blood Pressure Mean Blood Pressure Mean [Right Arm] Blood Pressure Source [Right Arm] Blood Pressure Position [Right Arm] 02 Sat by Pulse Oximetry 96 96 96 Oxygen Delivery Method 12/21/24 21:30 12/21/24 21:45 12/21/24 22:00 Temperature Temperature Source Pulse Rate 97 H 100 H 98 H Pulse Rate [Left] Respiratory Rate 24 14 19 Blood Pressure 109/66 L 107/71 L 114/56 L Blood Pressure [Right Arm] Blood Pressure Mean Blood Pressure Mean [Right Arm] Blood Pressure Source [Right Arm] Blood Pressure Position [Right Arm] 02 Sat by Pulse Oximetry 96 94 L 90 L Oxygen Delivery Method 12/21/24 22:15 12/21/24 22:30 12/21/24 22:45 Temperature Temperature Source Pulse Rate 99 H 102 H 98 H Pulse Rate [Left] Respiratory Rate 18 19 19 Blood Pressure 100/58 L 105/59 L 97/51 L Blood Pressure [Right Arm] Blood Pressure Mean Blood Pressure Mean [Right Arm] Blood Pressure Source [Right Arm] Blood Pressure Position [Right Arm] 02 Sat by Pulse Oximetry 89 L 90 L 89 L Oxygen Delivery Method 12/21/24 23:00 12/21/24 23:15 12/21/24 23:32 Temperature Temperature Source Pulse Rate 102 H 100 H 101 H Pulse Rate [Left] Respiratory Rate 12 19 11 L Blood Pressure 103/85 L 101/65 L 93/56 L Blood Pressure [Right Arm] Blood Pressure Mean Blood Pressure Mean [Right Arm] Blood Pressure Source [Right Arm] Blood Pressure Position [Right Arm] 02 Sat by Pulse Oximetry 93 L 89 L 91 L Oxygen Delivery Method Lab Data Lab Results 12/21/24 18:30: WBC 14.2 H, RBC 5.64 H, Hgb 14.8, Hct 46.6, MCV 82.6, MCH 26.2 L , MCHC 31.8, RDW 18.9 H, Plt Count 284, MPV 10.9 H, Neut % (Auto) 80.4 H, Lymph % (Auto) 11.3, Grand % (Auto) 6.0, Eos % (Auto) 0.8, Baso % (Auto) 0.5, Neut # (Auto) 11.4 H, Lymph # (Auto) 1.6, Grand # (Auto) 0.9, Eos # (Auto) 0.1, Baso # (Auto) 0.1, VBG pH 7.43 H, VBG pCO2 30.3 L, VBG pO2 84.0 H, VBG HCO3 19.7 L, VBG Total CO2 20.6 L, VBG O2 Saturation 95.9 H, VBG Base Excess -4.6 L, VBG Lactic Acid 4.0 H, Sodium 136, Potassium 3.9, Chloride 99, Carbon Dioxide 22, Anion Gap 18.9 H, BUN 18 H, Creatinine 0.80, Estimated Creat Clear 90, Estimated GFR 73, Est GFR ( Amer) 89, Glucose 158 H, Calcium 10.7 H, Magnesium 1.8, Total Bilirubin 1.2, AST 37 H, ALT 24, Alkaline Phosphatase 119, Troponin I < 0.01, C- Reactive Protein 110.4 H, NT-Pro-B Natriuret Pep 106, Total Protein 7.5, Albumin 4.1, Globulin 3.4 H, Albumin/Globulin Ratio 1.2, Lipase 51 12/21/24 19:02: SARS-CoV-2 (PCR) Not detected, Influenza Type A (PCR) Not detected, Influenza Type B (PCR) Not detected, RSV (PCR) Not detected, Rhinovirus (PCR) Not detected 12/21/24 21:50: Troponin I < 0.01 12/21/24 22:50: Lactate 1.6 12/21/24 18:30 12/21/24 18:30 Orders (Tests/Meds): ED MEDICATIONS Generic Name Dose Route Start Last Admin Trade Name Freq PRN Reason Stop Dose Admin Vancomycin/PEG/NADA/Lysine/Water 1.25 gm in 250 mls @ 125 mls/hr 12/22/24 07:30 Vancomycin 1.25gm/250ml (Peg) Premix IV 12/22/24 09:29 ONCE ONE Miscellaneous 1 each 12/21/24 19:30 12/21/24 20:29 Vancomycin Consult Request NOTAPPLIC 01/20/25 19:29 1 each CONSULT PHARMACY IN[facility] Administration Sodium Chloride 10 ml 12/21/24 19:31 12/21/24 19:33 Sodium Chloride 0.9% 10ml Syr (Rad Only) IV 01/20/25 19:30 10 ml NEEDED PRN Administration Maintain IV Site Discontinued Medications Generic Name Dose Route Start Last Admin Trade Name Freq PRN Reason Stop Dose Admin Diphenhydramine HCl 25 mg 12/21/24 19:55 12/21/24 20:07 Diphenhydramine 50mg/Ml Vial IV 12/21/24 19:56 25 mg ONCE ONE Administration Lactated Ringer's 1,000 mls @ 999 mls/hr 12/21/24 18:18 12/21/24 22:17 Lactated Ringer's 1000 Ml Bag IV 12/21/24 19:18 Infused .Q1H1M ONE Infusion Piperacillin Sod/Tazobactam 100 mls @ 200 mls/hr 12/21/24 19:23 12/21/24 23:28 Sod 4.5 gm/ Sodium Chloride IV 12/21/24 19:52 200 mls/hr ONCE ONE Infusion Vancomycin HCl 2,000 mg/ 250 mls @ 125 mls/hr 12/21/24 19:30 12/21/24 22:15 Sodium Chloride IV 12/21/24 21:29 Infused ONCE ONE Infusion Iopamidol 70 ml 12/21/24 19:31 12/21/24 19:33 Iopamidol-370 (76%);100ml Bottle IV 12/21/24 19:32 70 ml ONCE ONE Administration Morphine Sulfate 4 mg 12/21/24 18:18 12/21/24 18:58 Morphine 4mg/Ml Syringe IV 12/21/24 18:19 4 mg ONCE ONE Administration Ondansetron HCl 4 mg 12/21/24 18:22 12/21/24 18:57 Ondansetron 4mg/2ml Vial IV 12/21/24 18:23 4 mg ONCE ONE Administration Sodium Chloride 50 ml 12/21/24 19:31 12/21/24 19:33 0.9 % Sodium Chloride 50 Ml Vial IV 12/21/24 19:32 50 ml ONCE ONE Administration ORDERS Category Date Time Status CT abdomen pelvis w con Stat Cat Scan 12/21/24 18:[address] angio chest PE protocol Stat Cat Scan 12/21/24 18:18 Completed BNP [NT Pro Brain Natriuretic Pep.] Stat Lab 12/21/24 18:30 Completed CBC w/Auto Diff [Complete Blood Count Auto Diff] Stat Lab 12/21/24 18:30 Completed CMP [Comprehensive Metabolic Panel] Stat Lab 12/21/24 18:30 Completed CRP [C-Reactive Protein] Stat Lab 12/21/24 18:30 Completed Lactic Acid Follow Up (RFLX 1) Stat Lab 12/21/24 22:50 Completed Lipase Stat Lab 12/21/24 18:30 Completed Magnesium Stat Lab 12/21/24 18:30 Completed Mini Respiratory Panel Stat Lab 12/21/24 19:02 Completed Troponin I Q3H Lab 12/21/24 21:50 Completed Troponin I Q3H Lab 12/22/24 00:30 Ordered Troponin I Stat Lab 12/21/24 18:30 Completed UA [Urinalysis and Microscopic] Stat Lab 12/21/24 19:34 Ordered Blood Culture Stat Micro 12/21/24 19:23 Received VBG [Venous Blood Gas] Stat RT 12/21/24 18:30 Completed ECG Data Tracing #1: I reviewed this ECG and interpreted as documented below: Sinus tachycardia. No ST elevation or depression. QTc of 320 Medical Decision Narrative: Abby Winston is a 59y female Follow-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, who presents to the emergency department for complaints of nausea, vomiting, diarrhea and abdominal pain and shortness of breath. Patient states that starting this morning, she has had multiple episodes of nonbloody, watery diarrhea. She states that she has not been on antibiotics recently. She also reports some right-sided abdominal pain as well as intermittent chest pains. She does state that she is short of breath, however she does have recurrent pleural effusions and last had a thoracentesis performed last week at the emergency [facility]. She states that she has had multiple episodes of nonbloody vomiting throughout the day as well. She tried home antiemetics without relief. She has not had a fever. Patient does state that she takes Eliquis for DVTs and has bruising to her upper extremities. On arrival, patient is normotensive with blood pressure 120/71, tachycardic with heart rate in the 120s, breathing 14 times a minute, afebrile with temperature 98.5 ?F. Oxygen saturation 99% on room air. Physical exam, as stated above, revealed an ill appearing female in no respiratory distress. She is speaking in full sentences. She has diminished breath sounds bilaterally but no wheezing or rhonchi. Cardiac exam shows tachycardia but no murmurs or rubs. Abdomen is tender mostly in the right lower quadrant and right upper quadrant without peritonitis. She appears mildly dry on exam. Differential diagnosis includes, but is not limited to: Dehydration, electrolyte derangement, sepsis, pneumonia, pleural effusion, intra-abdominal infection, metastatic disease, pyelonephritis, ACS, pulmonary embolism, among others. The most morbid conditions were considered and workup was based on these. Workup in the Emergency Department included: CT PE, CT abdomen pelvis IV contrast, CBC with differential, CMP, EKG, VBG with lactate, troponin, CMP, CRP, BNP, lipase, magnesium level, CBC with differential, mini respiratory panel, blood culture x 2, urinalysis. Patient was initially treated with 1 L lactated ringer, 4 mg of IV morphine, 4 mg of IV Zofran. EKG showed sinus tachycardia. No ischemic changes. Patient's workup at this time shows mild metabolic alkalosis with pH of 7.43, bicarb low at 19.7, pCO2 attempting to compensate at 30.3. This could be contraction related given patient's significant vomiting and diarrhea. Patient's lactate is elevated at 4. Patient is receiving IV fluids at this time. CMP shows normal sodium and potassium. Anion gap is elevated at 18.9, likely secondary to elevated lactate. BUN mildly elevated 18 but creatinine normal at 0.8. AST mildly elevated at 37 and bilirubin normal at 1.2. Liver enzymes otherwise within normal limits.?Troponin less than 0.01. CRP is significantly elevated at 110.4 (was 86.5 on 10/13/2024). Patient does have a leukocytosis with white blood cell count of 14.2 with neutrophilia. Lipase normal at 51. Magnesium normal at 1.8. Given patient meets SIRS criteria with her tachycardia, elevated white blood cell count, elevated inflammatory markers and elevated lactate, will order empiric antibiotics, vancomycin and Zosyn. Will avoid additional IV fluids at this time to avoid volume overload in the setting of patient's history of a pleural effusion. CT imaging is pending at this time. CT imaging was interpreted by me personally. Patient has a moderate size right- sided pleural effusion concerning for possible empyema. There is metastatic disease throughout the lungs. Per radiology, there is an interval increase in size of the left renal mass and now measures 4.7 cm there is gallbladder distention and mild gallbladder wall thickening but no gallstones. Patient has progression of metastatic disease throughout both lungs. There is partially loculated appearing large right pleural fluid collection with mild pleural thickening and enhancement that raises concern for pleural metastatic disease. Empyema would also be a consideration. On reassessment, patient is sleeping comfortably. Will hold off on additional fluids at this time due to pleural effusion and at risk for volume overload. Discussed the results with patient and that we need to attempt to transfer her to the [facility] for her possible empyema versus worsening metastatic disease. She is in agreement with this plan. Will attempt to discuss patient's case with [facility] transfer center. At 23:28, patient's care was transferred to the oncoming physician, Dr. Brizuela, pending callback from the [facility] for transfer. <Nadia Brizuela MD - Last Filed: 12/21/24 23:55> Vital Signs: 12/21/24 17:59 12/21/24 18:31 12/21/24 19:00 Temperature 98.5 F Temperature Source Oral Pulse Rate 110 H Pulse Rate [Left] 121 H Respiratory Rate 14 19 12 Blood Pressure 110/80 104/78 L Blood Pressure [Right Arm] 120/71 Blood Pressure Mean Blood Pressure Mean [Right Arm] 87 Blood Pressure Source [Right Arm] Manual Cuff/ Doppler Blood Pressure Position [Right Arm] Sitting 02 Sat by Pulse Oximetry 99 94 L Oxygen Delivery Method Room Air 12/21/24 20:00 12/21/24 20:14 12/21/24 20:15 Temperature Temperature Source Pulse Rate 96 H 102 H Pulse Rate [Left] Respiratory Rate 21 25 H 14 Blood Pressure 91/62 L 96/50 L 97/52 L Blood Pressure [Right Arm] Blood Pressure Mean Blood Pressure Mean [Right Arm] Blood Pressure Source [Right Arm] Blood Pressure Position [Right Arm] 02 Sat by Pulse Oximetry 96 95 Oxygen Delivery Method 12/21/24 20:15 12/21/24 20:16 12/21/24 20:16 Temperature Temperature Source Pulse Rate 102 H Pulse Rate [Left] Respiratory Rate 19 Blood Pressure 97/52 L 96/60 L 96/60 L Blood Pressure [Right Arm] Blood Pressure Mean 73 69 Blood Pressure Mean [Right Arm] Blood Pressure Source [Right Arm] Blood Pressure Position [Right Arm] 02 Sat by Pulse Oximetry 92 L Oxygen Delivery Method 12/21/24 20:17 12/21/24 20:30 12/21/24 20:45 Temperature Temperature Source Pulse Rate 98 H 98 H Pulse Rate [Left] Respiratory Rate 21 19 Blood Pressure 96/55 L 95/64 L 94/56 L Blood Pressure [Right Arm] Blood Pressure Mean 72 Blood Pressure Mean [Right Arm] Blood Pressure Source [Right Arm] Blood Pressure Position [Right Arm] 02 Sat by Pulse Oximetry 96 95 Oxygen Delivery Method 12/21/24 21:00 12/21/24 21:15 12/21/24 21:18 Temperature Temperature Source Pulse Rate 95 H 95 H 94 H Pulse Rate [Left] Respiratory Rate 19 19 21 Blood Pressure 103/57 L 92/43 L 89/55 L Blood Pressure [Right Arm] Blood Pressure Mean Blood Pressure Mean [Right Arm] Blood Pressure Source [Right Arm] Blood Pressure Position [Right Arm] 02 Sat by Pulse Oximetry 96 96 96 Oxygen Delivery Method 12/21/24 21:30 12/21/24 21:45 12/21/24 22:00 Temperature Temperature Source Pulse Rate 97 H 100 H 98 H Pulse Rate [Left] Respiratory Rate 24 14 19 Blood Pressure 109/66 L 107/71 L 114/56 L Blood Pressure [Right Arm] Blood Pressure Mean Blood Pressure Mean [Right Arm] Blood Pressure Source [Right Arm] Blood Pressure Position [Right Arm] 02 Sat by Pulse Oximetry 96 94 L 90 L Oxygen Delivery Method 12/21/24 22:15 12/21/24 22:30 12/21/24 22:45 Temperature Temperature Source Pulse Rate 99 H 102 H 98 H Pulse Rate [Left] Respiratory Rate 18 19 19 Blood Pressure 100/58 L 105/59 L 97/51 L Blood Pressure [Right Arm] Blood Pressure Mean Blood Pressure Mean [Right Arm] Blood Pressure Source [Right Arm] Blood Pressure Position [Right Arm] 02 Sat by Pulse Oximetry 89 L 90 L 89 L Oxygen Delivery Method 12/21/24 23:00 12/21/24 23:15 12/21/24 23:32 Temperature Temperature Source Pulse Rate 102 H 100 H 101 H Pulse Rate [Left] Respiratory Rate 12 19 11 L Blood Pressure 103/85 L 101/65 L 93/56 L Blood Pressure [Right Arm] Blood Pressure Mean Blood Pressure Mean [Right Arm] Blood Pressure Source [Right Arm] Blood Pressure Position [Right Arm] 02 Sat by Pulse Oximetry 93 L 89 L 91 L Oxygen Delivery Method Lab Data Lab Results 12/21/24 18:30: WBC 14.2 H, RBC 5.64 H, Hgb 14.8, Hct 46.6, MCV 82.6, MCH 26.2 L , MCHC 31.8, RDW 18.9 H, Plt Count 284, MPV 10.9 H, Neut % (Auto) 80.4 H, Lymph % (Auto) 11.3, Grand % (Auto) 6.0, Eos % (Auto) 0.8, Baso % (Auto) 0.5, Neut # (Auto) 11.4 H, Lymph # (Auto) 1.6, Grand # (Auto) 0.9, Eos # (Auto) 0.1, Baso # (Auto) 0.1, VBG pH 7.43 H, VBG pCO2 30.3 L, VBG pO2 84.0 H, VBG HCO3 19.7 L, VBG Total CO2 20.6 L, VBG O2 Saturation 95.9 H, VBG Base Excess -4.6 L, VBG Lactic Acid 4.0 H, Sodium 136, Potassium 3.9, Chloride 99, Carbon Dioxide 22, Anion Gap 18.9 H, BUN 18 H, Creatinine 0.80, Estimated Creat Clear 90, Estimated GFR 73, Est GFR ( Amer) 89, Glucose 158 H, Calcium 10.7 H, Magnesium 1.8, Total Bilirubin 1.2, AST 37 H, ALT 24, Alkaline Phosphatase 119, Troponin I < 0.01, C- Reactive Protein 110.4 H, NT-Pro-B Natriuret Pep 106, Total Protein 7.5, Albumin 4.1, Globulin 3.4 H, Albumin/Globulin Ratio 1.2, Lipase 51 12/21/24 19:02: SARS-CoV-2 (PCR) Not detected, Influenza Type A (PCR) Not detected, Influenza Type B (PCR) Not detected, RSV (PCR) Not detected, Rhinovirus (PCR) Not detected 12/21/24 21:50: Troponin I < 0.01 12/21/24 22:50: Lactate 1.6 Orders (Tests/Meds): ED MEDICATIONS Generic Name Dose Route Start Last Admin Trade Name Freq PRN Reason Stop Dose Admin Vancomycin/PEG/NADA/Lysine/Water 1.25 gm in 250 mls @ 125 mls/hr 12/22/24 07:30 Vancomycin 1.25gm/250ml (Peg) Premix IV 12/22/24 09:29 ONCE ONE Miscellaneous 1 each 12/21/24 19:30 12/21/24 20:29 Vancomycin Consult Request NOTAPPLIC 01/20/25 19:29 1 each CONSULT PHARMACY IN[facility] Administration Sodium Chloride 10 ml 12/21/24 19:31 12/21/24 19:33 Sodium Chloride 0.9% 10ml Syr (Rad Only) IV 01/20/25 19:30 10 ml NEEDED PRN Administration Maintain IV Site Discontinued Medications Generic Name Dose Route Start Last Admin Trade Name Freq PRN Reason Stop Dose Admin Diphenhydramine HCl 25 mg 12/21/24 19:55 12/21/24 20:07 Diphenhydramine 50mg/Ml Vial IV 12/21/24 19:56 25 mg ONCE ONE Administration Lactated Ringer's 1,000 mls @ 999 mls/hr 12/21/24 18:18 12/21/24 22:17 Lactated Ringer's 1000 Ml Bag IV 12/21/24 19:18 Infused .Q1H1M ONE Infusion Piperacillin Sod/Tazobactam 100 mls @ 200 mls/hr 12/21/24 19:23 12/21/24 23:28 Sod 4.5 gm/ Sodium Chloride IV 12/21/24 19:52 200 mls/hr ONCE ONE Infusion Vancomycin HCl 2,000 mg/ 250 mls @ 125 mls/hr 12/21/24 19:30 12/21/24 22:15 Sodium Chloride IV 12/21/24 21:29 Infused ONCE ONE Infusion Iopamidol 70 ml 12/21/24 19:31 12/21/24 19:33 Iopamidol-370 (76%);100ml Bottle IV 12/21/24 19:32 70 ml ONCE ONE Administration Morphine Sulfate 4 mg 12/21/24 18:18 12/21/24 18:58 Morphine 4mg/Ml Syringe IV 12/21/24 18:19 4 mg ONCE ONE Administration Ondansetron HCl 4 mg 12/21/24 18:22 12/21/24 18:57 Ondansetron 4mg/2ml Vial IV 12/21/24 18:23 4 mg ONCE ONE Administration Sodium Chloride 50 ml 12/21/24 19:31 12/21/24 19:33 0.9 % Sodium Chloride 50 Ml Vial IV 12/21/24 19:32 50 ml ONCE ONE Administration ORDERS Category Date Time Status CT abdomen pelvis w con Stat Cat Scan 12/21/24 18:[address] angio chest PE protocol Stat Cat Scan 12/21/24 18:18 Completed BNP [NT Pro Brain Natriuretic Pep.] Stat Lab 12/21/24 18:30 Completed CBC w/Auto Diff [Complete Blood Count Auto Diff] Stat Lab 12/21/24 18:30 Completed CMP [Comprehensive Metabolic Panel] Stat Lab 12/21/24 18:30 Completed CRP [C-Reactive Protein] Stat Lab 12/21/24 18:30 Completed Lactic Acid Follow Up (RFLX 1) Stat Lab 12/21/24 22:50 Completed Lipase Stat Lab 12/21/24 18:30 Completed Magnesium Stat Lab 12/21/24 18:30 Completed Mini Respiratory Panel Stat Lab 12/21/24 19:02 Completed Troponin I Q3H Lab 12/21/24 21:50 Completed Troponin I Q3H Lab 12/22/24 00:30 Ordered Troponin I Stat Lab 12/21/24 18:30 Completed UA [Urinalysis and Microscopic] Stat Lab 12/21/24 19:34 Ordered Blood Culture Stat Micro 12/21/24 19:23 Received VBG [Venous Blood Gas] Stat RT 12/21/24 18:30 Completed Medical Decision Narrative: Abby Winston is a 59y female Follow-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, who presents to the emergency department for complaints of nausea, vomiting, diarrhea and abdominal pain and shortness of breath. Patient states that starting this morning, she has had multiple episodes of nonbloody, watery diarrhea. She states that she has not been on antibiotics recently. She also reports some right-sided abdominal pain as well as intermittent chest pains. She does state that she is short of breath, however she does have recurrent pleural effusions and last had a thoracentesis performed last week at the emergency [facility]. She states that she has had multiple episodes of nonbloody vomiting throughout the day as well. She tried home antiemetics without relief. She has not had a fever. Patient does state that she takes Eliquis for DVTs and has bruising to her upper extremities. On arrival, patient is normotensive with blood pressure 120/71, tachycardic with heart rate in the 120s, breathing 14 times a minute, afebrile with temperature 98.5 ?F. Oxygen saturation 99% on room air. Physical exam, as stated above, revealed an ill appearing female in no respiratory distress. She is speaking in full sentences. She has diminished breath sounds bilaterally but no wheezing or rhonchi. Cardiac exam shows tachycardia but no murmurs or rubs. Abdomen is tender mostly in the right lower quadrant and right upper quadrant without peritonitis. She appears mildly dry on exam. Differential diagnosis includes, but is not limited to: Dehydration, electrolyte derangement, sepsis, pneumonia, pleural effusion, intra-abdominal infection, metastatic disease, pyelonephritis, ACS, pulmonary embolism, among others. The most morbid conditions were considered and workup was based on these. Workup in the Emergency Department included: CT PE, CT abdomen pelvis IV contrast, CBC with differential, CMP, EKG, VBG with lactate, troponin, CMP, CRP, BNP, lipase, magnesium level, CBC with differential, mini respiratory panel, blood culture x 2, urinalysis. Patient was initially treated with 1 L lactated ringer, 4 mg of IV morphine, 4 mg of IV Zofran. EKG showed sinus tachycardia. No ischemic changes. Patient's workup at this time shows mild metabolic alkalosis with pH of 7.43, bicarb low at 19.7, pCO2 attempting to compensate at 30.3. This could be contraction related given patient's significant vomiting and diarrhea. Patient's lactate is elevated at 4. Patient is receiving IV fluids at this time. CMP shows normal sodium and potassium. Anion gap is elevated at 18.9, likely secondary to elevated lactate. BUN mildly elevated 18 but creatinine normal at 0.8. AST mildly elevated at 37 and bilirubin normal at 1.2. Liver enzymes otherwise within normal limits.?Troponin less than 0.01. CRP is significantly elevated at 110.4 (was 86.5 on 10/13/2024). Patient does have a leukocytosis with white blood cell count of 14.2 with neutrophilia. Lipase normal at 51. Magnesium normal at 1.8. Given patient meets SIRS criteria with her tachycardia, elevated white blood cell count, elevated inflammatory markers and elevated lactate, will order empiric antibiotics, vancomycin and Zosyn. Will avoid additional IV fluids at this time to avoid volume overload in the setting of patient's history of a pleural effusion. CT imaging is pending at this time. CT imaging was interpreted by me personally. Patient has a moderate size right- sided pleural effusion concerning for possible empyema. There is metastatic disease throughout the lungs. Per radiology, there is an interval increase in size of the left renal mass and now measures 4.7 cm there is gallbladder distention and mild gallbladder wall thickening but no gallstones. Patient has progression of metastatic disease throughout both lungs. There is partially loculated appearing large right pleural fluid collection with mild pleural thickening and enhancement that raises concern for pleural metastatic disease. Empyema would also be a consideration. On reassessment, patient is sleeping comfortably. Will hold off on additional fluids at this time due to pleural effusion and at risk for volume overload. Discussed the results with patient and that we need to attempt to transfer her to the [facility] for her possible empyema versus worsening metastatic disease. She is in agreement with this plan. Will attempt to discuss patient's case with [facility] transfer center. At 23:28, patient's care was transferred to the oncoming physician, Dr. Brizuela, pending callback from the [facility] for transfer. Brizuela: Upon my assumption of care patient is stable, she was starting to get slightly hypoxic despite being on nasal cannula so we increased her flow. She is now on 3 L nasal cannula saturating 95 to 97%. Respiratory rate 18-[address] Camarena from the transfer center called back and we discussed this case briefly. After reviewing her presentation, our findings including sepsis with suspected empyema, medications administered in the ER, and her current status he graciously accepted the patient for ER to ER transfer to [facility] emergency department. I appreciate his time and acceptance. Patient was reassessed immediately prior to transfer, she continues to saturate in the mid to upper 90s on 3 L nasal cannula with patent airway, no respiratory distress, no evidence of airway compromise, GCS 15. She is appropriate for transfer and was transferred by ambulance in stable condition. Critical Care <Jesus Hannon MD - Last Filed: 12/21/24 23:28> Critical Care Time Critical Care Time: Yes Attestation: On 12/21/24, the high probability of a clinically significant, sudden or life threatening deterioration of the following system(s) required my full and direct attention, intervention and personal management. The time I documented below is in addition to time spent performing reported procedures but includes the following listed in this critical care notation. Total Time Total Critical Care Time: 35
[2024-12-21 18:46] LABS: VBG HCO3 19.7 mmol/L (23-30); VBG PCO2 30.3 mmol/L (35-51); VBG PH 7.43 mmol/L (7.31-7.41); VBG PO2 84.0 mmol/L (28-40)
[2024-12-21 18:49] LABS: Lactate Venous 4.0 mmol/L (0.4-2.0)
[2024-12-21 18:57] LABS: Albumin Level 4.1 g/dl (3.5-5.0); Chloride 99 mmol/L (98-107); Potassium 3.9 mmoL/L (3.5-5.1); Sodium 136 mmol/L (136-145)
[2024-12-21] MEDS: ONDANSETRON 4MG/2ML VIAL 4 MG IV (18:57)
[2024-12-21] MEDS: LACTATED RINGERS 1000ML 1,000 ML 999 ML IV (18:57)
[2024-12-21] MEDS: MORPHINE 4MG/ML SYRINGE 4 MG IV (18:58)
[2024-12-21 19:00] LABS: Alanine Aminotransferase 24 U/L (12-78); Albumin/Globulin Ratio 1.2 (1.1-1.8); Alkaline Phosphatase 119 U/L (38-126); Anion Gap 18.9 mEq/L (5-15); Aspartate Amino Transferase 37 U/L (14-36); Bilirubin,Total 1.2 mg/dl (0.2-1.3); Blood Urea Nitrogen 18 mg/dl (7-17); Calcium 10.7 mg/dl (8.4-10.2); Carbon Dioxide 22 mmol/L (22.0-30.0); Creatinine Clearance Estimated 90 mL/min (50-200); Creatinine,Serum 0.80 mg/dl (0.52-1.04); Estimated Glomerular Filt Rate 73 ml/min (>60); GFR (African American) 89 ML/MIN (>60); Globulin 3.4 g/dL (1.3-3.2); Glucose 158 mg/dl (74-100); Total Protein,Serum 7.5 g/dl (6.3-8.2)
[2024-12-21 19:07] LABS: Hemoglobin 14.8 g/dL (12.2-16.2); Red Blood Count 5.64 M/mm3 (4.20-5.40); White Blood Count 14.2 K/mm3 (4.8-10.8)
[2024-12-21 19:08] LABS: Coronavirus 19, PCR Not Detected (NotDetected); Influenza A, PCR Not Detected (NotDetected); Influenza B, PCR Not Detected (NotDetected)
[2024-12-21 19:08] LABS: Hematocrit 46.6 % (37.0-47.0); Immature Granulocytes % 1.0 %; Mean Corpuscular HGB Conc 31.8 g/dL (31.8-35.4); Mean Corpuscular Hemoglobin 26.2 pg (27.0-31.2); Mean Corpuscular Volume 82.6 fl (81-99); Nucleated Red Blood Cells % 0.2 %; Platelet Count 284 K/mm3 (142-424); Red Cell Distribution Width-SD 53.2 fL
[2024-12-21 19:10] LABS: C-Reactive Protein 110.4 mg/L (0-4)
[2024-12-21 19:11] LABS: NT Pro Brain Natriuretic Pep. 106 pg/mL (0-125)
[2024-12-21 19:17] LABS: Troponin I < 0.01 ng/ml (0.00-0.034)
--- NOTE | 2024-12-21 19:27 | PC.NURSE ---
Pt to CT scan via stretcher
[2024-12-21] MEDS: IOPAMIDOL-370 (76%);100ML BOTTLE 70 ML IV (19:33)
[2024-12-21] MEDS: 0.9 % SODIUM CHLORIDE 50 ML VIAL IV (19:33)
[2024-12-21] MEDS: SODIUM CHLORIDE 0.9% 10ML SYR (RAD ONLY) 10 ML IV (19:33)
--- NOTE | 2024-12-21 19:33 | PC.NURSE ---
Pt in CT
--- NOTE | 2024-12-21 19:41 | PC.NURSE ---
When preparing abx, pt states she is allergic to another abx besides Sulfa. Pt is looking up on her MyChart. States she had SOB when it was given to her after surgery.
[2024-12-21] MEDS: PIPERACILLIN/TAZO 4.5 GM in 0.9 % SODIUM CHLORIDE 100 ML IV (19:51)
[2024-12-21 19:52] LABS: Lipase 51 U/L (23-300)
[2024-12-21 19:53] LABS: Magnesium 1.8 mg/dl (1.6-2.3)
[2024-12-21] MEDS: VANCOMYCIN HCL 2,000 MG in 0.9 % SODIUM CHLORIDE 250 ML 125 MG IV (20:11)
--- NOTE | 2024-12-21 20:15 | PC.NURSE ---
Pt allergy to Vanc was found on her MyChart from [facility]. Itching is side effect from Vanc, Dr Hannon aware, will give 25 mg Benadryl prior to starting Vanc infusion.
[2024-12-21] MEDS: VANCOMYCIN CONSULT REQUEST 1 EACH NOTAPPLIC (20:29)
--- NOTE | 2024-12-21 22:06 | PC.NURSE ---
2nd trop sent to lab, skin tear on left forearm re dressed with gauze and coban
[2024-12-21 22:21] LABS: Reflex Lactic Add Lactic Reflex
[2024-12-21 22:58] LABS: Troponin I < 0.01 ng/ml (0.00-0.034)
[2024-12-21 23:17] LABS: Lactic Acid Follow Up (RFLX 1) 1.6 mmol/L (0.7-2.1)
[2024-12-22 00:05] VITALS: BP 102/65; PULSE 88; RESP 16; TEMP 36.6; O2SAT 97
== END 2024-12-22 00:52 | disposition other institution (70) ==
PROVIDERS: Emergency Provider Student in an Organized Health Care Education/Training Program; PCP Internal Medicine Adolescent Medicine
DX: A41.9 Sepsis, unspecified organism (principal); J86.9 Pyothorax without fistula; J90 Pleural effusion, not elsewhere classified; R09.02 Hypoxemia; E87.21 Acute metabolic acidosis; R74.02 Elevation of levels of lactic acid dehydrogenase [LDH]; R00.0 Tachycardia, unspecified; C64.9 Malignant neoplasm of unspecified kidney, except renal pelvis; R11.2 Nausea with vomiting, unspecified; R19.7 Diarrhea, unspecified
CPT/HCPCS: 71275; 74177; 80053; 82803; 83605; 83690; 83735; 83880; 84484; 85025; 86140; 87040; 87631; 93005; 96361; 96365; 96366; 96375; 99285; 99291; J1200; J2270; J2405; J2543; J3373; J7050; J7120; Q9967